=== PATIENT | female | born 1970 | race American Indian/Alaskan Native ===

== ENCOUNTER 2018-06-07 14:14 | Inpatient (IN) | payer MEDICARE, OTHER ==
[2018-06-07 18:08] LABS: BASO # 0.1 K/uL (0.0-0.2); BASO % 0.7 % (0.0-2.0); EOS # 0.1 K/uL (0.0-0.7); EOS % 0.9 % (0.0-4.0); LYMPH # 1.4 K/uL (1.0-4.3); LYMPH % 15.7 % (20.0-40.0); MEAN CORPUSCULAR HEMOGLOBIN 34.6 pg (27.0-31.0); MEAN CORPUSCULAR HGB CONC 33.9 g/dL (33.0-37.0); MEAN PLATELET VOLUME 9.9 fL (7.2-11.7); MONO # 1.3 K/uL (0.0-0.8); MONO % 14.1 % (0.0-10.0); NEUT # 6.3 K/uL (1.8-7.0); NEUT % 68.6 % (50.0-75.0); NRBC % 0.1 % (0.0-2.0); RBC 5.15 Mil/uL (3.80-5.20); RED CELL DISTRIBUTION WIDTH 15.3 % (11.5-14.5); WHITE BLOOD COUNT 9.2 K/uL (4.8-10.8)
[2018-06-07 18:09] LABS: HEMOGLOBIN 17.8 g/dL (11.0-16.0); MEAN CELL VOLUME 101.9 fL (81.0-99.0)
[2018-06-07] MEDS ORDERED: Sodium Chloride 0.9% 1,000 ML IV STA (18:11)
[2018-06-07 18:13] LABS: INR 1.1; PROTHROMBIN TIME 12.3 SECONDS (9.7-12.2)
[2018-06-07 18:16] LABS: ALBUMIN 3.7 g/dL (3.5-5.0); ALT/SGPT 37 U/L (9-52); AMYLASE 65 U/L (30-110); AST/SGOT 55 U/L (14-36); BLOOD UREA NITROGEN 13 mg/dL (7-17); CALCIUM 9.9 mg/dl (8.6-10.4); GFR NON-AFRICAN AMERICAN > 60; LIPASE 44 U/L (23-300)
--- NOTE | 2018-06-07 18:19 | RAD ---
Date of service: 06/07/2018 PROCEDURE: CHEST RADIOGRAPH, 1 VIEW HISTORY: weakness COMPARISON: None available. FINDINGS: LUNGS: Clear. PLEURA: No pneumothorax or pleural fluid seen. CARDIOVASCULAR: No aortic atherosclerotic calcification present. Normal. OSSEOUS STRUCTURES: No significant abnormalities. VISUALIZED UPPER ABDOMEN: Normal. OTHER FINDINGS: None. IMPRESSION: No active disease.
[2018-06-07 18:33] LABS: INFLUENZA A B NEGATIVE FOR FLU A/B (NEGATIVE)
[2018-06-07 18:45] LABS: CK-MB < 0.22 ng/mL (0.0-3.38)
--- NOTE | 2018-06-07 18:47 | C.PDOC ---
History Of Present Illness 47 year old female with no medical history was sent to the ED by her PMD for evaluation of worsening bilateral lower + upper extremity tingling, decreased movement to bilateral lower + upper extremities, and abdominal pain over the course of 2 weeks. Initially the tingling started as muscle pain described as a hot sensation on her lower extremities bilaterally radiating up to her chest associated with nausea, vomiting, watery diarrhea, and decrease in PO intake. Patient notes the muscle pain progressed into tingling of the lower extremities + upper extremities 5 days ago associated with continued diarrhea. She reports changes in vision, "seeing double" that began today. She notes increase in PO intake for the past 2 days. Patient states she had full movement of upper + lower extremities 2 weeks ago, now ambulates with assistance. SHx: section, gastric bypass (12 years ago), and hysterectomy. Denies fever, chills, chest pain, palpitations, headache. Previously seen by PMD. [place] [facility] [place] where she was treated for similar symptoms and had multiple tests run including: CXR: normal as per PMD. CAT Scan ABD: questionable cholelithiasis and lesions as per PMD. MRI: normal as per PMD. <Yanni Pascal - Last Filed: 06/07/18 20:56> History Per: Patient History/Exam Limitations: no limitations Onset/Duration Of Symptoms: Days (x2 weeks) Current Symptoms Are (Timing): Still Present <Yanni Pascal - Last Filed: 06/07/18 20:56> <Shon Diego - Last Filed: 06/07/18 21:05> Time Seen by Provider: 06/07/18 16:47 Chief Complaint (Nursing): Weakness/Neurological Deficit Past Medical History Reviewed: Historical Data, Nursing Documentation, Vital Signs Vital Signs: Last Vital Signs Temp 97.7 F 06/07/18 14:24 Pulse 104 H 06/07/18 14:24 Resp 18 06/07/18 14:24 BP 127/95 H 06/07/18 14:24 Pulse Ox 99 06/07/18 14:24 Family History: States: Unknown Family Hx - Social History Hx Alcohol Use: Yes Hx Substance Use: No - Immunization History Hx Tetanus Toxoid Vaccination: No Hx Influenza Vaccination: No Hx Pneumococcal Vaccination: No <Yanni Pascal - Last Filed: 06/07/18 20:56> Vital Signs: Last Vital Signs Temp 97.7 F 06/07/18 14:24 Pulse 104 H 06/07/18 14:24 Resp 18 06/07/18 14:24 BP 127/95 H 06/07/18 14:24 Pulse Ox 99 06/07/18 20:58 <SulaimanmandieShon - Last Filed: 06/07/18 21:05> Review Of Systems Constitutional: Negative for: Fever, Chills Eyes: Positive for: Vision Change (seeing double. ) Cardiovascular: Negative for: Chest Pain, Palpitations Gastrointestinal: Positive for: Nausea, Vomiting, Abdominal Pain, Diarrhea Neurological: Positive for: Other (bilateral tingling of the lower + upper extremities. ). Negative for: Headache <Yanni Pascal - Last Filed: 06/07/18 20:56> Physical Exam - Physical Exam Appears: No Acute Distress, Chronically Ill Skin: Normal Color, No Rash Head: Atraumatic, Normacephalic Eye(s): bilateral: Normal Inspection, PERRL, EOMI Neck: Normal ROM, Supple Chest: Symmetrical, No Deformity, No Tenderness Cardiovascular: Rhythm Regular, No Edema Respiratory: Normal Breath Sounds, No Accessory Muscle Use, No Rales, No Wheezing Gastrointestinal/Abdominal: Soft, Tenderness (diffuse), No Guarding, No Rebound Rectal: Rectal Tone (decreased) Back: Normal Inspection, No Vertebral Tenderness, No Paraspinal Tenderness Extremity: Tenderness (diffuse b/l), No Deformity, No Swelling Neurological/Psych: Oriented x3, No Normal Speech (slightly slurred), Normal Cognition, Normal Cranial Nerves, No Normal Motor ( in LE), No Normal Sensation (decreased b/l LE and mildly decreased b/l UE), No Normal Reflexes (decreased b/l LE) <Yanni Pascal - Last Filed: 06/07/18 20:56> ED Course And Treatment - Laboratory Results Result Diagrams: 06/07/18 17:57 06/07/18 17:57 O2 Sat by Pulse Oximetry: 99 (RA) Pulse Ox Interpretation: Normal - Other Rad CXR X-Ray: Viewed By Me, Read By Radiologist Interpretation: FINDINGS: LUNGS: Clear. PLEURA: No pneumothorax or pleural fluid seen. CARDIOVASCULAR: No aortic atherosclerotic calcification present. Normal. OSSEOUS STRUCTURES: No significant abnormalities. VISUALIZED UPPER ABDOMEN: Normal. OTHER FINDINGS: None. IMPRESSION: No active disease. - CT Scan/US CT Head Other Rad Studies (CT/US): Read By Radiologist CT/US Interpretation: FINDINGS: BRAIN. No acute intraparenchymal hemorrhage. No mass lesion. No CT evidence for acute territorial infarct. No midline shift or extra-axial collections. VENTRICLES: No hydrocephalus. ORBITS: The orbits are unremarkable. SINUSES AND MASTOIDS: The paranasal sinuses and mastoid air cells are clear. BONES: No fracture. SOFT TISSUES: Unremarkable. IMPRESSION: No acute intracranial abnormality. Progress Note: Plan: CT Head w/o contrast. EKG. Bloos sent. Influenza. Rapid strep. Urinalysis. At 7 pm case was signed out to <Yanni Pascal - Last Filed: 06/07/18 20:56> - Laboratory Results Result Diagrams: 06/07/18 17:57 06/07/18 17:57 <Shon Diego - Last Filed: 06/07/18 21:05> Medical Decision Making Medical Decision Makin:54pm : Spoke with Dr. Flowers regarding patient's case, advised patient be admitted. 8:56pm : Spoke with Dr. Singh regarding patient's case. <Yanni Pascal - Last Filed: 06/07/18 20:56> Medical Decision Making: recieved case as signout pending dispo. ?gbs vs ms vs b12 vs tabes dorsales vs other neurologic disease. csae discusswed with dr flowers. recommends mri/lp. lp attempted. unable to obtains csf. case discussed with icu. will admit case to icu. ir guided lp in am. 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 - Scribe Statement The provider has reviewed the documentation as recorded by the Scribe (Odalis Banks) All medical record entries made by the Scribe were at my direction and personally dictated by me. I have reviewed the chart and agree that the record accurately reflects my personal performance of the history, physical exam, medical decision making, and the department course for this patient. I have also personally directed, reviewed, and agree with the discharge instructions and disposition. <Yanni Pascal - Last Filed: 06/07/18 20:56> Physician Patient Turnover Patient Signed Over To: Shon Diego Handoff Comments: pending labs/CT and dispo <Yanni Pascal - Last Filed: 06/07/18 20:56>
--- NOTE | 2018-06-07 19:04 | CT ---
Date of service: 06/07/2018 PROCEDURE: CT HEAD WITHOUT CONTRAST. HISTORY: LE weakness, paresthesia COMPARISON: None available. TECHNIQUE: Axial computed tomography images were obtained through the head/brain without intravenous contrast. Radiation dose: Total exam DLP = 1065.2 mGy-cm. This CT exam was performed using one or more of the following dose reduction techniques: Automated exposure control, adjustment of the mA and/or kV according to patient size, and/or use of iterative reconstruction technique. FINDINGS: HEMORRHAGE: No intracranial hemorrhage. BRAIN: No mass effect or edema. Volume loss is noted. VENTRICLES: Unremarkable. No hydrocephalus. CALVARIUM: Unremarkable. PARANASAL SINUSES: Unremarkable as visualized. No significant inflammatory changes. MASTOID AIR CELLS: Unremarkable as visualized. No inflammatory changes. OTHER FINDINGS: None. IMPRESSION: Evidence of acute intracranial hemorrhage or territorial infarction.
[2018-06-07 19:21] LABS: FOLATE > 20.0 ng/mL
[2018-06-07 19:24] LABS: URINE BILIRUBIN NEGATIVE (NEGATIVE); URINE BLOOD NEGATIVE (NEGATIVE); URINE CLARITY Clear (Clear); URINE COLOR Yellow (YELLOW); URINE GLUCOSE (UA) NORMAL (Normal); URINE LEUKOCYTE ESTERASE NEG Leu/uL (Negative); URINE PROTEIN NEGATIVE (NEGATIVE); URINE UROBILINOGEN NORMAL mg/dL (0.2-1.0)
[2018-06-07 19:37] LABS: BARBITURATES, UR NEGATIVE (NEGATIVE); BENZODIAZEPINES, UR NEGATIVE (NEGATIVE); OPIATES, UR NEGATIVE (NEGATIVE); PHENCYCLIDINE, UR NEGATIVE (NEGATIVE)
--- NOTE | 2018-06-07 20:45 | CP.PCM.CON ---
History of Present Illness - History of Present Illness History of Present Illness: 47 year old female with no medical history was sent to the ED by her PMD for evaluation of worsening bilateral lower and upper extremity tingling, decreased movement , and abdominal pain over the course of 3-4 weeks. Initially the patient had hot sensation in lower extremities(legs) which started 3-4 wks ago followed by feeling sore,pin prick sensation,Heavy and "freezing like a stone", unsteady gait.She was unable to walk today.symptoms are in the legs and does not involve thighs.Also complains of numbness, stiffness of hands x 1 wk. . 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 She also had abdominal pain,nausea,vomiting with poor appetite and burning ur ination.The appetite has improved the past few days. No incontenance of bladder or bowel had [place] [facility] [place] where she was treated for similar symptoms .She was told she had a UTI given antibiotic which she stopped due to nausea. Didnot fill the prescription for the 2nd antibiotic. She was also given Vit B12 supplement .She had a CT scan done at [facility] which was abnormal and had a follow up MRI, results of which are not available at present time H/o Caesarian section 23 yrs ago,hysterectomy 4-5 yrs ago,gastric bypass 12 yrs ago patient has been non compliant with supplements x 1 year Review of Systems - Constitutional Constitutional: Anorexia, Fatigue, Weakness. absent: Fever - EENT Eyes: Blurred Vision, Diplopia Ears: absent: Decreased Hearing, Dizziness Nose/Mouth/Throat: absent: Nasal Congestion, Hoarsness, Sore Throat - Cardiovascular Cardiovascular: absent: Chest Pain, Leg Edema, Rapid Heart Rate - Respiratory Respiratory: absent: Cough, Dyspnea - Gastrointestinal Gastrointestinal: Abdominal Pain, Nausea, Vomiting - Musculoskeletal Musculoskeletal: Muscle Weakness, Numbness. absent: Back Pain - Integumentary Integumentary: absent: Pruritus, Rash - Neurological Neurological: Numbness, Focal Weakness. absent: Abnormal Speech Additional comments: weakness of lower extremities(lower legs) and hands - Psychiatric Psychiatric: absent: Confusion - Endocrine Endocrine: Fatigue. 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 Alcohol: Social Drugs: Denies - PSYCHIATRIC Hx Substance Use: No - SURGICAL HISTORY Hx Section: Yes Hx Gastric Bypass Surgery: Yes Hx Hysterectomy: Yes - ANESTHESIA Hx Anesthesia: Yes Hx Anesthesia Reactions: No Hx Malignant Hyperthermia: No Meds Allergies/Adverse Reactions: Allergies Allergy/AdvReac Type Severity Reaction Status Date / Time No Known Allergies Allergy Verified 06/07/18 14:29 Physical Exam - Constitutional Appears: No Acute Distress, Chronically Ill - Head Exam Head Exam: ATRAUMATIC, NORMAL INSPECTION, NORMOCEPHALIC - Eye Exam Eye Exam: EOMI, Normal appearance, PERRL - ENT Exam ENT Exam: Mucous Membranes Dry Additional comments: glossy tongue - Neck Exam Neck exam: Positive for: Full Rom, Normal Inspection - Respiratory Exam Respiratory Exam: Clear to Auscultation Bilateral, NORMAL BREATHING PATTERN - Cardiovascular Exam Cardiovascular Exam: REGULAR RHYTHM. absent: JVD - GI/Abdominal Exam GI & Abdominal Exam: Normal Bowel Sounds, Soft Additional comments: diffuse lower abdominal tenderness - Extremities Exam Extremities exam: Positive for: normal inspection. Negative for: calf tenderness, pedal edema - Back Exam Back exam: NORMAL INSPECTION - Neurological Exam Neurological exam: Alert, CN II-XII Intact, Oriented x3 Additional comments: decreased sensation lower legs - Skin Skin Exam: Normal Color, Warm Results - Vital Signs Recent Vital Signs: Last Vital Signs Temp 97.7 F 06/07/18 14:24 Pulse 104 H 06/07/18 14:24 Resp 18 06/07/18 14:24 BP 127/95 H 06/07/18 14:24 Pulse Ox 99 06/07/18 20:00 - Labs Result Diagrams: 06/07/18 17:57 06/07/18 17:57 Labs: Laboratory Results - last 24 hr 06/07/18 06/07/18 06/07/18 17:57 17:57 17:57 WBC 9.2 RBC 5.15 Hgb 17.8 H D Hct 52.5 H MCV 101.9 H D MCH 34.6 H MCHC 33.9 RDW 15.3 H Plt Count 375 MPV 9.9 Neut % (Auto) 68.6 Lymph % (Auto) 15.7 L [place] % (Auto) 14.1 H Eos % (Auto) 0.9 Baso % (Auto) 0.7 Neut # (Auto) 6.3 Lymph # (Auto) 1.4 [place] # (Auto) 1.3 H Eos # (Auto) 0.1 Baso # (Auto) 0.1 PT 12.3 H INR 1.1 APTT 35 H Sodium 138 Potassium 4.0 Chloride 96 L Carbon Dioxide 30 Anion Gap 16 BUN 13 Creatinine 0.6 L Est GFR ( Amer) > 60 Est GFR (Non-Af Amer) > 60 Random Glucose 103 Lactic Acid Calcium 9.9 Magnesium 1.6 Total Bilirubin 1.0 AST 55 H ALT 37 Alkaline Phosphatase 75 Total Creatine Kinase 54 CK-MB (Mass) < 0.22 Troponin I < 0.0120 Total Protein 7.7 Albumin 3.7 Globulin 3.9 Albumin/Globulin Ratio 1.0 Amylase 65 Lipase 44 Vitamin B12 > 1000 H Folate > 20.0 Urine Color Urine Clarity Urine pH Ur Specific [place] Urine Protein Urine Glucose (UA) Urine Ketones Urine Blood Urine Nitrate Urine Bilirubin Urine Urobilinogen Ur Leukocyte Esterase Urine WBC (Auto) Urine RBC (Auto) Urine Opiates Screen Urine Methadone Screen Ur Barbiturates Screen Ur Phencyclidine Scrn Ur Amphetamines Screen U Benzodiazepines Scrn U Oth Cocaine Metabols U Cannabinoids Screen HIV 1&2 Antibody Screen Influenza Typ A,B (EIA) 06/07/18 06/07/18 06/07/18 17:57 18:18 18:36 WBC RBC Hgb Hct MCV MCH MCHC RDW Plt Count MPV Neut % (Auto) Lymph % (Auto) [place] % (Auto) Eos % (Auto) Baso % (Auto) Neut # (Auto) Lymph # (Auto) [place] # (Auto) Eos # (Auto) Baso # (Auto) PT INR APTT Sodium Potassium Chloride Carbon Dioxide Anion Gap BUN Creatinine Est GFR ( Amer) Est GFR (Non-Af Amer) Random Glucose Lactic Acid 1.8 Calcium Magnesium Total Bilirubin AST ALT Alkaline Phosphatase Total Creatine Kinase CK-MB (Mass) Troponin I Total Protein Albumin Globulin Albumin/Globulin Ratio Amylase Lipase Vitamin B12 Folate Urine Color Urine Clarity Urine pH Ur Specific [place] Urine Protein Urine Glucose (UA) Urine Ketones Urine Blood Urine Nitrate Urine Bilirubin Urine Urobilinogen Ur Leukocyte Esterase Urine WBC (Auto) Urine RBC (Auto) Urine Opiates Screen Urine Methadone Screen Ur Barbiturates Screen Ur Phencyclidine Scrn Ur Amphetamines Screen U Benzodiazepines Scrn U Oth Cocaine Metabols U Cannabinoids Screen HIV 1&2 Antibody Screen Negative Influenza Typ A,B (EIA) Negative for flu a/b 06/07/18 06/07/18 19:08 19:08 WBC RBC Hgb Hct MCV MCH MCHC RDW Plt Count MPV Neut % (Auto) Lymph % (Auto) [place] % (Auto) Eos % (Auto) Baso % (Auto) Neut # (Auto) Lymph # (Auto) [place] # (Auto) Eos # (Auto) Baso # (Auto) PT INR APTT Sodium Potassium Chloride Carbon Dioxide Anion Gap BUN Creatinine Est GFR ( Amer) Est GFR (Non-Af Amer) Random Glucose Lactic Acid Calcium Magnesium Total Bilirubin AST ALT Alkaline Phosphatase Total Creatine Kinase CK-MB (Mass) Troponin I Total Protein Albumin Globulin Albumin/Globulin Ratio Amylase Lipase Vitamin B12 Folate Urine Color Yellow Urine Clarity Clear Urine pH 7.0 Ur Specific [place] 1.008 Urine Protein Negative Urine Glucose (UA) Normal Urine Ketones Negative Urine Blood Negative Urine Nitrate Negative Urine Bilirubin Negative Urine Urobilinogen Normal Ur Leukocyte Esterase Neg Urine WBC (Auto) < 1 Urine RBC (Auto) < 1 Urine Opiates Screen Negative Urine Methadone Screen Negative Ur Barbiturates Screen Negative Ur Phencyclidine Scrn Negative Ur Amphetamines Screen Negative U Benzodiazepines Scrn Negative U Oth Cocaine Metabols Negative U Cannabinoids Screen Negative HIV 1&2 Antibody Screen Influenza Typ A,B (EIA) - Imaging and Cardiology CT scan - head Status: Image reviewed by me, Report reviewed by me Chest x-ray Status: Image reviewed by me, Report reviewed by me Assessment & Plan - Assessment and Plan (Free Text) Assessment: 1.Peripheral Neuropathy h/o Gastric bypass R/o Vitamin deficiency vs demyelinating disease.B12 level normal,no anemia ER physician discussed with Neurologist and attempted Spinal tap to R/o MS/Rg [place].For IR guided spinal tap in am MRI brain and Lumbar spine as recommended by Neurology 2.UTI-f/u with urine culture 3.Abdominal pain- will try to obtain recent MRI results
[2018-06-07] MEDS ORDERED: Dextrose 5%/0.9% NS 1,000 ML IV ONE (21:03)
[2018-06-07 21:22] LABS: RAPID PLASMA REAGIN NONREACTIVE (NONREACTIVE)
[2018-06-08 01:12] LABS: FLUID TYPE SPINAL FLUID
[2018-06-08 02:12] LABS: CSF APPEARANCE CLEAR/COLORLESS (CLEAR); CSF VOLUME 2 mL (0-1)
--- NOTE | 2018-06-08 02:37 | CP.PCM.HP ---
<Anuja Blanco Y - Last Filed: 06/08/18 02:28> History of Present Illness - History of Present Illness History of Present Illness: cc: "my hands and feet are dumb" Ms. Pinzon is a 47 year old female with unknown PMH complains of 2 weeks of numbness and tingling in her hands and feet. Initially, the muscle pain was just in her fingertips and bottoms of her feet. It has traveled more proximal over the last two weeks. She has been seen twice at [facility] for this issue, where they have done CT and MRI of her abdominal area. She is no longer able to ambulate, even with assistance. She has noticed a 10lb weight loss from decreased appetite and early satiety. Denies fever, chills, chest pain, headache. Admits to extreme fatigue and weakness. PMD: [place] PMH: unknown Med: Vit B12 1000mcg po daily All: NKDA PSxHx: gastric bypass (12 years ago), , hysterectomy FamHx: unknown SocHx: 1-2 drinks/week socially, denies tobacco. Lives by herself with dog. 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 Present on Admission - Present on Admission Any Indicators Present on Admission: No Review of Systems - Constitutional Constitutional: Weight Loss. absent: Increased Appetite - Gastrointestinal Gastrointestinal: Vomiting. absent: Diarrhea Past Patient History - Past Medical History & Family History Past Medical History?: Yes - Past Social History Smoking Status: Never Smoked Alcohol: Social - MUSCULOSKELETAL/RHEUMATOLOGICAL Hx Falls: No - PSYCHIATRIC Hx Substance Use: No - SURGICAL HISTORY Hx Section: Yes Hx Gastric Bypass Surgery: Yes Hx Hysterectomy: Yes - ANESTHESIA Hx Anesthesia: Yes Hx Anesthesia Reactions: No Hx Malignant Hyperthermia: No Has any member of the family had a problem w/ anesthesia?: No Meds Allergies/Adverse Reactions: Allergies Allergy/AdvReac Type Severity Reaction Status Date / Time No Known Allergies Allergy Verified 06/07/18 14:29 Physical Exam - Constitutional Appears: Non-toxic, No Acute Distress - Head Exam Head Exam: ATRAUMATIC, NORMOCEPHALIC - Eye Exam Eye Exam: EOMI, PERRL Pupil Exam: NORMAL ACCOMODATION - ENT Exam ENT Exam: Mucous Membranes Dry - Respiratory Exam Respiratory Exam: Clear to Auscultation Bilateral, NORMAL BREATHING PATTERN. absent: Rales, Rhonchi, Wheezes - Cardiovascular Exam Cardiovascular Exam: REGULAR RHYTHM, +S1, +S2 - GI/Abdominal Exam GI & Abdominal Exam: Normal Bowel Sounds, Soft. absent: Tenderness - Extremities Exam Extremities exam: Positive for: calf tenderness, normal capillary refill, tenderness, pedal pulses present. Negative for: pedal edema - Back Exam Additional comments: bandaid over LP attempt - Neurological Exam Neurological exam: Alert, Oriented x3 - Expanded Neurological Exam Expanded Patient oriented to: person, place, time Speech: Fluid Speech Cranial nerves: EOM's Intact: Normal, Facial Palsey w/Forehead Movement: Normal, Facial Palsey w/o Forehead Movement: Normal, Facial Sensation: Normal, Tongue Deviation: Normal Cerebellar Function: Heel to Santos: Abnormal Left, Abnormal Right (unable to lift leg to knee) Upper motor neuron: Pronator Drift: Normal Sensory exam: Lower Extremity Light Touch: Abnormal Left, Abnormal Right (loss of sensation, loss of propioception), Upper Extremity Light Touch: Abnormal Left, Abnormal Right (decreased sensation, loss of proprioception) Neuro motor strength exam: Left Upper Extremity: 3 (unable to control fine hand movements), Right Upper Extremity: 3 (unable to control fine hand movements), Left Lower Extremity: 2/1 (couldn't hold above bed for more than 3 sec), Right Lower Extremity: 2/1 (couldn't hold above bed for more than 3 sec) DTR: Brachioradialis Left: 2+, Brachioradialis Right: 2+, Patellar Left: 1+, Patellar Right: 1+, Tricep Left: 2+, Tricep Right: 2+ Coma Scale Eye Opening: SPONTANEOUS Coma Scale Motor Response: OBEYS COMMANDS Coma Scale Verbal: Oriented Coma Scale Total: 15 - Psychiatric Exam Psychiatric exam: Agitated, Anxious - Skin Skin Exam: Normal Color, Warm Additional comments: many tattoos Results - Vital Signs Recent Vital Signs: Last Vital Signs Temp 97.7 F 06/07/18 14:24 Pulse 92 H 06/08/18 01:00 Resp 20 06/08/18 01:00 BP 138/89 06/08/18 00:43 Pulse Ox 98 06/08/18 01:00 - Labs Result Diagrams: 06/07/18 17:57 06/07/18 17:57 Labs: Laboratory Results - last 24 hr 06/07/18 06/07/18 06/07/18 17:57 17:57 17:57 WBC 9.2 RBC 5.15 Hgb 17.8 H D Hct 52.5 H MCV 101.9 H D MCH 34.6 H MCHC 33.9 RDW 15.3 H Plt Count 375 MPV 9.9 Neut % (Auto) 68.6 Lymph % (Auto) 15.7 L Hudson % (Auto) 14.1 H Eos % (Auto) 0.9 Baso % (Auto) 0.7 Neut # (Auto) 6.3 Lymph # (Auto) 1.4 Hudson # (Auto) 1.3 H Eos # (Auto) 0.1 Baso # (Auto) 0.1 PT 12.3 H INR 1.1 APTT 35 H Sodium 138 Potassium 4.0 Chloride 96 L Carbon Dioxide 30 Anion Gap 16 BUN 13 Creatinine 0.6 L Est GFR ( Amer) > 60 Est GFR (Non-Af Amer) > 60 Random Glucose 103 Lactic Acid Calcium 9.9 Magnesium 1.6 Total Bilirubin 1.0 AST 55 H ALT 37 Alkaline Phosphatase 75 Total Creatine Kinase 54 CK-MB (Mass) < 0.22 Troponin I < 0.0120 Total Protein 7.7 Albumin 3.7 Globulin 3.9 Albumin/Globulin Ratio 1.0 Amylase 65 Lipase 44 Vitamin B12 > 1000 H Folate > 20.0 Homocysteine Urine Color Urine Clarity Urine pH Ur Specific [place] Urine Protein Urine Glucose (UA) Urine Ketones Urine Blood Urine Nitrate Urine Bilirubin Urine Urobilinogen Ur Leukocyte Esterase Urine WBC (Auto) Urine RBC (Auto) Fluid Type CSF Volume CSF Appearance CSF WBC CSF RBC CSF Total Cell Counted CSF Monos/Macrophages CSF Comment CSF Glucose CSF Total Protein Urine Opiates Screen Urine Methadone Screen Ur Barbiturates Screen Ur Phencyclidine Scrn Ur Amphetamines Screen U Benzodiazepines Scrn U Oth Cocaine Metabols U Cannabinoids Screen RPR HIV 1&2 Antibody Screen Influenza Typ A,B (EIA) 06/07/18 06/07/18 06/07/18 17:57 18:18 18:36 WBC RBC Hgb Hct MCV MCH MCHC RDW Plt Count MPV Neut % (Auto) Lymph % (Auto) Hudson % (Auto) Eos % (Auto) Baso % (Auto) Neut # (Auto) Lymph # (Auto) Hudson # (Auto) Eos # (Auto) Baso # (Auto) PT INR APTT Sodium Potassium Chloride Carbon Dioxide Anion Gap BUN Creatinine Est GFR ( Amer) Est GFR (Non-Af Amer) Random Glucose Lactic Acid 1.8 Calcium Magnesium Total Bilirubin AST ALT Alkaline Phosphatase Total Creatine Kinase CK-MB (Mass) Troponin I Total Protein Albumin Globulin Albumin/Globulin Ratio Amylase Lipase Vitamin B12 Folate Homocysteine Urine Color Urine Clarity Urine pH Ur Specific [place] Urine Protein Urine Glucose (UA) Urine Ketones Urine Blood Urine Nitrate Urine Bilirubin Urine Urobilinogen Ur Leukocyte Esterase Urine WBC (Auto) Urine RBC (Auto) Fluid Type CSF Volume CSF Appearance CSF WBC CSF RBC CSF Total Cell Counted CSF Monos/Macrophages CSF Comment CSF Glucose CSF Total Protein Urine Opiates Screen Urine Methadone Screen Ur Barbiturates Screen Ur Phencyclidine Scrn Ur Amphetamines Screen U Benzodiazepines Scrn U Oth Cocaine Metabols U Cannabinoids Screen RPR Nonreactive HIV 1&2 Antibody Screen Negative Influenza Typ A,B (EIA) Negative for flu a/b 06/07/18 06/07/18 06/07/18 19:08 19:08 22:13 WBC RBC Hgb Hct MCV MCH MCHC RDW Plt Count MPV Neut % (Auto) Lymph % (Auto) Hudson % (Auto) Eos % (Auto) Baso % (Auto) Neut # (Auto) Lymph # (Auto) Hudson # (Auto) Eos # (Auto) Baso # (Auto) PT INR APTT Sodium Potassium Chloride Carbon Dioxide Anion Gap BUN Creatinine Est GFR ( Amer) Est GFR (Non-Af Amer) Random Glucose Lactic Acid Calcium Magnesium Total Bilirubin AST ALT Alkaline Phosphatase Total Creatine Kinase CK-MB (Mass) Troponin I Total Protein Albumin Globulin Albumin/Globulin Ratio Amylase Lipase Vitamin B12 Folate Homocysteine 18.4 H Urine Color Yellow Urine Clarity Clear Urine pH 7.0 Ur Specific [place] 1.008 Urine Protein Negative Urine Glucose (UA) Normal Urine Ketones Negative Urine Blood Negative Urine Nitrate Negative Urine Bilirubin Negative Urine Urobilinogen Normal Ur Leukocyte Esterase Neg Urine WBC (Auto) < 1 Urine RBC (Auto) < 1 Fluid Type CSF Volume CSF Appearance CSF WBC CSF RBC CSF Total Cell Counted CSF Monos/Macrophages CSF Comment CSF Glucose CSF Total Protein Urine Opiates Screen Negative Urine Methadone Screen Negative Ur Barbiturates Screen Negative Ur Phencyclidine Scrn Negative Ur Amphetamines Screen Negative U Benzodiazepines Scrn Negative U Oth Cocaine Metabols Negative U Cannabinoids Screen Negative RPR HIV 1&2 Antibody Screen Influenza Typ A,B (EIA) 06/08/18 06/08/18 01:11 01:11 WBC RBC Hgb Hct MCV MCH MCHC RDW Plt Count MPV Neut % (Auto) Lymph % (Auto) Hudson % (Auto) Eos % (Auto) Baso % (Auto) Neut # (Auto) Lymph # (Auto) Hudson # (Auto) Eos # (Auto) Baso # (Auto) PT INR APTT Sodium Potassium Chloride Carbon Dioxide Anion Gap BUN Creatinine Est GFR ( Amer) Est GFR (Non-Af Amer) Random Glucose Lactic Acid Calcium Magnesium Total Bilirubin AST ALT Alkaline Phosphatase Total Creatine Kinase CK-MB (Mass) Troponin I Total Protein Albumin Globulin Albumin/Globulin Ratio Amylase Lipase Vitamin B12 Folate Homocysteine Urine Color Urine Clarity Urine pH Ur Specific [place] Urine Protein Urine Glucose (UA) Urine Ketones Urine Blood Urine Nitrate Urine Bilirubin Urine Urobilinogen Ur Leukocyte Esterase Urine WBC (Auto) Urine RBC (Auto) Fluid Type Spinal fluid CSF Volume 2 H CSF Appearance Clear/colorless CSF WBC 1.0 CSF RBC 317.0 H CSF Total Cell Counted TEST NOT PERFORMED CSF Monos/Macrophages TEST NOT PERFORMED CSF Comment TEST NOT PERFORMED CSF Glucose 61 CSF Total Protein 47.0 Urine Opiates Screen Urine Methadone Screen Ur Barbiturates Screen Ur Phencyclidine Scrn Ur Amphetamines Screen U Benzodiazepines Scrn U Oth Cocaine Metabols U Cannabinoids Screen RPR HIV 1&2 Antibody Screen Influenza Typ A,B (EIA) Assessment & Plan - Assessment and Plan (Free Text) Assessment: 47yo F with unknown PMH admitted for peripheral neuropathy. Patient has been evaluated by PMD and [facility] twice for this issue since 05/26; awaiting records including CT and MRI. Plan: Peripheral Neuropathy - EKG (06/07): NSR - CXR (06/07): no active disease - CT Head (06/07): no acute intracranial hemorrhage or territorial infarction - UDS neg - RPR neg, HIV 1&@ neg, Influenza neg, Trop neg - Amylase 65, Lipase 44 - VitB12 >1000, Folate >20.0, homocysteine 18.4 - f/u FTA-ABS, Lyme, Thiamine - f/u reticulocyte count - f/u MMA, Oligoclonal bands - f/u LP results Hx UTI - UA neg - f/u urine Cx PPx - DVT: - GI: Protonix 20mg po daily - Diet: - PT/OT - Dispo: CM/SW referral placed for discharge planning d/w Dr. Jae Blanco PGY-1 - Date & Time Date: 06/07/18 Time: 21:10 <Landon Rowe - Last Filed: 06/08/18 09:02> Results - Vital Signs Recent Vital Signs: Last Vital Signs Temp 98.2 F 06/08/18 04:00 Pulse 92 H 06/08/18 01:00 Resp 20 06/08/18 01:00 BP 138/89 06/08/18 00:43 Pulse Ox 98 06/08/18 01:00 - Labs Result Diagrams: 06/08/18 06:17 06/08/18 06:17 Labs: Laboratory Results - last 24 hr 06/07/18 06/07/18 06/07/18 17:57 17:57 17:57 WBC 9.2 RBC 5.15 Hgb 17.8 H D Hct 52.5 H MCV 101.9 H D MCH 34.6 H MCHC 33.9 RDW 15.3 H Plt Count 375 MPV 9.9 Neut % (Auto) 68.6 Lymph % (Auto) 15.7 L Hudson % (Auto) 14.1 H Eos % (Auto) 0.9 Baso % (Auto) 0.7 Neut # (Auto) 6.3 Lymph # (Auto) 1.4 Hudson # (Auto) 1.3 H Eos # (Auto) 0.1 Baso # (Auto) 0.1 Retic Count PT 12.3 H INR 1.1 APTT 35 H Sodium 138 Potassium 4.0 Chloride 96 L Carbon Dioxide 30 Anion Gap 16 BUN 13 Creatinine 0.6 L Est GFR ( Amer) > 60 Est GFR (Non-Af Amer) > 60 Random Glucose 103 Lactic Acid Calcium 9.9 Phosphorus Magnesium 1.6 Total Bilirubin 1.0 AST 55 H ALT 37 Alkaline Phosphatase 75 Total Creatine Kinase 54 CK-MB (Mass) < 0.22 Troponin I < 0.0120 Total Protein 7.7 Albumin 3.7 Globulin 3.9 Albumin/Globulin Ratio 1.0 Amylase 65 Lipase 44 Vitamin B12 > 1000 H Folate > 20.0 Homocysteine TSH 3rd Generation Urine Color Urine Clarity Urine pH Ur Specific [place] Urine Protein Urine Glucose (UA) Urine Ketones Urine Blood Urine Nitrate Urine Bilirubin Urine Urobilinogen Ur Leukocyte Esterase Urine WBC (Auto) Urine RBC (Auto) Fluid Type CSF Volume CSF Appearance CSF WBC CSF RBC CSF Total Cell Counted CSF Monos/Macrophages CSF Comment CSF Glucose CSF Total Protein Urine Opiates Screen Urine Methadone Screen Ur Barbiturates Screen Ur Phencyclidine Scrn Ur Amphetamines Screen U Benzodiazepines Scrn U Oth Cocaine Metabols U Cannabinoids Screen RPR HIV 1&2 Antibody Screen Influenza Typ A,B (EIA) 06/07/18 06/07/18 06/07/18 17:57 18:18 18:36 WBC RBC Hgb Hct MCV MCH MCHC RDW Plt Count MPV Neut % (Auto) Lymph % (Auto) Hudson % (Auto) Eos % (Auto) Baso % (Auto) Neut # (Auto) Lymph # (Auto) Hudson # (Auto) Eos # (Auto) Baso # (Auto) Retic Count PT INR APTT Sodium Potassium Chloride Carbon Dioxide Anion Gap BUN Creatinine Est GFR ( Amer) Est GFR (Non-Af Amer) Random Glucose Lactic Acid 1.8 Calcium Phosphorus Magnesium Total Bilirubin AST ALT Alkaline Phosphatase Total Creatine Kinase CK-MB (Mass) Troponin I Total Protein Albumin Globulin Albumin/Globulin Ratio Amylase Lipase Vitamin B12 Folate Homocysteine TSH 3rd Generation Urine Color Urine Clarity Urine pH Ur Specific [place] Urine Protein Urine Glucose (UA) Urine Ketones Urine Blood Urine Nitrate Urine Bilirubin Urine Urobilinogen Ur Leukocyte Esterase Urine WBC (Auto) Urine RBC (Auto) Fluid Type CSF Volume CSF Appearance CSF WBC CSF RBC CSF Total Cell Counted CSF Monos/Macrophages CSF Comment CSF Glucose CSF Total Protein Urine Opiates Screen Urine Methadone Screen Ur Barbiturates Screen Ur Phencyclidine Scrn Ur Amphetamines Screen U Benzodiazepines Scrn U Oth Cocaine Metabols U Cannabinoids Screen RPR Nonreactive HIV 1&2 Antibody Screen Negative Influenza Typ A,B (EIA) Negative for flu a/b 06/07/18 06/07/18 06/07/18 19:08 19:08 22:13 WBC RBC Hgb Hct MCV MCH MCHC RDW Plt Count MPV Neut % (Auto) Lymph % (Auto) Hudson % (Auto) Eos % (Auto) Baso % (Auto) Neut # (Auto) Lymph # (Auto) Hudson # (Auto) Eos # (Auto) Baso # (Auto) Retic Count PT INR APTT Sodium Potassium Chloride Carbon Dioxide Anion Gap BUN Creatinine Est GFR ( Amer) Est GFR (Non-Af Amer) Random Glucose Lactic Acid Calcium Phosphorus Magnesium Total Bilirubin AST ALT Alkaline Phosphatase Total Creatine Kinase CK-MB (Mass) Troponin I Total Protein Albumin Globulin Albumin/Globulin Ratio Amylase Lipase Vitamin B12 Folate Homocysteine 18.4 H TSH 3rd Generation Urine Color Yellow Urine Clarity Clear Urine pH 7.0 Ur Specific [place] 1.008 Urine Protein Negative Urine Glucose (UA) Normal Urine Ketones Negative Urine Blood Negative Urine Nitrate Negative Urine Bilirubin Negative Urine Urobilinogen Normal Ur Leukocyte Esterase Neg Urine WBC (Auto) < 1 Urine RBC (Auto) < 1 Fluid Type CSF Volume CSF Appearance CSF WBC CSF RBC CSF Total Cell Counted CSF Monos/Macrophages CSF Comment CSF Glucose CSF Total Protein Urine Opiates Screen Negative Urine Methadone Screen Negative Ur Barbiturates Screen Negative Ur Phencyclidine Scrn Negative Ur Amphetamines Screen Negative U Benzodiazepines Scrn Negative U Oth Cocaine Metabols Negative U Cannabinoids Screen Negative RPR HIV 1&2 Antibody Screen Influenza Typ A,B (EIA) 06/08/18 06/08/18 06/08/18 01:11 01:11 03:30 WBC RBC Hgb Hct MCV MCH MCHC RDW Plt Count MPV Neut % (Auto) Lymph % (Auto) Hudson % (Auto) Eos % (Auto) Baso % (Auto) Neut # (Auto) Lymph # (Auto) Hudson # (Auto) Eos # (Auto) Baso # (Auto) Retic Count 0.5 PT INR APTT Sodium Potassium Chloride Carbon Dioxide Anion Gap BUN Creatinine Est GFR ( Amer) Est GFR (Non-Af Amer) Random Glucose Lactic Acid Calcium Phosphorus Magnesium Total Bilirubin AST ALT Alkaline Phosphatase Total Creatine Kinase CK-MB (Mass) Troponin I Total Protein Albumin Globulin Albumin/Globulin Ratio Amylase Lipase Vitamin B12 Folate Homocysteine TSH 3rd Generation Urine Color Urine Clarity Urine pH Ur Specific [place] Urine Protein Urine Glucose (UA) Urine Ketones Urine Blood Urine Nitrate Urine Bilirubin Urine Urobilinogen Ur Leukocyte Esterase Urine WBC (Auto) Urine RBC (Auto) Fluid Type Spinal fluid CSF Volume 2 H CSF Appearance Clear/colorless CSF WBC 1.0 CSF RBC 317.0 H CSF Total Cell Counted TEST NOT PERFORMED CSF Monos/Macrophages TEST NOT PERFORMED CSF Comment TEST NOT PERFORMED CSF Glucose 61 CSF Total Protein 47.0 Urine Opiates Screen Urine Methadone Screen Ur Barbiturates Screen Ur Phencyclidine Scrn Ur Amphetamines Screen U Benzodiazepines Scrn U Oth Cocaine Metabols U Cannabinoids Screen RPR HIV 1&2 Antibody Screen Influenza Typ A,B (EIA) 06/08/18 06/08/18 06:17 06:17 WBC 7.8 RBC 4.64 Hgb 16.3 H Hct 47.9 H MCV 103.3 H MCH 35.1 H MCHC 34.0 RDW 15.2 H Plt Count 317 MPV 9.1 Neut % (Auto) 57.2 Lymph % (Auto) 25.9 Hudson % (Auto) 14.3 H Eos % (Auto) 1.9 Baso % (Auto) 0.7 Neut # (Auto) 4.5 Lymph # (Auto) 2.0 Hudson # (Auto) 1.1 H Eos # (Auto) 0.1 Baso # (Auto) 0.1 Retic Count PT INR APTT Sodium 140 Potassium 3.6 Chloride 103 Carbon Dioxide 28 Anion Gap 12 BUN 12 Creatinine 0.4 L Est GFR ( Amer) > 60 Est GFR (Non-Af Amer) > 60 Random Glucose 111 H Lactic Acid Calcium 9.3 Phosphorus 5.0 H Magnesium 1.5 L Total Bilirubin 0.8 AST 49 H ALT 45 Alkaline Phosphatase 91 Total Creatine Kinase CK-MB (Mass) Troponin I Total Protein 7.1 Albumin 3.6 Globulin 3.5 Albumin/Globulin Ratio 1.0 Amylase Lipase Vitamin B12 Folate Homocysteine TSH 3rd Generation 2.56 Urine Color Urine Clarity Urine pH Ur Specific [place] Urine Protein Urine Glucose (UA) Urine Ketones Urine Blood Urine Nitrate Urine Bilirubin Urine Urobilinogen Ur Leukocyte Esterase Urine WBC (Auto) Urine RBC (Auto) Fluid Type CSF Volume CSF Appearance CSF WBC CSF RBC CSF Total Cell Counted CSF Monos/Macrophages CSF Comment CSF Glucose CSF Total Protein Urine Opiates Screen Urine Methadone Screen Ur Barbiturates Screen Ur Phencyclidine Scrn Ur Amphetamines Screen U Benzodiazepines Scrn U Oth Cocaine Metabols U Cannabinoids Screen RPR HIV 1&2 Antibody Screen Influenza Typ A,B (EIA) Attending/Attestation - Attestation I have personally seen and examined this patient.: Yes I have fully participated in the care of the patient.: Yes I have reviewed all pertinent clinical information: Yes Notes (Text): 06/08/18 08:51 Peripheral neuropathy mainly sensory more in feet then hands in last 2 wks, Weakness less likely neurological then generalised, Patient clinically malnourished, dehydrated, loss of temporal fat pads,. No lower ext reflexes, upper ext only left bicep/brachiallis reflex Lab abnormalities of macrocytosis, elevated b12, polycythemia? etiology, Abnormal CT abd with ring enhanncing lesion s/p MRI in [facility] will need to be fo llowed up. Plan LP done f/u oligoclonnal bands MRI head/spine F/u MRI of liver form [facility] W/u for polycythemia, will order iron, tibc, hematolgtology eval IV vitamins, ivf Neurology consulted Gi/DVT prophylaxis see orders for detail, patient being admitted to ICU till progress assessed.
[2018-06-08 06:20] LABS: BASO # 0.1 K/uL (0.0-0.2); BASO % 0.7 % (0.0-2.0); EOS # 0.1 K/uL (0.0-0.7); EOS % 1.9 % (0.0-4.0); HEMOGLOBIN 16.3 g/dL (11.0-16.0); LYMPH % 25.9 % (20.0-40.0); MEAN CELL VOLUME 103.3 fL (81.0-99.0); MEAN CORPUSCULAR HEMOGLOBIN 35.1 pg (27.0-31.0); MEAN PLATELET VOLUME 9.1 fL (7.2-11.7); MONO # 1.1 K/uL (0.0-0.8); MONO % 14.3 % (0.0-10.0); NEUT # 4.5 K/uL (1.8-7.0); NEUT % 57.2 % (50.0-75.0); NRBC % 0.1 % (0.0-2.0); RBC 4.64 Mil/uL (3.80-5.20); RED CELL DISTRIBUTION WIDTH 15.2 % (11.5-14.5); WHITE BLOOD COUNT 7.8 K/uL (4.8-10.8)
[2018-06-08 07:11] LABS: ALBUMIN 3.6 g/dL (3.5-5.0); ALT/SGPT 45 U/L (9-52); AST/SGOT 49 U/L (14-36); BLOOD UREA NITROGEN 12 mg/dL (7-17); CALCIUM 9.3 mg/dl (8.6-10.4); GFR NON-AFRICAN AMERICAN > 60
--- NOTE | 2018-06-08 08:11 | CP.CCUPN ---
<Jean-Claude Lamb - Last Filed: 06/08/18 15:16> CCU Subjective - Physician Review Subjective (Free Text): 06/08/18 08:11 PGY-1 Critical Care Progress Note for Dr. Luis Patient seen and examined at bedside this AM, s/p lumbar tap. No acute events reported overnight. Continues to have symmetric LE weakness/numbness. 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 Patient alert and oriented but very fatigued. Presented to [facility] for similar symptoms recently but never had MRI of head done. Awaiting further imaging and neuro recs. No fevers/chills, headaches, dizziness, chest pain, palpitations, sob, cough, abdominal pain, n/v/d/c, dysuria. Critical Care Time Spent (in minutes): 35 CCU Objective - Vital Signs / Intake & Output Intake and Output (Last 8hrs): Intake & Output 06/07/18 06/08/18 06/08/18 22:59 06:59 14:59 Intake Total 375 Balance 375 Weight 123 lb Intake: Intake, IV Amount 375 Right Hand 375 Oral 0 Other: Voiding Method Bedpan # Voids Urine, Voided 0 - Physical Exam Head: Positive for: Atraumatic, Normocephalic Pupils: Positive for: PERRL Extroacular Muscles: Positive for: EOMI Conjunctiva: Positive for: Normal Mouth: Positive for: Moist Mucous Membranes Neck: Positive for: Normal Range of Motion Respiratory/Chest: Positive for: Clear to Auscultation, Good Air Exchange. Negative for: Respiratory Distress, Accessory Muscle Use, Wheezes, Rales, Retracting, Rhonchi Cardiovascular: Positive for: Normal S1, S2, Tachycardic Abdomen: Positive for: Normal Bowel Sounds. 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 Negative for: Cyanosis, Edema, Tenderness, Swelling Lower Extremity: Positive for: Normal Inspection, NORMAL PULSES, Capillary Refill < 2 s (Decreased sensation b/l LE, motor strength 1/5 b/l LE). Negative for: Edema, CALF TENDERNESS, Cyanosis, Swelling Neurological: Positive for: Speech Normal Skin: Positive for: Warm, Dry, Normal Color. Negative for: Rashes Psychiatric: Positive for: Alert, Oriented x 3 - Medications Active Medications: Active Medications Generic Name Dose Route Start Last Admin Trade Name Rahulq PRN Reason Stop Dose Admin Multivitamins/Vitamin C 10 ml/ 1,010 mls @ 75 mls/hr 06/08/18 10:27 Dextrose/Sodium Chloride IV 06/08/18 23:54 .[id number] ONE Pantoprazole Sodium 20 mg 06/08/18 10:00 Protonix Ec Tab PO DAILY SUNITA - Patient Studies Lab Studies: Lab Studies 06/08/18 06/08/18 06/08/18 Range/Units 06:17 06:17 03:30 WBC 7.8 (4.8-10.8) K/uL RBC 4.64 (3.80-5.20) Mil/uL Hgb 16.3 H (11.0-16.0) g/dL Hct 47.9 H (34.0-47.0) % MCV 103.3 H (81.0-99.0) fL MCH 35.1 H (27.0-31.0) pg MCHC 34.0 (33.0-37.0) g/dL RDW 15.2 H (11.5-14.5) % Plt Count 317 (130-400) K/uL MPV 9.1 (7.2-11.7) fL Neut % (Auto) 57.2 (50.0-75.0) % Lymph % (Auto) 25.9 (20.0-40.0) % Bond % (Auto) 14.3 H (0.0-10.0) % Eos % (Auto) 1.9 (0.0-4.0) % Baso % (Auto) 0.7 (0.0-2.0) % Neut # (Auto) 4.5 (1.8-7.0) K/uL Lymph # (Auto) 2.0 (1.0-4.3) K/uL Bond # (Auto) 1.1 H (0.0-0.8) K/uL Eos # (Auto) 0.1 (0.0-0.7) K/uL Baso # (Auto) 0.1 (0.0-0.2) K/uL Retic Count 0.5 (0.5-1.5) % PT (9.7-12.2) SECONDS INR APTT (21-34) SECONDS Sodium 140 (132-148) mmol/L Potassium 3.6 (3.6-5.2) mmol/L Chloride 103 (98-107) mmol/L Carbon Dioxide 28 (22-30) mmol/L Anion Gap 12 (10-20) BUN 12 (7-17) mg/dL Creatinine 0.4 L (0.7-1.2) mg/dL Est GFR ( Amer) > 60 Est GFR (Non-Af Amer) > 60 Random Glucose 111 H (65-105) mg/dL Lactic Acid (0.7-2.1) mmol/L Calcium 9.3 (8.6-10.4) mg/dl Phosphorus 5.0 H (2.5-4.5) mg/dL Magnesium 1.5 L (1.6-2.3) mg/dL Total Bilirubin 0.8 (0.2-1.3) mg/dL AST 49 H (14-36) U/L ALT 45 (9-52) U/L Alkaline Phosphatase 91 (38-126) U/L Total Creatine Kinase (30-135) U/L CK-MB (Mass) (0.0-3.38) ng/mL Troponin I (0.00-0.120) ng/mL Total Protein 7.1 (6.3-8.3) g/dL Albumin 3.6 (3.5-5.0) g/dL Globulin 3.5 (2.2-3.9) gm/dL Albumin/Globulin Ratio 1.0 (1.0-2.1) Amylase (30-110) U/L Lipase (23-300) U/L Vitamin B12 (239-931) pg/mL Folate ng/mL Homocysteine (4.7-12.6) umol/L TSH 3rd Generation 2.56 (0.46-4.68) mIU/L Urine Color (YELLOW) Urine Clarity (Clear) Urine pH (5.0-8.0) Ur Specific Geraldine (1.003-1.030) Urine Protein (NEGATIVE) mg/dL Urine Glucose (UA) (Normal) mg/dL Urine Ketones (NEGATIVE) mg/dL Urine Blood (NEGATIVE) Urine Nitrate (NEGATIVE) Urine Bilirubin (NEGATIVE) Urine Urobilinogen (0.2-1.0) mg/dL Ur Leukocyte Esterase (Negative) Tmoas/uL Urine WBC (Auto) (0-5) /hpf Urine RBC (Auto) (0-3) /hpf Fluid Type CSF Volume (0-1) mL CSF Appearance (CLEAR) CSF WBC (0.0-5.0) /mm3 CSF RBC (0.0-0.0) /mm3 CSF Total Cell Counted CSF Monos/Macrophages CSF Comment CSF Glucose (40-70) mg/dL CSF Total Protein (12-60) mg/dL Urine Opiates Screen (NEGATIVE) Urine Methadone Screen (NEGATIVE) Ur Barbiturates Screen (NEGATIVE) Ur Phencyclidine Scrn (NEGATIVE) Ur Amphetamines Screen (NEGATIVE) U Benzodiazepines Scrn (NEGATIVE) U Oth Cocaine Metabols (NEGATIVE) U Cannabinoids Screen (NEGATIVE) RPR (NONREACTIVE) HIV 1&2 Antibody Screen (NEGATIVE) Influenza Typ A,B (EIA) (NEGATIVE) 06/08/18 06/08/18 06/07/18 Range/Units 01:11 01:11 22:13 WBC (4.8-10.8) K/uL RBC (3.80-5.20) Mil/uL Hgb (11.0-16.0) g/dL Hct (34.0-47.0) % MCV (81.0-99.0) fL MCH (27.0-31.0) pg MCHC (33.0-37.0) g/dL RDW (11.5-14.5) % Plt Count (130-400) K/uL MPV (7.2-11.7) fL Neut % (Auto) (50.0-75.0) % Lymph % (Auto) (20.0-40.0) % Bond % (Auto) (0.0-10.0) % Eos % (Auto) (0.0-4.0) % Baso % (Auto) (0.0-2.0) % Neut # (Auto) (1.8-7.0) K/uL Lymph # (Auto) (1.0-4.3) K/uL Bond # (Auto) (0.0-0.8) K/uL Eos # (Auto) (0.0-0.7) K/uL Baso # (Auto) (0.0-0.2) K/uL Retic Count (0.5-1.5) % PT (9.7-12.2) SECONDS INR APTT (21-34) SECONDS Sodium (132-148) mmol/L Potassium (3.6-5.2) mmol/L Chloride (98-107) mmol/L Carbon Dioxide (22-30) mmol/L Anion Gap (10-20) BUN (7-17) mg/dL Creatinine (0.7-1.2) mg/dL Est GFR ( Amer) Est GFR (Non-Af Amer) Random Glucose (65-105) mg/dL Lactic Acid (0.7-2.1) mmol/L Calcium (8.6-10.4) mg/dl Phosphorus (2.5-4.5) mg/dL Magnesium (1.6-2.3) mg/dL Total Bilirubin (0.2-1.3) mg/dL AST (14-36) U/L ALT (9-52) U/L Alkaline Phosphatase (38-126) U/L Total Creatine Kinase (30-135) U/L CK-MB (Mass) (0.0-3.38) ng/mL Troponin I (0.00-0.120) ng/mL Total Protein (6.3-8.3) g/dL Albumin (3.5-5.0) g/dL Globulin (2.2-3.9) gm/dL Albumin/Globulin Ratio (1.0-2.1) Amylase (30-110) U/L Lipase (23-300) U/L Vitamin B12 (239-931) pg/mL Folate ng/mL Homocysteine 18.4 H (4.7-12.6) umol/L TSH 3rd Generation (0.46-4.68) mIU/L Urine Color (YELLOW) Urine Clarity (Clear) Urine pH (5.0-8.0) Ur Specific Geraldine (1.003-1.030) Urine Protein (NEGATIVE) mg/dL Urine Glucose (UA) (Normal) mg/dL Urine Ketones (NEGATIVE) mg/dL Urine Blood (NEGATIVE) Urine Nitrate (NEGATIVE) Urine Bilirubin (NEGATIVE) Urine Urobilinogen (0.2-1.0) mg/dL Ur Leukocyte Esterase (Negative) Tomas/uL Urine WBC (Auto) (0-5) /hpf Urine RBC (Auto) (0-3) /hpf Fluid Type Spinal fluid CSF Volume 2 H (0-1) mL CSF Appearance Clear/colorless (CLEAR) CSF WBC 1.0 (0.0-5.0) /mm3 CSF RBC 317.0 H (0.0-0.0) /mm3 CSF Total Cell Counted TEST NOT PERFORMED CSF Monos/Macrophages TEST NOT PERFORMED CSF Comment TEST NOT PERFORMED CSF Glucose 61 (40-70) mg/dL CSF Total Protein 47.0 (12-60) mg/dL Urine Opiates Screen (NEGATIVE) Urine Methadone Screen (NEGATIVE) Ur Barbiturates Screen (NEGATIVE) Ur Phencyclidine Scrn (NEGATIVE) Ur Amphetamines Screen (NEGATIVE) U Benzodiazepines Scrn (NEGATIVE) U Oth Cocaine Metabols (NEGATIVE) U Cannabinoids Screen (NEGATIVE) RPR (NONREACTIVE) HIV 1&2 Antibody Screen (NEGATIVE) Influenza Typ A,B (EIA) (NEGATIVE) 06/07/18 06/07/18 06/07/18 Range/Units 19:08 19:08 18:36 WBC (4.8-10.8) K/uL RBC (3.80-5.20) Mil/uL Hgb (11.0-16.0) g/dL Hct (34.0-47.0) % MCV (81.0-99.0) fL MCH (27.0-31.0) pg MCHC (33.0-37.0) g/dL RDW (11.5-14.5) % Plt Count (130-400) K/uL MPV (7.2-11.7) fL Neut % (Auto) (50.0-75.0) % Lymph % (Auto) (20.0-40.0) % Bond % (Auto) (0.0-10.0) % Eos % (Auto) (0.0-4.0) % Baso % (Auto) (0.0-2.0) % Neut # (Auto) (1.8-7.0) K/uL Lymph # (Auto) (1.0-4.3) K/uL Bond # (Auto) (0.0-0.8) K/uL Eos # (Auto) (0.0-0.7) K/uL Baso # (Auto) (0.0-0.2) K/uL Retic Count (0.5-1.5) % PT (9.7-12.2) SECONDS INR APTT (21-34) SECONDS Sodium (132-148) mmol/L Potassium (3.6-5.2) mmol/L Chloride (98-107) mmol/L Carbon Dioxide (22-30) mmol/L Anion Gap (10-20) BUN (7-17) mg/dL Creatinine (0.7-1.2) mg/dL Est GFR ( Amer) Est GFR (Non-Af Amer) Random Glucose (65-105) mg/dL Lactic Acid (0.7-2.1) mmol/L Calcium (8.6-10.4) mg/dl Phosphorus (2.5-4.5) mg/dL Magnesium (1.6-2.3) mg/dL Total Bilirubin (0.2-1.3) mg/dL AST (14-36) U/L ALT (9-52) U/L Alkaline Phosphatase (38-126) U/L Total Creatine Kinase (30-135) U/L CK-MB (Mass) (0.0-3.38) ng/mL Troponin I (0.00-0.120) ng/mL Total Protein (6.3-8.3) g/dL Albumin (3.5-5.0) g/dL Globulin (2.2-3.9) gm/dL Albumin/Globulin Ratio (1.0-2.1) Amylase (30-110) U/L Lipase (23-300) U/L Vitamin B12 (239-931) pg/mL Folate ng/mL Homocysteine (4.7-12.6) umol/L TSH 3rd Generation (0.46-4.68) mIU/L Urine Color Yellow (YELLOW) Urine Clarity Clear (Clear) Urine pH 7.0 (5.0-8.0) Ur Specific Geraldine 1.008 (1.003-1.030) Urine Protein Negative (NEGATIVE) mg/dL Urine Glucose (UA) Normal (Normal) mg/dL Urine Ketones Negative (NEGATIVE) mg/dL Urine Blood Negative (NEGATIVE) Urine Nitrate Negative (NEGATIVE) Urine Bilirubin Negative (NEGATIVE) Urine Urobilinogen Normal (0.2-1.0) mg/dL Ur Leukocyte Esterase Neg (Negative) Tomas/uL Urine WBC (Auto) < 1 (0-5) /hpf Urine RBC (Auto) < 1 (0-3) /hpf Fluid Type CSF Volume (0-1) mL CSF Appearance (CLEAR) CSF WBC (0.0-5.0) /mm3 CSF RBC (0.0-0.0) /mm3 CSF Total Cell Counted CSF Monos/Macrophages CSF Comment CSF Glucose (40-70) mg/dL CSF Total Protein (12-60) mg/dL Urine Opiates Screen Negative (NEGATIVE) Urine Methadone Screen Negative (NEGATIVE) Ur Barbiturates Screen Negative (NEGATIVE) Ur Phencyclidine Scrn Negative (NEGATIVE) Ur Amphetamines Screen Negative (NEGATIVE) U Benzodiazepines Scrn Negative (NEGATIVE) U Oth Cocaine Metabols Negative (NEGATIVE) U Cannabinoids Screen Negative (NEGATIVE) RPR (NONREACTIVE) HIV 1&2 Antibody Screen Negative (NEGATIVE) Influenza Typ A,B (EIA) (NEGATIVE) 06/07/18 06/07/18 06/07/18 Range/Units 18:18 17:57 17:57 WBC (4.8-10.8) K/uL RBC (3.80-5.20) Mil/uL Hgb (11.0-16.0) g/dL Hct (34.0-47.0) % MCV (81.0-99.0) fL MCH (27.0-31.0) pg MCHC (33.0-37.0) g/dL RDW (11.5-14.5) % Plt Count (130-400) K/uL MPV (7.2-11.7) fL Neut % (Auto) (50.0-75.0) % Lymph % (Auto) (20.0-40.0) % Bond % (Auto) (0.0-10.0) % Eos % (Auto) (0.0-4.0) % Baso % (Auto) (0.0-2.0) % Neut # (Auto) (1.8-7.0) K/uL Lymph # (Auto) (1.0-4.3) K/uL Bond # (Auto) (0.0-0.8) K/uL Eos # (Auto) (0.0-0.7) K/uL Baso # (Auto) (0.0-0.2) K/uL Retic Count (0.5-1.5) % PT (9.7-12.2) SECONDS INR APTT (21-34) SECONDS Sodium 138 (132-148) mmol/L Potassium 4.0 (3.6-5.2) mmol/L Chloride 96 L (98-107) mmol/L Carbon Dioxide 30 (22-30) mmol/L Anion Gap 16 (10-20) BUN 13 (7-17) mg/dL Creatinine 0.6 L (0.7-1.2) mg/dL Est GFR ( Amer) > 60 Est GFR (Non-Af Amer) > 60 Random Glucose 103 (65-105) mg/dL Lactic Acid 1.8 (0.7-2.1) mmol/L Calcium 9.9 (8.6-10.4) mg/dl Phosphorus (2.5-4.5) mg/dL Magnesium 1.6 (1.6-2.3) mg/dL Total Bilirubin 1.0 (0.2-1.3) mg/dL AST 55 H (14-36) U/L ALT 37 (9-52) U/L Alkaline Phosphatase 75 (38-126) U/L Total Creatine Kinase 54 (30-135) U/L CK-MB (Mass) < 0.22 (0.0-3.38) ng/mL Troponin I < 0.0120 (0.00-0.120) ng/mL Total Protein 7.7 (6.3-8.3) g/dL Albumin 3.7 (3.5-5.0) g/dL Globulin 3.9 (2.2-3.9) gm/dL Albumin/Globulin Ratio 1.0 (1.0-2.1) Amylase 65 (30-110) U/L Lipase 44 (23-300) U/L Vitamin B12 > 1000 H (239-931) pg/mL Folate > 20.0 ng/mL Homocysteine (4.7-12.6) umol/L TSH 3rd Generation (0.46-4.68) mIU/L Urine Color (YELLOW) Urine Clarity (Clear) Urine pH (5.0-8.0) Ur Specific Geraldine (1.003-1.030) Urine Protein (NEGATIVE) mg/dL Urine Glucose (UA) (Normal) mg/dL Urine Ketones (NEGATIVE) mg/dL Urine Blood (NEGATIVE) Urine Nitrate (NEGATIVE) Urine Bilirubin (NEGATIVE) Urine Urobilinogen (0.2-1.0) mg/dL Ur Leukocyte Esterase (Negative) Tomas/uL Urine WBC (Auto) (0-5) /hpf Urine RBC (Auto) (0-3) /hpf Fluid Type CSF Volume (0-1) mL CSF Appearance (CLEAR) CSF WBC (0.0-5.0) /mm3 CSF RBC (0.0-0.0) /mm3 CSF Total Cell Counted CSF Monos/Macrophages CSF Comment CSF Glucose (40-70) mg/dL CSF Total Protein (12-60) mg/dL Urine Opiates Screen (NEGATIVE) Urine Methadone Screen (NEGATIVE) Ur Barbiturates Screen (NEGATIVE) Ur Phencyclidine Scrn (NEGATIVE) Ur Amphetamines Screen (NEGATIVE) U Benzodiazepines Scrn (NEGATIVE) U Oth Cocaine Metabols (NEGATIVE) U Cannabinoids Screen (NEGATIVE) RPR Nonreactive (NONREACTIVE) HIV 1&2 Antibody Screen (NEGATIVE) Influenza Typ A,B (EIA) Negative for flu a/b (NEGATIVE) 06/07/18 06/07/18 Range/Units 17:57 17:57 WBC 9.2 (4.8-10.8) K/uL RBC 5.15 (3.80-5.20) Mil/uL Hgb 17.8 H D (11.0-16.0) g/dL Hct 52.5 H (34.0-47.0) % MCV 101.9 H D (81.0-99.0) fL MCH 34.6 H (27.0-31.0) pg MCHC 33.9 (33.0-37.0) g/dL RDW 15.3 H (11.5-14.5) % Plt Count 375 (130-400) K/uL MPV 9.9 (7.2-11.7) fL Neut % (Auto) 68.6 (50.0-75.0) % Lymph % (Auto) 15.7 L (20.0-40.0) % Bond % (Auto) 14.1 H (0.0-10.0) % Eos % (Auto) 0.9 (0.0-4.0) % Baso % (Auto) 0.7 (0.0-2.0) % Neut # (Auto) 6.3 (1.8-7.0) K/uL Lymph # (Auto) 1.4 (1.0-4.3) K/uL Bond # (Auto) 1.3 H (0.0-0.8) K/uL Eos # (Auto) 0.1 (0.0-0.7) K/uL Baso # (Auto) 0.1 (0.0-0.2) K/uL Retic Count (0.5-1.5) % PT 12.3 H (9.7-12.2) SECONDS INR 1.1 APTT 35 H (21-34) SECONDS Sodium (132-148) mmol/L Potassium (3.6-5.2) mmol/L Chloride (98-107) mmol/L Carbon Dioxide (22-30) mmol/L Anion Gap (10-20) BUN (7-17) mg/dL Creatinine (0.7-1.2) mg/dL Est GFR ( Amer) Est GFR (Non-Af Amer) Random Glucose (65-105) mg/dL Lactic Acid (0.7-2.1) mmol/L Calcium (8.6-10.4) mg/dl Phosphorus (2.5-4.5) mg/dL Magnesium (1.6-2.3) mg/dL Total Bilirubin (0.2-1.3) mg/dL AST (14-36) U/L ALT (9-52) U/L Alkaline Phosphatase (38-126) U/L Total Creatine Kinase (30-135) U/L CK-MB (Mass) (0.0-3.38) ng/mL Troponin I (0.00-0.120) ng/mL Total Protein (6.3-8.3) g/dL Albumin (3.5-5.0) g/dL Globulin (2.2-3.9) gm/dL Albumin/Globulin Ratio (1.0-2.1) Amylase (30-110) U/L Lipase (23-300) U/L Vitamin B12 (239-931) pg/mL Folate ng/mL Homocysteine (4.7-12.6) umol/L TSH 3rd Generation (0.46-4.68) mIU/L Urine Color (YELLOW) Urine Clarity (Clear) Urine pH (5.0-8.0) Ur Specific Geraldine (1.003-1.030) Urine Protein (NEGATIVE) mg/dL Urine Glucose (UA) (Normal) mg/dL Urine Ketones (NEGATIVE) mg/dL Urine Blood (NEGATIVE) Urine Nitrate (NEGATIVE) Urine Bilirubin (NEGATIVE) Urine Urobilinogen (0.2-1.0) mg/dL Ur Leukocyte Esterase (Negative) Tomas/uL Urine WBC (Auto) (0-5) /hpf Urine RBC (Auto) (0-3) /hpf Fluid Type CSF Volume (0-1) mL CSF Appearance (CLEAR) CSF WBC (0.0-5.0) /mm3 CSF RBC (0.0-0.0) /mm3 CSF Total Cell Counted CSF Monos/Macrophages CSF Comment CSF Glucose (40-70) mg/dL CSF Total Protein (12-60) mg/dL Urine Opiates Screen (NEGATIVE) Urine Methadone Screen (NEGATIVE) Ur Barbiturates Screen (NEGATIVE) Ur Phencyclidine Scrn (NEGATIVE) Ur Amphetamines Screen (NEGATIVE) U Benzodiazepines Scrn (NEGATIVE) U Oth Cocaine Metabols (NEGATIVE) U Cannabinoids Screen (NEGATIVE) RPR (NONREACTIVE) HIV 1&2 Antibody Screen (NEGATIVE) Influenza Typ A,B (EIA) (NEGATIVE) Laboratory Results - last 24 hr 06/07/18 06/07/18 06/07/18 17:57 17:57 17:57 WBC 9.2 RBC 5.15 Hgb 17.8 H D Hct 52.5 H MCV 101.9 H D MCH 34.6 H MCHC 33.9 RDW 15.3 H Plt Count 375 MPV 9.9 Neut % (Auto) 68.6 Lymph % (Auto) 15.7 L Bond % (Auto) 14.1 H Eos % (Auto) 0.9 Baso % (Auto) 0.7 Neut # (Auto) 6.3 Lymph # (Auto) 1.4 Bond # (Auto) 1.3 H Eos # (Auto) 0.1 Baso # (Auto) 0.1 Retic Count PT 12.3 H INR 1.1 APTT 35 H Sodium 138 Potassium 4.0 Chloride 96 L Carbon Dioxide 30 Anion Gap 16 BUN 13 Creatinine 0.6 L Est GFR ( Amer) > 60 Est GFR (Non-Af Amer) > 60 Random Glucose 103 Lactic Acid Calcium 9.9 Phosphorus Magnesium 1.6 Total Bilirubin 1.0 AST 55 H ALT 37 Alkaline Phosphatase 75 Total Creatine Kinase 54 CK-MB (Mass) < 0.22 Troponin I < 0.0120 Total Protein 7.7 Albumin 3.7 Globulin 3.9 Albumin/Globulin Ratio 1.0 Amylase 65 Lipase 44 Vitamin B12 > 1000 H Folate > 20.0 Homocysteine TSH 3rd Generation Urine Color Urine Clarity Urine pH Ur Specific Geraldine Urine Protein Urine Glucose (UA) Urine Ketones Urine Blood Urine Nitrate Urine Bilirubin Urine Urobilinogen Ur Leukocyte Esterase Urine WBC (Auto) Urine RBC (Auto) Fluid Type CSF Volume CSF Appearance CSF WBC CSF RBC CSF Total Cell Counted CSF Monos/Macrophages CSF Comment CSF Glucose CSF Total Protein Urine Opiates Screen Urine Methadone Screen Ur Barbiturates Screen Ur Phencyclidine Scrn Ur Amphetamines Screen U Benzodiazepines Scrn U Oth Cocaine Metabols U Cannabinoids Screen RPR HIV 1&2 Antibody Screen Influenza Typ A,B (EIA) 06/07/18 06/07/18 06/07/18 17:57 18:18 18:36 WBC RBC Hgb Hct MCV MCH MCHC RDW Plt Count MPV Neut % (Auto) Lymph % (Auto) Bond % (Auto) Eos % (Auto) Baso % (Auto) Neut # (Auto) Lymph # (Auto) Bond # (Auto) Eos # (Auto) Baso # (Auto) Retic Count PT INR APTT Sodium Potassium Chloride Carbon Dioxide Anion Gap BUN Creatinine Est GFR ( Amer) Est GFR (Non-Af Amer) Random Glucose Lactic Acid 1.8 Calcium Phosphorus Magnesium Total Bilirubin AST ALT Alkaline Phosphatase Total Creatine Kinase CK-MB (Mass) Troponin I Total Protein Albumin Globulin Albumin/Globulin Ratio Amylase Lipase Vitamin B12 Folate Homocysteine TSH 3rd Generation Urine Color Urine Clarity Urine pH Ur Specific Geraldine Urine Protein Urine Glucose (UA) Urine Ketones Urine Blood Urine Nitrate Urine Bilirubin Urine Urobilinogen Ur Leukocyte Esterase Urine WBC (Auto) Urine RBC (Auto) Fluid Type CSF Volume CSF Appearance CSF WBC CSF RBC CSF Total Cell Counted CSF Monos/Macrophages CSF Comment CSF Glucose CSF Total Protein Urine Opiates Screen Urine Methadone Screen Ur Barbiturates Screen Ur Phencyclidine Scrn Ur Amphetamines Screen U Benzodiazepines Scrn U Oth Cocaine Metabols U Cannabinoids Screen RPR Nonreactive HIV 1&2 Antibody Screen Negative Influenza Typ A,B (EIA) Negative for flu a/b 06/07/18 06/07/18 06/07/18 19:08 19:08 22:13 WBC RBC Hgb Hct MCV MCH MCHC RDW Plt Count MPV Neut % (Auto) Lymph % (Auto) Bond % (Auto) Eos % (Auto) Baso % (Auto) Neut # (Auto) Lymph # (Auto) Bond # (Auto) Eos # (Auto) Baso # (Auto) Retic Count PT INR APTT Sodium Potassium Chloride Carbon Dioxide Anion Gap BUN Creatinine Est GFR ( Amer) Est GFR (Non-Af Amer) Random Glucose Lactic Acid Calcium Phosphorus Magnesium Total Bilirubin AST ALT Alkaline Phosphatase Total Creatine Kinase CK-MB (Mass) Troponin I Total Protein Albumin Globulin Albumin/Globulin Ratio Amylase Lipase Vitamin B12 Folate Homocysteine 18.4 H TSH 3rd Generation Urine Color Yellow Urine Clarity Clear Urine pH 7.0 Ur Specific Geraldine 1.008 Urine Protein Negative Urine Glucose (UA) Normal Urine Ketones Negative Urine Blood Negative Urine Nitrate Negative Urine Bilirubin Negative Urine Urobilinogen Normal Ur Leukocyte Esterase Neg Urine WBC (Auto) < 1 Urine RBC (Auto) < 1 Fluid Type CSF Volume CSF Appearance CSF WBC CSF RBC CSF Total Cell Counted CSF Monos/Macrophages CSF Comment CSF Glucose CSF Total Protein Urine Opiates Screen Negative Urine Methadone Screen Negative Ur Barbiturates Screen Negative Ur Phencyclidine Scrn Negative Ur Amphetamines Screen Negative U Benzodiazepines Scrn Negative U Oth Cocaine Metabols Negative U Cannabinoids Screen Negative RPR HIV 1&2 Antibody Screen Influenza Typ A,B (EIA) 06/08/18 06/08/18 06/08/18 01:11 01:11 03:30 WBC RBC Hgb Hct MCV MCH MCHC RDW Plt Count MPV Neut % (Auto) Lymph % (Auto) Bond % (Auto) Eos % (Auto) Baso % (Auto) Neut # (Auto) Lymph # (Auto) Bond # (Auto) Eos # (Auto) Baso # (Auto) Retic Count 0.5 PT INR APTT Sodium Potassium Chloride Carbon Dioxide Anion Gap BUN Creatinine Est GFR ( Amer) Est GFR (Non-Af Amer) Random Glucose Lactic Acid Calcium Phosphorus Magnesium Total Bilirubin AST ALT Alkaline Phosphatase Total Creatine Kinase CK-MB (Mass) Troponin I Total Protein Albumin Globulin Albumin/Globulin Ratio Amylase Lipase Vitamin B12 Folate Homocysteine TSH 3rd Generation Urine Color Urine Clarity Urine pH Ur Specific Geraldine Urine Protein Urine Glucose (UA) Urine Ketones Urine Blood Urine Nitrate Urine Bilirubin Urine Urobilinogen Ur Leukocyte Esterase Urine WBC (Auto) Urine RBC (Auto) Fluid Type Spinal fluid CSF Volume 2 H CSF Appearance Clear/colorless CSF WBC 1.0 CSF RBC 317.0 H CSF Total Cell Counted TEST NOT PERFORMED CSF Monos/Macrophages TEST NOT PERFORMED CSF Comment TEST NOT PERFORMED CSF Glucose 61 CSF Total Protein 47.0 Urine Opiates Screen Urine Methadone Screen Ur Barbiturates Screen Ur Phencyclidine Scrn Ur Amphetamines Screen U Benzodiazepines Scrn U Oth Cocaine Metabols U Cannabinoids Screen RPR HIV 1&2 Antibody Screen Influenza Typ A,B (EIA) 06/08/18 06/08/18 06:17 06:17 WBC 7.8 RBC 4.64 Hgb 16.3 H Hct 47.9 H MCV 103.3 H MCH 35.1 H MCHC 34.0 RDW 15.2 H Plt Count 317 MPV 9.1 Neut % (Auto) 57.2 Lymph % (Auto) 25.9 Bond % (Auto) 14.3 H Eos % (Auto) 1.9 Baso % (Auto) 0.7 Neut # (Auto) 4.5 Lymph # (Auto) 2.0 Bond # (Auto) 1.1 H Eos # (Auto) 0.1 Baso # (Auto) 0.1 Retic Count PT INR APTT Sodium 140 Potassium 3.6 Chloride 103 Carbon Dioxide 28 Anion Gap 12 BUN 12 Creatinine 0.4 L Est GFR ( Amer) > 60 Est GFR (Non-Af Amer) > 60 Random Glucose 111 H Lactic Acid Calcium 9.3 Phosphorus 5.0 H Magnesium 1.5 L Total Bilirubin 0.8 AST 49 H ALT 45 Alkaline Phosphatase 91 Total Creatine Kinase CK-MB (Mass) Troponin I Total Protein 7.1 Albumin 3.6 Globulin 3.5 Albumin/Globulin Ratio 1.0 Amylase Lipase Vitamin B12 Folate Homocysteine TSH 3rd Generation 2.56 Urine Color Urine Clarity Urine pH Ur Specific Geraldine Urine Protein Urine Glucose (UA) Urine Ketones Urine Blood Urine Nitrate Urine Bilirubin Urine Urobilinogen Ur Leukocyte Esterase Urine WBC (Auto) Urine RBC (Auto) Fluid Type CSF Volume CSF Appearance CSF WBC CSF RBC CSF Total Cell Counted CSF Monos/Macrophages CSF Comment CSF Glucose CSF Total Protein Urine Opiates Screen Urine Methadone Screen Ur Barbiturates Screen Ur Phencyclidine Scrn Ur Amphetamines Screen U Benzodiazepines Scrn U Oth Cocaine Metabols U Cannabinoids Screen RPR HIV 1&2 Antibody Screen Influenza Typ A,B (EIA) EKG/Cardiology Studies: Cardiology / EKG Studies 06/07/18 17:41 ELECTROCARDIOGRAM Stat Comment: Mode Of Transportation: BED Reason For Exam: Pain Review of Systems - Review of Systems All systems: reviewed and no additional remarkable complaints except Review of Systems: as per HPI Assessment/Plan - Assessment and Plan (Free Text) Assessment: 47 yo F with pmhx of gastric bypass (12 years ago), hyserectomy presenting with worsening b/l LE numbness/weakness, ataxia, b/l UE numbness. Pt s/p lumbar tap, r/o Guillain-K[place]marn[place]. Awaiting further imaging, Neuro recs. Plan: Neuro: Peripheral Neuropathy Rule out Guillain-[place] vs. MS vs demyelinating disorder 2/2 vitamin deficiency -worsening b/l LE numbness/weakness, ataxia -patient has hx gastric bypass 12 years ago, on multivitamins at home but has been noncompliant -RPR, HIV negative -s/p lumbar tap: CSF total protein wnl -vitamin B12 > 1000 -Folate wnl -Homocysteine 18.4 -f/u Neurology (Dr. Villalba) recs -CT head: no acute findings -f/u MRI -multivitamins CV: -hemodynamically stable, continue to monitor Pulm: -stable, continue to monitor Heme: -no anemia -MCV slightly elevated -continue to monitor GI: Unspecified abdominal pain -protonix 20 daily Ppx, Diet, Disposition: -dvt ppx: heparin -gi ppx: protonix -diet: Case discussed with Dr. Toby Lamb DO, PGY-1 <Farooq Luis S - Last Filed: 06/09/18 16:41> CCU Subjective - Physician Review Critical Care Time Spent (in minutes): 50 CCU Objective - Vital Signs / Intake & Output Vital Signs (Last 4 hours): Vital Signs Pulse Resp BP Pulse Ox 06/09/18 15:00 69 22 96 06/09/18 14:43 80 17 142/88 93 L 06/09/18 14:00 80 18 96 06/09/18 13:44 76 19 116/72 95 06/09/18 13:00 94 H 21 98 06/09/18 12:43 78 18 145/93 H 98 Intake and Output (Last 8hrs): Intake & Output 06/09/18 06/09/18 06/09/18 06:59 14:59 22:59 Intake Total 625 1015 75 Output Total 700 Balance -75 1015 75 Weight 123 lb Intake: Intake, IV Amount 525 725 75 Right Hand 525 150 Right PICC 575 75 Oral 100 290 Output: Urine 700 Urine, Voided 700 - Medications Active Medications: Active Medications Generic Name Dose Route Start Last Admin Trade Name Freq PRN Reason Stop Dose Admin Heparin Sodium (Porcine) 5,000 units 06/08/18 14:00 06/09/18 14:40 Heparin SC 5,000 units Q8 SUNITA Administration Albumin Human 500 mls @ 250 mls/hr 06/09/18 14:00 Albutein 5% 500 Ml IVPB 06/09/18 19:59 Q2H SUNITA Albumin Human 250 mls @ 250 mls/hr 06/09/18 20:00 Albumin Human 5% (12.5 Gm/250 Ml) IV 06/09/18 20:59 ONCE ONE Albumin Human 500 mls @ 250 mls/hr 06/11/18 14:00 Albutein 5% 500 Ml IVPB 06/11/18 19:59 Q2H SUNITA Albumin Human 250 mls @ 250 mls/hr 06/11/18 20:00 Albumin Human 5% (12.5 Gm/250 Ml) IV 06/11/18 20:59 ONCE ONE Albumin Human 500 mls @ 250 mls/hr 06/13/18 14:00 Albutein 5% 500 Ml IVPB 06/13/18 19:59 Q2H SUNITA Albumin Human 250 mls @ 250 mls/hr 06/13/18 20:00 Albumin Human 5% (12.5 Gm/250 Ml) IV 06/13/18 20:59 ONCE ONE Ondansetron HCl 4 mg 06/08/18 17:30 06/08/18 18:10 Zofran Inj IVP 4 mg DAILY@ONCE PRN Administration Nausea/Vomiting Pantoprazole Sodium 20 mg 11/27/18 10:00 06/09/18 12:10 Protonix Ec Tab PO 20 mg DAILY SUNITA Administration Pyridostigmine Elsie 180 mg 06/09/18 18:00 Mestinon Timespan Tab PO Q6H SUNITA - Patient Studies Lab Studies: Microbiology Studies 06/08/18 01:13 Gram Stain - Final Cerebral Spinal Fluid CSF Culture - Preliminary NO GROWTH AFTER 24 HOURS Lab Studies 06/09/18 06/09/18 06/09/18 Range/Units 15:44 05:46 05:46 WBC 7.7 (4.8-10.8) K/uL RBC 4.60 (3.80-5.20) Mil/uL Hgb 16.0 (11.0-16.0) g/dL Hct 47.5 H (34.0-47.0) % MCV 103.3 H (81.0-99.0) fL MCH 34.8 H (27.0-31.0) pg MCHC 33.7 (33.0-37.0) g/dL RDW 15.1 H (11.5-14.5) % Plt Count 297 (130-400) K/uL MPV 9.9 (7.2-11.7) fL Neut % (Auto) 60.2 (50.0-75.0) % Lymph % (Auto) 25.3 (20.0-40.0) % Bond % (Auto) 12.1 H (0.0-10.0) % Eos % (Auto) 1.8 (0.0-4.0) % Baso % (Auto) 0.6 (0.0-2.0) % Neut # (Auto) 4.6 (1.8-7.0) K/uL Lymph # (Auto) 1.9 (1.0-4.3) K/uL Bond # (Auto) 0.9 H (0.0-0.8) K/uL Eos # (Auto) 0.1 (0.0-0.7) K/uL Baso # (Auto) 0.0 (0.0-0.2) K/uL ESR (0-20) mm/hr Fibrinogen 412 H (200-400) mg/dL Sodium 138 (132-148) mmol/L Potassium 4.4 (3.6-5.2) mmol/L Chloride 104 (98-107) mmol/L Carbon Dioxide 25 (22-30) mmol/L Anion Gap 13 (10-20) BUN 4 L (7-17) mg/dL Creatinine 0.4 L (0.7-1.2) mg/dL Est GFR ( Amer) > 60 Est GFR (Non-Af Amer) > 60 Random Glucose 151 H (65-105) mg/dL Calcium 8.8 (8.6-10.4) mg/dl Phosphorus 3.3 (2.5-4.5) mg/dL Magnesium 1.5 L (1.6-2.3) mg/dL Total Bilirubin 1.0 (0.2-1.3) mg/dL AST 53 H (14-36) U/L ALT 40 (9-52) U/L Alkaline Phosphatase 84 (38-126) U/L Total Protein 6.7 (6.3-8.3) g/dL Albumin 3.3 L (3.5-5.0) g/dL Globulin 3.4 (2.2-3.9) gm/dL Albumin/Globulin Ratio 1.0 (1.0-2.1) OCHOA 6 Profile (NEGATIVE) T.pallidum Ab (FTA-ABS) (Nonreactive) 06/08/18 06/08/18 06/07/18 Range/Units 15:27 15:27 18:18 WBC (4.8-10.8) K/uL RBC (3.80-5.20) Mil/uL Hgb (11.0-16.0) g/dL Hct (34.0-47.0) % MCV (81.0-99.0) fL MCH (27.0-31.0) pg MCHC (33.0-37.0) g/dL RDW (11.5-14.5) % Plt Count (130-400) K/uL MPV (7.2-11.7) fL Neut % (Auto) (50.0-75.0) % Lymph % (Auto) (20.0-40.0) % Bond % (Auto) (0.0-10.0) % Eos % (Auto) (0.0-4.0) % Baso % (Auto) (0.0-2.0) % Neut # (Auto) (1.8-7.0) K/uL Lymph # (Auto) (1.0-4.3) K/uL Bond # (Auto) (0.0-0.8) K/uL Eos # (Auto) (0.0-0.7) K/uL Baso # (Auto) (0.0-0.2) K/uL ESR 15 (0-20) mm/hr Fibrinogen (200-400) mg/dL Sodium (132-148) mmol/L Potassium (3.6-5.2) mmol/L Chloride (98-107) mmol/L Carbon Dioxide (22-30) mmol/L Anion Gap (10-20) BUN (7-17) mg/dL Creatinine (0.7-1.2) mg/dL Est GFR ( Amer) Est GFR (Non-Af Amer) Random Glucose (65-105) mg/dL Calcium (8.6-10.4) mg/dl Phosphorus (2.5-4.5) mg/dL Magnesium (1.6-2.3) mg/dL Total Bilirubin (0.2-1.3) mg/dL AST (14-36) U/L ALT (9-52) U/L Alkaline Phosphatase (38-126) U/L Total Protein (6.3-8.3) g/dL Albumin (3.5-5.0) g/dL Globulin (2.2-3.9) gm/dL Albumin/Globulin Ratio (1.0-2.1) OCHOA 6 Profile Negative (NEGATIVE) T.pallidum Ab (FTA-ABS) Nonreactive (Nonreactive) Laboratory Results - last 24 hr 06/07/18 06/08/18 06/08/18 18:18 15:27 15:27 WBC RBC Hgb Hct MCV MCH MCHC RDW Plt Count MPV Neut % (Auto) Lymph % (Auto) Bond % (Auto) Eos % (Auto) Baso % (Auto) Neut # (Auto) Lymph # (Auto) Bond # (Auto) Eos # (Auto) Baso # (Auto) ESR 15 Fibrinogen Sodium Potassium Chloride Carbon Dioxide Anion Gap BUN Creatinine Est GFR ( Amer) Est GFR (Non-Af Amer) Random Glucose Calcium Phosphorus Magnesium Total Bilirubin AST ALT Alkaline Phosphatase Total Protein Albumin Globulin Albumin/Globulin Ratio OCHOA 6 Profile Negative T.pallidum Ab (FTA-ABS) Nonreactive 06/09/18 06/09/18 06/09/18 05:46 05:46 15:44 WBC 7.7 RBC 4.60 Hgb 16.0 Hct 47.5 H MCV 103.3 H MCH 34.8 H MCHC 33.7 RDW 15.1 H Plt Count 297 MPV 9.9 Neut % (Auto) 60.2 Lymph % (Auto) 25.3 Bond % (Auto) 12.1 H Eos % (Auto) 1.8 Baso % (Auto) 0.6 Neut # (Auto) 4.6 Lymph # (Auto) 1.9 Bond # (Auto) 0.9 H Eos # (Auto) 0.1 Baso # (Auto) 0.0 ESR Fibrinogen 412 H Sodium 138 Potassium 4.4 Chloride 104 Carbon Dioxide 25 Anion Gap 13 BUN 4 L Creatinine 0.4 L Est GFR ( Amer) > 60 Est GFR (Non-Af Amer) > 60 Random Glucose 151 H Calcium 8.8 Phosphorus 3.3 Magnesium 1.5 L Total Bilirubin 1.0 AST 53 H ALT 40 Alkaline Phosphatase 84 Total Protein 6.7 Albumin 3.3 L Globulin 3.4 Albumin/Globulin Ratio 1.0 OCHOA 6 Profile T.pallidum Ab (FTA-ABS) Critical Care Progress Note - Nutrition Nutrition: Nutrition Category Date Time Status Soft [Dysphagia/Modified Consistency Diet] [DIET] Diets 06/08/18 Dinner Active Attending/Attestation - Attestation I have personally seen and examined this patient.: Yes I have fully participated in the care of the patient.: Yes I have reviewed all pertinent clinical information: Yes Notes (Text): PATIENT SEEN AND EXAMINED IN THE INTENSIVE CARE UNIT. Chart reviewed and previous events noted Status post lumbar puncture to rule out Guillain-Flores syndro Neurology evaluation noted Trial of Mestinon MRI of brain and spine Continue to monitor in ICU vital capacity qshift
--- NOTE | 2018-06-08 09:50 | CP.PCM.CON ---
<David Gray - Last Filed: 06/08/18 15:51> History of Present Illness - History of Present Illness History of Present Illness: PGY2 Neuro Consult for Dr. Villalba Patient is a 47 year old female with past medical history of Vit B12 deficiency and gastric bypass surgery presents with bilateral numbness and weakness in her upper and lower extremities. Patient's symptoms began approximately three weeks ago with the onset of numbness in her hands and feet that began to spread proximally as time went on. She is no longer able to walk,even with assistance, when 3 weeks prior she walked without assistance. Patient has been feeling fatigued these last three weeks. She has been experiencing diarrhea, loss of appetite and unintentional weight loss of approximately 10lbs during this time. Patient went to [facility] twice and was admitted for suspected GI problems. We are currently awaiting for her records to be sent to [facility]. Patient denies fevers, chills, headache, dysphagia, dysphonia, chest pain, palpitations, shortness of breath, nausea, vomiting, and recent travel. Patient attests to having dizziness, diplopia, loss of appetite, diarrhea, bilateral upper and lower extremity weakness, bilateral upper and lower extremity loss of sensation. 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 Allergies: NKDA Medications: Vitamin B12 1000mcg PO Daily Review of Systems - Review of Systems All systems: reviewed and no additional remarkable complaints except - Constitutional Constitutional: As Per HPI - EENT Eyes: As Per HPI Ears: As Per HPI Nose/Mouth/Throat: As Per HPI - Cardiovascular Cardiovascular: As Per HPI - Respiratory Respiratory: As Per HPI - Gastrointestinal Gastrointestinal: As Per HPI - Genitourinary Genitourinary: As Per HPI - Musculoskeletal Musculoskeletal: As Per HPI - Integumentary Integumentary: As Per HPI - Neurological Neurological: As Per HPI - Psychiatric Psychiatric: As Per HPI - Endocrine Endocrine: As Per HPI - Hematologic/Lymphatic Hematologic: As Per HPI Past Patient History - Past Medical History & Family History Past Medical History?: Yes - Past Social History Smoking Status: Never Smoked Alcohol: Social - MUSCULOSKELETAL/RHEUMATOLOGICAL Hx Falls: No - PSYCHIATRIC Hx Substance Use: No - SURGICAL HISTORY Hx Section: Yes Hx Gastric Bypass Surgery: Yes Hx Hysterectomy: Yes - ANESTHESIA Hx Anesthesia: Yes Hx Anesthesia Reactions: No Hx Malignant Hyperthermia: No Has any member of the family had a problem w/ anesthesia?: No Meds Allergies/Adverse Reactions: Allergies Allergy/AdvReac Type Severity Reaction Status Date / Time No Known Allergies Allergy Verified 06/07/18 14:29 - Medications Medications: Current Medications Heparin Sodium (Porcine) (Heparin) 5,000 units SC Q8 [facility] Multivitamins/Vitamin C 10 ml/ (Dextrose/Sodium Chloride) 1,010 mls @ 75 mls/hr IV .[id number] ONE Stop: 06/08/18 23:54 Magnesium Sulfate/Dextrose (Magnesium Sulfate 1 Gm/100 Ml D5w) 1 gm in 100 mls @ 300 mls/hr IVPB Q30M [place]ITA Stop: 06/08/18 10:19 Pantoprazole Sodium (Protonix Ec Tab) 20 mg PO DAILY [facility] Physical Exam - Constitutional Appears: Cachectic - Head Exam Additional comments: Temporal wasting - Eye Exam Eye Exam: PERRL. absent: EOMI (weakness with upward gaze), Normal appearance (ptosis), Scleral icterus - ENT Exam ENT Exam: Mucous Membranes Moist - Neck Exam Neck exam: Positive for: Normal Inspection. Negative for: Lymphadenopathy, Meningismus - Respiratory Exam Respiratory Exam: NORMAL BREATHING PATTERN. absent: Accessory Muscle Use, Prolonged Expiratory Phase, Respiratory Distress - Extremities Exam Extremities exam: Positive for: normal capillary refill, pedal pulses present. Negative for: pedal edema, tenderness - Back Exam Back exam: absent: paraspinal tenderness, vertebral tenderness Additional comments: s/p LP, dressing in place - Neurological Exam Additional comments: aaox3. PERRL. weakness of eom. specifically, her upward gaze is weak, but present. +diplopia. Lid lag test was performed and positive after 3-5 seconds. baseline ptosis. Cn 2-12 normal. Orbicularis oculi: 1, tongue muscles: 1, nflexors: 2, neck extensors: 1 SCM: 3, deltoid: 4 bl, triceps: 3 right, 4 left biceps: 2 right, 3 left clinical project manager: 4 bl finger flexors, extensors: 1 interosei: 4 lowerlimb: hamstrings 3, quads: 2 tib anterior: 3+ dorsiflexion: 3 plantar extension: 3 no fasciculations, no tremors sensory: V1- V3 normal. Decreased ft at approximately t4 decreased ft ul, ll bl, non dermatomal dist position sense: lost in upper and lower limb vibration sense: decreased severely hand, no position sense foot, or ankle. Present at knee. 50% loss of vibration at knee compared to hand . dtr: +3 ul, achilles +1 no clonus. temperature: diminished perception to cold upper and lower limbs bl. Pain: decreased in all regions. Gait: not tested Cerebellar: no dysmetria - Skin Skin Exam: Dry, Warm Results - Vital Signs Recent Vital Signs: Last Vital Signs Temp 98.3 F 06/08/18 08:00 Pulse 89 06/08/18 08:00 Resp 19 06/08/18 08:00 BP 131/87 06/08/18 08:00 Pulse Ox 97 06/08/18 08:00 - Labs Result Diagrams: 06/08/18 06:17 06/08/18 06:17 Labs: Laboratory Results - last 24 hr 06/07/18 06/07/18 06/07/18 17:57 17:57 17:57 WBC 9.2 RBC 5.15 Hgb 17.8 H D Hct 52.5 H MCV 101.9 H D MCH 34.6 H MCHC 33.9 RDW 15.3 H Plt Count 375 MPV 9.9 Neut % (Auto) 68.6 Lymph % (Auto) 15.7 L [place] % (Auto) 14.1 H Eos % (Auto) 0.9 Baso % (Auto) 0.7 Neut # (Auto) 6.3 Lymph # (Auto) 1.4 [place] # (Auto) 1.3 H Eos # (Auto) 0.1 Baso # (Auto) 0.1 Retic Count PT 12.3 H INR 1.1 APTT 35 H Sodium 138 Potassium 4.0 Chloride 96 L Carbon Dioxide 30 Anion Gap 16 BUN 13 Creatinine 0.6 L Est GFR ( Amer) > 60 Est GFR (Non-Af Amer) > 60 Random Glucose 103 Lactic Acid Calcium 9.9 Phosphorus Magnesium 1.6 Total Bilirubin 1.0 AST 55 H ALT 37 Alkaline Phosphatase 75 Total Creatine Kinase 54 CK-MB (Mass) < 0.22 Troponin I < 0.0120 Total Protein 7.7 Albumin 3.7 Globulin 3.9 Albumin/Globulin Ratio 1.0 Amylase 65 Lipase 44 Vitamin B12 > 1000 H Folate > 20.0 Homocysteine TSH 3rd Generation Urine Color Urine Clarity Urine pH Ur Specific [place] Urine Protein Urine Glucose (UA) Urine Ketones Urine Blood Urine Nitrate Urine Bilirubin Urine Urobilinogen Ur Leukocyte Esterase Urine WBC (Auto) Urine RBC (Auto) Fluid Type CSF Volume CSF Appearance CSF WBC CSF RBC CSF Total Cell Counted CSF Monos/Macrophages CSF Comment CSF Glucose CSF Total Protein Urine Opiates Screen Urine Methadone Screen Ur Barbiturates Screen Ur Phencyclidine Scrn Ur Amphetamines Screen U Benzodiazepines Scrn U Oth Cocaine Metabols U Cannabinoids Screen RPR HIV 1&2 Antibody Screen Influenza Typ A,B (EIA) 06/07/18 06/07/18 06/07/18 17:57 18:18 18:36 WBC RBC Hgb Hct MCV MCH MCHC RDW Plt Count MPV Neut % (Auto) Lymph % (Auto) [place] % (Auto) Eos % (Auto) Baso % (Auto) Neut # (Auto) Lymph # (Auto) [place] # (Auto) Eos # (Auto) Baso # (Auto) Retic Count PT INR APTT Sodium Potassium Chloride Carbon Dioxide Anion Gap BUN Creatinine Est GFR ( Amer) Est GFR (Non-Af Amer) Random Glucose Lactic Acid 1.8 Calcium Phosphorus Magnesium Total Bilirubin AST ALT Alkaline Phosphatase Total Creatine Kinase CK-MB (Mass) Troponin I Total Protein Albumin Globulin Albumin/Globulin Ratio Amylase Lipase Vitamin B12 Folate Homocysteine TSH 3rd Generation Urine Color Urine Clarity Urine pH Ur Specific [place] Urine Protein Urine Glucose (UA) Urine Ketones Urine Blood Urine Nitrate Urine Bilirubin Urine Urobilinogen Ur Leukocyte Esterase Urine WBC (Auto) Urine RBC (Auto) Fluid Type CSF Volume CSF Appearance CSF WBC CSF RBC CSF Total Cell Counted CSF Monos/Macrophages CSF Comment CSF Glucose CSF Total Protein Urine Opiates Screen Urine Methadone Screen Ur Barbiturates Screen Ur Phencyclidine Scrn Ur Amphetamines Screen U Benzodiazepines Scrn U Oth Cocaine Metabols U Cannabinoids Screen RPR Nonreactive HIV 1&2 Antibody Screen Negative Influenza Typ A,B (EIA) Negative for flu a/b 06/07/18 06/07/18 06/07/18 19:08 19:08 22:13 WBC RBC Hgb Hct MCV MCH MCHC RDW Plt Count MPV Neut % (Auto) Lymph % (Auto) [place] % (Auto) Eos % (Auto) Baso % (Auto) Neut # (Auto) Lymph # (Auto) [place] # (Auto) Eos # (Auto) Baso # (Auto) Retic Count PT INR APTT Sodium Potassium Chloride Carbon Dioxide Anion Gap BUN Creatinine Est GFR ( Amer) Est GFR (Non-Af Amer) Random Glucose Lactic Acid Calcium Phosphorus Magnesium Total Bilirubin AST ALT Alkaline Phosphatase Total Creatine Kinase CK-MB (Mass) Troponin I Total Protein Albumin Globulin Albumin/Globulin Ratio Amylase Lipase Vitamin B12 Folate Homocysteine 18.4 H TSH 3rd Generation Urine Color Yellow Urine Clarity Clear Urine pH 7.0 Ur Specific [place] 1.008 Urine Protein Negative Urine Glucose (UA) Normal Urine Ketones Negative Urine Blood Negative Urine Nitrate Negative Urine Bilirubin Negative Urine Urobilinogen Normal Ur Leukocyte Esterase Neg Urine WBC (Auto) < 1 Urine RBC (Auto) < 1 Fluid Type CSF Volume CSF Appearance CSF WBC CSF RBC CSF Total Cell Counted CSF Monos/Macrophages CSF Comment CSF Glucose CSF Total Protein Urine Opiates Screen Negative Urine Methadone Screen Negative Ur Barbiturates Screen Negative Ur Phencyclidine Scrn Negative Ur Amphetamines Screen Negative U Benzodiazepines Scrn Negative U Oth Cocaine Metabols Negative U Cannabinoids Screen Negative RPR HIV 1&2 Antibody Screen Influenza Typ A,B (EIA) 06/08/18 06/08/18 06/08/18 01:11 01:11 03:30 WBC RBC Hgb Hct MCV MCH MCHC RDW Plt Count MPV Neut % (Auto) Lymph % (Auto) [place] % (Auto) Eos % (Auto) Baso % (Auto) Neut # (Auto) Lymph # (Auto) [place] # (Auto) Eos # (Auto) Baso # (Auto) Retic Count 0.5 PT INR APTT Sodium Potassium Chloride Carbon Dioxide Anion Gap BUN Creatinine Est GFR ( Amer) Est GFR (Non-Af Amer) Random Glucose Lactic Acid Calcium Phosphorus Magnesium Total Bilirubin AST ALT Alkaline Phosphatase Total Creatine Kinase CK-MB (Mass) Troponin I Total Protein Albumin Globulin Albumin/Globulin Ratio Amylase Lipase Vitamin B12 Folate Homocysteine TSH 3rd Generation Urine Color Urine Clarity Urine pH Ur Specific [place] Urine Protein Urine Glucose (UA) Urine Ketones Urine Blood Urine Nitrate Urine Bilirubin Urine Urobilinogen Ur Leukocyte Esterase Urine WBC (Auto) Urine RBC (Auto) Fluid Type Spinal fluid CSF Volume 2 H CSF Appearance Clear/colorless CSF WBC 1.0 CSF RBC 317.0 H CSF Total Cell Counted TEST NOT PERFORMED CSF Monos/Macrophages TEST NOT PERFORMED CSF Comment TEST NOT PERFORMED CSF Glucose 61 CSF Total Protein 47.0 Urine Opiates Screen Urine Methadone Screen Ur Barbiturates Screen Ur Phencyclidine Scrn Ur Amphetamines Screen U Benzodiazepines Scrn U Oth Cocaine Metabols U Cannabinoids Screen RPR HIV 1&2 Antibody Screen Influenza Typ A,B (EIA) 06/08/18 06/08/18 06:17 06:17 WBC 7.8 RBC 4.64 Hgb 16.3 H Hct 47.9 H MCV 103.3 H MCH 35.1 H MCHC 34.0 RDW 15.2 H Plt Count 317 MPV 9.1 Neut % (Auto) 57.2 Lymph % (Auto) 25.9 [place] % (Auto) 14.3 H Eos % (Auto) 1.9 Baso % (Auto) 0.7 Neut # (Auto) 4.5 Lymph # (Auto) 2.0 [place] # (Auto) 1.1 H Eos # (Auto) 0.1 Baso # (Auto) 0.1 Retic Count PT INR APTT Sodium 140 Potassium 3.6 Chloride 103 Carbon Dioxide 28 Anion Gap 12 BUN 12 Creatinine 0.4 L Est GFR ( Amer) > 60 Est GFR (Non-Af Amer) > 60 Random Glucose 111 H Lactic Acid Calcium 9.3 Phosphorus 5.0 H Magnesium 1.5 L Total Bilirubin 0.8 AST 49 H ALT 45 Alkaline Phosphatase 91 Total Creatine Kinase CK-MB (Mass) Troponin I Total Protein 7.1 Albumin 3.6 Globulin 3.5 Albumin/Globulin Ratio 1.0 Amylase Lipase Vitamin B12 Folate Homocysteine TSH 3rd Generation 2.56 Urine Color Urine Clarity Urine pH Ur Specific [place] Urine Protein Urine Glucose (UA) Urine Ketones Urine Blood Urine Nitrate Urine Bilirubin Urine Urobilinogen Ur Leukocyte Esterase Urine WBC (Auto) Urine RBC (Auto) Fluid Type CSF Volume CSF Appearance CSF WBC CSF RBC CSF Total Cell Counted CSF Monos/Macrophages CSF Comment CSF Glucose CSF Total Protein Urine Opiates Screen Urine Methadone Screen Ur Barbiturates Screen Ur Phencyclidine Scrn Ur Amphetamines Screen U Benzodiazepines Scrn U Oth Cocaine Metabols U Cannabinoids Screen RPR HIV 1&2 Antibody Screen Influenza Typ A,B (EIA) Assessment & Plan - Assessment and Plan (Free Text) Assessment: Patient is a 47 year old female with progressive weakness for 3 weeks. The cause for the patient's symptoms is unknown at this time and the differential is very broad. Due to neuro exam findings, the top working differentials are Myasthenia Gravis (MG), Guillain Crosby Syndrome (possible subtypes including but not limited to AMSAN and Gloria Iyer) and subacute combined degeneration. 1. ICU 2. MRI's of brain and entire spinal column ordered. 3. Chest CT ordered to r/o Thymoma. 4. MG auto-antibodies ordered. 5. Pyridostigmine challenge, 240mg PO ordered. - Tidal Volume requested prior to start of test. 6. Discussed case with Dr. Maria (hem/onc), depending on result of challenge, may perform plasmaphoresis tomorrow. Thank you for this very interesting consult. Case discussed with Dr. Deejay Gray PGY2 <Faisal Villalba - Last Filed: 06/08/18 18:03> Meds - Medications Medications: Current Medications Heparin Sodium (Porcine) (Heparin) 5,000 units SC Q8 [facility] Last Admin: 06/08/18 14:21 Dose: 5,000 units Multivitamins/Vitamin C 10 ml/ (Dextrose/Sodium Chloride) 1,010 mls @ 75 mls/hr IV .[id number] ONE Stop: 06/08/18 23:54 Last Admin: 06/08/18 13:56 Dose: 75 mls/hr Ondansetron HCl (Zofran Inj) 4 mg IVP DAILY@ONCE PRN PRN Reason: Nausea/Vomiting Pantoprazole Sodium (Protonix Ec Tab) 20 mg PO DAILY [facility] Last Admin: 06/08/18 13:58 Dose: 20 mg Results - Vital Signs Recent Vital Signs: Last Vital Signs Temp 98.3 F 06/08/18 12:00 Pulse 86 06/08/18 15:00 Resp 17 06/08/18 15:00 BP 142/99 H 06/08/18 13:43 Pulse Ox 99 06/08/18 15:00 - Labs Result Diagrams: 06/08/18 06:17 06/08/18 06:17 Labs: Laboratory Results - last 24 hr 06/07/18 06/07/18 06/07/18 17:57 17:57 17:57 WBC 9.2 RBC 5.15 Hgb 17.8 H D Hct 52.5 H MCV 101.9 H D MCH 34.6 H MCHC 33.9 RDW 15.3 H Plt Count 375 MPV 9.9 Neut % (Auto) 68.6 Lymph % (Auto) 15.7 L [place] % (Auto) 14.1 H Eos % (Auto) 0.9 Baso % (Auto) 0.7 Neut # (Auto) 6.3 Lymph # (Auto) 1.4 [place] # (Auto) 1.3 H Eos # (Auto) 0.1 Baso # (Auto) 0.1 ESR Retic Count PT 12.3 H INR 1.1 APTT 35 H Sodium 138 Potassium 4.0 Chloride 96 L Carbon Dioxide 30 Anion Gap 16 BUN 13 Creatinine 0.6 L Est GFR ( Amer) > 60 Est GFR (Non-Af Amer) > 60 Random Glucose 103 Lactic Acid Calcium 9.9 Phosphorus Magnesium 1.6 Iron TIBC % Saturation Total Bilirubin 1.0 AST 55 H ALT 37 Alkaline Phosphatase 75 Total Creatine Kinase 54 CK-MB (Mass) < 0.22 Troponin I < 0.0120 Total Protein 7.7 Albumin 3.7 Globulin 3.9 Albumin/Globulin Ratio 1.0 Amylase 65 Lipase 44 Vitamin B12 > 1000 H Folate > 20.0 Homocysteine TSH 3rd Generation Urine Color Urine Clarity Urine pH Ur Specific [place] Urine Protein Urine Glucose (UA) Urine Ketones Urine Blood Urine Nitrate Urine Bilirubin Urine Urobilinogen Ur Leukocyte Esterase Urine WBC (Auto) Urine RBC (Auto) Fluid Type CSF Volume CSF Appearance CSF WBC CSF RBC CSF Total Cell Counted CSF Monos/Macrophages CSF Comment CSF Glucose CSF Total Protein Urine Opiates Screen Urine Methadone Screen Ur Barbiturates Screen Ur Phencyclidine Scrn Ur Amphetamines Screen U Benzodiazepines Scrn U Oth Cocaine Metabols U Cannabinoids Screen RPR HIV 1&2 Antibody Screen Influenza Typ A,B (EIA) 06/07/18 06/07/18 06/07/18 17:57 18:18 18:36 WBC RBC Hgb Hct MCV MCH MCHC RDW Plt Count MPV Neut % (Auto) Lymph % (Auto) [place] % (Auto) Eos % (Auto) Baso % (Auto) Neut # (Auto) Lymph # (Auto) [place] # (Auto) Eos # (Auto) Baso # (Auto) ESR Retic Count PT INR APTT Sodium Potassium Chloride Carbon Dioxide Anion Gap BUN Creatinine Est GFR ( Amer) Est GFR (Non-Af Amer) Random Glucose Lactic Acid 1.8 Calcium Phosphorus Magnesium Iron TIBC % Saturation Total Bilirubin AST ALT Alkaline Phosphatase Total Creatine Kinase CK-MB (Mass) Troponin I Total Protein Albumin Globulin Albumin/Globulin Ratio Amylase Lipase Vitamin B12 Folate Homocysteine TSH 3rd Generation Urine Color Urine Clarity Urine pH Ur Specific [place] Urine Protein Urine Glucose (UA) Urine Ketones Urine Blood Urine Nitrate Urine Bilirubin Urine Urobilinogen Ur Leukocyte Esterase Urine WBC (Auto) Urine RBC (Auto) Fluid Type CSF Volume CSF Appearance CSF WBC CSF RBC CSF Total Cell Counted CSF Monos/Macrophages CSF Comment CSF Glucose CSF Total Protein Urine Opiates Screen Urine Methadone Screen Ur Barbiturates Screen Ur Phencyclidine Scrn Ur Amphetamines Screen U Benzodiazepines Scrn U Oth Cocaine Metabols U Cannabinoids Screen RPR Nonreactive HIV 1&2 Antibody Screen Negative Influenza Typ A,B (EIA) Negative for flu a/b 06/07/18 06/07/18 06/07/18 19:08 19:08 22:13 WBC RBC Hgb Hct MCV MCH MCHC RDW Plt Count MPV Neut % (Auto) Lymph % (Auto) [place] % (Auto) Eos % (Auto) Baso % (Auto) Neut # (Auto) Lymph # (Auto) [place] # (Auto) Eos # (Auto) Baso # (Auto) ESR Retic Count PT INR APTT Sodium Potassium Chloride Carbon Dioxide Anion Gap BUN Creatinine Est GFR ( Amer) Est GFR (Non-Af Amer) Random Glucose Lactic Acid Calcium Phosphorus Magnesium Iron TIBC % Saturation Total Bilirubin AST ALT Alkaline Phosphatase Total Creatine Kinase CK-MB (Mass) Troponin I Total Protein Albumin Globulin Albumin/Globulin Ratio Amylase Lipase Vitamin B12 Folate Homocysteine 18.4 H TSH 3rd Generation Urine Color Yellow Urine Clarity Clear Urine pH 7.0 Ur Specific [place] 1.008 Urine Protein Negative Urine Glucose (UA) Normal Urine Ketones Negative Urine Blood Negative Urine Nitrate Negative Urine Bilirubin Negative Urine Urobilinogen Normal Ur Leukocyte Esterase Neg Urine WBC (Auto) < 1 Urine RBC (Auto) < 1 Fluid Type CSF Volume CSF Appearance CSF WBC CSF RBC CSF Total Cell Counted CSF Monos/Macrophages CSF Comment CSF Glucose CSF Total Protein Urine Opiates Screen Negative Urine Methadone Screen Negative Ur Barbiturates Screen Negative Ur Phencyclidine Scrn Negative Ur Amphetamines Screen Negative U Benzodiazepines Scrn Negative U Oth Cocaine Metabols Negative U Cannabinoids Screen Negative RPR HIV 1&2 Antibody Screen Influenza Typ A,B (EIA) 06/08/18 06/08/18 06/08/18 01:11 01:11 03:30 WBC RBC Hgb Hct MCV MCH MCHC RDW Plt Count MPV Neut % (Auto) Lymph % (Auto) [place] % (Auto) Eos % (Auto) Baso % (Auto) Neut # (Auto) Lymph # (Auto) [place] # (Auto) Eos # (Auto) Baso # (Auto) ESR Retic Count 0.5 PT INR APTT Sodium Potassium Chloride Carbon Dioxide Anion Gap BUN Creatinine Est GFR ( Amer) Est GFR (Non-Af Amer) Random Glucose Lactic Acid Calcium Phosphorus Magnesium Iron TIBC % Saturation Total Bilirubin AST ALT Alkaline Phosphatase Total Creatine Kinase CK-MB (Mass) Troponin I Total Protein Albumin Globulin Albumin/Globulin Ratio Amylase Lipase Vitamin B12 Folate Homocysteine TSH 3rd Generation Urine Color Urine Clarity Urine pH Ur Specific [place] Urine Protein Urine Glucose (UA) Urine Ketones Urine Blood Urine Nitrate Urine Bilirubin Urine Urobilinogen Ur Leukocyte Esterase Urine WBC (Auto) Urine RBC (Auto) Fluid Type Spinal fluid CSF Volume 2 H CSF Appearance Clear/colorless CSF WBC 1.0 CSF RBC 317.0 H CSF Total Cell Counted TEST NOT PERFORMED CSF Monos/Macrophages TEST NOT PERFORMED CSF Comment TEST NOT PERFORMED CSF Glucose 61 CSF Total Protein 47.0 Urine Opiates Screen Urine Methadone Screen Ur Barbiturates Screen Ur Phencyclidine Scrn Ur Amphetamines Screen U Benzodiazepines Scrn U Oth Cocaine Metabols U Cannabinoids Screen RPR HIV 1&2 Antibody Screen Influenza Typ A,B (EIA) 06/08/18 06/08/18 06/08/18 06:17 06:17 15:27 WBC 7.8 RBC 4.64 Hgb 16.3 H Hct 47.9 H MCV 103.3 H MCH 35.1 H MCHC 34.0 RDW 15.2 H Plt Count 317 MPV 9.1 Neut % (Auto) 57.2 Lymph % (Auto) 25.9 [place] % (Auto) 14.3 H Eos % (Auto) 1.9 Baso % (Auto) 0.7 Neut # (Auto) 4.5 Lymph # (Auto) 2.0 [place] # (Auto) 1.1 H Eos # (Auto) 0.1 Baso # (Auto) 0.1 ESR Retic Count PT INR APTT Sodium 140 Potassium 3.6 Chloride 103 Carbon Dioxide 28 Anion Gap 12 BUN 12 Creatinine 0.4 L Est GFR ( Amer) > 60 Est GFR (Non-Af Amer) > 60 Random Glucose 111 H Lactic Acid Calcium 9.3 Phosphorus 5.0 H Magnesium 1.5 L Iron 50 TIBC 210 L % Saturation 24 Total Bilirubin 0.8 AST 49 H ALT 45 Alkaline Phosphatase 91 Total Creatine Kinase CK-MB (Mass) Troponin I Total Protein 7.1 Albumin 3.6 Globulin 3.5 Albumin/Globulin Ratio 1.0 Amylase Lipase Vitamin B12 Folate Homocysteine TSH 3rd Generation 2.56 Urine Color Urine Clarity Urine pH Ur Specific [place] Urine Protein Urine Glucose (UA) Urine Ketones Urine Blood Urine Nitrate Urine Bilirubin Urine Urobilinogen Ur Leukocyte Esterase Urine WBC (Auto) Urine RBC (Auto) Fluid Type CSF Volume CSF Appearance CSF WBC CSF RBC CSF Total Cell Counted CSF Monos/Macrophages CSF Comment CSF Glucose CSF Total Protein Urine Opiates Screen Urine Methadone Screen Ur Barbiturates Screen Ur Phencyclidine Scrn Ur Amphetamines Screen U Benzodiazepines Scrn U Oth Cocaine Metabols U Cannabinoids Screen RPR HIV 1&2 Antibody Screen Influenza Typ A,B (EIA) 06/08/18 15:27 WBC RBC Hgb Hct MCV MCH MCHC RDW Plt Count MPV Neut % (Auto) Lymph % (Auto) [place] % (Auto) Eos % (Auto) Baso % (Auto) Neut # (Auto) Lymph # (Auto) [place] # (Auto) Eos # (Auto) Baso # (Auto) ESR 15 Retic Count PT INR APTT Sodium Potassium Chloride Carbon Dioxide Anion Gap BUN Creatinine Est GFR ( Amer) Est GFR (Non-Af Amer) Random Glucose Lactic Acid Calcium Phosphorus Magnesium Iron TIBC % Saturation Total Bilirubin AST ALT Alkaline Phosphatase Total Creatine Kinase CK-MB (Mass) Troponin I Total Protein Albumin Globulin Albumin/Globulin Ratio Amylase Lipase Vitamin B12 Folate Homocysteine TSH 3rd Generation Urine Color Urine Clarity Urine pH Ur Specific [place] Urine Protein Urine Glucose (UA) Urine Ketones Urine Blood Urine Nitrate Urine Bilirubin Urine Urobilinogen Ur Leukocyte Esterase Urine WBC (Auto) Urine RBC (Auto) Fluid Type CSF Volume CSF Appearance CSF WBC CSF RBC CSF Total Cell Counted CSF Monos/Macrophages CSF Comment CSF Glucose CSF Total Protein Urine Opiates Screen Urine Methadone Screen Ur Barbiturates Screen Ur Phencyclidine Scrn Ur Amphetamines Screen U Benzodiazepines Scrn U Oth Cocaine Metabols U Cannabinoids Screen RPR HIV 1&2 Antibody Screen Influenza Typ A,B (EIA) Assessment & Plan - Assessment and Plan (Free Text) Assessment: I agree with the residents history assessment and plan and assisted in the formulation along with about 1 hour spent in history and physical. I will add the following. MIss adkins says that her complaints started with a burning sensation in her proximal thighs spreading to her feet, with weakness following in her legs then hands, progressively to her shoulders. SHe then started to have diplopia even when she was wearing prescription glasses, with no dysphagia, aphasia or dysarthria. THere are no prior events, no trauma, but there is a history of a flu shot 2 weeks prior. She also developed diarrhea recently. She further denies prior diagnosis of MS, exposure to ticks or lupus history either in herself or her family. On exam: Neurological exam shows that there is bulbar weakness of facial musculature, as well as a distal weakness, with diffuse sensory loss and posterior column severe deficits. There is also a possible sensory level at about T4. She appears to be weaker in the legs than arms. Her cognition is not affected and she is quite bright. A/p: I am very suspicious of a myasthenic process or an atypical variant of GBS. CT chest is needed to rule out thymoma. We will try mestinon and if she does not improve significantly, we will start IVIG or plasmapheresis to treat GBS. Daily Vital capacity and NIF are needed. I would not advise steroids at this time. LP was done and is also not conclusive for GBS. Virginia Villalba, Neurology.
--- NOTE | 2018-06-08 10:10 | PCM.PROC ---
Procedures Attestation:: I certify that I have explained the specified Operation(s) or Procedure(s), risks, benefits and reasonable alternatives to the Patient and/or other person responsible. The opportunity was given to ask questions and all questions answered - Lumbar Puncture Consent Obtained: Written Consent Time Out Performed: Yes Patient Position: Right Lateral Decubitius Skin Prep: Povidone-Iodine 1%, 0.5% Chlorhexidine/Alcohol Local Anesthetic Used: Lidocaine 1% (2ml) Spinal Needle Gauge: 22G Interspace Used: L3-L4 Opening Pressure (cmH2O): 22 (cc height) Fluid Initially Obtained: Clear (Initial bloody then clear) Complications: None Additional comments: 1mg ativan given prior to the procedure iv. USG used to locate space obtained in single attempt.
[2018-06-08] MEDS: Magnesium Sulfate 1 gm in D5W 1 GM/100 ML BAG IVPB SCH ×2 (10:25→11:31)
[2018-06-08] MEDS ORDERED: DEXTROSE IV ONE (10:27)
[2018-06-08] MEDS ORDERED: NS IV ONE (10:27)
[2018-06-08] MEDS ORDERED: MULTIVITAMIN IV ONE (10:27)
[2018-06-08] MEDS: Pantoprazole 20 mg EC Tab PO SCH (13:58)
[2018-06-08] MEDS ORDERED: PYRIDOSTIGMINE 180 MG PO ONE (14:00)
--- NOTE | 2018-06-08 14:26 | RAD ---
Date of service: 06/08/2018 HISTORY: PICC Insertion COMPARISON: 06/07/2018 FINDINGS: LUNGS: No active pulmonary disease. PLEURA: No significant pleural effusion identified, no pneumothorax apparent. CARDIOVASCULAR: No aortic atherosclerotic calcification present. Normal cardiac size. No pulmonary vascular congestion. Interval right sided PICC line insertion tip estimated superior vena cava-right atrial junction OSSEOUS STRUCTURES: No significant abnormalities. VISUALIZED UPPER ABDOMEN: Multiple surgical clips left epigastric region and left lower abdomen/upper pelvis junction-similar OTHER FINDINGS: None. IMPRESSION: Interval right PICC line insertion tip estimated superior vena cava-right atrial junction. No pneumothorax appreciated. Abdominal postsurgical changes-similar
[2018-06-08 15:43] LABS: IRON 50 ug/dL (37-170)
[2018-06-08 15:53] LABS: % IRON SATURATION 24 (20-55); TOTAL IRON BINDING CAPACITY 210 ug/dL (250-450)
--- NOTE | 2018-06-08 17:42 | MRI ---
Date of service: 06/08/2018 PROCEDURE: MR THORACIC SPINE WITHOUT CONTRAST HISTORY: extremity upper/lower weakness/numbess b/l COMPARISON: None available. TECHNIQUE: Multiecho multiplanar sequences were performed through the thoracic spine without the use of intravenous contrast. FINDINGS: ALIGNMENT: Normal thoracic spinal alignment. Normal thoracic kyphosis. VERTEBRA: Vertebral body height are preserved. MARROW: Marrow signal unremarkable. PARASPINAL SOFT TISSUES: Unremarkable. CORD: Unremarkable thoracic cord. No volume loss, signal abnormality or syrinx. DISCS: No disc herniation, spinal canal stenosis, or neuroforaminal narrowing. OTHER FINDINGS: None. IMPRESSION: No evidence of spinal stenosis or neural foraminal narrowing. No evidence of mass lesion or abnormal signal in the cord.
--- NOTE | 2018-06-08 17:46 | MRI ---
Date of service: 06/08/2018 PROCEDURE: MR LUMBAR SPINE WITHOUT CONTRAST HISTORY: extremity upper/lower weakness/numbess b/l COMPARISON: None available. TECHNIQUE: Multiecho multiplanar sequences were performed through the lumbar spine without the use of intravenous contrast. FINDINGS: Normal lumbar lordosis. Vertebral body heights are preserved. Marrow signal unremarkable. Conus medullaris unremarkable at the level of T12 Paraspinal soft tissues are unremarkable. T12-L1: No disc herniation, spinal canal stenosis or neural foraminal narrowing. L1-2: No disc herniation, spinal canal stenosis or neural foraminal narrowing. L2-3: No disc herniation, spinal canal stenosis or neural foraminal narrowing. L3-4: No disc herniation, spinal canal stenosis or neural foraminal narrowing. L4-5: No disc herniation, spinal canal stenosis or neural foraminal narrowing. L5-S1: There is diffuse hypointense T2 signal in the disc suggestive of degenerative changes. There is small broad-based posterior disc bulge without evidence of significant spinal or neural foraminal narrowing. OTHER FINDINGS: None. IMPRESSION: No evidence of significant spinal or neural foraminal narrowing. The conus medullaris is normal in size and shape. Small posterior disc protrusion at L5-S1 without evidence of significant spinal or neural foraminal narrowing. Mild L5-S1 degenerative disc changes.
--- NOTE | 2018-06-08 17:49 | MRI ---
Date of service: 06/08/2018 PROCEDURE: MR CERVICAL SPINE WITHOUT CONTRAST HISTORY: extremity upper/lower weakness/numbess b/l COMPARISON: None available. TECHNIQUE: Multiecho multiplanar sequences were performed through the cervical spine without the use of intravenous contrast. FINDINGS: Straightening and slight reversal of the normal cervical lordosis noted Craniocervical junction unremarkable. Vertebral body heights preserved. No marrow signal abnormality. Normal cervical cord. No paraspinal abnormality. C2-C3: No disc herniation, spinal canal stenosis or neural foraminal narrowing. C3-C4: No disc herniation, spinal canal stenosis or neural foraminal narrowing. C4-C5: No disc herniation, spinal canal stenosis or neural foraminal narrowing. C5-C6: No disc herniation, spinal canal stenosis or neural foraminal narrowing. C6-C7: No disc herniation, spinal canal stenosis or neural foraminal narrowing. C7-T1: No disc herniation, spinal canal stenosis or neural foraminal narrowing. OTHER FINDINGS: None. IMPRESSION: Straightening of the cervical spine and mild reversal of the normal lordosis which could be due to muscle spasm or patient's position. No evidence of spinal or neural foraminal narrowing.
--- NOTE | 2018-06-08 21:51 | CP.PCM.CON ---
History of Present Illness - History of Present Illness History of Present Illness: 47 year old female with a history of gastric bypass, vitamin b12 deficiency, presenting with extremity weakness and numbness. The patient notes to progression of her symptoms which has led to her not being able to walk. She was seen at [facility] [place] with GI symptoms. She is seen by neurology who may prescribe plasma exchange. I have been asked to facilitate plasma exchange if required. Past medical history: B12 deficiency Past surgical history: Gastric bypass, hysterectomy, Family history: Denies hematologic and oncologic problems Social history: Denies tobacco, 1-2 glasses of wine daily, denies drug use. Allergies: NKA Review of systems: All remaining review of systems including HEENT, cardiovascular, respiratory, gastrointestinal, genitourinary, musculoskeletal, dermatologic, neurologic, and psychiatric are negative unless mentioned in the HPI. Past Patient History - Past Medical History & Family History Past Medical History?: Yes - Past Social History Smoking Status: Never Smoked Alcohol: Social - MUSCULOSKELETAL/RHEUMATOLOGICAL Hx Falls: No - PSYCHIATRIC Hx Substance Use: No - SURGICAL HISTORY Hx Section: Yes Hx Gastric Bypass Surgery: Yes Hx Hysterectomy: Yes - ANESTHESIA Hx Anesthesia: Yes Hx Anesthesia Reactions: No Hx Malignant Hyperthermia: No Has any member of the family had a problem w/ anesthesia?: No Meds Allergies/Adverse Reactions: Allergies Allergy/AdvReac Type Severity Reaction Status Date / Time No Known Allergies Allergy Verified 06/07/18 14:29 - Medications Medications: Current Medications Heparin Sodium (Porcine) (Heparin) 5,000 units SC Q8 [facility] Last Admin: 06/08/18 14:21 Dose: 5,000 units Multivitamins/Vitamin C 10 ml/ (Dextrose/Sodium Chloride) 1,010 mls @ 75 mls/hr IV .[id number] ONE Stop: 06/08/18 23:54 Last Admin: 06/08/18 13:56 Dose: 75 mls/hr Ondansetron HCl (Zofran Inj) 4 mg IVP DAILY@ONCE PRN PRN Reason: Nausea/Vomiting Pantoprazole Sodium (Protonix Ec Tab) 20 mg PO DAILY [facility] Last Admin: 06/08/18 13:58 Dose: 20 mg Physical Exam - Head Exam Head Exam: ATRAUMATIC - Eye Exam Eye Exam: Normal appearance - ENT Exam ENT Exam: Mucous Membranes Dry - Respiratory Exam Respiratory Exam: NORMAL BREATHING PATTERN - Cardiovascular Exam Cardiovascular Exam: +S1, +S2 - GI/Abdominal Exam GI & Abdominal Exam: Normal Bowel Sounds - Extremities Exam Extremities exam: Positive for: normal inspection - Neurological Exam Neurological exam: Oriented x3 - Psychiatric Exam Psychiatric exam: Normal Affect, Normal Mood - Skin Skin Exam: Warm Results - Vital Signs Recent Vital Signs: Last Vital Signs Temp 98.2 F 06/08/18 20:00 Pulse 66 06/08/18 20:00 Resp 19 06/08/18 20:00 BP 146/87 06/08/18 19:43 Pulse Ox 100 06/08/18 20:00 - Labs Result Diagrams: 06/08/18 06:17 06/08/18 06:17 Labs: Laboratory Results - last 24 hr 06/07/18 06/08/18 06/08/18 22:13 01:11 01:11 WBC RBC Hgb Hct MCV MCH MCHC RDW Plt Count MPV Neut % (Auto) Lymph % (Auto) Banks % (Auto) Eos % (Auto) Baso % (Auto) Neut # (Auto) Lymph # (Auto) Banks # (Auto) Eos # (Auto) Baso # (Auto) ESR Retic Count Sodium Potassium Chloride Carbon Dioxide Anion Gap BUN Creatinine Est GFR ( Amer) Est GFR (Non-Af Amer) Random Glucose Calcium Phosphorus Magnesium Iron TIBC % Saturation Total Bilirubin AST ALT Alkaline Phosphatase Total Protein Albumin Globulin Albumin/Globulin Ratio Homocysteine 18.4 H TSH 3rd Generation Fluid Type Spinal fluid CSF Volume 2 H CSF Appearance Clear/colorless CSF WBC 1.0 CSF RBC 317.0 H CSF Total Cell Counted TEST NOT PERFORMED CSF Monos/Macrophages TEST NOT PERFORMED CSF Comment TEST NOT PERFORMED CSF Glucose 61 CSF Total Protein 47.0 06/08/18 06/08/18 06/08/18 03:30 06:17 06:17 WBC 7.8 RBC 4.64 Hgb 16.3 H Hct 47.9 H MCV 103.3 H MCH 35.1 H MCHC 34.0 RDW 15.2 H Plt Count 317 MPV 9.1 Neut % (Auto) 57.2 Lymph % (Auto) 25.9 Banks % (Auto) 14.3 H Eos % (Auto) 1.9 Baso % (Auto) 0.7 Neut # (Auto) 4.5 Lymph # (Auto) 2.0 Banks # (Auto) 1.1 H Eos # (Auto) 0.1 Baso # (Auto) 0.1 ESR Retic Count 0.5 Sodium 140 Potassium 3.6 Chloride 103 Carbon Dioxide 28 Anion Gap 12 BUN 12 Creatinine 0.4 L Est GFR ( Amer) > 60 Est GFR (Non-Af Amer) > 60 Random Glucose 111 H Calcium 9.3 Phosphorus 5.0 H Magnesium 1.5 L Iron TIBC % Saturation Total Bilirubin 0.8 AST 49 H ALT 45 Alkaline Phosphatase 91 Total Protein 7.1 Albumin 3.6 Globulin 3.5 Albumin/Globulin Ratio 1.0 Homocysteine TSH 3rd Generation 2.56 Fluid Type CSF Volume CSF Appearance CSF WBC CSF RBC CSF Total Cell Counted CSF Monos/Macrophages CSF Comment CSF Glucose CSF Total Protein 06/08/18 06/08/18 15:27 15:27 WBC RBC Hgb Hct MCV MCH MCHC RDW Plt Count MPV Neut % (Auto) Lymph % (Auto) Banks % (Auto) Eos % (Auto) Baso % (Auto) Neut # (Auto) Lymph # (Auto) Banks # (Auto) Eos # (Auto) Baso # (Auto) ESR 15 Retic Count Sodium Potassium Chloride Carbon Dioxide Anion Gap BUN Creatinine Est GFR ( Amer) Est GFR (Non-Af Amer) Random Glucose Calcium Phosphorus Magnesium Iron 50 TIBC 210 L % Saturation 24 Total Bilirubin AST ALT Alkaline Phosphatase Total Protein Albumin Globulin Albumin/Globulin Ratio Homocysteine TSH 3rd Generation Fluid Type CSF Volume CSF Appearance CSF WBC CSF RBC CSF Total Cell Counted CSF Monos/Macrophages CSF Comment CSF Glucose CSF Total Protein Assessment & Plan (1) Weakness of limb Assessment and Plan: for possible plasma exchange with albumin if neurologic condition is antibody mediated will discuss with neurology Thank you for this interesting consult. Status: Acute
[2018-06-09 05:55] LABS: BASO % 0.6 % (0.0-2.0); EOS # 0.1 K/uL (0.0-0.7); EOS % 1.8 % (0.0-4.0); LYMPH # 1.9 K/uL (1.0-4.3); LYMPH % 25.3 % (20.0-40.0); MEAN CELL VOLUME 103.3 fL (81.0-99.0); MEAN CORPUSCULAR HEMOGLOBIN 34.8 pg (27.0-31.0); MEAN CORPUSCULAR HGB CONC 33.7 g/dL (33.0-37.0); MEAN PLATELET VOLUME 9.9 fL (7.2-11.7); MONO # 0.9 K/uL (0.0-0.8); MONO % 12.1 % (0.0-10.0); NEUT # 4.6 K/uL (1.8-7.0); NEUT % 60.2 % (50.0-75.0); NRBC % 0.1 % (0.0-2.0); RBC 4.6 Mil/uL (3.80-5.20); RED CELL DISTRIBUTION WIDTH 15.1 % (11.5-14.5); WHITE BLOOD COUNT 7.7 K/uL (4.8-10.8)
[2018-06-09 06:22] LABS: ALBUMIN 3.3 g/dL (3.5-5.0); ALT/SGPT 40 U/L (9-52); AST/SGOT 53 U/L (14-36); BLOOD UREA NITROGEN 4 mg/dL (7-17); CALCIUM 8.8 mg/dl (8.6-10.4); GFR NON-AFRICAN AMERICAN > 60
--- NOTE | 2018-06-09 08:12 | CP.CCUPN ---
<Jean-Claude Lamb - Last Filed: 06/09/18 13:45> CCU Subjective - Physician Review Subjective (Free Text): 06/09/18 08:06 PGY-1 Critical Care Progress Note for Dr. Luis. Patient seen and examined at bedside this AM. No acute overnight events reported. Patient seems to have responded well to pyridostigmine. B/L LE movement more notable, strength mildly improved. 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 Tolerating soft PO diet well. 12 pt ROS reviewed and otherwise remains unchanged. Critical Care Time Spent (in minutes): 35 CCU Objective - Vital Signs / Intake & Output Vital Signs (Last 4 hours): Vital Signs Pulse Resp BP Pulse Ox 06/09/18 06:43 144/87 06/09/18 06:41 74 18 98 06/09/18 06:00 76 17 96 06/09/18 05:43 86 14 147/93 H 100 06/09/18 05:00 74 18 96 06/09/18 04:43 77 18 142/86 96 Intake and Output (Last 8hrs): Intake & Output 06/08/18 06/09/18 06/09/18 22:59 06:59 14:59 Intake Total 810 625 Output Total 700 Balance 810 -75 Weight 123 lb Intake: Intake, IV Amount 450 525 Right Hand 450 525 Oral 360 100 Output: Urine 700 Urine, Voided 700 Other: # Voids Urine, Voided 1 - Physical Exam Head: Positive for: Atraumatic, Normocephalic Pupils: Positive for: PERRL Extroacular Muscles: Positive for: EOMI Conjunctiva: Positive for: Normal Mouth: Positive for: Moist Mucous Membranes Neck: Positive for: Normal Range of Motion Respiratory/Chest: Positive for: Clear to Auscultation, Good Air Exchange. Neg ative for: Respiratory Distress, Accessory Muscle Use, Wheezes, Rales, Retracting, Rhonchi Cardiovascular: Positive for: Normal S1, S2, Tachycardic Abdomen: Positive for: Normal Bowel Sounds. 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 Negative for: Cyanosis, Edema, Tenderness, Swelling Lower Extremity: Positive for: Normal Inspection, NORMAL PULSES, Capillary Refill < 2 s, Other (Decreased sensation b/l LE, motor strength 3/5 b/l LE). Negative for: Edema, CALF TENDERNESS, Cyanosis, Swelling Neurological: Positive for: Speech Normal Skin: Positive for: Warm, Dry, Normal Color. Negative for: Rashes Psychiatric: Positive for: Alert, Oriented x 3 - Medications Active Medications: Active Medications Generic Name Dose Route Start Last Admin Trade Name Freq PRN Reason Stop Dose Admin Heparin Sodium (Porcine) 5,000 units 06/08/18 14:00 06/09/18 06:11 Heparin SC 5,000 units Q8 SUNITA Administration Ondansetron HCl 4 mg 06/08/18 17:30 06/08/18 18:10 Zofran Inj IVP 4 mg DAILY@ONCE PRN Administration Nausea/Vomiting Pantoprazole Sodium 20 mg 06/08/18 10:00 06/08/18 13:58 Protonix Ec Tab PO 20 mg DAILY SUNITA Administration - Patient Studies Lab Studies: Microbiology Studies 06/08/18 01:13 Gram Stain - Final Cerebral Spinal Fluid Lab Studies 06/09/18 06/09/18 06/08/18 Range/Units 05:46 05:46 15:27 WBC 7.7 (4.8-10.8) K/uL RBC 4.60 (3.80-5.20) Mil/uL Hgb 16.0 (11.0-16.0) g/dL Hct 47.5 H (34.0-47.0) % MCV 103.3 H (81.0-99.0) fL MCH 34.8 H (27.0-31.0) pg MCHC 33.7 (33.0-37.0) g/dL RDW 15.1 H (11.5-14.5) % Plt Count 297 (130-400) K/uL MPV 9.9 (7.2-11.7) fL Neut % (Auto) 60.2 (50.0-75.0) % Lymph % (Auto) 25.3 (20.0-40.0) % [place] % (Auto) 12.1 H (0.0-10.0) % Eos % (Auto) 1.8 (0.0-4.0) % Baso % (Auto) 0.6 (0.0-2.0) % Neut # (Auto) 4.6 (1.8-7.0) K/uL Lymph # (Auto) 1.9 (1.0-4.3) K/uL [place] # (Auto) 0.9 H (0.0-0.8) K/uL Eos # (Auto) 0.1 (0.0-0.7) K/uL Baso # (Auto) 0.0 (0.0-0.2) K/uL ESR 15 (0-20) mm/hr Sodium 138 (132-148) mmol/L Potassium 4.4 (3.6-5.2) mmol/L Chloride 104 (98-107) mmol/L Carbon Dioxide 25 (22-30) mmol/L Anion Gap 13 (10-20) BUN 4 L (7-17) mg/dL Creatinine 0.4 L (0.7-1.2) mg/dL Est GFR ( Amer) > 60 Est GFR (Non-Af Amer) > 60 Random Glucose 151 H (65-105) mg/dL Calcium 8.8 (8.6-10.4) mg/dl Phosphorus 3.3 (2.5-4.5) mg/dL Magnesium 1.5 L (1.6-2.3) mg/dL Iron (37-170) ug/dL TIBC (250-450) ug/dL % Saturation (20-55) Total Bilirubin 1.0 (0.2-1.3) mg/dL AST 53 H (14-36) U/L ALT 40 (9-52) U/L Alkaline Phosphatase 84 (38-126) U/L Total Protein 6.7 (6.3-8.3) g/dL Albumin 3.3 L (3.5-5.0) g/dL Globulin 3.4 (2.2-3.9) gm/dL Albumin/Globulin Ratio 1.0 (1.0-2.1) 06/08/18 Range/Units 15:27 WBC (4.8-10.8) K/uL RBC (3.80-5.20) Mil/uL Hgb (11.0-16.0) g/dL Hct (34.0-47.0) % MCV (81.0-99.0) fL MCH (27.0-31.0) pg MCHC (33.0-37.0) g/dL RDW (11.5-14.5) % Plt Count (130-400) K/uL MPV (7.2-11.7) fL Neut % (Auto) (50.0-75.0) % Lymph % (Auto) (20.0-40.0) % [place] % (Auto) (0.0-10.0) % Eos % (Auto) (0.0-4.0) % Baso % (Auto) (0.0-2.0) % Neut # (Auto) (1.8-7.0) K/uL Lymph # (Auto) (1.0-4.3) K/uL [place] # (Auto) (0.0-0.8) K/uL Eos # (Auto) (0.0-0.7) K/uL Baso # (Auto) (0.0-0.2) K/uL ESR (0-20) mm/hr Sodium (132-148) mmol/L Potassium (3.6-5.2) mmol/L Chloride (98-107) mmol/L Carbon Dioxide (22-30) mmol/L Anion Gap (10-20) BUN (7-17) mg/dL Creatinine (0.7-1.2) mg/dL Est GFR ( Amer) Est GFR (Non-Af Amer) Random Glucose (65-105) mg/dL Calcium (8.6-10.4) mg/dl Phosphorus (2.5-4.5) mg/dL Magnesium (1.6-2.3) mg/dL Iron 50 (37-170) ug/dL TIBC 210 L (250-450) ug/dL % Saturation 24 (20-55) Total Bilirubin (0.2-1.3) mg/dL AST (14-36) U/L ALT (9-52) U/L Alkaline Phosphatase (38-126) U/L Total Protein (6.3-8.3) g/dL Albumin (3.5-5.0) g/dL Globulin (2.2-3.9) gm/dL Albumin/Globulin Ratio (1.0-2.1) Laboratory Results - last 24 hr 06/08/18 06/08/18 06/09/18 15:27 15:27 05:46 WBC 7.7 RBC 4.60 Hgb 16.0 Hct 47.5 H MCV 103.3 H MCH 34.8 H MCHC 33.7 RDW 15.1 H Plt Count 297 MPV 9.9 Neut % (Auto) 60.2 Lymph % (Auto) 25.3 [place] % (Auto) 12.1 H Eos % (Auto) 1.8 Baso % (Auto) 0.6 Neut # (Auto) 4.6 Lymph # (Auto) 1.9 [place] # (Auto) 0.9 H Eos # (Auto) 0.1 Baso # (Auto) 0.0 ESR 15 Sodium Potassium Chloride Carbon Dioxide Anion Gap BUN Creatinine Est GFR ( Amer) Est GFR (Non-Af Amer) Random Glucose Calcium Phosphorus Magnesium Iron 50 TIBC 210 L % Saturation 24 Total Bilirubin AST ALT Alkaline Phosphatase Total Protein Albumin Globulin Albumin/Globulin Ratio 06/09/18 05:46 WBC RBC Hgb Hct MCV MCH MCHC RDW Plt Count MPV Neut % (Auto) Lymph % (Auto) [place] % (Auto) Eos % (Auto) Baso % (Auto) Neut # (Auto) Lymph # (Auto) [place] # (Auto) Eos # (Auto) Baso # (Auto) ESR Sodium 138 Potassium 4.4 Chloride 104 Carbon Dioxide 25 Anion Gap 13 BUN 4 L Creatinine 0.4 L Est GFR ( Amer) > 60 Est GFR (Non-Af Amer) > 60 Random Glucose 151 H Calcium 8.8 Phosphorus 3.3 Magnesium 1.5 L Iron TIBC % Saturation Total Bilirubin 1.0 AST 53 H ALT 40 Alkaline Phosphatase 84 Total Protein 6.7 Albumin 3.3 L Globulin 3.4 Albumin/Globulin Ratio 1.0 Review of Systems - Review of Systems All systems: reviewed and no additional remarkable complaints except Review of Systems: as per HPI Critical Care Progress Note - Nutrition Nutrition: Nutrition Category Date Time Status Soft [Dysphagia/Modified Consistency Diet] [DIET] Diets 06/08/18 Dinner Active Assessment/Plan - Assessment and Plan (Free Text) Assessment: 47 yo F with pmhx of gastric bypass (12 years ago), hysterectomy presenting with worsening b/l LE numbness/weakness, ataxia, b/l UE numbness x 3 weeks. Neurology on board, per recs the cause for the patient's symptoms is unknown at this time and the differential is very broad. Due to neuro exam findings, the top working differentials are Myasthenia Gravis (MG), Guillain [place] Syndrome (possible subtypes including but not limited to AMSAN and Gloria Iyer) and subacute combined degeneration. 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 See report for full detail. -CT chest (06/09): 2.7 x 2.5 cm heterogeneous hyperdense mass noted in L hepatic lobe worrisome for malignant neoplasm. Cholelithiasis. High density focus noted on the nondependent portion of the gallbladder; alternatives including polyp or neoplasm can't be excluded. -IR (Dr. Wilson) consulted -Neurology (Dr. Villalba) on case -mestinon tab -multivitamins -possible IVIG or plasma exchange if pt does not significantly improve, per Neurology and Heme CV: -hemodynamically stable, continue to monitor Pulm: -stable, continue to monitor Heme: Polycythemia -Heme/Onc recs (Dr. Maria) recs appreciated: for possible plasma exchange with albumin if neurologic condition is antibody mediated -continue to monitor GI: Unspecified abdominal pain -protonix 20 daily Ppx, Diet, Disposition: -dvt ppx: heparin -gi ppx: protonix -diet: soft, thin liquid Case discussed with Dr. Toby Lamb DO, PGY-1 <Farooq Luis - Last Filed: 06/09/18 16:45> CCU Subjective - Physician Review Critical Care Time Spent (in minutes): 45 CCU Objective - Vital Signs / Intake & Output Vital Signs (Last 4 hours): Vital Signs Pulse Resp BP Pulse Ox 06/09/18 15:00 69 22 96 06/09/18 14:43 80 17 142/88 93 L 06/09/18 14:00 80 18 96 06/09/18 13:44 76 19 116/72 95 06/09/18 13:00 94 H 21 98 Intake and Output (Last 8hrs): Intake & Output 06/09/18 06/09/18 06/09/18 06:59 14:59 22:59 Intake Total 625 1015 75 Output Total 700 Balance -75 1015 75 Weight 123 lb Intake: Intake, IV Amount 525 725 75 Right Hand 525 150 Right PICC 575 75 Oral 100 290 Output: Urine 700 Urine, Voided 700 - Medications Active Medications: Active Medications Generic Name Dose Route Start Last Admin Trade Name Freq PRN Reason Stop Dose Admin Heparin Sodium (Porcine) 5,000 units 06/08/18 14:00 06/09/18 14:40 Heparin SC 5,000 units Q8 SUNITA Administration Albumin Human 500 mls @ 250 mls/hr 06/09/18 14:00 Albutein 5% 500 Ml IVPB 06/09/18 19:59 Q2H SUNITA Albumin Human 250 mls @ 250 mls/hr 06/09/18 20:00 Albumin Human 5% (12.5 Gm/250 Ml) IV 06/09/18 20:59 ONCE ONE Albumin Human 500 mls @ 250 mls/hr 06/11/18 14:00 Albutein 5% 500 Ml IVPB 06/11/18 19:59 Q2H SUNITA Albumin Human 250 mls @ 250 mls/hr 06/11/18 20:00 Albumin Human 5% (12.5 Gm/250 Ml) IV 06/11/18 20:59 ONCE ONE Albumin Human 500 mls @ 250 mls/hr 06/13/18 14:00 Albutein 5% 500 Ml IVPB 06/13/18 19:59 Q2H SUNITA Albumin Human 250 mls @ 250 mls/hr 06/13/18 20:00 Albumin Human 5% (12.5 Gm/250 Ml) IV 06/13/18 20:59 ONCE ONE Ondansetron HCl 4 mg 06/08/18 17:30 06/08/18 18:10 Zofran Inj IVP 4 mg DAILY@ONCE PRN Administration Nausea/Vomiting Pantoprazole Sodium 20 mg 06/08/18 10:00 06/09/18 12:10 Protonix Ec Tab PO 20 mg DAILY SUNITA Administration Pyridostigmine [place] 180 mg 06/09/18 18:00 Mestinon Timespan Tab PO Q6H SUNITA - Patient Studies Lab Studies: Microbiology Studies 06/08/18 01:13 Gram Stain - Final Cerebral Spinal Fluid CSF Culture - Preliminary NO GROWTH AFTER 24 HOURS Lab Studies 06/09/18 06/09/18 06/09/18 Range/Units 15:44 05:46 05:46 WBC 7.7 (4.8-10.8) K/uL RBC 4.60 (3.80-5.20) Mil/uL Hgb 16.0 (11.0-16.0) g/dL Hct 47.5 H (34.0-47.0) % MCV 103.3 H (81.0-99.0) fL MCH 34.8 H (27.0-31.0) pg MCHC 33.7 (33.0-37.0) g/dL RDW 15.1 H (11.5-14.5) % Plt Count 297 (130-400) K/uL MPV 9.9 (7.2-11.7) fL Neut % (Auto) 60.2 (50.0-75.0) % Lymph % (Auto) 25.3 (20.0-40.0) % [place] % (Auto) 12.1 H (0.0-10.0) % Eos % (Auto) 1.8 (0.0-4.0) % Baso % (Auto) 0.6 (0.0-2.0) % Neut # (Auto) 4.6 (1.8-7.0) K/uL Lymph # (Auto) 1.9 (1.0-4.3) K/uL [place] # (Auto) 0.9 H (0.0-0.8) K/uL Eos # (Auto) 0.1 (0.0-0.7) K/uL Baso # (Auto) 0.0 (0.0-0.2) K/uL Fibrinogen 412 H (200-400) mg/dL Sodium 138 (132-148) mmol/L Potassium 4.4 (3.6-5.2) mmol/L Chloride 104 (98-107) mmol/L Carbon Dioxide 25 (22-30) mmol/L Anion Gap 13 (10-20) BUN 4 L (7-17) mg/dL Creatinine 0.4 L (0.7-1.2) mg/dL Est GFR ( Amer) > 60 Est GFR (Non-Af Amer) > 60 Random Glucose 151 H (65-105) mg/dL Calcium 8.8 (8.6-10.4) mg/dl Phosphorus 3.3 (2.5-4.5) mg/dL Magnesium 1.5 L (1.6-2.3) mg/dL Total Bilirubin 1.0 (0.2-1.3) mg/dL AST 53 H (14-36) U/L ALT 40 (9-52) U/L Alkaline Phosphatase 84 (38-126) U/L Total Protein 6.7 (6.3-8.3) g/dL Albumin 3.3 L (3.5-5.0) g/dL Globulin 3.4 (2.2-3.9) gm/dL Albumin/Globulin Ratio 1.0 (1.0-2.1) OCHOA 6 Profile (NEGATIVE) T.pallidum Ab (FTA-ABS) (Nonreactive) 06/08/18 06/07/18 Range/Units 15:27 18:18 WBC (4.8-10.8) K/uL RBC (3.80-5.20) Mil/uL Hgb (11.0-16.0) g/dL Hct (34.0-47.0) % MCV (81.0-99.0) fL MCH (27.0-31.0) pg MCHC (33.0-37.0) g/dL RDW (11.5-14.5) % Plt Count (130-400) K/uL MPV (7.2-11.7) fL Neut % (Auto) (50.0-75.0) % Lymph % (Auto) (20.0-40.0) % [place] % (Auto) (0.0-10.0) % Eos % (Auto) (0.0-4.0) % Baso % (Auto) (0.0-2.0) % Neut # (Auto) (1.8-7.0) K/uL Lymph # (Auto) (1.0-4.3) K/uL [place] # (Auto) (0.0-0.8) K/uL Eos # (Auto) (0.0-0.7) K/uL Baso # (Auto) (0.0-0.2) K/uL Fibrinogen (200-400) mg/dL Sodium (132-148) mmol/L Potassium (3.6-5.2) mmol/L Chloride (98-107) mmol/L Carbon Dioxide (22-30) mmol/L Anion Gap (10-20) BUN (7-17) mg/dL Creatinine (0.7-1.2) mg/dL Est GFR ( Amer) Est GFR (Non-Af Amer) Random Glucose (65-105) mg/dL Calcium (8.6-10.4) mg/dl Phosphorus (2.5-4.5) mg/dL Magnesium (1.6-2.3) mg/dL Total Bilirubin (0.2-1.3) mg/dL AST (14-36) U/L ALT (9-52) U/L Alkaline Phosphatase (38-126) U/L Total Protein (6.3-8.3) g/dL Albumin (3.5-5.0) g/dL Globulin (2.2-3.9) gm/dL Albumin/Globulin Ratio (1.0-2.1) OCHOA 6 Profile Negative (NEGATIVE) T.pallidum Ab (FTA-ABS) Nonreactive (Nonreactive) Laboratory Results - last 24 hr 06/07/18 06/08/18 06/09/18 18:18 15:27 05:46 WBC 7.7 RBC 4.60 Hgb 16.0 Hct 47.5 H MCV 103.3 H MCH 34.8 H MCHC 33.7 RDW 15.1 H Plt Count 297 MPV 9.9 Neut % (Auto) 60.2 Lymph % (Auto) 25.3 [place] % (Auto) 12.1 H Eos % (Auto) 1.8 Baso % (Auto) 0.6 Neut # (Auto) 4.6 Lymph # (Auto) 1.9 [place] # (Auto) 0.9 H Eos # (Auto) 0.1 Baso # (Auto) 0.0 Fibrinogen Sodium Potassium Chloride Carbon Dioxide Anion Gap BUN Creatinine Est GFR ( Amer) Est GFR (Non-Af Amer) Random Glucose Calcium Phosphorus Magnesium Total Bilirubin AST ALT Alkaline Phosphatase Total Protein Albumin Globulin Albumin/Globulin Ratio OCHOA 6 Profile Negative T.pallidum Ab (FTA-ABS) Nonreactive 06/09/18 06/09/18 05:46 15:44 WBC RBC Hgb Hct MCV MCH MCHC RDW Plt Count MPV Neut % (Auto) Lymph % (Auto) [place] % (Auto) Eos % (Auto) Baso % (Auto) Neut # (Auto) Lymph # (Auto) [place] # (Auto) Eos # (Auto) Baso # (Auto) Fibrinogen 412 H Sodium 138 Potassium 4.4 Chloride 104 Carbon Dioxide 25 Anion Gap 13 BUN 4 L Creatinine 0.4 L Est GFR ( Amer) > 60 Est GFR (Non-Af Amer) > 60 Random Glucose 151 H Calcium 8.8 Phosphorus 3.3 Magnesium 1.5 L Total Bilirubin 1.0 AST 53 H ALT 40 Alkaline Phosphatase 84 Total Protein 6.7 Albumin 3.3 L Globulin 3.4 Albumin/Globulin Ratio 1.0 OCHOA 6 Profile T.pallidum Ab (FTA-ABS) Critical Care Progress Note - Nutrition Nutrition: Nutrition Category Date Time Status Soft [Dysphagia/Modified Consistency Diet] [DIET] Diets 06/08/18 Dinner Active Attending/Attestation - Attestation I have personally seen and examined this patient.: Yes I have fully participated in the care of the patient.: Yes I have reviewed all pertinent clinical information: Yes Notes (Text): 06/09/18 16:43 patient seen and examined in the intensive care unit. Case discussed with house staff Dialysis catheter inserted in right femoral vein under aseptic condition for Plasmapheresis as decided by neurology No change in vital capacity Clinically patient feels better MRI of head and spine noted Continue ICU monitoring
[2018-06-09] MEDS: Magnesium Sulfate 1 gm in D5W 1 GM/100 ML BAG IVPB SCH ×4 (09:30→13:30)
[2018-06-09] MEDS ORDERED: PYRIDOSTIGMINE 180 MG PO STA (11:27)
--- NOTE | 2018-06-09 12:01 | MRI ---
Date of service: 06/09/2018 PROCEDURE: MRI BRAIN WITH AND WITHOUT CONTRAST HISTORY: b/l UE and LE numbness/tingling, ataxic COMPARISON: None available. TECHNIQUE: Multiplanar, multisequence MR images of the brain were obtained with and without intravenous contrast enhancement via 11 cc of Omniscan. FINDINGS: HEMORRHAGE: See brain parenchyma section below. DWI: No evidence of an acute or early subacute infarction. BRAIN PARENCHYMA: There is a 4 mm area of abnormal enhancement barely visible as a slightly increased T2 lesion at the right pontomedullary junction not visible on FLAIR or T1 weighted imaging. Borderline diminished signal is seen in the gradient echo axial series here. There is also an area of limited long TR hyperintensity inferior left frontal lobe 5 mm greatest dimension seen only in the FLAIR T2 sequence as well as axial T2 sequence. No enhancement is related. Remaining signal intensity throughout the brain is otherwise normal including post gadolinium enhanced imaging. Etiology physical to narrow given the limited and disparate findings in the corpus callosum appears normal. The pattern may nevertheless reflect white-matter disorder such as demyelination though other etiologies are not completely excluded including even potential metastasis (given trace potential hemosiderin/hemorrhage related). Other infectious or inflammatory causes are not excluded and further clinical correlation is advised. Otherwise, there is no mass effect or suspicious extra-axial collection appreciable. Midline brain anatomy is unremarkable as well as the craniocervical junction. VENTRICLES: Unremarkable. No hydrocephalus. CRANIUM: Unremarkable. ORBITS: Grossly unremarkable. PARANASAL SINUSES/MASTOIDS: Clear VASCULAR SYSTEM: Skull base flow voids intact. OTHER FINDINGS: None . IMPRESSION: Limited but definitive abnormalities identified at the left frontal lobe and right pontomedullary junction comprise of a 4 mm enhancing lesion right pontomedullary junction and nonenhancing inferior left frontal lobe lesion. The lack of chondroid once and sub cm size the findings limits the attempt to narrow the etiology and a broad differential diagnosis exists including potential demyelination or even metastasis. Please see discussion by for further clinical correlation recommended.
[2018-06-09] MEDS: Pantoprazole 20 mg EC Tab PO SCH (12:10)
--- NOTE | 2018-06-09 12:36 | CP.PCM.PN ---
Objective - Vital Signs/Intake and Output Vital Signs (last 24 hours): Temp Pulse Resp BP Pulse Ox 98.4 F 74 18 144/87 98 06/09/18 04:00 06/09/18 06:41 06/09/18 06:41 06/09/18 06:43 06/09/18 06:41 Intake and Output: 06/09/18 06/09/18 06:59 18:59 Intake Total 1165 150 Output Total 700 Balance 465 150 - Medications Medications: Current Medications Heparin Sodium (Porcine) (Heparin) 5,000 units SC Q8 [facility] Last Admin: 06/09/18 06:11 Dose: 5,000 units Magnesium Sulfate/Dextrose (Magnesium Sulfate 1 Gm/100 Ml D5w) 1 gm in 100 mls @ 200 mls/hr IVPB Q30M [facility] Stop: 06/09/18 13:59 Ondansetron HCl (Zofran Inj) 4 mg IVP DAILY@ONCE PRN PRN Reason: Nausea/Vomiting Last Admin: 06/08/18 18:10 Dose: 4 mg Pantoprazole Sodium (Protonix Ec Tab) 20 mg PO DAILY [facility] Last Admin: 06/09/18 12:10 Dose: 20 mg Pyridostigmine [place] (Mestinon Timespan Tab) 180 mg PO Q6H [facility] - Labs Labs: 06/09/18 05:46 06/09/18 05:46 PT 12.3 SECONDS (9.7-12.2) H 06/07/18 17:57 INR 1.1 06/07/18 17:57 APTT 35 SECONDS (21-34) H 06/07/18 17:57 Assessment and Plan (1) Weakness of limb Status: Acute
[2018-06-09] MEDS ORDERED: Albumin Human 5% (12.5 gm/250 ml) IV ONE ×2 (12:37→14:08)
--- NOTE | 2018-06-09 12:48 | CT ---
CT chest without IV contrast Indication: r/o thymoma Technique: Contiguous axial images were obtained through the chest without intravenous contrast enhancement. Sagittal and coronal reconstructions were generated and reviewed. This CT exam was performed using 1 or more of the following dose reduction techniques: Automated exposure control, adjustment of the MAA and/or kV according to patient size, and/or use of iterative reconstruction technique. Radiation dose (DLP): 230.4 MGy-cm. Comparison: Chest x-ray performed 06/08/18 Findings: Right-sided PICC extends to the right atrium. Visualized portions of the inferior thyroid gland appear unremarkable. The mediastinal and hilar vascular structures appear within normal limits. The heart appears within normal limits of size. No focal consolidation. No pleural effusion. No pneumothorax. No suspicious pulmonary nodules measuring greater than 5 mm. Limited visualization of the noncontrast upper abdomen: Cholelithiasis. High-density focus noted on the nondependent portion of the gallbladder; alternatives including polyp or neoplasm can't be excluded. Heterogeneous abnormal appearance of the left hepatic lobe as well as portions of the visualized right hepatic lobe. 2.7 x 2.5 cm heterogeneous hyperdense mass in the left hepatic lobe (series 4, image 63), which appears to create a bulge of the hepatic contour worrisome for malignant neoplasm. Postsurgical gastric changes. Evidence of residual contrast from recent MRI noted in the renal collecting system. No acute osseous abnormality is detected. Impression: Right-sided PICC extends to the right atrium. Markedly heterogeneous abnormal appearance of the liver with a 2.7 x 2.5 cm heterogeneous hyperdense mass noted in the left hepatic lobe worrisome for malignant neoplasm. Cholelithiasis. High-density focus noted on the nondependent portion of the gallbladder; alternatives including polyp or neoplasm can't be excluded. Additional findings as above.
--- NOTE | 2018-06-09 13:50 | CP.PCM.PN ---
Subjective - Date & Time of Evaluation Date of Evaluation: 06/09/18 Time of Evaluation: 10:45 - Subjective Subjective: PGY2 Neuro Note for Dr. Villalba Patient seen and examined this morning at bedside. Patient states she is feeling better today compared to yesterday. She has more energy and is able to move her extremities better today. She is still experiencing numbness/tingling in her hands b/l. Objective - Vital Signs/Intake and Output Vital Signs (last 24 hours): Temp Pulse Resp BP Pulse Ox 98.4 F 74 18 144/87 98 06/09/18 04:00 06/09/18 06:41 06/09/18 06:41 06/09/18 06:43 06/09/18 06:41 Intake and Output: 06/09/18 06/09/18 06:59 18:59 Intake Total 1165 150 Output Total 700 Balance 465 150 - Medications Medications: Current Medications Heparin Sodium (Porcine) (Heparin) 5,000 units SC Q8 SUNITA Last Admin: 06/09/18 06:11 Dose: 5,000 units Magnesium Sulfate/Dextrose (Magnesium Sulfate 1 Gm/100 Ml D5w) 1 gm in 100 mls @ 200 mls/hr IVPB Q30M SUNITA Stop: 06/09/18 13:59 Albumin Human (Albutein 5% 500 Ml) 500 mls @ 250 mls/hr IVPB Q2H SUNITA Stop: 06/09/18 19:59 Albumin Human (Albumin Human 5% (12.5 Gm/250 Ml)) 250 mls @ 250 mls/hr IV ONCE ONE Stop: 06/09/18 20:59 Albumin Human (Albutein 5% 500 Ml) 500 mls @ 250 mls/hr IVPB Q2H SUNITA Stop: 06/11/18 19:59 Albumin Human (Albumin Human 5% (12.5 Gm/250 Ml)) 250 mls @ 250 mls/hr IV ONCE ONE Stop: 06/11/18 20:59 Albumin Human (Albutein 5% 500 Ml) 500 mls @ 250 mls/hr IVPB Q2H SUNITA Stop: 06/13/18 19:59 Albumin Human (Albumin Human 5% (12.5 Gm/250 Ml)) 250 mls @ 250 mls/hr IV ONCE ONE Stop: 06/13/18 20:59 Ondansetron HCl (Zofran Inj) 4 mg IVP DAILY@ONCE PRN PRN Reason: Nausea/Vomiting Last Admin: 06/08/18 18:10 Dose: 4 mg Pantoprazole Sodium (Protonix Ec Tab) 20 mg PO DAILY [facility] Last Admin: 06/09/18 12:10 Dose: 20 mg Pyridostigmine [place] (Mestinon Timespan Tab) 180 mg PO Q6H SUNITA - Labs Labs: 06/09/18 05:46 06/09/18 05:46 PT 12.3 SECONDS (9.7-12.2) H 06/07/18 17:57 INR 1.1 06/07/18 17:57 APTT 35 SECONDS (21-34) H 06/07/18 17:57 - Constitutional Appears: No Acute Distress - Head Exam Additional comments: temporal wasting - Eye Exam Eye Exam: PERRL. absent: EOMI (weakness with upward gaze - improved from yesterday), Normal appearance (ptosis (improved compared to yesterday)) - ENT Exam ENT Exam: Mucous Membranes Moist - Neck Exam Neck Exam: Full ROM, Normal Inspection. absent: Lymphadenopathy - Respiratory Exam Respiratory Exam: NORMAL BREATHING PATTERN. absent: Accessory Muscle Use, Respiratory Distress - Extremities Exam Extremities Exam: absent: Calf Tenderness, Pedal Edema - Neurological Exam Neurological Exam: Alert, Awake Additional comments: aaox3. PERRL. improving weakness of eom. specifically, her upward gaze is weak, but present. Lid lag test was performed and positive after 15 seconds (improved from 3-5 seconds yesterday). baseline ptosis. --> drastically improved with ice test of right eye CN 2-12 normal. Orbicularis oculi: 1 --> 3, tongue muscles: 1 --> 4, neck flexors: 2 --> 4, neck extensors: 1 -->4 SCM: 3 --> 4 deltoid: 4 bl, triceps: 3 right, 4 left --> 4 bl biceps: 2 right, 3 left --> 4 bl sign painter helper: 4 bl --> 3 bl (decreased) finger flexors, extensors: 1 --> 3 bl interosei: 4 bl lowerlimb: hamstrings 3 --> 4, quads: 3 --> 4 bl tib anterior: 3 --> 4 bl dorsiflexion: 3 --> 4 bl plantar extension: 3 --> 4 bl no fasciculations, no tremors sensory: V1- V3 normal. decreased ft ul, ll bl, non dermatomal dist position sense: lost in upper and lower limb vibration sense: decreased severely hand, no position sense foot, or ankle. Present at knee. 50% loss of vibration at knee compared to hand . dtr: +3 ul, achilles +1 no clonus. temperature: diminished perception to cold upper and lower limbs bl. Pain: decreased in all regions. Gait: not tested Cerebellar: no dysmetria - Skin Skin Exam: Dry, Warm Assessment and Plan - Assessment and Plan (Free Text) Plan: Brain MRI 06/09/18: Limited but definitive abnormalities identified at the left frontal lobe and right pontomedullary junction comprise of a 4 mm enhancing lesion right pontomedullary junction and nonenhancing inferior left frontal lobe lesion. The lack of chondroid once and sub cm size the findings limits the attempt to narrow the etiology and a broad differential diagnosis exists including potential demyelination or even metastasis. Please see discussion by for further clinical correlation recommended. Chest CT 06/09/18: Right-sided PICC extends to the right atrium. Markedly heterogeneous abnormal appearance of the liver with a 2.7 x 2.5 cm heterogeneous hyperdense mass noted in the left hepatic lobe worrisome for malignant neoplasm. Cholelithiasis. High-density focus noted on the nondependent portion of the gallbladder; alternatives including polyp or neoplasm can't be excluded. Patient is a 47 year old female with progressive weakness for 3 weeks. The patient was given a Pyridostigmine challenge yesterday, with improvement of symptoms. Patient's strength improved and reports increase in energy today. Patient had a positive Ice Test of her right eye with improvement of ptosis. At this time it is believed that the patient may be suffering from Myasthenia Gravis (MG). Guillain Bethany Syndrome (possible subtypes including but not limited to AMSAN and Gloria Iyer) and subacute combined degeneration have not been ruled out and are pending test results. Work up for liver mass, 4mm lesion of the right pontomedullary junction and nonenhancing lesion in inferior left frontal lobe starting. IR was consulted by primary team for evaluation and possible biopsy of liver mass. 1. ICU 2. Work-up for Liver/Brain mass - [place] [facility] consulted for possible biopsy 3. Auto-antibodies ordered - pending results 4. Pyridostigmine 180mg PO q6h 5. Discussed case with Dr. Maria (hem/onc), may perform plasmaphoresis today or tomorrow. Please do not hesitate to call with any questions. Case discussed with Dr. Deejay Hernandez Isaac PGY2
--- NOTE | 2018-06-09 14:05 | CP.PCM.PN ---
Subjective - Date & Time of Evaluation Date of Evaluation: 06/09/18 Time of Evaluation: 13:30 - Subjective Subjective: Hospitalist Progress Note Patient was seen and examined at 1:30 PM 06/09/18 ICU Bed #6 Patient lethargic but responsive to questioning. States that she feels a little more energy today than when she came in. There is NO loss of sensation or complaints of paresthesias at this time. Some lightheadedness when she was trying to get up to sit at edge of bed earlier during breakfast and lunch. NO difficulty with swallowing NO blurriness of vision but states that she needs reading glasses NO headaches NO chest pain NO palpitations NO SOB NO abdominal pain NO n/v/d/c: last bowel movement was 06/08/18 NO burining/pain with urination NO new changes in hearing General: lethargic but responsive to questioning and follows commands. Noted that eyelids would close if she was not spoken to during the exm HEENT: NCA, EOMI, PERRLA, NO pharyngeal erythema/exudate, NO cervical/supraclavicular/submandibular lymphadenopathy, NO thyromegaly Cardio: NS1 and NS2, NO M/R/G Resp: CTA B/L, NO R/R/W GI: BSx4, soft, NT, ND, NO HSM, NO guarding, NO rebound tenderness Ext: Capillary refill is 2 seconds, NO edema, Pulses are strong and equal, Right PICC Line Neuro: CN II through XII grossly intact, Bilateral UE and LE 4/5 strength with flexion and extension against resistance Assessment: 1). Possible Myasthenia Gravis NO thymoma noted on CT Chest There appears to be some improvement with Pyridostigmine administration: Currently at 180 mg PO Q6H Patient is for Plasmaphoresis today. F/U CSF studies: culture, HSV IgM, Lymb Ab, Lyme DNA, Oligoclonal Bands, West Nile RNA PCR, West Nile Ab F/U Musk Qn Titer Ab Test F/U Methymalonic Acid F/U FTA Abs F/U Acetylcholine Ab F/U Blood Culture F/U Urine Culture RPR is NON-reactive HIV 1 & 2 is negative Influenza is negative MRIs of Cervical, Thoracic, and Lumbar Spine were all unremarkable: please see reports for full details. 2). Left frontal lobe and right pontomedullary junction 4mm enchancing lesion right pontomedullary junction and nonenhancing inferior left frontal lobe lesion As seen by MRI Brain 06/09/18 F/U further recommendations from Neurology Dr. Villalba 3). Hypodense lesion in left lobe liver that was concerning for neoplasm. As seen on CT Chest Spoke with PMD Dr. Fox Sanon via phone: she had worked up patient with MRI at [facility] [place]. She stated that she faxed over the report to our ICU but they could not be found by me. She stated that MRI revealed that the lesion in liver was deemed to be Hemangioma Medicine Team please contact Dr. Fox Sanon's office of the [facility] to obtain workup radiology studies for this issue. Consult IR Dr. Paul Wilson for possible FNA Bx but this should be cancelled if report received from Dr. Braxton's office confirms hemangioma Eulalio Sanon, Kelli.O. [phone] Objective - Vital Signs/Intake and Output Vital Signs (last 24 hours): Temp Pulse Resp BP Pulse Ox 98.4 F 74 18 144/87 98 06/09/18 04:00 06/09/18 06:41 06/09/18 06:41 06/09/18 06:43 06/09/18 06:41 Intake and Output: 06/09/18 06/09/18 06:59 18:59 Intake Total 1165 150 Output Total 700 Balance 465 150 - Medications Medications: Current Medications Heparin Sodium (Porcine) (Heparin) 5,000 units SC Q8 SUNITA Last Admin: 06/09/18 06:11 Dose: 5,000 units Magnesium Sulfate/Dextrose (Magnesium Sulfate 1 Gm/100 Ml D5w) 1 gm in 100 mls @ 200 mls/hr IVPB Q30M SUNITA Stop: 06/09/18 13:59 Albumin Human (Albutein 5% 500 Ml) 500 mls @ 250 mls/hr IVPB Q2H SUNITA Stop: 06/09/18 19:59 Albumin Human (Albumin Human 5% (12.5 Gm/250 Ml)) 250 mls @ 250 mls/hr IV ONCE ONE Stop: 06/09/18 20:59 Albumin Human (Albutein 5% 500 Ml) 500 mls @ 250 mls/hr IVPB Q2H SUNITA Stop: 06/11/18 19:59 Albumin Human (Albumin Human 5% (12.5 Gm/250 Ml)) 250 mls @ 250 mls/hr IV ONCE ONE Stop: 06/11/18 20:59 Albumin Human (Albutein 5% 500 Ml) 500 mls @ 250 mls/hr IVPB Q2H SUNITA Stop: 06/13/18 19:59 Albumin Human (Albumin Human 5% (12.5 Gm/250 Ml)) 250 mls @ 250 mls/hr IV ONCE ONE Stop: 06/13/18 20:59 Ondansetron HCl (Zofran Inj) 4 mg IVP DAILY@ONCE PRN PRN Reason: Nausea/Vomiting Last Admin: 06/08/18 18:10 Dose: 4 mg Pantoprazole Sodium (Protonix Ec Tab) 20 mg PO DAILY [facility] Last Admin: 06/09/18 12:10 Dose: 20 mg Pyridostigmine [place] (Mestinon Timespan Tab) 180 mg PO Q6H SUNITA - Labs Labs: 06/09/18 05:46 06/09/18 05:46 PT 12.3 SECONDS (9.7-12.2) H 06/07/18 17:57 INR 1.1 06/07/18 17:57 APTT 35 SECONDS (21-34) H 06/07/18 17:57
[2018-06-09] MEDS: PYRIDOSTIGMINE 180 MG PO SCH (17:11)
[2018-06-10] MEDS: PYRIDOSTIGMINE 180 MG PO SCH ×5 (00:37→23:15)
--- NOTE | 2018-06-10 01:44 | CP.PCM.PCO ---
Physician Communication Note - Physician Communication Note Physician Communication Note: Please see above
[2018-06-10 05:56] LABS: BASO # 0.1 K/uL (0.0-0.2); BASO % 0.9 % (0.0-2.0); EOS % 0.4 % (0.0-4.0); HEMOGLOBIN 17.2 g/dL (11.0-16.0); LYMPH # 1.9 K/uL (1.0-4.3); LYMPH % 18.7 % (20.0-40.0); MEAN CELL VOLUME 102.2 fL (81.0-99.0); MEAN CORPUSCULAR HEMOGLOBIN 34.7 pg (27.0-31.0); MONO % 10.3 % (0.0-10.0); NEUT # 6.9 K/uL (1.8-7.0); NEUT % 69.7 % (50.0-75.0); RBC 4.94 Mil/uL (3.80-5.20); RED CELL DISTRIBUTION WIDTH 15.1 % (11.5-14.5); WHITE BLOOD COUNT 9.9 K/uL (4.8-10.8)
[2018-06-10 06:16] LABS: ALB/GLOB RATIO 1.7 (1.0-2.1); ALBUMIN 3.6 g/dL (3.5-5.0); ALT/SGPT 32 U/L (9-52); AST/SGOT 31 U/L (14-36); BLOOD UREA NITROGEN 5 mg/dL (7-17); GFR NON-AFRICAN AMERICAN > 60
--- NOTE | 2018-06-10 07:37 | CP.CCUPN ---
<Jean-Claude Lamb - Last Filed: 06/10/18 17:52> CCU Subjective - Physician Review Subjective (Free Text): 06/10/18 07:37 PGY-1 Critical Care Progress Note for Dr. Johnson Patient seen and examined at bedside this am s/p plasma exchange. Ptosis is improved and patient states her lower extremities feel a little stronger. 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 Vital capacity slightly improved. 12 pt ROS reviewed and otherwise remains unchanged. Critical Care Time Spent (in minutes): 35 CCU Objective - Vital Signs / Intake & Output Vital Signs (Last 4 hours): Vital Signs Temp Pulse Resp BP Pulse Ox 06/10/18 06:00 70 13 100 06/10/18 05:43 88 18 139/98 H 100 06/10/18 05:00 77 21 98 06/10/18 04:43 74 19 130/92 H 98 06/10/18 04:00 98.5 F 89 22 97 06/10/18 03:43 78 16 132/89 98 Intake and Output (Last 8hrs): Intake & Output 06/09/18 06/10/18 06/10/18 22:59 06:59 14:59 Intake Total 690 200 Output Total 680 450 Balance 10 -250 Weight 122 lb Intake: Intake, IV Amount 450 0 Right Hand 0 0 Right PICC 450 Oral 240 200 Output: Urine 680 450 Urine, Voided 680 450 - Physical Exam Head: Positive for: Atraumatic, Normocephalic Pupils: Positive for: PERRL Extroacular Muscles: Positive for: EOMI Conjunctiva: Positive for: Normal Mouth: Positive for: Moist Mucous Membranes Neck: Positive for: Normal Range of Motion Respiratory/Chest: Positive for: Clear to Auscultation, Good Air Exchange. Negative for: Respiratory Distress, Accessory Muscle Use, Wheezes, Rales, Retracting, Rhonchi Cardiovascular: Positive for: Normal S1, S2, Tachycardic Abdomen: Positive for: Normal Bowel Sounds. 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 Negative for: Cyanosis, Edema, Tenderness, Swelling Lower Extremity: Positive for: Normal Inspection, NORMAL PULSES, Capillary Refill < 2 s, Other (Decreased sensation b/l LE, motor strength 3/5 b/l LE). Negative for: Edema, CALF TENDERNESS, Cyanosis, Swelling Neurological: Positive for: Speech Normal Skin: Positive for: Warm, Dry, Normal Color. Negative for: Rashes Psychiatric: Positive for: Alert, Oriented x 3 - Medications Active Medications: Active Medications Generic Name Dose Route Start Last Admin Trade Name Freq PRN Reason Stop Dose Admin Heparin Sodium (Porcine) 5,000 units 06/08/18 14:00 06/10/18 05:34 Heparin SC 5,000 units Q8 SUNITA Administration Albumin Human 500 mls @ 250 mls/hr 06/11/18 14:00 Albutein 5% 500 Ml IVPB 06/11/18 19:59 Q2H SUNITA Albumin Human 250 mls @ 250 mls/hr 06/11/18 20:00 Albumin Human 5% (12.5 Gm/250 Ml) IV 06/11/18 20:59 ONCE ONE Albumin Human 500 mls @ 250 mls/hr 06/13/18 14:00 Albutein 5% 500 Ml IVPB 06/13/18 19:59 Q2H SUNITA Albumin Human 250 mls @ 250 mls/hr 06/13/18 20:00 Albumin Human 5% (12.5 Gm/250 Ml) IV 06/13/18 20:59 ONCE ONE Ondansetron HCl 4 mg 06/08/18 17:30 06/09/18 22:19 Zofran Inj IVP 4 mg DAILY@ONCE PRN Administration Nausea/Vomiting Pantoprazole Sodium 20 mg 06/08/18 10:00 06/09/18 12:10 Protonix Ec Tab PO 20 mg DAILY SUNITA Administration Pyridostigmine Coolin 180 mg 06/09/18 18:00 06/10/18 05:33 Mestinon Timespan Tab PO 180 mg Q6H SUNITA Administration - Patient Studies Lab Studies: Microbiology Studies 06/08/18 17:30 Blood Culture - Preliminary Blood NO GROWTH AFTER 24 HOURS 06/08/18 17:00 Blood Culture - Preliminary Blood NO GROWTH AFTER 24 HOURS 06/08/18 01:13 Gram Stain - Final Cerebral Spinal Fluid CSF Culture - Preliminary NO GROWTH AFTER 24 HOURS Lab Studies 06/10/18 06/10/18 06/10/18 Range/Units 05:45 05:45 05:45 WBC 9.9 (4.8-10.8) K/uL RBC 4.94 (3.80-5.20) Mil/uL Hgb 17.2 H (11.0-16.0) g/dL Hct 50.5 H (34.0-47.0) % MCV 102.2 H (81.0-99.0) fL MCH 34.7 H (27.0-31.0) pg MCHC 34.0 (33.0-37.0) g/dL RDW 15.1 H (11.5-14.5) % Plt Count 269 (130-400) K/uL MPV 10.0 (7.2-11.7) fL Neut % (Auto) 69.7 (50.0-75.0) % Lymph % (Auto) 18.7 L (20.0-40.0) % [place] % (Auto) 10.3 H (0.0-10.0) % Eos % (Auto) 0.4 (0.0-4.0) % Baso % (Auto) 0.9 (0.0-2.0) % Neut # (Auto) 6.9 (1.8-7.0) K/uL Lymph # (Auto) 1.9 (1.0-4.3) K/uL [place] # (Auto) 1.0 H (0.0-0.8) K/uL Eos # (Auto) 0.0 (0.0-0.7) K/uL Baso # (Auto) 0.1 (0.0-0.2) K/uL Fibrinogen 198 L D (200-400) mg/dL Sodium 139 (132-148) mmol/L Potassium 4.0 (3.6-5.2) mmol/L Chloride 105 (98-107) mmol/L Carbon Dioxide 25 (22-30) mmol/L Anion Gap 13 (10-20) BUN 5 L (7-17) mg/dL Creatinine 0.4 L (0.7-1.2) mg/dL Est GFR ( Amer) > 60 Est GFR (Non-Af Amer) > 60 Random Glucose 110 H (65-105) mg/dL Calcium 9.0 (8.6-10.4) mg/dl Phosphorus 3.4 (2.5-4.5) mg/dL Magnesium 1.7 (1.6-2.3) mg/dL Total Bilirubin 1.3 (0.2-1.3) mg/dL AST 31 (14-36) U/L ALT 32 (9-52) U/L Alkaline Phosphatase 48 (38-126) U/L Total Protein 5.7 L (6.3-8.3) g/dL Albumin 3.6 (3.5-5.0) g/dL Globulin 2.1 L (2.2-3.9) gm/dL Albumin/Globulin Ratio 1.7 (1.0-2.1) OCHOA 6 Profile (NEGATIVE) T.pallidum Ab (FTA-ABS) (Nonreactive) 06/09/18 06/08/18 06/07/18 Range/Units 15:44 15:27 18:18 WBC (4.8-10.8) K/uL RBC (3.80-5.20) Mil/uL Hgb (11.0-16.0) g/dL Hct (34.0-47.0) % MCV (81.0-99.0) fL MCH (27.0-31.0) pg MCHC (33.0-37.0) g/dL RDW (11.5-14.5) % Plt Count (130-400) K/uL MPV (7.2-11.7) fL Neut % (Auto) (50.0-75.0) % Lymph % (Auto) (20.0-40.0) % [place] % (Auto) (0.0-10.0) % Eos % (Auto) (0.0-4.0) % Baso % (Auto) (0.0-2.0) % Neut # (Auto) (1.8-7.0) K/uL Lymph # (Auto) (1.0-4.3) K/uL [place] # (Auto) (0.0-0.8) K/uL Eos # (Auto) (0.0-0.7) K/uL Baso # (Auto) (0.0-0.2) K/uL Fibrinogen 412 H (200-400) mg/dL Sodium (132-148) mmol/L Potassium (3.6-5.2) mmol/L Chloride (98-107) mmol/L Carbon Dioxide (22-30) mmol/L Anion Gap (10-20) BUN (7-17) mg/dL Creatinine (0.7-1.2) mg/dL Est GFR ( Amer) Est GFR (Non-Af Amer) Random Glucose (65-105) mg/dL Calcium (8.6-10.4) mg/dl Phosphorus (2.5-4.5) mg/dL Magnesium (1.6-2.3) mg/dL Total Bilirubin (0.2-1.3) mg/dL AST (14-36) U/L ALT (9-52) U/L Alkaline Phosphatase (38-126) U/L Total Protein (6.3-8.3) g/dL Albumin (3.5-5.0) g/dL Globulin (2.2-3.9) gm/dL Albumin/Globulin Ratio (1.0-2.1) OCHOA 6 Profile Negative (NEGATIVE) T.pallidum Ab (FTA-ABS) Nonreactive (Nonreactive) Laboratory Results - last 24 hr 06/07/18 06/08/18 06/09/18 18:18 15:27 15:44 WBC RBC Hgb Hct MCV MCH MCHC RDW Plt Count MPV Neut % (Auto) Lymph % (Auto) [place] % (Auto) Eos % (Auto) Baso % (Auto) Neut # (Auto) Lymph # (Auto) [place] # (Auto) Eos # (Auto) Baso # (Auto) Fibrinogen 412 H Sodium Potassium Chloride Carbon Dioxide Anion Gap BUN Creatinine Est GFR ( Amer) Est GFR (Non-Af Amer) Random Glucose Calcium Phosphorus Magnesium Total Bilirubin AST ALT Alkaline Phosphatase Total Protein Albumin Globulin Albumin/Globulin Ratio OCHOA 6 Profile Negative T.pallidum Ab (FTA-ABS) Nonreactive 06/10/18 06/10/18 06/10/18 05:45 05:45 05:45 WBC 9.9 RBC 4.94 Hgb 17.2 H Hct 50.5 H MCV 102.2 H MCH 34.7 H MCHC 34.0 RDW 15.1 H Plt Count 269 MPV 10.0 Neut % (Auto) 69.7 Lymph % (Auto) 18.7 L [place] % (Auto) 10.3 H Eos % (Auto) 0.4 Baso % (Auto) 0.9 Neut # (Auto) 6.9 Lymph # (Auto) 1.9 [place] # (Auto) 1.0 H Eos # (Auto) 0.0 Baso # (Auto) 0.1 Fibrinogen 198 L D Sodium 139 Potassium 4.0 Chloride 105 Carbon Dioxide 25 Anion Gap 13 BUN 5 L Creatinine 0.4 L Est GFR ( Amer) > 60 Est GFR (Non-Af Amer) > 60 Random Glucose 110 H Calcium 9.0 Phosphorus 3.4 Magnesium 1.7 Total Bilirubin 1.3 AST 31 ALT 32 Alkaline Phosphatase 48 Total Protein 5.7 L Albumin 3.6 Globulin 2.1 L Albumin/Globulin Ratio 1.7 OCHOA 6 Profile T.pallidum Ab (FTA-ABS) Review of Systems - Review of Systems All systems: reviewed and no additional remarkable complaints except Review of Systems: as per [facility] Critical Care Progress Note - Nutrition Nutrition: Nutrition Category Date Time Status Soft [Dysphagia/Modified Consistency Diet] [DIET] Diets 06/08/18 Dinner Active Assessment/Plan - Assessment and Plan (Free Text) Assessment: 47 yo F with pmhx of gastric bypass (12 years ago), hysterectomy presenting with worsening b/l LE numbness/weakness, ataxia, b/l UE numbness x 3 weeks. Neurology on board, per recs the cause for the patient's symptoms is unknown at this time and the differential is very broad. Working diagnosis is Myasthenia gravis. Patient is s/p plasmapheresis, tolerating pyridostigmine treatment well. Awaiting anti-Ach receptor Ab. Per Neuro and Heme, will have two more plasmapheresis sessions. Plan: Neuro: Peripheral Neuropathy Findings suggestive of Myasthenia Gravis -worsening b/l LE numbness/weakness, ataxia -patient has hx gastric bypass 12 years ago, on multivitamins at home but has been noncompliant -RPR, HIV negative -s/p lumbar tap: CSF total protein wnl -vitamin B12 > 1000 -Folate wnl -Homocysteine 18.4 -f/u Anti-Ach receptor antibodies -MRI cervical/thoracic/lumbar spine series: no acute findings -MRI brain w/ contrast: Limited but definitive abnormalities identified at the L frontal lobe and R pontomedullary junction comprise of a 4 mm enhancing lesions R pontomedullary junction and nonenhancing inferior L frontal lobe lesion. See report for full detail. -CT chest (06/09): 2.7 x 2.5 cm heterogeneous hyperdense mass noted in L hepatic lobe worrisome for malignant neoplasm. Cholelithiasis. High density focus noted on the nondependent portion of the gallbladder; alternatives including polyp or neoplasm can't be excluded. -MRI/CT abdomen reports from [facility] faxed over and placed in patient chart: liver lesion likely hemangioma -Neurology (Dr. Villalba) on case -patient s/p plasmapheresis (06/09), to undergo 2 more sessions +/- IVIG per Neuro and Heme/Onc -mestinon 180 mg PO q6H -multivitamins CV: -hemodynamically stable, continue to monitor Pulm: -stable, continue to monitor Heme: Polycythemia -Heme/Onc recs (Dr. Maria) recs appreciated -continue to monitor GI: Unspecified abdominal pain -protonix 20 daily Ppx, Diet, Disposition: -dvt ppx: heparin -gi ppx: protonix -diet: finely chopped Case discussed with Dr. Alex Lamb DO, PGY-1 <Anthony Johnson - Last Filed: 06/10/18 18:53> CCU Objective - Vital Signs / Intake & Output Vital Signs (Last 4 hours): Vital Signs Temp Pulse Resp BP Pulse Ox 06/10/18 17:43 83 20 126/98 H 99 06/10/18 16:43 72 16 129/90 95 06/10/18 16:00 98.1 F 98 06/10/18 15:43 71 18 122/87 96 06/10/18 14:43 116/77 06/10/18 14:39 89 85 L Intake and Output (Last 8hrs): Intake & Output 06/10/18 06/10/18 06/10/18 06:59 14:59 22:59 Intake Total 200 343 550 Output Total 450 0 Balance -250 343 550 Weight 122 lb Intake: Intake, IV Amount 0 0 350 Right Hand 0 0 0 Right PICC 350 Oral 200 343 200 Output: Urine 450 0 Urine, Voided 450 0 Other: # Bowel Movements 0 0 - Medications Active Medications: Active Medications Generic Name Dose Route Start Last Admin Trade Name Freq PRN Reason Stop Dose Admin Heparin Sodium (Porcine) 5,000 units 06/08/18 14:00 06/10/18 14:56 Heparin SC 5,000 units Q8 SUNITA Administration Albumin Human 500 mls @ 250 mls/hr 06/11/18 14:00 Albutein 5% 500 Ml IVPB 06/11/18 19:59 Q2H SUNITA Albumin Human 250 mls @ 250 mls/hr 06/11/18 20:00 Albumin Human 5% (12.5 Gm/250 Ml) IV 06/11/18 20:59 ONCE ONE Albumin Human 500 mls @ 250 mls/hr 06/13/18 14:00 Albutein 5% 500 Ml IVPB 06/13/18 19:59 Q2H SUNITA Albumin Human 250 mls @ 250 mls/hr 06/13/18 20:00 Albumin Human 5% (12.5 Gm/250 Ml) IV 06/13/18 20:59 ONCE ONE Ondansetron HCl 4 mg 06/08/18 17:30 06/09/18 22:19 Zofran Inj IVP 4 mg DAILY@ONCE PRN Administration Nausea/Vomiting Pantoprazole Sodium 20 mg 06/08/18 10:00 06/10/18 09:30 Protonix Ec Tab PO 20 mg DAILY SUNITA Administration Pyridostigmine Coolin 180 mg 06/09/18 18:00 06/10/18 17:34 Mestinon Timespan Tab PO 180 mg Q6H SUNITA Administration - Patient Studies Lab Studies: Microbiology Studies 06/08/18 17:30 Blood Culture - Preliminary Blood NO GROWTH AFTER 48 HOURS 06/08/18 17:00 Blood Culture - Preliminary Blood NO GROWTH AFTER 48 HOURS 06/08/18 06:06 MRSA Culture (Admit) - Final Nose MRSA NOT DETECTED 06/08/18 01:13 Gram Stain - Final Cerebral Spinal Fluid CSF Culture - Preliminary NO GROWTH AFTER 2 DAYS Lab Studies 06/10/18 06/10/18 06/10/18 Range/Units 05:45 05:45 05:45 WBC 9.9 (4.8-10.8) K/uL RBC 4.94 (3.80-5.20) Mil/uL Hgb 17.2 H (11.0-16.0) g/dL Hct 50.5 H (34.0-47.0) % MCV 102.2 H (81.0-99.0) fL MCH 34.7 H (27.0-31.0) pg MCHC 34.0 (33.0-37.0) g/dL RDW 15.1 H (11.5-14.5) % Plt Count 269 (130-400) K/uL MPV 10.0 (7.2-11.7) fL Neut % (Auto) 69.7 (50.0-75.0) % Lymph % (Auto) 18.7 L (20.0-40.0) % [place] % (Auto) 10.3 H (0.0-10.0) % Eos % (Auto) 0.4 (0.0-4.0) % Baso % (Auto) 0.9 (0.0-2.0) % Neut # (Auto) 6.9 (1.8-7.0) K/uL Lymph # (Auto) 1.9 (1.0-4.3) K/uL [place] # (Auto) 1.0 H (0.0-0.8) K/uL Eos # (Auto) 0.0 (0.0-0.7) K/uL Baso # (Auto) 0.1 (0.0-0.2) K/uL Fibrinogen 198 L D (200-400) mg/dL Sodium 139 (132-148) mmol/L Potassium 4.0 (3.6-5.2) mmol/L Chloride 105 (98-107) mmol/L Carbon Dioxide 25 (22-30) mmol/L Anion Gap 13 (10-20) BUN 5 L (7-17) mg/dL Creatinine 0.4 L (0.7-1.2) mg/dL Est GFR ( Amer) > 60 Est GFR (Non-Af Amer) > 60 Random Glucose 110 H (65-105) mg/dL Calcium 9.0 (8.6-10.4) mg/dl Phosphorus 3.4 (2.5-4.5) mg/dL Magnesium 1.7 (1.6-2.3) mg/dL Total Bilirubin 1.3 (0.2-1.3) mg/dL AST 31 (14-36) U/L ALT 32 (9-52) U/L Alkaline Phosphatase 48 (38-126) U/L Total Protein 5.7 L (6.3-8.3) g/dL Albumin 3.6 (3.5-5.0) g/dL Globulin 2.1 L (2.2-3.9) gm/dL Albumin/Globulin Ratio 1.7 (1.0-2.1) Methylmalonic Acid (87-318) nmol/L Lyme Disease Screen index 06/07/18 06/07/18 Range/Units 18:18 16:00 WBC (4.8-10.8) K/uL RBC (3.80-5.20) Mil/uL Hgb (11.0-16.0) g/dL Hct (34.0-47.0) % MCV (81.0-99.0) fL MCH (27.0-31.0) pg MCHC (33.0-37.0) g/dL RDW (11.5-14.5) % Plt Count (130-400) K/uL MPV (7.2-11.7) fL Neut % (Auto) (50.0-75.0) % Lymph % (Auto) (20.0-40.0) % [place] % (Auto) (0.0-10.0) % Eos % (Auto) (0.0-4.0) % Baso % (Auto) (0.0-2.0) % Neut # (Auto) (1.8-7.0) K/uL Lymph # (Auto) (1.0-4.3) K/uL [place] # (Auto) (0.0-0.8) K/uL Eos # (Auto) (0.0-0.7) K/uL Baso # (Auto) (0.0-0.2) K/uL Fibrinogen (200-400) mg/dL Sodium (132-148) mmol/L Potassium (3.6-5.2) mmol/L Chloride (98-107) mmol/L Carbon Dioxide (22-30) mmol/L Anion Gap (10-20) BUN (7-17) mg/dL Creatinine (0.7-1.2) mg/dL Est GFR ( Amer) Est GFR (Non-Af Amer) Random Glucose (65-105) mg/dL Calcium (8.6-10.4) mg/dl Phosphorus (2.5-4.5) mg/dL Magnesium (1.6-2.3) mg/dL Total Bilirubin (0.2-1.3) mg/dL AST (14-36) U/L ALT (9-52) U/L Alkaline Phosphatase (38-126) U/L Total Protein (6.3-8.3) g/dL Albumin (3.5-5.0) g/dL Globulin (2.2-3.9) gm/dL Albumin/Globulin Ratio (1.0-2.1) Methylmalonic Acid 132 (87-318) nmol/L Lyme Disease Screen <0.90 index Laboratory Results - last 24 hr 06/07/18 06/07/18 06/10/18 16:00 18:18 05:45 WBC 9.9 RBC 4.94 Hgb 17.2 H Hct 50.5 H MCV 102.2 H MCH 34.7 H MCHC 34.0 RDW 15.1 H Plt Count 269 MPV 10.0 Neut % (Auto) 69.7 Lymph % (Auto) 18.7 L [place] % (Auto) 10.3 H Eos % (Auto) 0.4 Baso % (Auto) 0.9 Neut # (Auto) 6.9 Lymph # (Auto) 1.9 [place] # (Auto) 1.0 H Eos # (Auto) 0.0 Baso # (Auto) 0.1 Fibrinogen Sodium Potassium Chloride Carbon Dioxide Anion Gap BUN Creatinine Est GFR ( Amer) Est GFR (Non-Af Amer) Random Glucose Calcium Phosphorus Magnesium Total Bilirubin AST ALT Alkaline Phosphatase Total Protein Albumin Globulin Albumin/Globulin Ratio Methylmalonic Acid 132 Lyme Disease Screen <0.90 06/10/18 06/10/18 05:45 05:45 WBC RBC Hgb Hct MCV MCH MCHC RDW Plt Count MPV Neut % (Auto) Lymph % (Auto) [place] % (Auto) Eos % (Auto) Baso % (Auto) Neut # (Auto) Lymph # (Auto) [place] # (Auto) Eos # (Auto) Baso # (Auto) Fibrinogen 198 L D Sodium 139 Potassium 4.0 Chloride 105 Carbon Dioxide 25 Anion Gap 13 BUN 5 L Creatinine 0.4 L Est GFR ( Amer) > 60 Est GFR (Non-Af Amer) > 60 Random Glucose 110 H Calcium 9.0 Phosphorus 3.4 Magnesium 1.7 Total Bilirubin 1.3 AST 31 ALT 32 Alkaline Phosphatase 48 Total Protein 5.7 L Albumin 3.6 Globulin 2.1 L Albumin/Globulin Ratio 1.7 Methylmalonic Acid Lyme Disease Screen Critical Care Progress Note - Nutrition Nutrition: Nutrition Category Date Time Status Heart Healthy Diet [DIET] Diets 06/10/18 Lunch Active Attending/Attestation - Attestation I have personally seen and examined this patient.: Yes I have fully participated in the care of the patient.: Yes I have reviewed all pertinent clinical information: Yes Notes (Text): 06/10/18 18:38 I have seen and examined the patient. Medical records, lab studies, and imaging were reviewed by me and a management plan was formulated on multidisciplinary rounds with resident Dr. Lamb. I agree with their documented assessment and plan. Most likely myasthenia gravis, treating with plasmapharesis every other day, total of 3 times. Possible followup with IVIG. Minor improvements with pyridostigmine. Still upper and lower extremity weakness with decreased FVC. Critical Care Time 35 minutes. Multi-disciplinary rounds were performed with house staff, nursing, speech therapy, respiratory therapy, pharmacy and nutrition with integrated input from the primary team/attending and other consulting services. The documented time is cumulative and includes review of patient data/exams/labs/chart review and examination of the patient on rounds and throughout the day; time is exclusive of any procedures or teaching time.
[2018-06-10] MEDS: Pantoprazole 20 mg EC Tab PO SCH (09:30)
--- NOTE | 2018-06-10 10:19 | CP.PCM.PN ---
<Billy Handy - Last Filed: 06/10/18 10:07> Subjective - Date & Time of Evaluation Date of Evaluation: 06/10/18 Time of Evaluation: 10:08 - Subjective Subjective: Neurology Progress Note for Dr. Flowers Patient seen and examined at bedside. No acute overnight events. Patient states that she feels like she has more energy and is moving her extremities better, but still feels numbness in her hands. Patient denies CP, SOB, n/v/d, abdominal pain, fever, chills, CHUN, or dizziness. Objective - Vital Signs/Intake and Output Vital Signs (last 24 hours): Temp Pulse Resp BP Pulse Ox 98.5 F 86 15 136/98 H 99 06/10/18 04:00 06/10/18 08:43 06/10/18 08:43 06/10/18 08:43 06/10/18 07:43 Intake and Output: 06/10/18 06/10/18 06:59 18:59 Intake Total 590 0 Output Total 450 0 Balance 140 0 - Medications Medications: Current Medications Heparin Sodium (Porcine) (Heparin) 5,000 units SC Q8 [facility] Last Admin: 06/10/18 05:34 Dose: 5,000 units Albumin Human (Albutein 5% 500 Ml) 500 mls @ 250 mls/hr IVPB Q2H [facility] Stop: 06/11/18 19:59 Albumin Human (Albumin Human 5% (12.5 Gm/250 Ml)) 250 mls @ 250 mls/hr IV ONCE ONE Stop: 06/11/18 20:59 Albumin Human (Albutein 5% 500 Ml) 500 mls @ 250 mls/hr IVPB Q2H [facility] Stop: 06/13/18 19:59 Albumin Human (Albumin Human 5% (12.5 Gm/250 Ml)) 250 mls @ 250 mls/hr IV ONCE ONE Stop: 06/13/18 20:59 Ondansetron HCl (Zofran Inj) 4 mg IVP DAILY@ONCE PRN PRN Reason: Nausea/Vomiting Last Admin: 06/09/18 22:19 Dose: 4 mg Pantoprazole Sodium (Protonix Ec Tab) 20 mg PO DAILY [facility] Last Admin: 06/10/18 09:30 Dose: 20 mg Pyridostigmine [place] (Mestinon Timespan Tab) 180 mg PO Q6H [facility] Last Admin: 06/10/18 05:33 Dose: 180 mg - Labs Labs: 06/10/18 05:45 06/10/18 05:45 PT 12.3 SECONDS (9.7-12.2) H 06/07/18 17:57 INR 1.1 06/07/18 17:57 APTT 35 SECONDS (21-34) H 06/07/18 17:57 - Constitutional Appears: No Acute Distress - Head Exam Head Exam: NORMAL INSPECTION - Eye Exam Eye Exam: PERRL Additional comments: improved sustained upward gaze for > 20 seconds; no ptosis - ENT Exam ENT Exam: Mucous Membranes Moist, Normal Exam - Neck Exam Neck Exam: Normal Inspection - Respiratory Exam Respiratory Exam: Clear to Ausculation Bilateral. absent: Rales, Rhonchi, Wheezes - Cardiovascular Exam Cardiovascular Exam: RRR, +S1, +S2. absent: Gallop, Rubs - GI/Abdominal Exam GI & Abdominal Exam: Soft. absent: Distended, Guarding, Tenderness, Rebound - Extremities Exam Extremities Exam: Normal Inspection - Back Exam Back Exam: NORMAL INSPECTION - Neurological Exam Neurological Exam: Alert, Awake, Oriented x3 Additional comments: aaox3. PERRL. improving weakness of eom. specifically, her upward gaze is improved, able to hold > 20 sec Lid lag test was performed and positive after 15 seconds (improved from 3-5 seconds yesterday). baseline ptosis. --> drastically improved with ice test of right eye CN 2-12 normal. Orbicularis oculi: 1 --> 3 --> 4, tongue muscles: 1 --> 4, neck flexors: 2 --> 4, neck extensors: 1 -->4 SCM: 3 --> 4 deltoid: 4 bl, triceps: 3 right, 4 left --> 4 bl biceps: 2 right, 3 left --> 4 bl freight broker agent: 4 bl --> 3 bl (decreased) finger flexors, extensors: 1 --> 3 bl interosei: 4 bl lowerlimb: hamstrings 3 --> 4, quads: 3 --> 4 bl tib anterior: 3 --> 4 bl dorsiflexion: 3 --> 4 bl plantar extension: 3 --> 4 bl no fasciculations, no tremors sensory: V1- V3 normal. decreased ft ul, ll bl, non dermatomal dist position sense: lost in upper and lower limb vibration sense: decreased severely hand, no position sense foot, or ankle. Present at knee. 50% loss of vibration at knee compared to hand . dtr: +3 ul, achilles +1 no clonus. temperature: diminished perception to cold upper and lower limbs bl. Pain: decreased in all regions. Gait: not tested Cerebellar: no dysmetria Assessment and Plan - Assessment and Plan (Free Text) Assessment: Brain MRI 06/09/18: Limited but definitive abnormalities identified at the left frontal lobe and right pontomedullary junction comprise of a 4 mm enhancing lesion right pontomedullary junction and nonenhancing inferior left frontal lobe lesion. The lack of chondroid once and sub cm size the findings limits the attempt to narrow the etiology and a broad differential diagnosis exists including potential demyelination or even metastasis. Please see discussion by for further clinical correlation recommended. Chest CT 06/09/18: Right-sided PICC extends to the right atrium. Markedly heterogeneous abnormal appearance of the liver with a 2.7 x 2.5 cm heterogeneous hyperdense mass noted in the left hepatic lobe worrisome for malignant neoplasm. Cholelithiasis. High-density focus noted on the nondependent portion of the gallbladder; alternatives including polyp or neoplasm can't be excluded. Patient is a 47 year old female with progressive weakness for 3 weeks. The patient was given a Pyridostigmine challenge yesterday, with improvement of symptoms. Patient's strength improved and reports increase in energy today. Patient had a positive Ice Test of her right eye with improvement of ptosis. At this time it is believed that the patient may be suffering from Myasthenia Gravis (MG). Guillain [place] Syndrome (possible subtypes including but not limited to AMSAN and Gloria Iyer) and subacute combined degeneration have not been ruled out and are pending test results. Work up for liver mass, 4mm lesion of the right pontomedullary junction and nonenhancing lesion in inferior left frontal lobe starting. IR was consulted by primary team for evaluation and possible biopsy of liver mass. 1. ICU 2. Work-up for Liver/Brain mass - pending for results of [facility] [place] - IR was consulted for possible biopsy 3. Auto-antibodies ordered - pending results 4. Pyridostigmine 180mg PO q6h 5. Dr. Maria (hem/onc) following; plasmapheresis yesterday Case discussed with Dr. Flowers. Brad Handy, PGY2 <Faisal Flowers - Last Filed: 06/10/18 13:31> Objective - Vital Signs/Intake and Output Vital Signs (last 24 hours): Temp Pulse Resp BP Pulse Ox 98.5 F 86 15 136/98 H 99 06/10/18 04:00 06/10/18 08:43 06/10/18 08:43 06/10/18 08:43 06/10/18 07:43 Intake and Output: 06/10/18 06/10/18 06:59 18:59 Intake Total 590 0 Output Total 450 0 Balance 140 0 - Medications Medications: Current Medications Heparin Sodium (Porcine) (Heparin) 5,000 units SC Q8 [facility] Last Admin: 06/10/18 05:34 Dose: 5,000 units Albumin Human (Albutein 5% 500 Ml) 500 mls @ 250 mls/hr IVPB Q2H [facility] Stop: 06/11/18 19:59 Albumin Human (Albumin Human 5% (12.5 Gm/250 Ml)) 250 mls @ 250 mls/hr IV ONCE ONE Stop: 06/11/18 20:59 Albumin Human (Albutein 5% 500 Ml) 500 mls @ 250 mls/hr IVPB Q2H [facility] Stop: 06/13/18 19:59 Albumin Human (Albumin Human 5% (12.5 Gm/250 Ml)) 250 mls @ 250 mls/hr IV ONCE ONE Stop: 06/13/18 20:59 Ondansetron HCl (Zofran Inj) 4 mg IVP DAILY@ONCE PRN PRN Reason: Nausea/Vomiting Last Admin: 06/09/18 22:19 Dose: 4 mg Pantoprazole Sodium (Protonix Ec Tab) 20 mg PO DAILY [facility] Last Admin: 06/10/18 09:30 Dose: 20 mg Pyridostigmine [place] (Mestinon Timespan Tab) 180 mg PO Q6H [facility] Last Admin: 06/10/18 05:33 Dose: 180 mg - Labs Labs: 06/10/18 05:45 06/10/18 05:45 PT 12.3 SECONDS (9.7-12.2) H 06/07/18 17:57 INR 1.1 06/07/18 17:57 APTT 35 SECONDS (21-34) H 06/07/18 17:57 Assessment and Plan - Assessment and Plan (Free Text) Assessment: I have examined the patietn with the resident him to formulate the assessment and plan. S/p one day of plasmapheresis with improvement of proximal and bulbar muscle weakness. Tolerating 180 mg x4 of mestinon daily. VC: greater than 1 L. 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 Signs of intracranial demyelination does not fit her clinical picture, and MRI of Cervical thoracic and lumbar spine do not show demyelination. Plan; 1. Continue for total of 3 days of plasmapheresis: next day tomorrow. 2. Continue mestinon 3. Continue vital capacity. 4. No physical therapy for now. 5. Daily NIF. thank you Dr. flowers Neurology
[2018-06-10 10:27] LABS: METHYLMALONIC ACID,SERUM 132 nmol/L (87-318)
--- NOTE | 2018-06-10 19:47 | CP.PCM.CON ---
History of Present Illness - History of Present Illness History of Present Illness: seen on rounds in ICU 47 year old female was sent to the ED by her PMD for evaluation of worsening bilateral lower + upper extremity tingling and muscle weakness Initially the tingling started on her lower extremities bilaterally and was associated with nausea, vomiting, watery diarrhea, and decrease in PO intake. Went to [facility] [place] was discharged after ER eval Patient states she had full movement of upper + lower extremities 2 weeks ago, now ambulates only with assistance. Currently in ICU- bedridden Surgical Hx section, gastric bypass (12 years ago), and hysterectomy. SH non drinker works at [employer] in [facility] no foreign travel no ill contacts Review of Systems - Review of Systems All systems: reviewed and no additional remarkable complaints except - Constitutional Constitutional: As Per HPI - EENT Eyes: absent: As Per HPI, Blind Spots, Blurred Vision, Change in Vision, Decreased Night Vision, Diplopia, Discharge, Dry Eye, Exophthalmos, Floaters, Irritation, Itchy Eyes, Loss of Peripheral Vision, Pain, Photophobia, Requires Corrective Lenses, Sees Flashes, Spots in Vision, Tunnel Vision, Other Visual Disturbances, Loss of Vision, Other Ears: absent: As Per HPI, Decreased Hearing, Ear Discharge, Ear Pain, Tinnitus, Abnormal Hearing, Disequilibrium, Dizziness, Other Nose/Mouth/Throat: absent: As Per HPI, Epistaxis, Nasal Congestion, Nasal Discharge, Nasal Obstruction, Nasal Trauma, Nose Pain, Post Nasal Drip, Sinus Pain, Sinus Pressure, Bleeding Gums, Change in Voice, Dental Pain, Dry Mouth, Dysphagia, Halitosis, Hoarsness, Lip Swelling, Mouth Lesions, Mouth Pain, Odynophagia, Sore Throat, Throat Swelling, Tongue Swelling, Facial Pain, Neck Pain, Neck Mass, Other - Cardiovascular Cardiovascular: absent: As Per HPI, Acrocyanosis, Chest Pain, Chest Pain at Rest, Chest Pain with Activity, Claudication, Diaphoresis, Dyspnea, Dyspnea on Exertion, Edema, Irregular Heart Rhythm, Pain Radiating to Arm/Neck/Jaw, Leg Edema, Leg Ulcers, Lightheadedness, Orthopnea, Palpitations, Paroxysmal Nocturnal Dyspnea, Pedal Edema, Radiating Pain, Rapid Heart Rate, Slow Heart Rate, Syncope, Other - Respiratory Respiratory: absent: As Per HPI, Cough, Dyspnea, Hemoptysis, Dyspnea on Exer tion, Wheezing, Snoring, Stridor, Pain on Inspiration, Chest Congestion, Excessive Mucous Production, Change in Mucous Color, Pain with Coughing, Other - Gastrointestinal Gastrointestinal: absent: As Per HPI, Abdominal Pain, Belching, Bloating, Change in Bowel Habits, Change in Stool Character, Coffee Ground Emesis, Constipation, Cramping, Diarrhea, Dyspepsia, Dysphagia, Early Satiety, Excessive Flatus, Fecal Incontinence, Heartburn, Hematemesis, Hematochezia, Loose Stools, Melena, Nausea, Odynophagia, Temesmus, Vomiting, Other - Genitourinary Genitourinary: absent: As Per HPI, Change in Urinary Stream, Difficulty Urinating, Dysuria, Flank Pain, Hematuria, Pyuria, Nocturia, Urinary Incontinence, Urinary Frequency, Urinary Hesitance, Urinary Urgency, Voiding Freq/Small Amts, Freq UTI, Hx Renal/Bladder Calculi, Hx /Renal Surgery, Bladder Distension, Other - Reproductive: Female Reproductive:Female: absent: As Per HPI, Amenorrhea, Amenorrhea/ Control, Currently Menstual, Cycle <21 Days, Cycle >35 Days, Cycle Variable, Menses 1-7 Days, Menses >/= 8 Days, Menses Variable, Cycle > 4 Weeks Between, No Menses for 6 Months, Heavy Menses, Light Menses, Normal Menses, Spotting Between Cycles, S/P Hysterectomy, Menopausal, Post Menopausal, Premenarche, Abnormal Vaginal Bleeding, Dysmenorrhea, Dyspareunia, Genital Lesions, Genital Pruritis, Pelvic Pain, Prolapse Symptoms, Sexual Dysfunction, Vaginal Discharge, Vaginal Dryness, Vaginal Odor, Vaginal Pruritis, Other - Menstruation Menstruation: absent: As Per HPI, Amenorrhea, Amenorrhea/ Control, Currently Menstual, Cycle <21 Days, Cycle >35 Days, Cycle Variable, Menses 1-7 Days, Menses >/= 8 Days, Menses Variable, Cycle > 4 Weeks Between, No Menses for 6 Months, Heavy Menses, Light Menses, Normal Menses, Spotting Between Cycles, S/P Hysterectomy, Menopausal, Post Menopausal, Premenarche, Abnormal Vaginal Bleeding, Dysmenorrhea, Other - Musculoskeletal Musculoskeletal: As Per HPI - Integumentary Integumentary: As Per HPI. absent: Acne, Alopecia, Bleeding Lesions, Change in Hair, Change in Nails, Change in Pigmentation, Changing Lesions, Dry Skin, Erythema, Furuncle, Hirsutism, Lesions, New Lesions, Non-Healing Lesions, Photosensitivity, Pruritus, Rash, Skin Pain, Skin Ulcer, Sores, Striae, Swelling, Unusual Bruising, Wounds, Jaundice, Other - Neurological Neurological: As Per HPI - Psychiatric Psychiatric: absent: As Per HPI, Abnormal Sleep Pattern, Anhedonia, Anxiety, Auditory Hallucinations, Behavioral Changes, Change in Appetite, Change in Libido, Confusion, Depression, Difficulty Concentrating, Hallucinations, Homicidal Ideation, Hopelessness, Irritability, Memory Loss, Mood Swings, Panic Attacks, Paranoia, Suicidal Ideation, Visual Hallucinations, Tactile Hallucinations, Other - Endocrine Endocrine: absent: As Per HPI, Change in Body Appearance, Change in Libido, Cold Intolorance, Deepening of Voice, Excessive Sweating, Fatigue, Flushing, Heat Intolorance, Increase in Ring/Shoe/Hat Size, Palpitations, Polydipsia, Polyphagia, Polyuria, Other Past Patient History - Past Medical History & Family History Past Medical History?: Yes - Past Social History Smoking Status: Never Smoked Alcohol: Social - MUSCULOSKELETAL/RHEUMATOLOGICAL Hx Falls: No - PSYCHIATRIC Hx Substance Use: No - SURGICAL HISTORY Hx Section: Yes Hx Gastric Bypass Surgery: Yes Hx Hysterectomy: Yes - ANESTHESIA Hx Anesthesia: Yes Hx Anesthesia Reactions: No Hx Malignant Hyperthermia: No Has any member of the family had a problem w/ anesthesia?: No Meds Allergies/Adverse Reactions: Allergies Allergy/AdvReac Type Severity Reaction Status Date / Time No Known Allergies Allergy Verified 06/07/18 14:29 - Medications Medications: Current Medications Heparin Sodium (Porcine) (Heparin) 5,000 units SC Q8 [facility] Last Admin: 06/10/18 14:56 Dose: 5,000 units Albumin Human (Albutein 5% 500 Ml) 500 mls @ 250 mls/hr IVPB Q2H [facility] Stop: 06/11/18 19:59 Albumin Human (Albumin Human 5% (12.5 Gm/250 Ml)) 250 mls @ 250 mls/hr IV ONCE ONE Stop: 06/11/18 20:59 Albumin Human (Albutein 5% 500 Ml) 500 mls @ 250 mls/hr IVPB Q2H [facility] Stop: 06/13/18 19:59 Albumin Human (Albumin Human 5% (12.5 Gm/250 Ml)) 250 mls @ 250 mls/hr IV ONCE ONE Stop: 06/13/18 20:59 Ondansetron HCl (Zofran Inj) 4 mg IVP DAILY@ONCE PRN PRN Reason: Nausea/Vomiting Last Admin: 06/10/18 19:36 Dose: 4 mg Pantoprazole Sodium (Protonix Ec Tab) 20 mg PO DAILY [facility] Last Admin: 06/10/18 09:30 Dose: 20 mg Pyridostigmine [place] (Mestinon Timespan Tab) 180 mg PO Q6H [facility] Last Admin: 06/10/18 17:34 Dose: 180 mg Physical Exam - Constitutional Appears: Non-toxic, Chronically Ill - Head Exam Head Exam: NORMOCEPHALIC - Eye Exam Eye Exam: absent: Scleral icterus - ENT Exam ENT Exam: Mucous Membranes Dry - Neck Exam Neck exam: Negative for: Lymphadenopathy - Respiratory Exam Respiratory Exam: Decreased Breath Sounds, Clear to Auscultation Bilateral - Cardiovascular Exam Cardiovascular Exam: REGULAR RHYTHM, +S1, +S2 - GI/Abdominal Exam GI & Abdominal Exam: Diminished Bowel Sounds, Soft. absent: Tenderness - Rectal Exam Rectal Exam: Deferred - Exam Exam: NORMAL INSPECTION - Extremities Exam Extremities exam: Positive for: pedal pulses present. Negative for: calf tenderness, pedal edema, tenderness - Back Exam Back exam: absent: CVA tenderness (L), CVA tenderness (R) - Neurological Exam Neurological exam: Alert, CN II-XII Intact, Motor Sensory Deficit, Oriented x3 Additional comments: weakness lower extremities > upper extremities - Psychiatric Exam Psychiatric exam: Normal Mood - Skin Skin Exam: Dry, Intact Results - Vital Signs Recent Vital Signs: Last Vital Signs Temp 98.1 F 06/10/18 16:00 Pulse 76 06/10/18 18:43 Resp 18 06/10/18 18:43 BP 120/81 06/10/18 18:43 Pulse Ox 96 06/10/18 18:43 - Labs Result Diagrams: 06/11/18 05:58 06/11/18 05:58 Labs: Laboratory Results - last 24 hr 06/07/18 06/07/18 06/10/18 16:00 18:18 05:45 WBC 9.9 RBC 4.94 Hgb 17.2 H Hct 50.5 H MCV 102.2 H MCH 34.7 H MCHC 34.0 RDW 15.1 H Plt Count 269 MPV 10.0 Neut % (Auto) 69.7 Lymph % (Auto) 18.7 L Sharp % (Auto) 10.3 H Eos % (Auto) 0.4 Baso % (Auto) 0.9 Neut # (Auto) 6.9 Lymph # (Auto) 1.9 Sharp # (Auto) 1.0 H Eos # (Auto) 0.0 Baso # (Auto) 0.1 Fibrinogen Sodium Potassium Chloride Carbon Dioxide Anion Gap BUN Creatinine Est GFR ( Amer) Est GFR (Non-Af Amer) Random Glucose Calcium Phosphorus Magnesium Total Bilirubin AST ALT Alkaline Phosphatase Total Protein Albumin Globulin Albumin/Globulin Ratio Methylmalonic Acid 132 Lyme Disease Screen <0.90 06/10/18 06/10/18 05:45 05:45 WBC RBC Hgb Hct MCV MCH MCHC RDW Plt Count MPV Neut % (Auto) Lymph % (Auto) Sharp % (Auto) Eos % (Auto) Baso % (Auto) Neut # (Auto) Lymph # (Auto) Sharp # (Auto) Eos # (Auto) Baso # (Auto) Fibrinogen 198 L D Sodium 139 Potassium 4.0 Chloride 105 Carbon Dioxide 25 Anion Gap 13 BUN 5 L Creatinine 0.4 L Est GFR ( Amer) > 60 Est GFR (Non-Af Amer) > 60 Random Glucose 110 H Calcium 9.0 Phosphorus 3.4 Magnesium 1.7 Total Bilirubin 1.3 AST 31 ALT 32 Alkaline Phosphatase 48 Total Protein 5.7 L Albumin 3.6 Globulin 2.1 L Albumin/Globulin Ratio 1.7 Methylmalonic Acid Lyme Disease Screen Assessment & Plan - Assessment and Plan (Free Text) Assessment: 47 yo F with pmhx of gastric bypass (12 years ago), hysterectomy presenting with worsening b/l LE numbness/weakness, ataxia, b/l UE numbness x 3 weeks. Working diagnosis is Myasthenia gravis. Patient is s/p plasmapheresis x2 , tolerating pyridostigmine treatment well. specimens sent for Enterovirus PCR and HTLVI/II other serologies / cultures are negative including Lyme
--- NOTE | 2018-06-10 19:51 | CP.PCM.PN ---
Subjective - Date & Time of Evaluation Date of Evaluation: 06/10/18 Time of Evaluation: 17:00 - Subjective Subjective: Medical attending note: Patient noted for pins and needle sensation both in the feet as well as the hands. Reports feeling weak. Patient denies headache. Denies chest pain denies shortness of breath earlier has had a bowel movement in urine flow per nursing. Discussed with neurology plan is for continue plasmapheresis next session is for tomorrow some mild improvement and follow-up with heme-onc will just need clarification of how many sessions of plasmapheresis. Objective - Vital Signs/Intake and Output Vital Signs (last 24 hours): Temp Pulse Resp BP Pulse Ox 98.1 F 76 18 120/81 96 06/10/18 16:00 06/10/18 18:43 06/10/18 18:43 06/10/18 18:43 06/10/18 18:43 Intake and Output: 06/10/18 06/11/18 18:59 06:59 Intake Total 893 0 Output Total 500 Balance 393 0 - Medications Medications: Current Medications Heparin Sodium (Porcine) (Heparin) 5,000 units SC Q8 [facility] Last Admin: 06/10/18 14:56 Dose: 5,000 units Albumin Human (Albutein 5% 500 Ml) 500 mls @ 250 mls/hr IVPB Q2H [facility] Stop: 06/11/18 19:59 Albumin Human (Albumin Human 5% (12.5 Gm/250 Ml)) 250 mls @ 250 mls/hr IV ONCE ONE Stop: 06/11/18 20:59 Albumin Human (Albutein 5% 500 Ml) 500 mls @ 250 mls/hr IVPB Q2H [facility] Stop: 06/13/18 19:59 Albumin Human (Albumin Human 5% (12.5 Gm/250 Ml)) 250 mls @ 250 mls/hr IV ONCE ONE Stop: 06/13/18 20:59 Ondansetron HCl (Zofran Inj) 4 mg IVP DAILY@ONCE PRN PRN Reason: Nausea/Vomiting Last Admin: 06/10/18 19:36 Dose: 4 mg Pantoprazole Sodium (Protonix Ec Tab) 20 mg PO DAILY [facility] Last Admin: 06/10/18 09:30 Dose: 20 mg Pyridostigmine [place] (Mestinon Timespan Tab) 180 mg PO Q6H [facility] Last Admin: 06/10/18 17:34 Dose: 180 mg - Labs Labs: 06/10/18 05:45 06/10/18 05:45 PT 12.3 SECONDS (9.7-12.2) H 06/07/18 17:57 INR 1.1 06/07/18 17:57 APTT 35 SECONDS (21-34) H 06/07/18 17:57 - Constitutional Appears: Non-toxic, No Acute Distress - Head Exam Head Exam: NORMAL INSPECTION - Eye Exam Eye Exam: EOMI - ENT Exam ENT Exam: Mucous Membranes Moist - Respiratory Exam Respiratory Exam: Clear to Ausculation Bilateral, NORMAL BREATHING PATTERN. absent: Rales, Rhonchi, Wheezes - Cardiovascular Exam Cardiovascular Exam: REGULAR RHYTHM, +S1, +S2 - GI/Abdominal Exam GI & Abdominal Exam: Soft, Normal Bowel Sounds. absent: Distended, Firm, Guarding, Rigid, Tenderness, Rebound - Extremities Exam Extremities Exam: absent: Pedal Edema, Tenderness - Neurological Exam Neurological Exam: Alert, Awake, Oriented x3 Additional comments: Sensation decreased over both palms up to the brachial radialis bilaterally Sensation decrease from the feet up to the knees also decreased bilaterally. No weak and not lift at the knee nor bend at the knee and both legs patient attempts to try to use her hip trying to move the legs but is unable to. 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 Patient discussed with neurology mildly improving with the period of stick the recommended to continue posture pheresis next session tomorrow. Confirmed with heme training consultant also for at least 3 sessions of plasmapheresis do awaiting extensive workup ordered for admission. Patient noted for no IR biopsy was confirm hemangioma from prior imaging completed [facility]. Patient urine culture noted for gram-negative gail we'll start Rocephin 1 g IV daily to cover. Discussed with ID 1). Possible Myasthenia Gravis Upper and lower extremity weakness with decreased FVC Possible Guillain [place] Syndrome (possible subtypes including but not limited to AMSAN and Gloria Iyer) Assessment/Plan * s/p LP 06/08/18 * CT head June 08 no acute hemorrhage mass effect or shift * Cervical MRI from June 08 showing shucking of the cervical spine mild reversal of the normal lordosis which could be due to muscle spasm or patient positioning. No evidence of spinal neural foraminal narrowing. * Lumbar MRI: No evidence of significant spinal or neural foraminal narrowing. Conus medullaris is normal in size and shape. Small posterior disc protrusion L5-S1 without evidence of significant spinal neural foraminal narrowing. Mild L5-S1 degenerative disc changes. * Last MRI also no evidence of spinal stenosis foraminal fat foraminal narrowing no evidence of mass lesion or abnormal signal. * CT chest: Right-sided PICC extends the right atrium. Markedly heterogeneous abnormal appearance of the liver with a 2.7 x 2.5 heterogeneous hyperdense masses in the left hepatic lobe worrisome for malignant neoplasm. Cholelithiasis. High density focus of nondependent portion of the gallbladder alternatives including polyp or neoplasm can't be excluded. * Thymoma not noted on CT chest will order a neck to rule out. * Discussed with ICU ptosis has resolved June 09. * Patient to undergo 3 sessions of plasmapheresis * Patient have second session tomorrow. * Patient started on per dose thickening bromide 180 mg by mouth every 6 started yesterday afternoon at 6 PM. * Noted mild improvement. Continue to follow-up with neurology. * Neural Dr. Villalba on case help appreciated * Hematology Dr. Sandoval on case help appreciated * F/U CSF studies: culture, HSV IgM, Lymb Ab, Lyme DNA, Oligoclonal Bands, West Nile RNA PCR, West Nile Ab * F/U Musk Qn Titer Ab Test * F/U Methymalonic Acid * F/U FTA Abs * F/U Acetylcholine Ab * F/U Blood Culture * F/U Urine Culture * RPR is NON-reactive * HIV 1 & 2 is negative * Influenza is negative 2). Hypodense lesion in left lobe liver that was concerning for neoplasm. * Confirmed with ICU resident Marco Vazquez, they followed up for the imaging noted for hemangioma. Therefore consult IR was canceled. 3). Prior history of gastric bypass surgery * Check vitamin B1, B6, B12, vitamin D * Thyroid within normal * B12 over thousand, was receiving B12 supplementation as outpatient * Folate acid normal 4) prior alcohol use 5) urine positive * Showing gram-negative gail from June 09 * Cultures negative 48 hours 2 * CSF fluid no growth after 2 days * We'll start Rocephin 1 g IV daily to cover for urine culture 6) megaloblastic elevated MCV * Both B12 and folate are normal * Awaiting other B vitamins which may take some time 7) prophylactic measure * Zofran 4 mg IV daily 1 for when necessary * Protonix 20 mg by mouth daily
--- NOTE | 2018-06-10 21:54 | CP.PCM.PN ---
Subjective - Date & Time of Evaluation Date of Evaluation: 06/09/18 Time of Evaluation: 12:00 - Subjective Subjective: Feeling better, less weakness for plasma exchange today Objective - Vital Signs/Intake and Output Vital Signs (last 24 hours): Temp Pulse Resp BP Pulse Ox 98.1 F 86 26 H 147/89 100 06/10/18 16:00 06/10/18 21:00 06/10/18 21:00 06/10/18 20:43 06/10/18 21:00 Intake and Output: 06/10/18 06/11/18 18:59 06:59 Intake Total 893 0 Output Total 500 Balance 393 0 - Medications Medications: Current Medications Heparin Sodium (Porcine) (Heparin) 5,[address] [facility] Last Admin: 06/10/18 14:56 Dose: 5,000 units Albumin Human (Albutein 5% 500 Ml) 500 mls @ 250 mls/hr IVPB Q2H [facility] Stop: 06/11/18 19:59 Albumin Human (Albumin Human 5% (12.5 Gm/250 Ml)) 250 mls @ 250 mls/hr IV ONCE ONE Stop: 06/11/18 20:59 Albumin Human (Albutein 5% 500 Ml) 500 mls @ 250 mls/hr IVPB Q2H [facility] Stop: 06/13/18 19:59 Albumin Human (Albumin Human 5% (12.5 Gm/250 Ml)) 250 mls @ 250 mls/hr IV ONCE ONE Stop: 06/13/18 20:59 Ceftriaxone Sodium 1 gm/ (Sodium Chloride) 100 mls @ 100 mls/hr IVPB DAILY [facility]; Protocol Ondansetron HCl (Zofran Inj) 4 mg IVP DAILY@ONCE PRN PRN Reason: Nausea/Vomiting Last Admin: 06/10/18 19:36 Dose: 4 mg Pantoprazole Sodium (Protonix Ec Tab) 20 mg PO DAILY [facility] Last Admin: 06/10/18 09:30 Dose: 20 mg Pyridostigmine [place] (Mestinon Timespan Tab) 180 mg PO Q6H [facility] Last Admin: 06/10/18 17:34 Dose: 180 mg Saccharomyces Boulardii (Florastor) 250 mg PO BID [facility] - Labs Labs: 06/10/18 05:45 06/10/18 05:45 PT 12.3 SECONDS (9.7-12.2) H 11/26/18 17:57 INR 1.1 06/07/18 17:57 APTT 35 SECONDS (21-34) H 06/07/18 17:57 - Head Exam Head Exam: ATRAUMATIC - Eye Exam Eye Exam: Normal appearance - ENT Exam ENT Exam: Mucous Membranes Dry - Respiratory Exam Respiratory Exam: NORMAL BREATHING PATTERN - Cardiovascular Exam Cardiovascular Exam: +S1, +S2 - GI/Abdominal Exam GI & Abdominal Exam: Normal Bowel Sounds Assessment and Plan (1) Weakness of limb Assessment & Plan: neurology w/u in progress plasma exchange x 3 session every other day with albumin Status: Acute
--- NOTE | 2018-06-10 21:55 | CP.PCM.PN ---
Subjective - Date & Time of Evaluation Date of Evaluation: 06/10/18 Time of Evaluation: 18:00 - Subjective Subjective: Feeling better, less weakness for 2nd session of plasma exchange in AM Objective - Vital Signs/Intake and Output Vital Signs (last 24 hours): Temp Pulse Resp BP Pulse Ox 98.1 F 86 26 H 147/89 100 06/10/18 16:00 06/10/18 21:00 06/10/18 21:00 06/10/18 20:43 06/10/18 21:00 Intake and Output: 06/10/18 06/11/18 18:59 06:59 Intake Total 893 0 Output Total 500 Balance 393 0 - Medications Medications: Current Medications Heparin Sodium (Porcine) (Heparin) 5,000 units SC Q8 [facility] Last Admin: 06/10/18 14:56 Dose: 5,000 units Albumin Human (Albutein 5% 500 Ml) 500 mls @ 250 mls/hr IVPB Q2H [facility] Stop: 06/11/18 19:59 Albumin Human (Albumin Human 5% (12.5 Gm/250 Ml)) 250 mls @ 250 mls/hr IV ONCE ONE Stop: 06/11/18 20:59 Albumin Human (Albutein 5% 500 Ml) 500 mls @ 250 mls/hr IVPB Q2H [facility] Stop: 06/13/18 19:59 Albumin Human (Albumin Human 5% (12.5 Gm/250 Ml)) 250 mls @ 250 mls/hr IV ONCE ONE Stop: 06/13/18 20:59 Ceftriaxone Sodium 1 gm/ (Sodium Chloride) 100 mls @ 100 mls/hr IVPB DAILY [facility]; Protocol Ondansetron HCl (Zofran Inj) 4 mg IVP DAILY@ONCE PRN PRN Reason: Nausea/Vomiting Last Admin: 06/10/18 19:36 Dose: 4 mg Pantoprazole Sodium (Protonix Ec Tab) 20 mg PO DAILY [facility] Last Admin: 06/10/18 09:30 Dose: 20 mg Pyridostigmine [place] (Mestinon Timespan Tab) 180 mg PO Q6H [facility] Last Admin: 06/10/18 17:34 Dose: 180 mg Saccharomyces Boulardii (Florastor) 250 mg PO BID [facility] - Labs Labs: 06/10/18 05:45 06/10/18 05:45 PT 12.3 SECONDS (9.7-12.2) H 06/07/18 17:57 INR 1.1 06/07/18 17:57 APTT 35 SECONDS (21-34) H 06/07/18 17:57 - Head Exam Head Exam: ATRAUMATIC - Eye Exam Eye Exam: Normal appearance - ENT Exam ENT Exam: Mucous Membranes Dry - Respiratory Exam Respiratory Exam: NORMAL BREATHING PATTERN - Cardiovascular Exam Cardiovascular Exam: +S1, +S2 - GI/Abdominal Exam GI & Abdominal Exam: Normal Bowel Sounds Assessment and Plan (1) Weakness of limb Assessment & Plan: neurology w/u in progress plasma exchange tomorrow; #2 Status: Acute
[2018-06-11] MEDS: PYRIDOSTIGMINE 180 MG PO SCH ×4 (05:44→23:36)
[2018-06-11 06:02] LABS: BASO # 0.1 K/uL (0.0-0.2); BASO % 0.8 % (0.0-2.0); EOS # 0.1 K/uL (0.0-0.7); EOS % 0.8 % (0.0-4.0); HEMOGLOBIN 16.5 g/dL (11.0-16.0); LYMPH # 2.2 K/uL (1.0-4.3); LYMPH % 24.3 % (20.0-40.0); MEAN CELL VOLUME 101.5 fL (81.0-99.0); MEAN CORPUSCULAR HEMOGLOBIN 34.7 pg (27.0-31.0); MEAN CORPUSCULAR HGB CONC 34.1 g/dL (33.0-37.0); MEAN PLATELET VOLUME 9.3 fL (7.2-11.7); MONO # 1.1 K/uL (0.0-0.8); MONO % 12.8 % (0.0-10.0); NEUT # 5.5 K/uL (1.8-7.0); NEUT % 61.3 % (50.0-75.0); NRBC % 0.1 % (0.0-2.0); RBC 4.76 Mil/uL (3.80-5.20); RED CELL DISTRIBUTION WIDTH 14.7 % (11.5-14.5); WHITE BLOOD COUNT 8.9 K/uL (4.8-10.8)
[2018-06-11 06:38] LABS: ALB/GLOB RATIO 1.3 (1.0-2.1); ALBUMIN 3.3 g/dL (3.5-5.0); ALT/SGPT 34 U/L (9-52); AST/SGOT 32 U/L (14-36); BLOOD UREA NITROGEN 8 mg/dL (7-17); CALCIUM 8.9 mg/dl (8.6-10.4); GFR NON-AFRICAN AMERICAN > 60
--- NOTE | 2018-06-11 07:55 | CP.CCUPN ---
<Jean-Claude Lamb - Last Filed: 06/11/18 10:07> CCU Subjective - Physician Review Subjective (Free Text): 06/11/18 07:55 PGY-1 Critical Care Progress Note for Dr. Johnson Patient seen and examined at bedside this AM. No acute overnight events reported. Plans for 2nd plasmapheresis this morning. No dysphagia noted, but patient endorses upset stomach/nausea with advanced diet. Bulbar function seemingly improved. LE motor weakness mildly improved, continues to complain of numbness in hands/poor hand forcer maker. 12 pt ROS reviewed and otherwise unchanged. Critical Care Time Spent (in minutes): 35 CCU Objective - Vital Signs / Intake & Output Vital Signs (Last 4 hours): Vital Signs Temp Pulse Resp BP Pulse Ox 06/11/18 06:00 75 14 100 06/11/18 05:43 75 16 145/98 H 98 06/11/18 05:00 70 14 98 06/11/18 04:43 75 19 140/98 H 97 06/11/18 04:00 97.8 F 75 13 89/62 L 97 Intake and Output (Last 8hrs): Intake & Output 06/10/18 06/11/18 06/11/18 22:59 06:59 14:59 Intake Total 700 440 Output Total 500 560 Balance 200 -120 Weight 123 lb Intake: Intake, IV Amount 350 0 Right Hand 0 0 Right PICC 350 Oral 350 440 Output: Urine 500 560 Urine, Voided 500 560 Stool 0 Other: # Bowel Movements 0 - Physical Exam Head: Positive for: Atraumatic, Normocephalic Pupils: Positive for: PERRL Extroacular Muscles: Positive for: EOMI Conjunctiva: Positive for: Normal Mouth: Positive for: Moist Mucous Membranes Neck: Positive for: Normal Range of Motion Respiratory/Chest: Positive for: Clear to Auscultation, Good Air Exchange. Negative for: Respiratory Distress, Accessory Muscle Use, Wheezes, Rales, Retracting, Rhonchi Cardiovascular: Positive for: Normal S1, S2, Tachycardic Abdomen: Positive for: Normal Bowel Sounds. Negative for: Tenderness, Distention, Peritoneal Signs, Rebound, Guarding, Mass/Organomegaly Upper Extremity: Positive for: Normal Inspection, NORMAL PULSES, Capillary Refill < 2s, Other (poor hand forcer maker, poor motor strength b/l UE). Negative for: Cyanosis, Edema, Tenderness, Swelling Lower Extremity: Positive for: Normal Inspection, NORMAL PULSES, Capillary Refill < 2 s, Other (Decreased sensation b/l LE, motor strength 3/5 b/l LE). Ne gative for: Edema, CALF TENDERNESS, Cyanosis, Swelling Neurological: Positive for: Speech Normal Skin: Positive for: Warm, Dry, Normal Color. Negative for: Rashes Psychiatric: Positive for: Alert, Oriented x 3 - Medications Active Medications: Active Medications Generic Name Dose Route Start Last Admin Trade Name Freq PRN Reason Stop Dose Admin Heparin Sodium (Porcine) 5,000 units 06/08/18 14:00 06/11/18 05:44 Heparin SC 5,000 units Q8 SUNITA Administration Albumin Human 500 mls @ 250 mls/hr 06/11/18 14:00 Albutein 5% 500 Ml IVPB 06/11/18 19:59 Q2H SUNITA Albumin Human 250 mls @ 250 mls/hr 06/11/18 20:00 Albumin Human 5% (12.5 Gm/250 Ml) IV 06/11/18 20:59 ONCE ONE Albumin Human 500 mls @ 250 mls/hr 06/13/18 14:00 Albutein 5% 500 Ml IVPB 06/13/18 19:59 Q2H SUNITA Albumin Human 250 mls @ 250 mls/hr 06/13/18 20:00 Albumin Human 5% (12.5 Gm/250 Ml) IV 06/13/18 20:59 ONCE ONE Ceftriaxone Sodium 1 gm/ 100 mls @ 100 mls/hr 06/11/18 10:00 Sodium Chloride IVPB DAILY [facility] Protocol Ondansetron HCl 4 mg 06/08/18 17:30 06/10/18 19:36 Zofran Inj IVP 4 mg DAILY@ONCE PRN Administration Nausea/Vomiting Pantoprazole Sodium 20 mg 06/08/18 10:00 06/10/18 09:30 Protonix Ec Tab PO 20 mg DAILY SUNITA Administration Pyridostigmine Melvin 180 mg 06/09/18 18:00 06/11/18 05:44 Mestinon Timespan Tab PO 180 mg Q6H SUNITA Administration Saccharomyces Boulardii 250 mg 06/11/18 10:00 Florastor PO BID [facility] - Patient Studies Lab Studies: Microbiology Studies 06/09/18 05:48 Urine Culture - Preliminary Urine,Clean Catch Gram Negative Ian 06/08/18 17:30 Blood Culture - Preliminary Blood NO GROWTH AFTER 48 HOURS 06/08/18 17:00 Blood Culture - Preliminary Blood NO GROWTH AFTER 48 HOURS 06/08/18 06:06 MRSA Culture (Admit) - Final Nose MRSA NOT DETECTED 06/08/18 01:13 Gram Stain - Final Cerebral Spinal Fluid CSF Culture - Preliminary NO GROWTH AFTER 2 DAYS Lab Studies 06/11/18 06/11/18 06/11/18 Range/Units 05:58 05:58 05:58 WBC 8.9 (4.8-10.8) K/uL RBC 4.76 (3.80-5.20) Mil/uL Hgb 16.5 H (11.0-16.0) g/dL Hct 48.3 H (34.0-47.0) % MCV 101.5 H (81.0-99.0) fL MCH 34.7 H (27.0-31.0) pg MCHC 34.1 (33.0-37.0) g/dL RDW 14.7 H (11.5-14.5) % Plt Count 260 (130-400) K/uL MPV 9.3 (7.2-11.7) fL Neut % (Auto) 61.3 (50.0-75.0) % Lymph % (Auto) 24.3 (20.0-40.0) % [place] % (Auto) 12.8 H (0.0-10.0) % Eos % (Auto) 0.8 (0.0-4.0) % Baso % (Auto) 0.8 (0.0-2.0) % Neut # (Auto) 5.5 (1.8-7.0) K/uL Lymph # (Auto) 2.2 (1.0-4.3) K/uL [place] # (Auto) 1.1 H (0.0-0.8) K/uL Eos # (Auto) 0.1 (0.0-0.7) K/uL Baso # (Auto) 0.1 (0.0-0.2) K/uL Fibrinogen 223 (200-400) mg/dL Sodium 137 (132-148) mmol/L Potassium 4.0 (3.6-5.2) mmol/L Chloride 104 (98-107) mmol/L Carbon Dioxide 23 (22-30) mmol/L Anion Gap 14 (10-20) BUN 8 (7-17) mg/dL Creatinine 0.4 L (0.7-1.2) mg/dL Est GFR ( Amer) > 60 Est GFR (Non-Af Amer) > 60 Random Glucose 100 (65-105) mg/dL Calcium 8.9 (8.6-10.4) mg/dl Phosphorus 4.0 (2.5-4.5) mg/dL Magnesium 1.5 L (1.6-2.3) mg/dL Total Bilirubin 1.0 (0.2-1.3) mg/dL AST 32 (14-36) U/L ALT 34 (9-52) U/L Alkaline Phosphatase 55 (38-126) U/L Total Protein 5.7 L (6.3-8.3) g/dL Albumin 3.3 L (3.5-5.0) g/dL Globulin 2.4 (2.2-3.9) gm/dL Albumin/Globulin Ratio 1.3 (1.0-2.1) Methylmalonic Acid (87-318) nmol/L 25-OH Vitamin D Total (30.0-100.0) NG/ML Copper (70-175) mcg/dL Lyme Disease Screen index 06/10/18 06/09/18 06/07/18 Range/Units 20:46 07:53 18:18 WBC (4.8-10.8) K/uL RBC (3.80-5.20) Mil/uL Hgb (11.0-16.0) g/dL Hct (34.0-47.0) % MCV (81.0-99.0) fL MCH (27.0-31.0) pg MCHC (33.0-37.0) g/dL RDW (11.5-14.5) % Plt Count (130-400) K/uL MPV (7.2-11.7) fL Neut % (Auto) (50.0-75.0) % Lymph % (Auto) (20.0-40.0) % [place] % (Auto) (0.0-10.0) % Eos % (Auto) (0.0-4.0) % Baso % (Auto) (0.0-2.0) % Neut # (Auto) (1.8-7.0) K/uL Lymph # (Auto) (1.0-4.3) K/uL [place] # (Auto) (0.0-0.8) K/uL Eos # (Auto) (0.0-0.7) K/uL Baso # (Auto) (0.0-0.2) K/uL Fibrinogen (200-400) mg/dL Sodium (132-148) mmol/L Potassium (3.6-5.2) mmol/L Chloride (98-107) mmol/L Carbon Dioxide (22-30) mmol/L Anion Gap (10-20) BUN (7-17) mg/dL Creatinine (0.7-1.2) mg/dL Est GFR ( Amer) Est GFR (Non-Af Amer) Random Glucose (65-105) mg/dL Calcium (8.6-10.4) mg/dl Phosphorus (2.5-4.5) mg/dL Magnesium (1.6-2.3) mg/dL Total Bilirubin (0.2-1.3) mg/dL AST (14-36) U/L ALT (9-52) U/L Alkaline Phosphatase (38-126) U/L Total Protein (6.3-8.3) g/dL Albumin (3.5-5.0) g/dL Globulin (2.2-3.9) gm/dL Albumin/Globulin Ratio (1.0-2.1) Methylmalonic Acid (87-318) nmol/L 25-OH Vitamin D Total < 12.8 L (30.0-100.0) NG/ML Copper 115 (70-175) mcg/dL Lyme Disease Screen <0.90 index 06/07/18 Range/Units 16:00 WBC (4.8-10.8) K/uL RBC (3.80-5.20) Mil/uL Hgb (11.0-16.0) g/dL Hct (34.0-47.0) % MCV (81.0-99.0) fL MCH (27.0-31.0) pg MCHC (33.0-37.0) g/dL RDW (11.5-14.5) % Plt Count (130-400) K/uL MPV (7.2-11.7) fL Neut % (Auto) (50.0-75.0) % Lymph % (Auto) (20.0-40.0) % [place] % (Auto) (0.0-10.0) % Eos % (Auto) (0.0-4.0) % Baso % (Auto) (0.0-2.0) % Neut # (Auto) (1.8-7.0) K/uL Lymph # (Auto) (1.0-4.3) K/uL [place] # (Auto) (0.0-0.8) K/uL Eos # (Auto) (0.0-0.7) K/uL Baso # (Auto) (0.0-0.2) K/uL Fibrinogen (200-400) mg/dL Sodium (132-148) mmol/L Potassium (3.6-5.2) mmol/L Chloride (98-107) mmol/L Carbon Dioxide (22-30) mmol/L Anion Gap (10-20) BUN (7-17) mg/dL Creatinine (0.7-1.2) mg/dL Est GFR ( Amer) Est GFR (Non-Af Amer) Random Glucose (65-105) mg/dL Calcium (8.6-10.4) mg/dl Phosphorus (2.5-4.5) mg/dL Magnesium (1.6-2.3) mg/dL Total Bilirubin (0.2-1.3) mg/dL AST (14-36) U/L ALT (9-52) U/L Alkaline Phosphatase (38-126) U/L Total Protein (6.3-8.3) g/dL Albumin (3.5-5.0) g/dL Globulin (2.2-3.9) gm/dL Albumin/Globulin Ratio (1.0-2.1) Methylmalonic Acid 132 (87-318) nmol/L 25-OH Vitamin D Total (30.0-100.0) NG/ML Copper (70-175) mcg/dL Lyme Disease Screen index Laboratory Results - last 24 hr 06/07/18 06/07/18 06/09/18 16:00 18:18 07:53 WBC RBC Hgb Hct MCV MCH MCHC RDW Plt Count MPV Neut % (Auto) Lymph % (Auto) [place] % (Auto) Eos % (Auto) Baso % (Auto) Neut # (Auto) Lymph # (Auto) [place] # (Auto) Eos # (Auto) Baso # (Auto) Fibrinogen Sodium Potassium Chloride Carbon Dioxide Anion Gap BUN Creatinine Est GFR ( Amer) Est GFR (Non-Af Amer) Random Glucose Calcium Phosphorus Magnesium Total Bilirubin AST ALT Alkaline Phosphatase Total Protein Albumin Globulin Albumin/Globulin Ratio Methylmalonic Acid 132 25-OH Vitamin D Total Copper 115 Lyme Disease Screen <0.90 06/10/18 06/11/18 06/11/18 20:46 05:58 05:58 WBC 8.9 RBC 4.76 Hgb 16.5 H Hct 48.3 H MCV 101.5 H MCH 34.7 H MCHC 34.1 RDW 14.7 H Plt Count 260 MPV 9.3 Neut % (Auto) 61.3 Lymph % (Auto) 24.3 [place] % (Auto) 12.8 H Eos % (Auto) 0.8 Baso % (Auto) 0.8 Neut # (Auto) 5.5 Lymph # (Auto) 2.2 [place] # (Auto) 1.1 H Eos # (Auto) 0.1 Baso # (Auto) 0.1 Fibrinogen Sodium 137 Potassium 4.0 Chloride 104 Carbon Dioxide 23 Anion Gap 14 BUN 8 Creatinine 0.4 L Est GFR ( Amer) > 60 Est GFR (Non-Af Amer) > 60 Random Glucose 100 Calcium 8.9 Phosphorus 4.0 Magnesium 1.5 L Total Bilirubin 1.0 AST 32 ALT 34 Alkaline Phosphatase 55 Total Protein 5.7 L Albumin 3.3 L Globulin 2.4 Albumin/Globulin Ratio 1.3 Methylmalonic Acid 25-OH Vitamin D Total < 12.8 L Copper Lyme Disease Screen 06/11/18 05:58 WBC RBC Hgb Hct MCV MCH MCHC RDW Plt Count MPV Neut % (Auto) Lymph % (Auto) [place] % (Auto) Eos % (Auto) Baso % (Auto) Neut # (Auto) Lymph # (Auto) [place] # (Auto) Eos # (Auto) Baso # (Auto) Fibrinogen 223 Sodium Potassium Chloride Carbon Dioxide Anion Gap BUN Creatinine Est GFR ( Amer) Est GFR (Non-Af Amer) Random Glucose Calcium Phosphorus Magnesium Total Bilirubin AST ALT Alkaline Phosphatase Total Protein Albumin Globulin Albumin/Globulin Ratio Methylmalonic Acid 25-OH Vitamin D Total Copper Lyme Disease Screen Review of Systems - Review of Systems All systems: reviewed and no additional remarkable complaints except Review of Systems: as per HPI Critical Care Progress Note - Nutrition Nutrition: Nutrition Category Date Time Status Heart Healthy Diet [DIET] Diets 06/10/18 Lunch Active Assessment/Plan - Assessment and Plan (Free Text) Assessment: 47 yo F with pmhx of gastric bypass (12 years ago), hysterectomy presenting with worsening b/l LE numbness/weakness, ataxia, b/l UE numbness x 3 weeks. Neurology on board, per recs the cause for the patient's symptoms is unknown at this time and the differential is very broad. Working diagnosis is Myasthenia gravis. Patient is s/p plasmapheresis, tolerating pyridostigmine treatment well. 2nd plasmapharesis session scheduled this AM. Awaiting anti-Ach receptor Ab. Plan: Neuro: Peripheral Neuropathy Findings suggestive of Myasthenia Gravis -LE motor weakness, bulbar function improving -RPR, HIV negative -s/p lumbar tap: CSF total protein wnl -vitamin B12 > 1000 -Folate wnl -Homocysteine 18.4 -f/u Anti-Ach receptor antibodies -MRI cervical/thoracic/lumbar spine series: no acute findings -MRI brain w/ contrast: Limited but definitive abnormalities identified at the L frontal lobe and R pontomedullary junction comprise of a 4 mm enhancing lesions R pontomedullary junction and nonenhancing inferior L frontal lobe lesion. See report for full detail. -CT chest (06/09): 2.7 x 2.5 cm heterogeneous hyperdense mass noted in L hepatic lobe worrisome for malignant neoplasm. Cholelithiasis. High density focus noted on the nondependent portion of the gallbladder; alternatives including polyp or neoplasm can't be excluded. -MRI/CT abdomen reports from [facility] [place] faxed over and placed in patient chart: liver lesion likely hemangioma -Neurology (Dr. Villalba) on case -patient s/p plasmapheresis (06/09), scheduled for 2nd session this AM (06/11) -mestinon 180 mg PO q6H -multivitamins CV: -hemodynamically stable, continue to monitor Pulm: -stable, continue to monitor Heme: Polycythemia -Heme/Onc recs (Dr. Maria) recs appreciated -continue to monitor GI: Unspecified abdominal pain -protonix 20 daily -probiotics Ppx, Diet, Disposition: -dvt ppx: heparin -gi ppx: protonix -diet: finely chopped Case discussed with Dr. Alex Lamb DO, PGY-1 <Anthony Johnson - Last Filed: 06/11/18 17:05> CCU Objective - Vital Signs / Intake & Output Vital Signs (Last 4 hours): Vital Signs Pulse Resp BP Pulse Ox 06/11/18 14:43 72 20 114/76 96 06/11/18 13:44 79 22 111/64 97 06/11/18 12:43 89 22 103/50 L 92 L Intake and Output (Last 8hrs): Intake & Output 06/11/18 06/11/18 06/11/18 06:59 14:59 22:59 Intake Total 440 500 Output Total 560 150 Balance -120 350 Weight 123 lb Intake: Intake, IV Amount 0 300 Right Hand 0 Right PICC 300 Oral 440 200 Output: Urine 560 150 Urine, Voided 560 150 Stool 0 Other: # Voids Urine, Voided 0 0 - Medications Active Medications: Active Medications Generic Name Dose Route Start Last Admin Trade Name Freq PRN Reason Stop Dose Admin Heparin Sodium (Porcine) 5,000 units 06/08/18 14:00 06/11/18 14:36 Heparin SC 5,000 units Q8 SUNITA Administration Albumin Human 500 mls @ 250 mls/hr 06/11/18 14:00 Albutein 5% 500 Ml IVPB 06/11/18 19:59 Q2H SUNITA Albumin Human 250 mls @ 250 mls/hr 06/11/18 20:00 Albumin Human 5% (12.5 Gm/250 Ml) IV 06/11/18 20:59 ONCE ONE Albumin Human 500 mls @ 250 mls/hr 06/13/18 14:00 Albutein 5% 500 Ml IVPB 06/13/18 19:59 Q2H SUNITA Albumin Human 250 mls @ 250 mls/hr 06/13/18 20:00 Albumin Human 5% (12.5 Gm/250 Ml) IV 06/13/18 20:59 ONCE ONE Ceftriaxone Sodium 1 gm/ 100 mls @ 100 mls/hr 06/11/18 10:00 06/11/18 10:15 Sodium Chloride IVPB 06/13/18 11:00 100 mls/hr DAILY SUNITA Administration Protocol Calcium Gluconate 4.65 meq/ 110 mls @ 100 mls/hr 06/11/18 16:25 Sodium Chloride IV 06/11/18 17:30 ONCE ONE Ondansetron HCl 4 mg 06/08/18 17:30 06/11/18 16:37 Zofran Inj IVP 4 mg DAILY@ONCE PRN Administration Nausea/Vomiting Pantoprazole Sodium 20 mg 06/08/18 10:00 06/11/18 09:09 Protonix Ec Tab PO 20 mg DAILY SUNITA Administration Pyridostigmine Melvin 180 mg 06/09/18 18:00 06/11/18 11:22 Mestinon Timespan Tab PO 180 mg Q6H SUNITA Administration Saccharomyces Boulardii 250 mg 06/11/18 10:00 06/11/18 09:09 Florastor PO 250 mg BID SUNITA Administration - Patient Studies Lab Studies: Microbiology Studies 06/08/18 01:13 Gram Stain - Final Cerebral Spinal Fluid CSF Culture - Preliminary NO GROWTH AFTER 3 DAYS 06/09/18 05:48 Urine Culture - Final Urine,Clean Catch Escherichia Coli 06/08/18 17:30 Blood Culture - Preliminary Blood NO GROWTH AFTER 48 HOURS 06/08/18 17:00 Blood Culture - Preliminary Blood NO GROWTH AFTER 48 HOURS 06/08/18 06:06 MRSA Culture (Admit) - Final Nose MRSA NOT DETECTED Lab Studies 06/11/18 06/11/18 06/11/18 Range/Units 05:58 05:58 05:58 WBC 8.9 (4.8-10.8) K/uL RBC 4.76 (3.80-5.20) Mil/uL Hgb 16.5 H (11.0-16.0) g/dL Hct 48.3 H (34.0-47.0) % MCV 101.5 H (81.0-99.0) fL MCH 34.7 H (27.0-31.0) pg MCHC 34.1 (33.0-37.0) g/dL RDW 14.7 H (11.5-14.5) % Plt Count 260 (130-400) K/uL MPV 9.3 (7.2-11.7) fL Neut % (Auto) 61.3 (50.0-75.0) % Lymph % (Auto) 24.3 (20.0-40.0) % [place] % (Auto) 12.8 H (0.0-10.0) % Eos % (Auto) 0.8 (0.0-4.0) % Baso % (Auto) 0.8 (0.0-2.0) % Neut # (Auto) 5.5 (1.8-7.0) K/uL Lymph # (Auto) 2.2 (1.0-4.3) K/uL [place] # (Auto) 1.1 H (0.0-0.8) K/uL Eos # (Auto) 0.1 (0.0-0.7) K/uL Baso # (Auto) 0.1 (0.0-0.2) K/uL Fibrinogen 223 (200-400) mg/dL Sodium 137 (132-148) mmol/L Potassium 4.0 (3.6-5.2) mmol/L Chloride 104 (98-107) mmol/L Carbon Dioxide 23 (22-30) mmol/L Anion Gap 14 (10-20) BUN 8 (7-17) mg/dL Creatinine 0.4 L (0.7-1.2) mg/dL Est GFR ( Amer) > 60 Est GFR (Non-Af Amer) > 60 Random Glucose 100 (65-105) mg/dL Calcium 8.9 (8.6-10.4) mg/dl Phosphorus 4.0 (2.5-4.5) mg/dL Magnesium 1.5 L (1.6-2.3) mg/dL Total Bilirubin 1.0 (0.2-1.3) mg/dL AST 32 (14-36) U/L ALT 34 (9-52) U/L Alkaline Phosphatase 55 (38-126) U/L Total Protein 5.7 L (6.3-8.3) g/dL Albumin 3.3 L (3.5-5.0) g/dL Globulin 2.4 (2.2-3.9) gm/dL Albumin/Globulin Ratio 1.3 (1.0-2.1) 25-OH Vitamin D Total (30.0-100.0) NG/ML Copper (70-175) mcg/dL [place] RNA (RT-PCR) (Not Detected) 06/10/18 06/09/18 06/08/18 Range/Units 20:46 07:53 15:45 WBC (4.8-10.8) K/uL RBC (3.80-5.20) Mil/uL Hgb (11.0-16.0) g/dL Hct (34.0-47.0) % MCV (81.0-99.0) fL MCH (27.0-31.0) pg MCHC (33.0-37.0) g/dL RDW (11.5-14.5) % Plt Count (130-400) K/uL MPV (7.2-11.7) fL Neut % (Auto) (50.0-75.0) % Lymph % (Auto) (20.0-40.0) % [place] % (Auto) (0.0-10.0) % Eos % (Auto) (0.0-4.0) % Baso % (Auto) (0.0-2.0) % Neut # (Auto) (1.8-7.0) K/uL Lymph # (Auto) (1.0-4.3) K/uL [place] # (Auto) (0.0-0.8) K/uL Eos # (Auto) (0.0-0.7) K/uL Baso # (Auto) (0.0-0.2) K/uL Fibrinogen (200-400) mg/dL Sodium (132-148) mmol/L Potassium (3.6-5.2) mmol/L Chloride (98-107) mmol/L Carbon Dioxide (22-30) mmol/L Anion Gap (10-20) BUN (7-17) mg/dL Creatinine (0.7-1.2) mg/dL Est GFR ( Amer) Est GFR (Non-Af Amer) Random Glucose (65-105) mg/dL Calcium (8.6-10.4) mg/dl Phosphorus (2.5-4.5) mg/dL Magnesium (1.6-2.3) mg/dL Total Bilirubin (0.2-1.3) mg/dL AST (14-36) U/L ALT (9-52) U/L Alkaline Phosphatase (38-126) U/L Total Protein (6.3-8.3) g/dL Albumin (3.5-5.0) g/dL Globulin (2.2-3.9) gm/dL Albumin/Globulin Ratio (1.0-2.1) 25-OH Vitamin D Total < 12.8 L (30.0-100.0) NG/ML Copper 115 (70-175) mcg/dL [place] RNA (RT-PCR) Not detected (Not Detected) Laboratory Results - last 24 hr 06/08/18 06/09/18 06/10/18 15:45 07:53 20:46 WBC RBC Hgb Hct MCV MCH MCHC RDW Plt Count MPV Neut % (Auto) Lymph % (Auto) [place] % (Auto) Eos % (Auto) Baso % (Auto) Neut # (Auto) Lymph # (Auto) [place] # (Auto) Eos # (Auto) Baso # (Auto) Fibrinogen Sodium Potassium Chloride Carbon Dioxide Anion Gap BUN Creatinine Est GFR ( Amer) Est GFR (Non-Af Amer) Random Glucose Calcium Phosphorus Magnesium Total Bilirubin AST ALT Alkaline Phosphatase Total Protein Albumin Globulin Albumin/Globulin Ratio 25-OH Vitamin D Total < 12.8 L Copper 115 [place] RNA (RT-PCR) Not detected 06/11/18 06/11/18 06/11/18 05:58 05:58 05:58 WBC 8.9 RBC 4.76 Hgb 16.5 H Hct 48.3 H MCV 101.5 H MCH 34.7 H MCHC 34.1 RDW 14.7 H Plt Count 260 MPV 9.3 Neut % (Auto) 61.3 Lymph % (Auto) 24.3 [place] % (Auto) 12.8 H Eos % (Auto) 0.8 Baso % (Auto) 0.8 Neut # (Auto) 5.5 Lymph # (Auto) 2.2 [place] # (Auto) 1.1 H Eos # (Auto) 0.1 Baso # (Auto) 0.1 Fibrinogen 223 Sodium 137 Potassium 4.0 Chloride 104 Carbon Dioxide 23 Anion Gap 14 BUN 8 Creatinine 0.4 L Est GFR ( Amer) > 60 Est GFR (Non-Af Amer) > 60 Random Glucose 100 Calcium 8.9 Phosphorus 4.0 Magnesium 1.5 L Total Bilirubin 1.0 AST 32 ALT 34 Alkaline Phosphatase 55 Total Protein 5.7 L Albumin 3.3 L Globulin 2.4 Albumin/Globulin Ratio 1.3 25-OH Vitamin D Total Copper West Nile RNA (RT-PCR) Critical Care Progress Note - Nutrition Nutrition: Nutrition Category Date Time Status Heart Healthy Diet [DIET] Diets 06/10/18 Lunch Active Attending/Attestation - Attestation I have personally seen and examined this patient.: Yes I have fully participated in the care of the patient.: Yes I have reviewed all pertinent clinical information: Yes Notes (Text): I have seen and examined the patient. Medical records, lab studies, and imaging were reviewed by me and a management plan was formulated on multidisciplinary rounds with resident Dr. Lamb. I agree with their documented assessment and plan. Patient getting plasmapharesis today. Everyday showing slow improvements. Continue Mestinon. Critical Care Time 35 minutes. Multi-disciplinary rounds were performed with house staff, nursing, speech therapy, respiratory therapy, pharmacy and nutrition with integrated input from the primary team/attending and other consulting services. The documented time is cumulative and includes review of patient data/exams/labs/chart review and examination of the patient on rounds and throughout the day; time is exclusive of any procedures or teaching time.
[2018-06-11] MEDS: Pantoprazole 20 mg EC Tab PO SCH (09:09)
[2018-06-11] MEDS: Saccharomyces Boulardi 250 mg Cap PO SCH ×2 (09:09→17:25)
[2018-06-11] MEDS: Magnesium Sulfate 1 gm in D5W 1 GM/100 ML BAG IVPB SCH ×2 (10:14→10:15)
--- NOTE | 2018-06-11 14:31 | CP.PCM.PN ---
Subjective - Date & Time of Evaluation Date of Evaluation: 06/11/18 Time of Evaluation: 14:31 - Subjective Subjective: Neurology Progress Note for Dr. Villalba Patient seen and examined at bedside. No acute overnight events. Patient states her strength is improved with the Pyridostimine therapy and plasmapheresis, but states numbness still present on tip of her fingers. Patient denies CP, SOB, n/v/d, abdominal pain, fever, and chills. Objective - Vital Signs/Intake and Output Vital Signs (last 24 hours): Temp Pulse Resp BP Pulse Ox 97.8 F 83 17 120/84 96 06/11/18 04:00 06/11/18 10:43 06/11/18 10:43 06/11/18 10:43 06/11/18 10:43 Intake and Output: 06/11/18 06/11/18 06:59 18:59 Intake Total 590 500 Output Total 560 150 Balance 30 350 - Medications Medications: Current Medications Heparin Sodium (Porcine) (Heparin) 5,000 units SC Q8 [facility] Last Admin: 06/11/18 05:44 Dose: 5,000 units Albumin Human (Albutein 5% 500 Ml) 500 mls @ 250 mls/hr IVPB Q2H [facility] Stop: 06/11/18 19:59 Albumin Human (Albumin Human 5% (12.5 Gm/250 Ml)) 250 mls @ 250 mls/hr IV ONCE ONE Stop: 06/11/18 20:59 Albumin Human (Albutein 5% 500 Ml) 500 mls @ 250 mls/hr IVPB Q2H [facility] Stop: 06/13/18 19:59 Albumin Human (Albumin Human 5% (12.5 Gm/250 Ml)) 250 mls @ 250 mls/hr IV ONCE ONE Stop: 06/13/18 20:59 Ceftriaxone Sodium 1 gm/ (Sodium Chloride) 100 mls @ 100 mls/hr IVPB DAILY [facility]; Protocol Stop: 06/13/18 11:00 Last Admin: 06/11/18 10:15 Dose: 100 mls/hr Ondansetron HCl (Zofran Inj) 4 mg IVP DAILY@ONCE PRN PRN Reason: Nausea/Vomiting Last Admin: 06/10/18 19:36 Dose: 4 mg Pantoprazole Sodium (Protonix Ec Tab) 20 mg PO DAILY [facility] Last Admin: 06/11/18 09:09 Dose: 20 mg Pyridostigmine [place] (Mestinon Timespan Tab) 180 mg PO Q6H [facility] Last Admin: 06/11/18 11:22 Dose: 180 mg Saccharomyces Boulardii (Florastor) 250 mg PO BID [facility] Last Admin: 06/11/18 09:09 Dose: 250 mg - Labs Labs: 06/11/18 05:58 06/11/18 05:58 PT 12.3 SECONDS (9.7-12.2) H 06/07/18 17:57 INR 1.1 06/07/18 17:57 APTT 35 SECONDS (21-34) H 06/07/18 17:57 - Constitutional Appears: No Acute Distress - Head Exam Head Exam: NORMAL INSPECTION - Eye Exam Eye Exam: EOMI Pupil Exam: NORMAL ACCOMODATION, PERRL - ENT Exam ENT Exam: Mucous Membranes Moist, Normal Exam - Neck Exam Neck Exam: Normal Inspection - Respiratory Exam Respiratory Exam: Clear to Ausculation Bilateral. absent: Rhonchi, Wheezes - Cardiovascular Exam Cardiovascular Exam: RRR, +S1, +S2. absent: Gallop, Rubs, Murmur - GI/Abdominal Exam GI & Abdominal Exam: Soft. absent: Distended, Guarding, Tenderness, Rebound - Back Exam Back Exam: NORMAL INSPECTION - Neurological Exam Neurological Exam: Alert, Awake, CN II-XII Intact, Oriented x3 Additional comments: aaox3. PERRL.upward gaze able to hold > 20 sec CN 2-12 normal. Orbicularis oculi: 1 --> 3 --> 4, tongue muscles: 1 --> 4, neck flexors: 2 --> 4, neck extensors: 1 -->4 SCM: 3 --> 4 deltoid: 4 bl, triceps: 3 right, 4 left --> 4 bl biceps: 2 right, 3 left --> 4 bl scrap cutter: 4 bl --> 3 bl (decreased) finger flexors, extensors: 1 --> 3 bl interosei: 4 bl lowerlimb: hamstrings 3 --> 4, quads: 3 --> 4 bl tib anterior: 3 --> 4 bl dorsiflexion: 3 --> 4 bl plantar extension: 3 --> 4 bl no fasciculations, no tremors sensory: V1- V3 normal. decreased ft ul, ll bl, non dermatomal dist position sense: lost in upper and lower limb vibration sense: decreased severely hand, no position sense foot, or ankle. Present at knee. 50% loss of vibration at knee compared to hand . dtr: +3 ul, achilles +1 no clonus. temperature: diminished perception to cold upper and lower limbs bl. Pain: decreased in all regions. Gait: not tested Cerebellar: no dysmetria - Psychiatric Exam Psychiatric exam: Normal Affect - Skin Skin Exam: Normal Color Assessment and Plan - Assessment and Plan (Free Text) Assessment: Brain MRI 06/09/18: Limited but definitive abnormalities identified at the left frontal lobe and right pontomedullary junction comprise of a 4 mm enhancing lesion right pontomedullary junction and nonenhancing inferior left frontal lobe lesion. The lack of chondroid once and sub cm size the findings limits the attempt to narrow the etiology and a broad differential diagnosis exists including potential demyelination or even metastasis. Please see discussion by for further clinical correlation recommended. Chest CT 06/09/18: Right-sided PICC extends to the right atrium. Markedly heterogeneous abnormal appearance of the liver with a 2.7 x 2.5 cm heterogeneous hyperdense mass noted in the left hepatic lobe worrisome for malignant neoplasm. Cholelithiasis. High-density focus noted on the nondependent portion of the gallbladder; alternatives including polyp or neoplasm can't be excluded. Patient is a 47 year old female with progressive weakness for 3 weeks. The patient was given a Pyridostigmine challenge yesterday, with improvement of symptoms. Patient's strength improved and reports increase in energy today. Patient had a positive Ice Test of her right eye with improvement of ptosis. At this time it is believed that the patient may be suffering from Myasthenia Gravis (MG). Guillain [place] Syndrome (possible subtypes including but not limited to AMSAN and Gloria Iyer) and subacute combined degeneration have not been ruled out and are pending test results. Plan: - Plasmapheresis today; total of 3 treatments - Pyridostigmine 180mg PO q6h - Auto-antibodies ordered - pending results - Continue vital capacity - Daily NIF - Recommend OOB to chair - NO physical therapy at this time Case discussed with Dr. Villalba. Brad Handy, DO PGY2
--- NOTE | 2018-06-11 17:45 | CP.PCM.PN ---
Subjective - Date & Time of Evaluation Date of Evaluation: 06/11/18 Time of Evaluation: 08:00 - Subjective Subjective: awake alert afebrile c/o numbness of hands and feet leg weakness less but still unable to lift against gravity moving hands / arms / shoulders Objective - Vital Signs/Intake and Output Vital Signs (last 24 hours): Temp Pulse Resp BP Pulse Ox 98.4 F 72 20 114/76 96 06/11/18 12:00 06/11/18 14:43 06/11/18 14:43 06/11/18 14:43 06/11/18 14:43 Intake and Output: 06/11/18 06/11/18 06:59 18:59 Intake Total 590 500 Output Total 560 150 Balance 30 350 - Medications Medications: Current Medications Heparin Sodium (Porcine) (Heparin) 5,000 units SC Q8 [facility] Last Admin: 06/11/18 14:36 Dose: 5,000 units Albumin Human (Albutein 5% 500 Ml) 500 mls @ 250 mls/hr IVPB Q2H [facility] Stop: 06/11/18 19:59 Last Admin: 06/11/18 17:17 Dose: 250 mls/hr Albumin Human (Albumin Human 5% (12.5 Gm/250 Ml)) 250 mls @ 250 mls/hr IV ONCE ONE Stop: 06/11/18 20:59 Last Admin: 06/11/18 15:34 Dose: 250 mls/hr Albumin Human (Albutein 5% 500 Ml) 500 mls @ 250 mls/hr IVPB Q2H [facility] Stop: 06/13/18 19:59 Albumin Human (Albumin Human 5% (12.5 Gm/250 Ml)) 250 mls @ 250 mls/hr IV ONCE ONE Stop: 06/13/18 20:59 Ceftriaxone Sodium 1 gm/ (Sodium Chloride) 100 mls @ 100 mls/hr IVPB DAILY [facility]; Protocol Stop: 06/13/18 11:00 Last Admin: 06/11/18 10:15 Dose: 100 mls/hr Ondansetron HCl (Zofran Inj) 4 mg IVP DAILY@ONCE PRN PRN Reason: Nausea/Vomiting Last Admin: 06/11/18 16:37 Dose: 4 mg Pantoprazole Sodium (Protonix Ec Tab) 20 mg PO DAILY [facility] Last Admin: 06/11/18 09:09 Dose: 20 mg Pyridostigmine [place] (Mestinon Timespan Tab) 180 mg PO Q6H [facility] Last Admin: 06/11/18 17:25 Dose: 180 mg Saccharomyces Boulardii (Florastor) 250 mg PO BID [facility] Last Admin: 06/11/18 17:25 Dose: 250 mg - Labs Labs: 06/11/18 05:58 06/11/18 05:58 PT 12.3 SECONDS (9.7-12.2) H 06/07/18 17:57 INR 1.1 06/07/18 17:57 APTT 35 SECONDS (21-34) H 06/07/18 17:57 - Constitutional Appears: Non-toxic, Chronically Ill - Head Exam Head Exam: NORMOCEPHALIC - Eye Exam Eye Exam: absent: Scleral icterus - ENT Exam ENT Exam: Mucous Membranes Dry - Neck Exam Neck Exam: absent: Lymphadenopathy - Respiratory Exam Respiratory Exam: Decreased Breath Sounds, Clear to Ausculation Bilateral - Cardiovascular Exam Cardiovascular Exam: REGULAR RHYTHM, +S1, +S2 - GI/Abdominal Exam GI & Abdominal Exam: Distended. absent: Soft, Tenderness - Rectal Exam Rectal Exam: Deferred - Exam Exam: NORMAL INSPECTION - Extremities Exam Extremities Exam: absent: Pedal Edema - Back Exam Back Exam: absent: CVA tenderness (L), CVA tenderness (R) - Neurological Exam Neurological Exam: Alert, Awake, Motor Sensory Deficit, Oriented x3. absent: Normal Gait Neuro motor strength exam: Left Upper Extremity: 4, Right Upper Extremity: 4, Left Lower Extremity: 2/1, Right Lower Extremity: 2/1 - Psychiatric Exam Psychiatric exam: Depressed - Skin Skin Exam: Dry Assessment and Plan - Assessment and Plan (Free Text) Assessment: 47 yo F with pmhx of gastric bypass (12 years ago), h ysterectomy presenting with worsening b/l LE numbness/weakness, ataxia, b/l UE numbness x 3 weeks. Awaiting anti-Ach receptor A Cont plasmapheresis
[2018-06-12 00:33] LABS: SOURCE CSF
[2018-06-12 05:54] LABS: BASO # 0.1 K/uL (0.0-0.2); BASO % 0.5 % (0.0-2.0); EOS # 0.1 K/uL (0.0-0.7); EOS % 0.5 % (0.0-4.0); HEMOGLOBIN 15.6 g/dL (11.0-16.0); LYMPH # 1.9 K/uL (1.0-4.3); LYMPH % 16.4 % (20.0-40.0); MEAN CELL VOLUME 102.1 fL (81.0-99.0); MEAN CORPUSCULAR HEMOGLOBIN 34.3 pg (27.0-31.0); MEAN CORPUSCULAR HGB CONC 33.6 g/dL (33.0-37.0); MEAN PLATELET VOLUME 10.4 fL (7.2-11.7); MONO # 1.2 K/uL (0.0-0.8); MONO % 10.5 % (0.0-10.0); NEUT # 8.2 K/uL (1.8-7.0); NEUT % 72.1 % (50.0-75.0); NRBC % 0.1 % (0.0-2.0); RBC 4.55 Mil/uL (3.80-5.20); WHITE BLOOD COUNT 11.4 K/uL (4.8-10.8)
[2018-06-12] MEDS: PYRIDOSTIGMINE 180 MG PO SCH ×4 (05:59→23:56)
[2018-06-12 06:26] LABS: ALB/GLOB RATIO 2.1 (1.0-2.1); ALBUMIN 3.6 g/dL (3.5-5.0); ALT/SGPT 28 U/L (9-52); AST/SGOT 29 U/L (14-36); BLOOD UREA NITROGEN 7 mg/dL (7-17); CALCIUM 8.9 mg/dl (8.6-10.4); GFR NON-AFRICAN AMERICAN > 60
--- NOTE | 2018-06-12 09:09 | CP.PCM.PN ---
Subjective - Date & Time of Evaluation Date of Evaluation: 06/12/18 Time of Evaluation: 09:08 - Subjective Subjective: Patient is having breakfast,State that her weakness is improving slowly and she is feeling little better,c/o nausea and poor appetite. 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 is same.c/o foot numbness remains the same,no dysphagia,no s ob she had second plasma exchange yesterday Objective - Vital Signs/Intake and Output Vital Signs (last 24 hours): Temp Pulse Resp BP Pulse Ox 97.8 F 65 18 141/86 95 06/12/18 04:00 06/12/18 06:43 06/12/18 06:43 06/12/18 06:43 06/12/18 06:43 Intake and Output: 06/12/18 06/12/18 06:59 18:59 Intake Total 320 Balance 320 - Medications Medications: Current Medications Heparin Sodium (Porcine) (Heparin) 5,000 units SC Q8 [facility] Last Admin: 06/12/18 05:59 Dose: 5,000 units Albumin Human (Albutein 5% 500 Ml) 500 mls @ 250 mls/hr IVPB Q2H [facility] Stop: 06/13/18 19:59 Albumin Human (Albumin Human 5% (12.5 Gm/250 Ml)) 250 mls @ 250 mls/hr IV ONCE ONE Stop: 06/13/18 20:59 Ceftriaxone Sodium 1 gm/ (Sodium Chloride) 100 mls @ 100 mls/hr IVPB DAILY [facility]; Protocol Stop: 06/13/18 11:00 Last Admin: 06/11/18 10:15 Dose: 100 mls/hr Ondansetron HCl (Zofran Inj) 4 mg IVP DAILY@ONCE PRN PRN Reason: Nausea/Vomiting Last Admin: 06/11/18 16:37 Dose: 4 mg Pantoprazole Sodium (Protonix Ec Tab) 20 mg PO DAILY [facility] Last Admin: 06/11/18 09:09 Dose: 20 mg Pyridostigmine [place] (Mestinon Timespan Tab) 180 mg PO Q6H [facility] Last Admin: 06/12/18 05:59 Dose: 180 mg Saccharomyces Boulardii (Florastor) 250 mg PO BID [facility] Last Admin: 06/11/18 17:25 Dose: 250 mg - Labs Labs: 06/12/18 05:48 06/12/18 05:41 PT 12.3 SECONDS (9.7-12.2) H 06/07/18 17:57 INR 1.1 06/07/18 17:57 APTT 35 SECONDS (21-34) H 06/07/18 17:57 - Constitutional Appears: Non-toxic, Older Than Stated Age - Head Exam Head Exam: NORMAL INSPECTION - Eye Exam Eye Exam: Normal appearance - ENT Exam ENT Exam: Mucous Membranes Moist - Neck Exam Neck Exam: Full ROM, Normal Inspection - Respiratory Exam Respiratory Exam: Clear to Ausculation Bilateral, NORMAL BREATHING PATTERN - Cardiovascular Exam Cardiovascular Exam: REGULAR RHYTHM - GI/Abdominal Exam GI & Abdominal Exam: Soft, Normal Bowel Sounds - Extremities Exam Extremities Exam: Full ROM - Back Exam Back Exam: NORMAL INSPECTION - Neurological Exam Neuro motor strength exam: Left Upper Extremity: 4 (hand lead python developer), Right Upper Extremity: 5 (little weak), Left Lower Extremity: 5, Right Lower Extremity: 5 Assessment and Plan - Assessment and Plan (Free Text) Plan: 1. Upper and lower extremity weakness with decreased FVC likely due to Myasthenia Gravis Possible Guillain [place] Syndrome (possible subtypes including but not limited to AMSAN and Gloria Iyer) ptosis has resolved S/p Plasmapheresis ,Second one yesterday,planning for total of 3 treatments - Pyridostigmine 180mg PO q6h - Auto-antibodies ordered /Acetylcholine Ab pending results * s/p LP 06/08/18 F/U CSF studies: culture, HSV IgM, Lymb Ab, Lyme DNA, Oligoclonal Bands, West Nile RNA PCR, West Nile Ab * CT head June 08 no acute hemorrhage mass effect or shift * Cervical MRI from June 08 showing shucking of the cervical spine mild reversal of the normal lordosis which could be due to muscle spasm or patient positioning. No evidence of spinal neural foraminal narrowing. * Lumbar MRI: No evidence of significant spinal or neural foraminal narrowing. Conus medullaris is normal in size and shape. Small posterior disc protrusion L5-S1 without evidence of significant spinal neural foraminal narrowing. Mild L5-S1 degenerative disc changes. * Last MRI also no evidence of spinal stenosis foraminal fat foraminal narrowing no evidence of mass lesion or abnormal signal. * CT chest: Right-sided PICC extends the right atrium. Markedly heterogeneous abnormal appearance of the liver with a 2.7 x 2.5 heterogeneous hyperdense masses in the left hepatic lobe worrisome for malignant neoplasm. Cholelithiasis. High density focus of nondependent portion of the gallbladder alternatives including polyp or neoplasm can't be excluded. * Thymoma not noted on CT chest will order a neck to rule out. RPR is NON-reactive HIV 1 & 2 is negative nfluenza is negative 2). Hypodense lesion in left lobe liver that was concerning for neoplasm. Looks like hemangioma. 3). Prior history of gastric bypass surgery * Check vitamin B1, B6, B12, vitamin D * Thyroid within normal * B12 over thousand, was receiving B12 supplementation as outpatient * Folate acid normal 4) prior alcohol use 5) urine positive Showing gram-negative gail from June 09 CSF fluid no growth after 2 days Rocephin 1 g IV daily to cover for urine culture 6) megaloblastic elevated MCV * Both B12 and folate are normal 7) prophylactic measure * DVT is on Lovenox * Protonix 20 mg by mouth daily
[2018-06-12] MEDS: Pantoprazole 20 mg EC Tab PO SCH (10:38)
[2018-06-12] MEDS: Saccharomyces Boulardi 250 mg Cap PO SCH ×2 (10:38→17:57)
--- NOTE | 2018-06-12 15:25 | CP.CCUPN ---
CCU Subjective - Physician Review Events Since Last Encounter (Free Text): 06/12/18 15:23 alert, some improvement in strength. CCU Objective - Vital Signs / Intake & Output Vital Signs (Last 4 hours): Vital Signs Pulse Resp BP Pulse Ox 06/12/18 11:43 70 18 122/87 98 Intake and Output (Last 8hrs): Intake & Output 06/12/18 06/12/18 06/12/18 06:59 14:59 22:59 Intake Total 0 500 Output Total 150 Balance 0 350 Weight 120 lb Intake: Intake, IV Amount 100 Right PICC 100 Oral 0 400 Output: Urine 150 Urine, Voided 150 Other: # Voids Urine, Voided 0 0 # Bowel Movements 0 - Physical Exam Head: Positive for: Atraumatic, Normocephalic Pupils: Positive for: PERRL Extroacular Muscles: Positive for: EOMI Conjunctiva: Positive for: Normal Mouth: Positive for: Moist Mucous Membranes Neck: Positive for: Normal Range of Motion Respiratory/Chest: Positive for: Clear to Auscultation, Good Air Exchange. Negative for: Respiratory Distress, Accessory Muscle Use, Wheezes, Rales, Retracting, Rhonchi Cardiovascular: Positive for: Normal S1, S2, Tachycardic Abdomen: Positive for: Normal Bowel Sounds. 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 Negative for: Cyanosis, Edema, Tenderness, Swelling Lower Extremity: Positive for: Normal Inspection, NORMAL PULSES, Capillary Refill < 2 s, Other (Decreased sensation b/l LE, motor strength 3/5 b/l LE). Negative for: Edema, CALF TENDERNESS, Cyanosis, Swelling Neurological: Positive for: Speech Normal Skin: Positive for: Warm, Dry, Normal Color. Negative for: Rashes Psychiatric: Positive for: Alert, Oriented x 3 - Medications Active Medications: Active Medications Generic Name Dose Route Start Last Admin Trade Name Freq PRN Reason Stop Dose Admin Heparin Sodium (Porcine) 5,000 units 06/08/18 14:00 06/12/18 14:41 Heparin SC 5,000 units Q8 [facility] Administration Albumin Human 500 mls @ 250 mls/hr 06/13/18 14:00 Albutein 5% 500 Ml IVPB 06/13/18 19:59 Q2H [facility] Albumin Human 250 mls @ 250 mls/hr 06/13/18 20:00 Albumin Human 5% (12.5 Gm/250 Ml) IV 06/13/18 20:59 ONCE ONE Ceftriaxone Sodium 1 gm/ 100 mls @ 100 mls/hr 06/11/18 10:00 06/12/18 10:38 Sodium Chloride IVPB 06/13/18 11:00 100 mls/hr DAILY [facility] Administration Protocol Ondansetron HCl 4 mg 06/08/18 17:30 06/12/18 09:08 Zofran Inj IVP 4 mg DAILY@ONCE PRN Administration Nausea/Vomiting Pantoprazole Sodium 20 mg 06/08/18 10:00 06/12/18 10:38 Protonix Ec Tab PO 20 mg DAILY [facility] Administration Pyridostigmine [place] 180 mg 06/09/18 18:00 06/12/18 12:24 Mestinon Timespan Tab PO 180 mg Q6H [facility] Administration Saccharomyces Boulardii 250 mg 06/11/18 10:00 06/12/18 10:38 Florastor PO 250 mg BID [facility] Administration Sennosides 8.6 mg 06/12/18 18:00 Senokot Tab PO BID [facility] - Patient Studies Lab Studies: Microbiology Studies 06/08/18 01:13 Gram Stain - Final Cerebral Spinal Fluid CSF Culture - Preliminary NO GROWTH AFTER 4 DAYS 06/08/18 17:30 Blood Culture - Preliminary Blood NO GROWTH AFTER 3 DAYS 06/08/18 17:00 Blood Culture - Preliminary Blood NO GROWTH AFTER 3 DAYS Lab Studies 06/12/18 06/12/18 06/12/18 Range/Units 05:48 05:48 05:41 WBC 11.4 H (4.8-10.8) K/uL RBC 4.55 (3.80-5.20) Mil/uL Hgb 15.6 (11.0-16.0) g/dL Hct 46.5 (34.0-47.0) % MCV 102.1 H (81.0-99.0) fL MCH 34.3 H (27.0-31.0) pg MCHC 33.6 (33.0-37.0) g/dL RDW 15.0 H (11.5-14.5) % Plt Count 258 (130-400) K/uL MPV 10.4 (7.2-11.7) fL Neut % (Auto) 72.1 (50.0-75.0) % Lymph % (Auto) 16.4 L (20.0-40.0) % Larue % (Auto) 10.5 H (0.0-10.0) % Eos % (Auto) 0.5 (0.0-4.0) % Baso % (Auto) 0.5 (0.0-2.0) % Neut # (Auto) 8.2 H (1.8-7.0) K/uL Lymph # (Auto) 1.9 (1.0-4.3) K/uL Larue # (Auto) 1.2 H (0.0-0.8) K/uL Eos # (Auto) 0.1 (0.0-0.7) K/uL Baso # (Auto) 0.1 (0.0-0.2) K/uL Fibrinogen 125 L (200-400) mg/dL Sodium 137 (132-148) mmol/L Potassium 3.8 (3.6-5.2) mmol/L Chloride 106 (98-107) mmol/L Carbon Dioxide 23 (22-30) mmol/L Anion Gap 13 (10-20) BUN 7 (7-17) mg/dL Creatinine 0.4 L (0.7-1.2) mg/dL Est GFR ( Amer) > 60 Est GFR (Non-Af Amer) > 60 Random Glucose 104 (65-105) mg/dL Calcium 8.9 (8.6-10.4) mg/dl Phosphorus 3.8 (2.5-4.5) mg/dL Magnesium 1.7 (1.6-2.3) mg/dL Total Bilirubin 0.9 (0.2-1.3) mg/dL AST 29 (14-36) U/L ALT 28 (9-52) U/L Alkaline Phosphatase 39 (38-126) U/L Total Protein 5.3 L (6.3-8.3) g/dL Albumin 3.6 (3.5-5.0) g/dL Globulin 1.7 L (2.2-3.9) gm/dL Albumin/Globulin Ratio 2.1 (1.0-2.1) CSF Lyme IgG Antibody CSF Lyme Disease DNA Lyme Specimen Source Lyme Bands Present West Nile RNA (RT-PCR) (Not Detected) 06/08/18 06/08/18 Range/Units 15:45 15:45 WBC (4.8-10.8) K/uL RBC (3.80-5.20) Mil/uL Hgb (11.0-16.0) g/dL Hct (34.0-47.0) % MCV (81.0-99.0) fL MCH (27.0-31.0) pg MCHC (33.0-37.0) g/dL RDW (11.5-14.5) % Plt Count (130-400) K/uL MPV (7.2-11.7) fL Neut % (Auto) (50.0-75.0) % Lymph % (Auto) (20.0-40.0) % Larue % (Auto) (0.0-10.0) % Eos % (Auto) (0.0-4.0) % Baso % (Auto) (0.0-2.0) % Neut # (Auto) (1.8-7.0) K/uL Lymph # (Auto) (1.0-4.3) K/uL Larue # (Auto) (0.0-0.8) K/uL Eos # (Auto) (0.0-0.7) K/uL Baso # (Auto) (0.0-0.2) K/uL Fibrinogen (200-400) mg/dL Sodium (132-148) mmol/L Potassium (3.6-5.2) mmol/L Chloride (98-107) mmol/L Carbon Dioxide (22-30) mmol/L Anion Gap (10-20) BUN (7-17) mg/dL Creatinine (0.7-1.2) mg/dL Est GFR ( Amer) Est GFR (Non-Af Amer) Random Glucose (65-105) mg/dL Calcium (8.6-10.4) mg/dl Phosphorus (2.5-4.5) mg/dL Magnesium (1.6-2.3) mg/dL Total Bilirubin (0.2-1.3) mg/dL AST (14-36) U/L ALT (9-52) U/L Alkaline Phosphatase (38-126) U/L Total Protein (6.3-8.3) g/dL Albumin (3.5-5.0) g/dL Globulin (2.2-3.9) gm/dL Albumin/Globulin Ratio (1.0-2.1) CSF Lyme IgG Antibody No bands detected CSF Lyme Disease DNA Not detected Lyme Specimen Source Csf Lyme Bands Present TEST NOT PERFORMED West Nile RNA (RT-PCR) Not detected (Not Detected) Laboratory Results - last 24 hr 06/08/18 06/08/18 06/12/18 15:45 15:45 05:41 WBC RBC Hgb Hct MCV MCH MCHC RDW Plt Count MPV Neut % (Auto) Lymph % (Auto) Larue % (Auto) Eos % (Auto) Baso % (Auto) Neut # (Auto) Lymph # (Auto) Larue # (Auto) Eos # (Auto) Baso # (Auto) Fibrinogen Sodium 137 Potassium 3.8 Chloride 106 Carbon Dioxide 23 Anion Gap 13 BUN 7 Creatinine 0.4 L Est GFR ( Amer) > 60 Est GFR (Non-Af Amer) > 60 Random Glucose 104 Calcium 8.9 Phosphorus 3.8 Magnesium 1.7 Total Bilirubin 0.9 AST 29 ALT 28 Alkaline Phosphatase 39 Total Protein 5.3 L Albumin 3.6 Globulin 1.7 L Albumin/Globulin Ratio 2.1 CSF Lyme IgG Antibody No bands detected CSF Lyme Disease DNA Not detected Lyme Specimen Source Csf Lyme Bands Present TEST NOT PERFORMED West Nile RNA (RT-PCR) Not detected 06/12/18 06/12/18 05:48 05:48 WBC 11.4 H RBC 4.55 Hgb 15.6 Hct 46.5 MCV 102.1 H MCH 34.3 H MCHC 33.6 RDW 15.0 H Plt Count 258 MPV 10.4 Neut % (Auto) 72.1 Lymph % (Auto) 16.4 L Larue % (Auto) 10.5 H Eos % (Auto) 0.5 Baso % (Auto) 0.5 Neut # (Auto) 8.2 H Lymph # (Auto) 1.9 Larue # (Auto) 1.2 H Eos # (Auto) 0.1 Baso # (Auto) 0.1 Fibrinogen 125 L Sodium Potassium Chloride Carbon Dioxide Anion Gap BUN Creatinine Est GFR ( Amer) Est GFR (Non-Af Amer) Random Glucose Calcium Phosphorus Magnesium Total Bilirubin AST ALT Alkaline Phosphatase Total Protein Albumin Globulin Albumin/Globulin Ratio CSF Lyme IgG Antibody CSF Lyme Disease DNA Lyme Specimen Source Lyme Bands Present West Nile RNA (RT-PCR) Review of Systems - Review of Systems All systems: reviewed and no additional remarkable complaints except - Constitutional Constitutional: Weakness - Gastrointestinal Gastrointestinal: Abdominal Pain Critical Care Progress Note - Nutrition Nutrition: Nutrition Category Date Time Status Heart Healthy Diet [DIET] Diets 06/10/18 Lunch Active Assessment/Plan (1) Myasthenia gravis Assessment and plan: 47 yo F with pmhx of gastric bypass (12 years ago), hysterecto my presenting with worsening b/l LE numbness/weakness, ataxia, b/l UE numbness x 3 weeks. Neurology on board, per recs the cause for the patient's symptoms is unknown at this time and the differential is very broad. Working diagnosis is Myasthenia gravis. Patient is s/p plasmapheresis, tolerating pyridostigmine treatment well. 2nd plasmapharesis session scheduled this AM. Awaiting anti-Ach receptor Ab. Neuro: alert and oriented x 3. still has some weakness in left upper extremity and numbness and tingling. Plasmapharesis, two courses so far, third course tomorrow. Continue mestinon for myasthenia gravis. Pulm: breathing is stable, vital capacity is stable, but barely improved. CV: hemodynamically stable Hem: no acutes issues Renal: urine output wnl Endo: no acute issues GI: regular diet ID: no acute issues DVT proph - lovenox GI proph - not currently indicated Code status - full code Critical Care Time spent 35 minutes Multi-disciplinary rounds were performed with house staff, nursing, speech therapy, respiratory therapy, pharmacy and nutrition with integrated input from the primary team/attending and other consulting services. The documented time is cumulative and includes review of patient data/exams/labs/chart review and examination of the patient on rounds and throughout the day; time is exclusive of any procedures or teaching time. Current Visit: Yes Status: Acute
[2018-06-12 16:27] LABS: ACETYLCHOLINE REC MOD AB 6
--- NOTE | 2018-06-12 21:05 | CP.PCM.PN ---
Subjective - Date & Time of Evaluation Date of Evaluation: 06/11/18 Time of Evaluation: 12:00 - Subjective Subjective: Feeling better for plasma exchange #2 today Objective - Vital Signs/Intake and Output Vital Signs (last 24 hours): Temp Pulse Resp BP Pulse Ox 98.1 F 73 19 141/96 H 96 06/12/18 16:00 06/12/18 19:43 06/12/18 19:43 06/12/18 19:43 06/12/18 19:43 Intake and Output: 06/12/18 06/13/18 18:59 06:59 Intake Total 700 Output Total 500 Balance 200 - Medications Medications: Current Medications Enoxaparin Sodium (Lovenox) 40 mg SC DAILY [facility] Albumin Human (Albutein 5% 500 Ml) 500 mls @ 250 mls/hr IVPB Q2H [facility] Stop: 06/13/18 19:59 Albumin Human (Albumin Human 5% (12.5 Gm/250 Ml)) 250 mls @ 250 mls/hr IV ONCE ONE Stop: 06/13/18 20:59 Ondansetron HCl (Zofran Inj) 4 mg IVP DAILY@ONCE PRN PRN Reason: Nausea/Vomiting Last Admin: 06/12/18 09:08 Dose: 4 mg Pantoprazole Sodium (Protonix Ec Tab) 20 mg PO DAILY [facility] Last Admin: 06/12/18 10:38 Dose: 20 mg Pyridostigmine [place] (Mestinon Timespan Tab) 180 mg PO Q6H [facility] Last Admin: 06/12/18 17:57 Dose: 180 mg Saccharomyces Boulardii (Florastor) 250 mg PO BID [facility] Last Admin: 06/12/18 17:57 Dose: 250 mg Sennosides (Senokot Tab) 8.6 mg PO BID [facility] Last Admin: 06/12/18 17:57 Dose: 8.6 mg - Labs Labs: 06/12/18 05:48 06/12/18 05:41 PT 12.3 SECONDS (9.7-12.2) H 06/07/18 17:57 INR 1.1 06/07/18 17:57 APTT 35 SECONDS (21-34) H 06/07/18 17:57 - Head Exam Head Exam: ATRAUMATIC - Eye Exam Eye Exam: Normal appearance - ENT Exam ENT Exam: Mucous Membranes Dry - Respiratory Exam Respiratory Exam: NORMAL BREATHING PATTERN - Cardiovascular Exam Cardiovascular Exam: +S1, +S2 - GI/Abdominal Exam GI & Abdominal Exam: Normal Bowel Sounds Assessment and Plan (1) Weakness of limb Assessment & Plan: improving for plasma exchange #2 today Status: Acute
--- NOTE | 2018-06-12 21:06 | CP.PCM.PN ---
Subjective - Date & Time of Evaluation Date of Evaluation: 06/12/18 Time of Evaluation: 19:00 - Subjective Subjective: Feeling better, family at bedside. Objective - Vital Signs/Intake and Output Vital Signs (last 24 hours): Temp Pulse Resp BP Pulse Ox 98.1 F 73 19 141/96 H 96 06/12/18 16:00 06/12/18 19:43 06/12/18 19:43 06/12/18 19:43 06/12/18 19:43 Intake and Output: 06/12/18 06/13/18 18:59 06:59 Intake Total 700 Output Total 500 Balance 200 - Medications Medications: Current Medications Enoxaparin Sodium (Lovenox) 40 mg SC DAILY [facility] Albumin Human (Albutein 5% 500 Ml) 500 mls @ 250 mls/hr IVPB Q2H [facility] Stop: 06/13/18 19:59 Albumin Human (Albumin Human 5% (12.5 Gm/250 Ml)) 250 mls @ 250 mls/hr IV ONCE ONE Stop: 06/13/18 20:59 Ondansetron HCl (Zofran Inj) 4 mg IVP DAILY@ONCE PRN PRN Reason: Nausea/Vomiting Last Admin: 06/12/18 09:08 Dose: 4 mg Pantoprazole Sodium (Protonix Ec Tab) 20 mg PO DAILY [facility] Last Admin: 06/12/18 10:38 Dose: 20 mg Pyridostigmine [place] ([place] Timespan Tab) 180 mg PO Q6H [facility] Last Admin: 06/12/18 17:57 Dose: 180 mg Saccharomyces Boulardii (Florastor) 250 mg PO BID [facility] Last Admin: 06/12/18 17:57 Dose: 250 mg Sennosides (Senokot Tab) 8.6 mg PO BID [facility] Last Admin: 06/12/18 17:57 Dose: 8.6 mg - Labs Labs: 06/12/18 05:48 06/12/18 05:41 PT 12.3 SECONDS (9.7-12.2) H 06/07/18 17:57 INR 1.1 06/07/18 17:57 APTT 35 SECONDS (21-34) H 06/07/18 17:57 - Head Exam Head Exam: ATRAUMATIC - Eye Exam Eye Exam: Normal appearance - ENT Exam ENT Exam: Mucous Membranes Dry - Respiratory Exam Respiratory Exam: NORMAL BREATHING PATTERN - Cardiovascular Exam Cardiovascular Exam: +S1, +S2 - GI/Abdominal Exam GI & Abdominal Exam: Normal Bowel Sounds Assessment and Plan (1) Weakness of limb Assessment & Plan: for final plasma exchange tomorrow Status: Acute
[2018-06-13] MEDS: Magnesium Sulfate 1 gm in D5W 1 GM/100 ML BAG IVPB SCH ×2 (02:45→03:15)
[2018-06-13] MEDS: PYRIDOSTIGMINE 180 MG PO SCH ×3 (06:13→17:32)
[2018-06-13 06:15] LABS: BASO # 0.1 K/uL (0.0-0.2); BASO % 0.5 % (0.0-2.0); EOS # 0.1 K/uL (0.0-0.7); EOS % 0.6 % (0.0-4.0); HEMOGLOBIN 15.1 g/dL (11.0-16.0); LYMPH # 2.1 K/uL (1.0-4.3); LYMPH % 17.4 % (20.0-40.0); MEAN CELL VOLUME 101.8 fL (81.0-99.0); MEAN CORPUSCULAR HEMOGLOBIN 34.8 pg (27.0-31.0); MEAN CORPUSCULAR HGB CONC 34.1 g/dL (33.0-37.0); MEAN PLATELET VOLUME 10.2 fL (7.2-11.7); MONO # 1.4 K/uL (0.0-0.8); MONO % 11.4 % (0.0-10.0); NEUT # 8.5 K/uL (1.8-7.0); NEUT % 70.1 % (50.0-75.0); RBC 4.35 Mil/uL (3.80-5.20); RED CELL DISTRIBUTION WIDTH 15.3 % (11.5-14.5); WHITE BLOOD COUNT 12.1 K/uL (4.8-10.8)
[2018-06-13 06:37] LABS: ALB/GLOB RATIO 1.6 (1.0-2.1); ALBUMIN 3.4 g/dL (3.5-5.0); ALT/SGPT 31 U/L (9-52); AST/SGOT 37 U/L (14-36); BLOOD UREA NITROGEN 7 mg/dL (7-17); GFR NON-AFRICAN AMERICAN > 60
--- NOTE | 2018-06-13 08:34 | CP.PCM.PN ---
Subjective - Date & Time of Evaluation Date of Evaluation: 06/13/18 Time of Evaluation: 08:15 - Subjective Subjective: Medical Attending Note: Patient seen and examined at bedside. Patient receiving third plasmapheresis at bedside. 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 Patient reports left hand getting better. Patient denies headache, denies fever, denies chills, denies chest pain, denies abdominal pain, denies constipation, denies stool/urinary incontinence. Patient reports continues to feel tired. Objective - Vital Signs/Intake and Output Vital Signs (last 24 hours): Temp Pulse Resp BP Pulse Ox 97.9 F 89 16 128/85 98 06/13/18 04:00 06/13/18 06:43 06/13/18 06:43 06/13/18 06:43 06/13/18 06:43 Intake and Output: 06/13/18 06/13/18 06:59 18:59 Intake Total 200 Output Total 500 Balance -300 - Medications Medications: Current Medications Enoxaparin Sodium (Lovenox) 40 mg SC DAILY [facility] Albumin Human (Albutein 5% 500 Ml) 500 mls @ 250 mls/hr IVPB Q2H [facility] Stop: 06/13/18 19:59 Albumin Human (Albumin Human 5% (12.5 Gm/250 Ml)) 250 mls @ 250 mls/hr IV ONCE ONE Stop: 06/13/18 20:59 Ondansetron HCl (Zofran Inj) 4 mg IVP DAILY@ONCE PRN PRN Reason: Nausea/Vomiting Last Admin: 06/12/18 09:08 Dose: 4 mg Pantoprazole Sodium (Protonix Ec Tab) 20 mg PO DAILY [facility] Last Admin: 06/12/18 10:38 Dose: 20 mg Pyridostigmine [place] (Mest[place]on Timespan Tab) 180 mg PO Q6H [facility] Last Admin: 06/13/18 06:13 Dose: 180 mg Saccharomyces Boulardii (Florastor) 250 mg PO BID [facility] Last Admin: 06/12/18 17:57 Dose: 250 mg Sennosides (Senokot Tab) 8.6 mg PO BID [facility] Last Admin: 06/12/18 17:57 Dose: 8.6 mg - Labs Labs: 06/13/18 06:03 06/13/18 06:03 PT 12.3 SECONDS (9.7-12.2) H 06/07/18 17:57 INR 1.1 06/07/18 17:57 APTT 35 SECONDS (21-34) H 06/07/18 17:57 - Constitutional Appears: Non-toxic, No Acute Distress - Head Exam Head Exam: NORMAL INSPECTION - Eye Exam Eye Exam: EOMI - ENT Exam ENT Exam: Mucous Membranes Dry - Respiratory Exam Respiratory Exam: Clear to Ausculation Bilateral, NORMAL BREATHING PATTERN. absent: Rales, Rhonchi, Wheezes - Cardiovascular Exam Cardiovascular Exam: REGULAR RHYTHM, +S1, +S2 - GI/Abdominal Exam GI & Abdominal Exam: Soft, Normal Bowel Sounds. absent: Distended, Firm, Guarding, Rigid, Tenderness, Rebound - Extremities Exam Extremities Exam: absent: Pedal Edema, Tenderness - Neurological Exam Neurological Exam: Alert, Awake, Oriented x3 Additional comments: weakness in the lower extremities (left lower extremity improving; starting to flex at the knee as opposed to initiated movement with the hip) and able mild improvement in the right lower extremity Continues to have pin and needles in the hands Attending/Attestation - Attestation I have personally seen and examined this patient.: Yes I have fully participated in the care of the patient.: Yes I have reviewed all pertinent clinical information, including history, physical exam and plan: Yes Notes (Text): 1). Possible Myasthenia Gravis Upper and lower extremity weakness with decreased FVC Possible Guillain [place] Syndrome (possible subtypes including but not limited to AMSAN and Gloria Iyer) Assessment/Plan * s/p LP 06/08/18 * CT head June 08 no acute hemorrhage mass effect or shift * Cervical MRI from June 08 showing shucking of the cervical spine mild reversal of the normal lordosis which could be due to muscle spasm or patient positioning. No evidence of spinal neural foraminal narrowing. * Lumbar MRI: No evidence of significant spinal or neural foraminal narrowing. Conus medullaris is normal in size and shape. Small posterior disc protrusion L5-S1 without evidence of significant spinal neural foraminal narrowing. Mild L5-S1 degenerative disc changes. * Last MRI also no evidence of spinal stenosis foraminal fat foraminal narrowing no evidence of mass lesion or abnormal signal. * CT chest: Right-sided PICC extends the right atrium. Markedly heterogeneous abnormal appearance of the liver with a 2.7 x 2.5 heterogeneous hyperdense masses in the left hepatic lobe worrisome for malignant neoplasm. Cholelithiasis. High density focus of nondependent portion of the gallbladder alternatives including polyp or neoplasm can't be excluded. * Thymoma not noted on CT chest will order a neck to rule out. * Discussed with ICU ptosis has resolved June 09. * Patient to undergo 3 sessions of plasmapheresis * Patient have third session today * Discussed with neuro/heme onc in prior discussions. * * Patient started on per dose thickening bromide 180 mg by mouth every 6 started 06/09at 6 PM. * Noted mild improvement. Continue to follow-up with neurology. * Neural Dr. Villalba on case help appreciated * Hematology Dr. Maria on case help appreciated * Infectious disease Dr Ng on case-->help appreciated * Blood cultures: no growth after 4 days X2 * F/U CSF studies: culture, HSV IgM, Lymb Ab, Lyme DNA, Oligoclonal Bands, West Nile RNA PCR, West Nile Ab * CSF: no growth after 4 days * T pallidum: nonreactive * Lyme bands: negative/ Lyme negative * West Nile: not detected * HSV igM: negative * Acetylcholine Recept: 6 (<32%) * OCHOA: negative * F/U [place] Qn Titer Ab Test * Methymalonic Acid: normal * B12: normal * F/U Acetylcholine Ab * RPR is NON-reactive * HIV 1 & 2 is negative * Influenza is negative 2). Hypodense lesion in left lobe liver that was concerning for neoplasm. * Confirmed with ICU resident Marco Vazquez, they followed up for the imaging noted for hemangioma. Therefore consult IR was canceled. Paperwork is in the chart of copy of imaging in the chart 3). Prior history of gastric bypass surgery * Check vitamin B1, B6, B12, vitamin D * Thyroid within normal * B12 over thousand, was receiving B12 supplementation as outpatient * Folate acid normal * Shlomo: normal 4) prior alcohol use 5) urine positive * We'll start Rocephin 1 g IV daily to cover for urine culture * Restart UA/urine culture 6) vitamin D Deficiency * Vitamin D <12.8 * Vitamin D 50,000 IU /week for 8-12 weeks 7) megaloblastic elevated MCV * Both B12 and folate are normal * Awaiting other B vitamins which may take some time 8) prophylactic measure * Protonix 20 mg by mouth daily * Lovenox 40mg sub daily
[2018-06-13] MEDS: Saccharomyces Boulardi 250 mg Cap PO SCH ×2 (10:34→17:32)
[2018-06-13] MEDS: Enoxaparin 40 mg Syringe SC SCH (10:34)
[2018-06-13] MEDS: Pantoprazole 20 mg EC Tab PO SCH (10:35)
[2018-06-13] MEDS: Ergocalciferol 50,000 Intl Units Cap PO SCH (10:35)
--- NOTE | 2018-06-13 14:19 | CP.CCUPN ---
CCU Subjective - Physician Review Events Since Last Encounter (Free Text): 06/13/18 14:16 no complaints, having bowel movement now, mild nausea, still weakness globally and numbness and tingling in extremities. CCU Objective - Vital Signs / Intake & Output Vital Signs (Last 4 hours): Vital Signs Pulse Resp BP Pulse Ox 06/13/18 11:42 90 15 106/68 95 06/13/18 11:00 75 17 06/13/18 10:46 72 20 106/68 98 06/13/18 10:26 100 H 14 95/48 L 93 L Intake and Output (Last 8hrs): Intake & Output 06/12/18 06/13/18 06/13/18 22:59 06:59 14:59 Intake Total 200 200 100 Output Total 350 500 Balance -150 -300 100 Weight 123 lb 3.814 oz Intake: Intake, IV Amount 0 200 100 Right PICC 0 200 100 Oral 200 Output: Urine 350 500 Urine, Voided 350 500 Other: # Voids Urine, Voided 0 2 # Bowel Movements 1 2 2 - Physical Exam Head: Positive for: Atraumatic, Normocephalic Pupils: Positive for: PERRL Extroacular Muscles: Positive for: EOMI Conjunctiva: Positive for: Normal Mouth: Positive for: Moist Mucous Membranes Neck: Positive for: Normal Range of Motion Respiratory/Chest: Positive for: Clear to Auscultation, Good Air Exchange. Ne gative for: Respiratory Distress, Accessory Muscle Use, Wheezes, Rales, Retracting, Rhonchi Cardiovascular: Positive for: Normal S1, S2, Tachycardic Abdomen: Positive for: Normal Bowel Sounds. 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 Negative for: Cyanosis, Edema, Tenderness, Swelling Lower Extremity: Positive for: Normal Inspection, NORMAL PULSES, Capillary Refill < 2 s, Other (Decreased sensation b/l LE, motor strength 3/5 b/l LE). Negative for: Edema, CALF TENDERNESS, Cyanosis, Swelling Neurological: Positive for: Speech Normal Skin: Positive for: Warm, Dry, Normal Color. Negative for: Rashes Psychiatric: Positive for: Alert, Oriented x 3 - Medications Active Medications: Active Medications Generic Name Dose Route Start Last Admin Trade Name Freq PRN Reason Stop Dose Admin Enoxaparin Sodium 40 mg 06/13/18 10:00 06/13/18 10:34 Lovenox SC 40 mg DAILY [facility] Administration Ergocalciferol 1 cap 06/13/18 10:00 06/13/18 10:35 Drisdol 50,000 Intl Units Cap PO 1 cap Q7D [facility] Administration Albumin Human 500 mls @ 250 mls/hr 06/13/18 14:00 Albutein 5% 500 Ml IVPB 06/13/18 19:59 Q2H [facility] Ceftriaxone Sodium 1 gm/ 100 mls @ 100 mls/hr 06/13/18 10:00 06/13/18 10:35 Sodium Chloride IVPB 100 mls/hr DAILY [facility] Administration Protocol Ondansetron HCl 4 mg 06/08/18 17:30 06/13/18 08:43 Zofran Inj IVP 4 mg DAILY@ONCE PRN Administration Nausea/Vomiting Pantoprazole Sodium 20 mg 06/08/18 10:00 06/13/18 10:35 Protonix Ec Tab PO 20 mg DAILY [facility] Administration Pyridostigmine [place] 180 mg 06/09/18 18:00 06/13/18 12:04 Mestinon Timespan Tab PO 180 mg Q6H [facility] Administration Saccharomyces Boulardii 250 mg 06/11/18 10:00 06/13/18 10:34 Florastor PO 250 mg BID [facility] Administration Sennosides 8.6 mg 06/12/18 18:00 06/13/18 10:00 Senokot Tab PO Not Given BID [facility] - Patient Studies Lab Studies: Microbiology Studies 06/08/18 01:13 Gram Stain - Final Cerebral Spinal Fluid CSF Culture - Final No growth. 06/08/18 17:30 Blood Culture - Preliminary Blood NO GROWTH AFTER 4 DAYS 06/08/18 17:00 Blood Culture - Preliminary Blood NO GROWTH AFTER 4 DAYS Lab Studies 06/13/18 06/13/18 06/13/18 Range/Units 09:51 06:03 06:03 WBC 12.1 H (4.8-10.8) K/uL RBC 4.35 (3.80-5.20) Mil/uL Hgb 15.1 (11.0-16.0) g/dL Hct 44.3 (34.0-47.0) % MCV 101.8 H (81.0-99.0) fL MCH 34.8 H (27.0-31.0) pg MCHC 34.1 (33.0-37.0) g/dL RDW 15.3 H (11.5-14.5) % Plt Count 216 (130-400) K/uL MPV 10.2 (7.2-11.7) fL Neut % (Auto) 70.1 (50.0-75.0) % Lymph % (Auto) 17.4 L (20.0-40.0) % [place] % (Auto) 11.4 H (0.0-10.0) % Eos % (Auto) 0.6 (0.0-4.0) % Baso % (Auto) 0.5 (0.0-2.0) % Neut # (Auto) 8.5 H (1.8-7.0) K/uL Lymph # (Auto) 2.1 (1.0-4.3) K/uL [place] # (Auto) 1.4 H (0.0-0.8) K/uL Eos # (Auto) 0.1 (0.0-0.7) K/uL Baso # (Auto) 0.1 (0.0-0.2) K/uL Fibrinogen (200-400) mg/dL Sodium 135 (132-148) mmol/L Potassium 3.9 (3.6-5.2) mmol/L Chloride 105 (98-107) mmol/L Carbon Dioxide 27 (22-30) mmol/L Anion Gap 8 L (10-20) BUN 7 (7-17) mg/dL Creatinine 0.5 L (0.7-1.2) mg/dL Est GFR ( Amer) > 60 Est GFR (Non-Af Amer) > 60 Random Glucose 105 (65-105) mg/dL Calcium 9.0 (8.6-10.4) mg/dl Phosphorus 4.2 (2.5-4.5) mg/dL Magnesium 2.4 H (1.6-2.3) mg/dL Total Bilirubin 0.8 (0.2-1.3) mg/dL AST 37 H D (14-36) U/L ALT 31 (9-52) U/L Alkaline Phosphatase 44 (38-126) U/L Total Protein 5.5 L (6.3-8.3) g/dL Albumin 3.4 L (3.5-5.0) g/dL Globulin 2.1 L (2.2-3.9) gm/dL Albumin/Globulin Ratio 1.6 (1.0-2.1) Stool Occult Blood Negative Acetylchol Rcpt Modu Ab HSV IgM Ab Screen 06/13/18 06/10/18 06/08/18 Range/Units 04:53 19:48 15:45 WBC (4.8-10.8) K/uL RBC (3.80-5.20) Mil/uL Hgb (11.0-16.0) g/dL Hct (34.0-47.0) % MCV (81.0-99.0) fL MCH (27.0-31.0) pg MCHC (33.0-37.0) g/dL RDW (11.5-14.5) % Plt Count (130-400) K/uL MPV (7.2-11.7) fL Neut % (Auto) (50.0-75.0) % Lymph % (Auto) (20.0-40.0) % [place] % (Auto) (0.0-10.0) % Eos % (Auto) (0.0-4.0) % Baso % (Auto) (0.0-2.0) % Neut # (Auto) (1.8-7.0) K/uL Lymph # (Auto) (1.0-4.3) K/uL [place] # (Auto) (0.0-0.8) K/uL Eos # (Auto) (0.0-0.7) K/uL Baso # (Auto) (0.0-0.2) K/uL Fibrinogen 156 L (200-400) mg/dL Sodium (132-148) mmol/L Potassium (3.6-5.2) mmol/L Chloride (98-107) mmol/L Carbon Dioxide (22-30) mmol/L Anion Gap (10-20) BUN (7-17) mg/dL Creatinine (0.7-1.2) mg/dL Est GFR ( Amer) Est GFR (Non-Af Amer) Random Glucose (65-105) mg/dL Calcium (8.6-10.4) mg/dl Phosphorus (2.5-4.5) mg/dL Magnesium (1.6-2.3) mg/dL Total Bilirubin (0.2-1.3) mg/dL AST (14-36) U/L ALT (9-52) U/L Alkaline Phosphatase (38-126) U/L Total Protein (6.3-8.3) g/dL Albumin (3.5-5.0) g/dL Globulin (2.2-3.9) gm/dL Albumin/Globulin Ratio (1.0-2.1) Stool Occult Blood Cancelled Acetylchol Rcpt Modu Ab HSV IgM Ab Screen Negative 06/08/18 Range/Units 15:27 WBC (4.8-10.8) K/uL RBC (3.80-5.20) Mil/uL Hgb (11.0-16.0) g/dL Hct (34.0-47.0) % MCV (81.0-99.0) fL MCH (27.0-31.0) pg MCHC (33.0-37.0) g/dL RDW (11.5-14.5) % Plt Count (130-400) K/uL MPV (7.2-11.7) fL Neut % (Auto) (50.0-75.0) % Lymph % (Auto) (20.0-40.0) % [place] % (Auto) (0.0-10.0) % Eos % (Auto) (0.0-4.0) % Baso % (Auto) (0.0-2.0) % Neut # (Auto) (1.8-7.0) K/uL Lymph # (Auto) (1.0-4.3) K/uL [place] # (Auto) (0.0-0.8) K/uL Eos # (Auto) (0.0-0.7) K/uL Baso # (Auto) (0.0-0.2) K/uL Fibrinogen (200-400) mg/dL Sodium (132-148) mmol/L Potassium (3.6-5.2) mmol/L Chloride (98-107) mmol/L Carbon Dioxide (22-30) mmol/L Anion Gap (10-20) BUN (7-17) mg/dL Creatinine (0.7-1.2) mg/dL Est GFR ( Amer) Est GFR (Non-Af Amer) Random Glucose (65-105) mg/dL Calcium (8.6-10.4) mg/dl Phosphorus (2.5-4.5) mg/dL Magnesium (1.6-2.3) mg/dL Total Bilirubin (0.2-1.3) mg/dL AST (14-36) U/L ALT (9-52) U/L Alkaline Phosphatase (38-126) U/L Total Protein (6.3-8.3) g/dL Albumin (3.5-5.0) g/dL Globulin (2.2-3.9) gm/dL Albumin/Globulin Ratio (1.0-2.1) Stool Occult Blood Acetylchol Rcpt Modu Ab 6 HSV IgM Ab Screen Laboratory Results - last 24 hr 06/08/18 06/08/18 06/10/18 15:27 15:45 19:48 WBC RBC Hgb Hct MCV MCH MCHC RDW Plt Count MPV Neut % (Auto) Lymph % (Auto) [place] % (Auto) Eos % (Auto) Baso % (Auto) Neut # (Auto) Lymph # (Auto) [place] # (Auto) Eos # (Auto) Baso # (Auto) Fibrinogen Sodium Potassium Chloride Carbon Dioxide Anion Gap BUN Creatinine Est GFR ( Amer) Est GFR (Non-Af Amer) Random Glucose Calcium Phosphorus Magnesium Total Bilirubin AST ALT Alkaline Phosphatase Total Protein Albumin Globulin Albumin/Globulin Ratio Stool Occult Blood Cancelled Acetylchol Rcpt Modu Ab 6 HSV IgM Ab Screen Negative 06/13/18 06/13/18 06/13/18 04:53 06:03 06:03 WBC 12.1 H RBC 4.35 Hgb 15.1 Hct 44.3 MCV 101.8 H MCH 34.8 H MCHC 34.1 RDW 15.3 H Plt Count 216 MPV 10.2 Neut % (Auto) 70.1 Lymph % (Auto) 17.4 L [place] % (Auto) 11.4 H Eos % (Auto) 0.6 Baso % (Auto) 0.5 Neut # (Auto) 8.5 H Lymph # (Auto) 2.1 [place] # (Auto) 1.4 H Eos # (Auto) 0.1 Baso # (Auto) 0.1 Fibrinogen 156 L Sodium 135 Potassium 3.9 Chloride 105 Carbon Dioxide 27 Anion Gap 8 L BUN 7 Creatinine 0.5 L Est GFR ( Amer) > 60 Est GFR (Non-Af Amer) > 60 Random Glucose 105 Calcium 9.0 Phosphorus 4.2 Magnesium 2.4 H Total Bilirubin 0.8 AST 37 H D ALT 31 Alkaline Phosphatase 44 Total Protein 5.5 L Albumin 3.4 L Globulin 2.1 L Albumin/Globulin Ratio 1.6 Stool Occult Blood Acetylchol Rcpt Modu Ab HSV IgM Ab Screen 06/13/18 09:51 WBC RBC Hgb Hct MCV MCH MCHC RDW Plt Count MPV Neut % (Auto) Lymph % (Auto) [place] % (Auto) Eos % (Auto) Baso % (Auto) Neut # (Auto) Lymph # (Auto) [place] # (Auto) Eos # (Auto) Baso # (Auto) Fibrinogen Sodium Potassium Chloride Carbon Dioxide Anion Gap BUN Creatinine Est GFR ( Amer) Est GFR (Non-Af Amer) Random Glucose Calcium Phosphorus Magnesium Total Bilirubin AST ALT Alkaline Phosphatase Total Protein Albumin Globulin Albumin/Globulin Ratio Stool Occult Blood Negative Acetylchol Rcpt Modu Ab HSV IgM Ab Screen Review of Systems - Review of Systems All systems: reviewed and no additional remarkable complaints except - Constitutional Constitutional: Weakness - Gastrointestinal Gastrointestinal: Nausea Critical Care Progress Note - Nutrition Nutrition: Nutrition Category Date Time Status Heart Healthy Diet [DIET] Diets 06/10/18 Lunch Active Assessment/Plan (1) Myasthenia gravis Assessment and plan: 47 yo F with pmhx of gastric bypass (12 years ago), hysterectomy presenting with worsening b/l LE numbness/weakness, ataxia, b/l UE numbness x 3 weeks. Neurology on board, per recs the cause for the patient's symptoms is unknown at this time and the differential is very broad. Working diagnosis is Myasthenia gravis. Patient is s/p plasmapheresis, tolerating pyridostigmine treatment well. 2nd plasmapharesis session scheduled this AM. Awaiting anti-Ach receptor Ab. Neuro: alert and oriented x 3. improved from presentation, but minimal and slow. Plasmapharesis, third course today. Initiate IVIG tomorrow. Continue mestinon for myasthenia gravis. Pulm: breathing is stable, vital capacity minimal improvement today, 1.3 to 1.47L. CV: hemodynamically stable Hem: no acutes issues Renal: urine output wnl Endo: no acute issues GI: regular diet ID: no acute issues DVT proph - lovenox GI proph - not currently indicated Code status - full code OOB to chair daily Critical Care Time spent 35 minutes Multi-disciplinary rounds were performed with house staff, nursing, speech therapy, respiratory therapy, pharmacy and nutrition with integrated input from the primary team/attending and other consulting services. The documented time is cumulative and includes review of patient data/exams/labs/chart review and examination of the patient on rounds and throughout the day; time is exclusive of any procedures or teaching time. Current Visit: Yes Status: Acute
--- NOTE | 2018-06-13 14:52 | CP.PCM.PN ---
Subjective - Date & Time of Evaluation Date of Evaluation: 06/13/18 Time of Evaluation: 14:44 - Subjective Subjective: Patient is slightly weaker today, s/p plasmapheresis day 3. Tolerated it well with no side effects. OOB to chair. On exam: tongue: 5/5, orb oculi: 5/5 SCM: 4+5/5. NF: 5/5 NE: 5/5 Project Consultant: weaker at 4/5 sensory: stocking glove distribution sensory loss ll. Objective - Vital Signs/Intake and Output Vital Signs (last 24 hours): Temp Pulse Resp BP Pulse Ox 97.9 F 73 20 107/83 100 06/13/18 04:00 06/13/18 14:00 06/13/18 13:41 06/13/18 13:41 06/13/18 14:00 Intake and Output: 06/13/18 06/13/18 06:59 18:59 Intake Total 200 100 Output Total 500 Balance -300 100 - Medications Medications: Current Medications Enoxaparin Sodium (Lovenox) 40 mg SC DAILY [facility] Last Admin: 06/13/18 10:34 Dose: 40 mg Ergocalciferol (Drisdol 50,000 Intl Units Cap) 1 cap PO Q7D [facility] Last Admin: 06/13/18 10:35 Dose: 1 cap Albumin Human (Albutein 5% 500 Ml) 500 mls @ 250 mls/hr IVPB Q2H [facility] Stop: 06/13/18 19:59 Ceftriaxone Sodium 1 gm/ (Sodium Chloride) 100 mls @ 100 mls/hr IVPB DAILY [facility]; Protocol Last Admin: 06/13/18 10:35 Dose: 100 mls/hr Ondansetron HCl (Zofran Inj) 4 mg IVP DAILY@ONCE PRN PRN Reason: Nausea/Vomiting Last Admin: 06/13/18 08:43 Dose: 4 mg Pantoprazole Sodium (Protonix Ec Tab) 20 mg PO DAILY [facility] Last Admin: 06/13/18 10:35 Dose: 20 mg Pyridostigmine [place] (Mestinon Timespan Tab) 180 mg PO Q6H [facility] Last Admin: 06/13/18 12:04 Dose: 180 mg Saccharomyces Boulardii (Florastor) 250 mg PO BID [facility] Last Admin: 06/13/18 10:34 Dose: 250 mg Sennosides (Senokot Tab) 8.6 mg PO BID [facility] Last Admin: 06/13/18 10:00 Dose: Not Given - Labs Labs: 06/13/18 06:03 06/13/18 06:03 PT 12.3 SECONDS (9.7-12.2) H 06/07/18 17:57 INR 1.1 06/07/18 17:57 APTT 35 SECONDS (21-34) H 06/07/18 17:57 Assessment and Plan - Assessment and Plan (Free Text) Assessment: 47 yr old woman with presumptive MG, antibodies pending, who has undergone plasmapheresis 3 days. i feel that she has improved significantly and we will consider doing IVIG to complete treatment. She may also be discharged for follow up with neuromuscular specialist with mestinon q [address] flowers
--- NOTE | 2018-06-13 15:07 | CP.PCM.PN ---
Subjective - Date & Time of Evaluation Date of Evaluation: 06/12/18 Time of Evaluation: 14:00 - Subjective Subjective: Patient is quite strong today, VC: >1. 3 L. no headache, Feels constipated. OE: aaox3. PERRL. EOMI. facial muscles are 5/5 lid lag is after 25 seconds Gait not tested. proximal vs. distal muscle weakness. Objective - Vital Signs/Intake and Output Vital Signs (last 24 hours): Temp Pulse Resp BP Pulse Ox 97.9 F 73 20 107/83 100 06/13/18 04:00 06/13/18 14:00 06/13/18 13:41 06/13/18 13:41 06/13/18 14:00 Intake and Output: 06/13/18 06/13/18 06:59 18:59 Intake Total 200 100 Output Total 500 Balance -300 100 - Medications Medications: Current Medications Enoxaparin Sodium (Lovenox) 40 mg SC DAILY [facility] Last Admin: 06/13/18 10:34 Dose: 40 mg Ergocalciferol (Drisdol 50,000 Intl Units Cap) 1 cap PO Q7D [facility] Last Admin: 06/13/18 10:35 Dose: 1 cap Albumin Human (Albutein 5% 500 Ml) 500 mls @ 250 mls/hr IVPB Q2H [facility] Stop: 06/13/18 19:59 Ceftriaxone Sodium 1 gm/ (Sodium Chloride) 100 mls @ 100 mls/hr IVPB DAILY [facility]; Protocol Last Admin: 06/13/18 10:35 Dose: 100 mls/hr Ondansetron HCl (Zofran Inj) 4 mg IVP DAILY@ONCE PRN PRN Reason: Nausea/Vomiting Last Admin: 06/13/18 08:43 Dose: 4 mg Pantoprazole Sodium (Protonix Ec Tab) 20 mg PO DAILY [facility] Last Admin: 06/13/18 10:35 Dose: 20 mg Pyridostigmine [place] (Mestinon Timespan Tab) 180 mg PO Q6H [facility] Last Admin: 06/13/18 12:04 Dose: 180 mg Saccharomyces Boulardii (Florastor) 250 mg PO BID [facility] Last Admin: 06/13/18 10:34 Dose: 250 mg Sennosides (Senokot Tab) 8.6 mg PO BID [facility] Last Admin: 06/13/18 10:00 Dose: Not Given - Labs Labs: 06/13/18 06:03 06/13/18 06:03 PT 12.3 SECONDS (9.7-12.2) H 06/07/18 17:57 INR 1.1 06/07/18 17:57 APTT 35 SECONDS (21-34) H 06/07/18 17:57 Assessment and Plan - Assessment and Plan (Free Text) Assessment: 47 yr old woman with presumptive Myasthenia Gravis who is better, and now complaining of constipation. She will receive plasmapheresis day 3. Plan: 1. OOB to chair 2. Continue mestinon. Dr. flowers
--- NOTE | 2018-06-13 17:52 | CP.PCM.PN ---
Subjective - Date & Time of Evaluation Date of Evaluation: 06/13/18 Time of Evaluation: 08:00 - Subjective Subjective: improving s/p plasmapheresis denies fever chills or cough Objective - Vital Signs/Intake and Output Vital Signs (last 24 hours): Temp Pulse Resp BP Pulse Ox 97.9 F 91 H 14 104/80 98 06/13/18 16:00 06/13/18 17:00 06/13/18 17:00 06/13/18 14:41 06/13/18 16:00 Intake and Output: 06/13/18 06/13/18 06:59 18:59 Intake Total 200 100 Output Total 500 300 Balance -300 -200 - Medications Medications: Current Medications Enoxaparin Sodium (Lovenox) 40 mg SC DAILY [facility] Last Admin: 06/13/18 10:34 Dose: 40 mg Ergocalciferol (Drisdol 50,000 Intl Units Cap) 1 cap PO Q7D [facility] Last Admin: 06/13/18 10:35 Dose: 1 cap Albumin Human (Albutein 5% 500 Ml) 500 mls @ 250 mls/hr IVPB Q2H [facility] Stop: 06/13/18 19:59 Ceftriaxone Sodium 1 gm/ (Sodium Chloride) 100 mls @ 100 mls/hr IVPB DAILY [facility]; Protocol Last Admin: 06/13/18 10:35 Dose: 100 mls/hr Ondansetron HCl (Zofran Inj) 4 mg IVP DAILY@ONCE PRN PRN Reason: Nausea/Vomiting Last Admin: 06/13/18 08:43 Dose: 4 mg Pantoprazole Sodium (Protonix Ec Tab) 20 mg PO DAILY [facility] Last Admin: 06/13/18 10:35 Dose: 20 mg Pyridostigmine [place] (Mestinon Timespan Tab) 180 mg PO Q6H [facility] Last Admin: 06/13/18 17:32 Dose: 180 mg Saccharomyces Boulardii (Florastor) 250 mg PO BID [facility] Last Admin: 06/13/18 17:32 Dose: 250 mg Sennosides (Senokot Tab) 8.6 mg PO BID PRN PRN Reason: Constipation - Labs Labs: 06/13/18 06:03 06/13/18 06:03 PT 12.3 SECONDS (9.7-12.2) H 11/26/18 17:57 INR 1.1 06/07/18 17:57 APTT 35 SECONDS (21-34) H 06/07/18 17:57 - Constitutional Appears: Non-toxic, Chronically Ill - Head Exam Head Exam: NORMOCEPHALIC - Eye Exam Eye Exam: PERRL Pupil Exam: NORMAL ACCOMODATION - ENT Exam ENT Exam: Normal Exam - Respiratory Exam Respiratory Exam: Decreased Breath Sounds, Clear to Ausculation Bilateral - Cardiovascular Exam Cardiovascular Exam: REGULAR RHYTHM, +S1, +S2 - GI/Abdominal Exam GI & Abdominal Exam: Distended, Soft - Rectal Exam Rectal Exam: Deferred - Extremities Exam Extremities Exam: Full ROM - Back Exam Back Exam: absent: paraspinal tenderness - Neurological Exam Neurological Exam: Alert, Awake, CN II-XII Intact, Oriented x3. absent: Altered Neuro motor strength exam: Left Upper Extremity: 4, Right Upper Extremity: 4, Left Lower Extremity: 3, Right Lower Extremity: 3 - Psychiatric Exam Psychiatric exam: Depressed, Flat Affect - Skin Skin Exam: Dry Assessment and Plan (1) Myasthenia gravis Status: Acute - Assessment and Plan (Free Text) Assessment: subacute onset limb weakness / nubness in a 47 yo female with hx of bariatric surgery and B12 deficiency Being treated for GBS with some improvemnent Will need extensive rehab
--- NOTE | 2018-06-13 19:43 | CP.PCM.PN ---
Subjective - Date & Time of Evaluation Date of Evaluation: 06/13/18 Time of Evaluation: 19:00 - Subjective Subjective: No complaints, feeling better Objective - Vital Signs/Intake and Output Vital Signs (last 24 hours): Temp Pulse Resp BP Pulse Ox 97.9 F 105 H 20 104/80 98 06/13/18 16:00 06/13/18 19:00 06/13/18 19:00 06/13/18 14:41 06/13/18 16:00 Intake and Output: 06/13/18 06/14/18 18:59 06:59 Intake Total 100 0 Output Total 800 Balance -700 0 - Medications Medications: Current Medications Enoxaparin Sodium (Lovenox) 40 mg SC DAILY [facility] Last Admin: 06/13/18 10:34 Dose: 40 mg Ergocalciferol (Drisdol 50,000 Intl Units Cap) 1 cap PO Q7D [facility] Last Admin: 06/13/18 10:35 Dose: 1 cap Albumin Human (Albutein 5% 500 Ml) 500 mls @ 250 mls/hr IVPB Q2H [facility] Stop: 06/13/18 19:59 Last Admin: 06/13/18 09:00 Dose: 250 mls/hr Ceftriaxone Sodium 1 gm/ (Sodium Chloride) 100 mls @ 100 mls/hr IVPB DAILY [facility]; Protocol Last Admin: 06/13/18 10:35 Dose: 100 mls/hr Ondansetron HCl (Zofran Inj) 4 mg IVP DAILY@ONCE PRN PRN Reason: Nausea/Vomiting Last Admin: 06/13/18 08:43 Dose: 4 mg Pantoprazole Sodium (Protonix Ec Tab) 20 mg PO DAILY [facility] Last Admin: 06/13/18 10:35 Dose: 20 mg Pyridostigmine [place] (Mestinon Timespan Tab) 180 mg PO Q6H [facility] Last Admin: 06/13/18 17:32 Dose: 180 mg Saccharomyces Boulardii (Florastor) 250 mg PO BID [facility] Last Admin: 06/13/18 17:32 Dose: 250 mg Sennosides (Senokot Tab) 8.6 mg PO BID PRN PRN Reason: Constipation - Labs Labs: 06/13/18 06:03 06/13/18 06:03 PT 12.3 SECONDS (9.7-12.2) H 06/07/18 17:57 INR 1.1 06/07/18 17:57 APTT 35 SECONDS (21-34) H 06/07/18 17:57 - Head Exam Head Exam: ATRAUMATIC - Eye Exam Eye Exam: Normal appearance - ENT Exam ENT Exam: Mucous Membranes Dry - Respiratory Exam Respiratory Exam: NORMAL BREATHING PATTERN - Cardiovascular Exam Cardiovascular Exam: +S1, +S2 - GI/Abdominal Exam GI & Abdominal Exam: Normal Bowel Sounds Assessment and Plan (1) Weakness of limb Assessment & Plan: for final plasma exchange today Status: Acute
[2018-06-14] MEDS: PYRIDOSTIGMINE 180 MG PO SCH ×4 (05:20→17:14)
[2018-06-14 06:29] LABS: BASO # 0.1 K/uL (0.0-0.2); BASO % 0.7 % (0.0-2.0); EOS # 0.2 K/uL (0.0-0.7); EOS % 1.4 % (0.0-4.0); HEMOGLOBIN 14.7 g/dL (11.0-16.0); LYMPH # 2.3 K/uL (1.0-4.3); LYMPH % 20.6 % (20.0-40.0); MEAN CELL VOLUME 103.2 fL (81.0-99.0); MEAN CORPUSCULAR HEMOGLOBIN 34.5 pg (27.0-31.0); MEAN CORPUSCULAR HGB CONC 33.5 g/dL (33.0-37.0); MEAN PLATELET VOLUME 10.2 fL (7.2-11.7); MONO # 1.3 K/uL (0.0-0.8); MONO % 11.7 % (0.0-10.0); NEUT # 7.3 K/uL (1.8-7.0); NEUT % 65.6 % (50.0-75.0); NRBC % 0.1 % (0.0-2.0); RBC 4.25 Mil/uL (3.80-5.20); RED CELL DISTRIBUTION WIDTH 15.1 % (11.5-14.5); WHITE BLOOD COUNT 11.1 K/uL (4.8-10.8)
[2018-06-14 06:43] LABS: ALB/GLOB RATIO 2.1 (1.0-2.1); ALBUMIN 3.6 g/dL (3.5-5.0); ALT/SGPT 27 U/L (9-52); AST/SGOT 45 U/L (14-36); BLOOD UREA NITROGEN 7 mg/dL (7-17); CALCIUM 9.1 mg/dl (8.6-10.4); GFR NON-AFRICAN AMERICAN > 60
[2018-06-14] MEDS: Enoxaparin 40 mg Syringe SC SCH (10:39)
[2018-06-14] MEDS: Saccharomyces Boulardi 250 mg Cap PO SCH ×2 (10:39→17:14)
[2018-06-14] MEDS: Pantoprazole 20 mg EC Tab PO SCH (10:39)
--- NOTE | 2018-06-14 11:15 | CP.PCM.PN ---
Subjective - Date & Time of Evaluation Date of Evaluation: 06/14/18 Time of Evaluation: 07:00 - Subjective Subjective: awake alert nad Objective - Vital Signs/Intake and Output Vital Signs (last 24 hours): Temp Pulse Resp BP Pulse Ox 98.5 F 75 17 146/97 H 95 06/14/18 04:00 06/14/18 06:00 06/14/18 06:00 06/14/18 05:57 06/14/18 06:00 Intake and Output: 06/14/18 06/14/18 06:59 18:59 Intake Total 0 Output Total 600 Balance -600 - Medications Medications: Current Medications Enoxaparin Sodium (Lovenox) 40 mg SC DAILY [facility] Last Admin: 06/14/18 10:39 Dose: 40 mg Ergocalciferol (Drisdol 50,000 Intl Units Cap) 1 cap PO Q7D [facility] Last Admin: 06/13/18 10:35 Dose: 1 cap Ceftriaxone Sodium 1 gm/ (Sodium Chloride) 100 mls @ 100 mls/hr IVPB DAILY [facility]; Protocol Last Admin: 06/14/18 10:39 Dose: 100 mls/hr Ondansetron HCl (Zofran Inj) 4 mg IVP DAILY@ONCE PRN PRN Reason: Nausea/Vomiting Last Admin: 06/13/18 08:43 Dose: 4 mg Pantoprazole Sodium (Protonix Ec Tab) 20 mg PO DAILY [facility] Last Admin: 06/14/18 10:39 Dose: 20 mg Pyridostigmine [place] (Mestinon Timespan Tab) 180 mg PO Q6H [facility] Last Admin: 06/14/18 05:20 Dose: 180 mg Saccharomyces Boulardii (Florastor) 250 mg PO BID [facility] Last Admin: 06/14/18 10:39 Dose: 250 mg Sennosides (Senokot Tab) 8.6 mg PO BID PRN PRN Reason: Constipation - Labs Labs: 06/14/18 06:22 06/14/18 06:16 PT 12.3 SECONDS (9.7-12.2) H 06/07/18 17:57 INR 1.1 06/07/18 17:57 APTT 35 SECONDS (21-34) H 06/07/18 17:57 - Constitutional Appears: Non-toxic, Chronically Ill - Head Exam Head Exam: NORMOCEPHALIC - Eye Exam Eye Exam: absent: Scleral icterus - ENT Exam ENT Exam: Mucous Membranes Dry - Neck Exam Neck Exam: absent: Lymphadenopathy - Respiratory Exam Respiratory Exam: Decreased Breath Sounds - Cardiovascular Exam Cardiovascular Exam: REGULAR RHYTHM - GI/Abdominal Exam GI & Abdominal Exam: Distended, Soft - Rectal Exam Rectal Exam: Deferred - Exam Exam: NORMAL INSPECTION - Extremities Exam Extremities Exam: absent: Pedal Edema - Back Exam Back Exam: absent: CVA tenderness (L), CVA tenderness (R) - Neurological Exam Neurological Exam: Alert, Awake, CN II-XII Intact, Motor Sensory Deficit, Oriented x3 - Psychiatric Exam Psychiatric exam: Depressed - Skin Skin Exam: Dry Assessment and Plan (1) Myasthenia gravis Status: Acute - Assessment and Plan (Free Text) Assessment: cont supportive rx all serologies neg thus far will need extensive rehab
--- NOTE | 2018-06-14 13:34 | CP.PCM.PN ---
Subjective - Date & Time of Evaluation Date of Evaluation: 06/14/18 Time of Evaluation: 13:30 - Subjective Subjective: Medical Attending Note: Patient seen and examined this afternoon. Patient reports she feels tired and feels about the same. Denies headache, denies chest pain, denies abdominal pain, denies constipation, denies urinary complaints. Patient continues numbness and tingling over the hands and the bottoms of the feet. She reports she continues to feel weak. Awaiting neurology input regarding IVIG. Objective - Vital Signs/Intake and Output Vital Signs (last 24 hours): Temp Pulse Resp BP Pulse Ox 98.5 F 89 17 134/92 H 94 L 06/14/18 04:00 06/14/18 12:00 06/14/18 12:00 06/14/18 07:57 06/14/18 12:00 Intake and Output: 06/14/18 06/14/18 06:59 18:59 Intake Total 0 0 Output Total 600 Balance -600 0 - Medications Medications: Current Medications Enoxaparin Sodium (Lovenox) 40 mg SC DAILY [facility] Last Admin: 06/14/18 10:39 Dose: 40 mg Ergocalciferol (Drisdol 50,000 Intl Units Cap) 1 cap PO Q7D [facility] Last Admin: 06/13/18 10:35 Dose: 1 cap Ceftriaxone Sodium 1 gm/ (Sodium Chloride) 100 mls @ 100 mls/hr IVPB DAILY [facility]; Protocol Last Admin: 06/14/18 10:39 Dose: 100 mls/hr Multivitamins/Vitamin C 10 ml/Thiamine HCl 100 mg/ Folic Acid 1 mg/ Sodium Chloride 1,011.2 mls @ 67 mls/hr IV .Q15H6M ONE Stop: 06/15/18 04:30 Ondansetron HCl (Zofran Inj) 4 mg IVP DAILY@ONCE PRN PRN Reason: Nausea/Vomiting Last Admin: 06/13/18 08:43 Dose: 4 mg Pantoprazole Sodium (Protonix Ec Tab) 20 mg PO DAILY [facility] Last Admin: 06/14/18 10:39 Dose: 20 mg Pyridostigmine [place] (Mestinon Timespan Tab) 180 mg PO Q6H [facility] Last Admin: 06/14/18 11:40 Dose: 180 mg Saccharomyces Boulardii (Florastor) 250 mg PO BID [facility] Last Admin: 06/14/18 10:39 Dose: 250 mg Sennosides (Senokot Tab) 8.6 mg PO BID PRN PRN Reason: Constipation - Labs Labs: 06/14/18 06:22 06/14/18 06:16 PT 12.3 SECONDS (9.7-12.2) H 06/07/18 17:57 INR 1.1 06/07/18 17:57 APTT 35 SECONDS (21-34) H 06/07/18 17:57 - Constitutional Appears: Chronically Ill - Head Exam Head Exam: NORMAL INSPECTION Additional comments: lethargic - Eye Exam Eye Exam: EOMI - ENT Exam ENT Exam: Mucous Membranes Moist - Respiratory Exam Respiratory Exam: Clear to Ausculation Bilateral, NORMAL BREATHING PATTERN. absent: Rales, Rhonchi, Wheezes - Cardiovascular Exam Cardiovascular Exam: REGULAR RHYTHM, +S1, +S2 - GI/Abdominal Exam GI & Abdominal Exam: Soft, Normal Bowel Sounds. absent: Distended, Firm, Guarding, Rigid, Tenderness, Rebound - Extremities Exam Extremities Exam: absent: Pedal Edema, Tenderness - Neurological Exam Neurological Exam: Alert, Awake, Motor Sensory Deficit (upper arm and lower arms), Oriented x3 Neuro motor strength exam: Left Upper Extremity: 4, Right Upper Extremity: 4, Left Lower Extremity: 2/1, Right Lower Extremity: 2/1 - Psychiatric Exam Psychiatric exam: Normal Affect, Normal Mood - Skin Skin Exam: Dry, Intact, Normal Color, Warm Assessment and Plan - Assessment and Plan (Free Text) Assessment: 1). Possible Myasthenia Gravis Upper and lower extremity weakness with decreased FVC Possible Guillain [place] Syndrome (possible subtypes including but not limited to AMSAN and Gloria Iyer) Assessment/Plan * s/p LP 06/08/18 * CT head June 08 no acute hemorrhage mass effect or shift * Cervical MRI from June 08 showing shucking of the cervical spine mild reversal of the normal lordosis which could be due to muscle spasm or patient positioning. No evidence of spinal neural foraminal narrowing. * Lumbar MRI: No evidence of significant spinal or neural foraminal narrowing. Conus medullaris is normal in size and shape. Small posterior disc protrusion L5-S1 without evidence of significant spinal neural foraminal narrowing. Mild L5-S1 degenerative disc changes. * Last MRI also no evidence of spinal stenosis foraminal fat foraminal narrowing no evidence of mass lesion or abnormal signal. * CT chest: Right-sided PICC extends the right atrium. Markedly heterogeneous abnormal appearance of the liver with a 2.7 x 2.5 heterogeneous hyperdense masses in the left hepatic lobe worrisome for malignant neoplasm. Cholelithia sis. High density focus of nondependent portion of the gallbladder alternatives including polyp or neoplasm can't be excluded. * Thymoma not noted on CT chest will order a neck to rule out. * Discussed with ICU ptosis has resolved June 09. * Patient to undergo 3 sessions of plasmapheresis * Patient have third session yesterday * Discussed with neuro/heme onc in prior discussions. * f/u neurology to see if warrant IVIG today * Patient started on per dose thickening bromide 180 mg by mouth every 6 started 06/09at 6 PM. * Noted mild improvement. Continue to follow-up with neurology. * Neural Dr. Villalba on case help appreciated * Hematology Dr. Maria on case help appreciated * Infectious disease Dr Ng on case-->help appreciated * Blood cultures: no growth after 5 days X2 * F/U CSF studies: culture, HSV IgM, Lymb Ab, Lyme DNA, Oligoclonal Bands, West Nile RNA PCR, West Nile Ab * CSF: no growth after 4 days * T pallidum: nonreactive * Lyme bands: negative/ Lyme negative * West Nile: not detected * HSV igM: negative * Acetylcholine Recept: 6 (<32%) * OCHOA: negative * F/U Musk Qn Titer Ab Test * Methymalonic Acid: normal * B12: normal * F/U Acetylcholine Ab-->pending * RPR is NON-reactive * HIV 1 & 2 is negative * Influenza is negative 2). Hypodense lesion in left lobe liver that was concerning for neoplasm. * Confirmed with ICU resident Marco Vazquez, they followed up for the imaging noted for hemangioma. Therefore consult IR was canceled. Paperwork is in the chart of copy of imaging in the chart 3). Prior history of gastric bypass surgery * Check vitamin B1, B6, B12, vitamin D * Vitamin D-->started supplementation * Patient started on Banana bag * Thyroid within normal * B12 over thousand, was receiving B12 supplementation as outpatient * Folate acid normal * Shlomo: normal 4) prior alcohol use 5) urine positive * We'll start Rocephin 1 g IV daily to cover for urine culture * Restart UA/urine culture (06/13/18) 6) vitamin D Deficiency * Vitamin D <12.8 * Vitamin D 50,000 IU /week for 8-12 weeks 7) megaloblastic elevated MCV * Both B12 and folate are normal * Awaiting other B vitamins which may take some time 8) prophylactic measure * Protonix 20 mg by mouth daily * Lovenox 40mg sub daily * continue PT/OT
[2018-06-14] MEDS ORDERED: Multivitamin (MVI) 10 ML, Thiamine 100 MG, Folic Acid 1 MG in Sodium Chloride 0.9% 1,00... IV ONE (14:00)
--- NOTE | 2018-06-14 14:04 | CP.CCUPN ---
CCU Subjective - Physician Review Subjective (Free Text): 06/14/18 13:53 Pt was examined at bedside this morning. She reports improvement in the weakness in her legs b/l. She complains of some shortness of breath with PT yesterday. She reports nausea. She denies any headache, shortness of breath, chest pain, vomiting, dysphagia, abdominal pain, diarrhea, dysuria, or incontinence. CCU Objective - Vital Signs / Intake & Output Vital Signs (Last 4 hours): Vital Signs Temp Pulse Resp Pulse Ox 06/14/18 12:00 98.4 F 88 20 98 06/14/18 11:00 70 20 98 06/14/18 10:00 73 16 99 Intake and Output (Last 8hrs): Intake & Output 06/13/18 06/14/18 06/14/18 22:59 06:59 14:59 Intake Total 0 0 0 Output Total 700 400 Balance -700 -400 0 Weight 123 lb 3.814 oz Intake: Intake, IV Amount 0 0 0 Right PICC 0 0 0 Output: Urine 700 400 Urine, Voided 700 400 Other: # Voids Urine, Voided 2 # Bowel Movements 1 - Physical Exam Physical Exam Limitations: Negative for: Altered Mental Status Head: Positive for: Atraumatic, Normocephalic Pupils: Positive for: PERRL Extroacular Muscles: Positive for: EOMI Conjunctiva: Positive for: Normal Mouth: Positive for: Moist Mucous Membranes Neck: Positive for: Normal Range of Motion Respiratory/Chest: Positive for: Clear to Auscultation, Good Air Exchange. Negative for: Respiratory Distress, Accessory Muscle Use, Wheezes, Rales, Retracting, Rhonchi Cardiovascular: Positive for: Normal S1, S2, Tachycardic Abdomen: Positive for: Normal Bowel Sounds. Negative for: Tenderness, Distention, Peritoneal Signs, Rebound, Guarding, Mass/Organomegaly Upper Extremity: Positive for: Normal Inspection, NORMAL PULSES, Capillary Refill < 2s, Other (poor hand lna, poor motor strength 4/5 b/l UE). Negative for: Cyanosis, Edema, Tenderness, Swelling Lower Extremity: Positive for: Normal Inspection, NORMAL PULSES, Capillary Refill < 2 s, Other (Decreased sensation b/l LE, motor strength 3/5 b/l LE). Negative for: Edema, CALF TENDERNESS, Cyanosis, Swelling Neurological: Positive for: Speech Normal Skin: Positive for: Warm, Dry, Normal Color. Negative for: Rashes Psychiatric: Positive for: Alert, Oriented x 3 Other physical findings (Free Text): Neuro: CN II-XII intact RUE: 5/5 strength, sensory deficit to light touch in palm LUE: 4/4 strenth, sensory deficit to light touch in palm RLE: 3/5 strength, sensory deficit to light tough in sole, +1 patellar reflex LLE: 3/5 strength, sensory deficit to light tough in sole, +1 patellar reflex - Medications Active Medications: Active Medications Generic Name Dose Route Start Last Admin Trade Name Freq PRN Reason Stop Dose Admin Enoxaparin Sodium 40 mg 06/13/18 10:00 06/14/18 10:39 Lovenox SC 40 mg DAILY SUNITA Administration Ergocalciferol 1 cap 06/13/18 10:00 06/13/18 10:35 Drisdol 50,000 Intl Units Cap PO 1 cap Q7D SUNITA Administration Ceftriaxone Sodium 1 gm/ 100 mls @ 100 mls/hr 06/13/18 10:00 06/14/18 10:39 Sodium Chloride IVPB 100 mls/hr DAILY SUNITA Administration Protocol Multivitamins/Vitamin C 10 ml/ 1,011.2 mls @ 67 mls/hr 06/14/18 14:00 Thiamine HCl 100 mg/ Folic IV 06/15/18 05:05 Acid 1 mg/ Sodium Chloride .Q15H6M ONE Ondansetron HCl 4 mg 06/08/18 17:30 06/13/18 08:43 Zofran Inj IVP 4 mg DAILY@ONCE PRN Administration Nausea/Vomiting Pantoprazole Sodium 20 mg 06/08/18 10:00 06/14/18 10:39 Protonix Ec Tab PO 20 mg DAILY SUNITA Administration Pyridostigmine [place] 180 mg 06/09/18 18:00 06/14/18 11:40 Mestinon Timespan Tab PO 180 mg Q6H SUNITA Administration Saccharomyces Boulardii 250 mg 06/11/18 10:00 06/14/18 10:39 Florastor PO 250 mg BID SUNITA Administration Sennosides 8.6 mg 06/13/18 17:19 Senokot Tab PO BID PRN Constipation - Patient Studies Lab Studies: Microbiology Studies 12/02/18 Unknown Ova and Parasite Concentrate Exam - Final Stool 06/08/18 17:30 Blood Culture - Final Blood NO GROWTH AFTER 5 DAYS Gram Stain - Final TEST NOT PERFORMED 06/08/18 17:00 Blood Culture - Final Blood NO GROWTH AFTER 5 DAYS Gram Stain - Final TEST NOT PERFORMED 06/08/18 01:13 Gram Stain - Final Cerebral Spinal Fluid CSF Culture - Final No growth. Lab Studies 06/14/18 06/14/18 06/14/18 Range/Units 06:22 06:22 06:16 WBC 11.1 H (4.8-10.8) K/uL RBC 4.25 (3.80-5.20) Mil/uL Hgb 14.7 (11.0-16.0) g/dL Hct 43.9 (34.0-47.0) % MCV 103.2 H (81.0-99.0) fL MCH 34.5 H (27.0-31.0) pg MCHC 33.5 (33.0-37.0) g/dL RDW 15.1 H (11.5-14.5) % Plt Count 222 (130-400) K/uL MPV 10.2 (7.2-11.7) fL Neut % (Auto) 65.6 (50.0-75.0) % Lymph % (Auto) 20.6 (20.0-40.0) % [place] % (Auto) 11.7 H (0.0-10.0) % Eos % (Auto) 1.4 (0.0-4.0) % Baso % (Auto) 0.7 (0.0-2.0) % Neut # (Auto) 7.3 H (1.8-7.0) K/uL Lymph # (Auto) 2.3 (1.0-4.3) K/uL [place] # (Auto) 1.3 H (0.0-0.8) K/uL Eos # (Auto) 0.2 (0.0-0.7) K/uL Baso # (Auto) 0.1 (0.0-0.2) K/uL Fibrinogen 122 L (200-400) mg/dL Sodium 137 (132-148) mmol/L Potassium 3.8 (3.6-5.2) mmol/L Chloride 108 H (98-107) mmol/L Carbon Dioxide 23 (22-30) mmol/L Anion Gap 10 (10-20) BUN 7 (7-17) mg/dL Creatinine 0.4 L (0.7-1.2) mg/dL Est GFR ( Amer) > 60 Est GFR (Non-Af Amer) > 60 Random Glucose 88 (65-105) mg/dL Calcium 9.1 (8.6-10.4) mg/dl Phosphorus 3.8 (2.5-4.5) mg/dL Magnesium 1.7 (1.6-2.3) mg/dL Total Bilirubin 0.8 (0.2-1.3) mg/dL AST 45 H D (14-36) U/L ALT 27 (9-52) U/L Alkaline Phosphatase 27 L D (38-126) U/L Total Protein 5.2 L (6.3-8.3) g/dL Albumin 3.6 (3.5-5.0) g/dL Globulin 1.7 L (2.2-3.9) gm/dL Albumin/Globulin Ratio 2.1 (1.0-2.1) Laboratory Results - last 24 hr 06/14/18 06/14/18 06/14/18 06:16 06:22 06:22 WBC 11.1 H RBC 4.25 Hgb 14.7 Hct 43.9 MCV 103.2 H MCH 34.5 H MCHC 33.5 RDW 15.1 H Plt Count 222 MPV 10.2 Neut % (Auto) 65.6 Lymph % (Auto) 20.6 [place] % (Auto) 11.7 H Eos % (Auto) 1.4 Baso % (Auto) 0.7 Neut # (Auto) 7.3 H Lymph # (Auto) 2.3 [place] # (Auto) 1.3 H Eos # (Auto) 0.2 Baso # (Auto) 0.1 Fibrinogen 122 L Sodium 137 Potassium 3.8 Chloride 108 H Carbon Dioxide 23 Anion Gap 10 BUN 7 Creatinine 0.4 L Est GFR ( Amer) > 60 Est GFR (Non-Af Amer) > 60 Random Glucose 88 Calcium 9.1 Phosphorus 3.8 Magnesium 1.7 Total Bilirubin 0.8 AST 45 H D ALT 27 Alkaline Phosphatase 27 L D Total Protein 5.2 L Albumin 3.6 Globulin 1.7 L Albumin/Globulin Ratio 2.1 Review of Systems - Review of Systems Review of Systems: as per HPI Critical Care Progress Note - Nutrition Nutrition: Nutrition Category Date Time Status Heart Healthy Diet [DIET] Diets 06/10/18 Lunch Active Assessment/Plan - Assessment and Plan (Free Text) Assessment: 47 yo F with pmhx of gastric bypass (12 years ago), hysterectomy presenting with worsening b/l LE numbness/weakness, ataxia, b/l UE numbness x 3 weeks. Neurology on board, per recs the cause for the patient's symptoms is unknown at this time and the differential is very broad. . Patient is s/p plasmapheresis x3, tolerating pyridostigmine treatment well. 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 -CT chest (06/09): 2.7 x 2.5 cm heterogeneous hyperdense mass noted in L hepatic lobe worrisome for malignant neoplasm. Cholelithiasis. High density focus noted on the nondependent portion of the gallbladder; alternatives including polyp or neoplasm can't be excluded. - MRI/CT abdomen reports from [facility] [place] faxed over and placed in patient chart: liver lesion likely hemangioma - Neurology consulted, Dr. Villalba/Latonya - s/p plasmapheresis x3 - mestinon 180 mg PO q6H - multivitamins - banana bag CV: - hemodynamically stable, continue to monitor Pulm: - stable, maintain spO2 >92% Heme: Polycythemia - Heme/Onc consulted, Dr. Maria- recs appreciated - s/p plasmapheresis x3 GI: - protonix 20 daily - probiotics Ppx - DVT: heparin - GI: protonix - Diet: finely chopped Pt seen and case reviewed with Dr. Flor
[2018-06-14 21:24] LABS: ACETYLCHOLINE REC BIND AB <0.30 nmol/L
--- NOTE | 2018-06-14 23:10 | CP.PCM.PN ---
Subjective - Date & Time of Evaluation Date of Evaluation: 06/14/18 Time of Evaluation: 20:00 - Subjective Subjective: Feeling better. Objective - Vital Signs/Intake and Output Vital Signs (last 24 hours): Temp Pulse Resp BP Pulse Ox 98.6 F 99 H 17 134/92 H 100 06/14/18 16:00 06/14/18 19:00 06/14/18 19:00 06/14/18 07:57 06/14/18 19:00 Intake and Output: 06/14/18 06/15/18 18:59 06:59 Intake Total 1400 Output Total 800 Balance 600 - Medications Medications: Current Medications Enoxaparin Sodium (Lovenox) 40 mg SC DAILY [facility] Last Admin: 06/14/18 10:39 Dose: 40 mg Ergocalciferol (Drisdol 50,000 Intl Units Cap) 1 cap PO Q7D [facility] Last Admin: 06/13/18 10:35 Dose: 1 cap Ceftriaxone Sodium 1 gm/ (Sodium Chloride) 100 mls @ 100 mls/hr IVPB DAILY [facility]; Protocol Last Admin: 06/14/18 10:39 Dose: 100 mls/hr Multivitamins/Vitamin C 10 ml/Thiamine HCl 100 mg/ Folic Acid 1 mg/ Sodium Chloride 1,011.2 mls @ 67 mls/hr IV .Q15H6M ONE Stop: 06/15/18 05:05 Last Admin: 06/14/18 14:00 Dose: 67 mls/hr Ondansetron HCl (Zofran Inj) 4 mg IVP DAILY@ONCE PRN PRN Reason: Nausea/Vomiting Last Admin: 06/13/18 08:43 Dose: 4 mg Pantoprazole Sodium (Protonix Ec Tab) 20 mg PO DAILY [facility] Last Admin: 06/14/18 10:39 Dose: 20 mg Pyridostigmine [place] (Mestinon Timespan Tab) 180 mg PO Q6H [facility] Last Admin: 06/14/18 17:14 Dose: 180 mg Saccharomyces Boulardii (Florastor) 250 mg PO BID [facility] Last Admin: 06/14/18 17:14 Dose: 250 mg Sennosides (Senokot Tab) 8.6 mg PO BID PRN PRN Reason: Constipation - Labs Labs: 06/14/18 06:22 06/14/18 06:16 PT 12.3 SECONDS (9.7-12.2) H 06/07/18 17:57 INR 1.1 06/07/18 17:57 APTT 35 SECONDS (21-34) H 06/07/18 17:57 - Head Exam Head Exam: ATRAUMATIC - Eye Exam Eye Exam: Normal appearance - ENT Exam ENT Exam: Mucous Membranes Dry - Respiratory Exam Respiratory Exam: NORMAL BREATHING PATTERN - GI/Abdominal Exam GI & Abdominal Exam: Normal Bowel Sounds Assessment and Plan (1) Weakness of limb Assessment & Plan: s/p plasma exchange x 3 neurology w/u Status: Acute
[2018-06-15 00:18] LABS: AChR BLOCKING ANTIBODIES <15 (<15)
[2018-06-15] MEDS: PYRIDOSTIGMINE 180 MG PO SCH ×3 (00:29→12:12)
[2018-06-15 05:38] LABS: BASO # 0.1 K/uL (0.0-0.2); BASO % 0.7 % (0.0-2.0); EOS # 0.2 K/uL (0.0-0.7); EOS % 2.3 % (0.0-4.0); LYMPH # 2.3 K/uL (1.0-4.3); LYMPH % 22.4 % (20.0-40.0); MEAN CELL VOLUME 102.4 fL (81.0-99.0); MEAN CORPUSCULAR HEMOGLOBIN 34.7 pg (27.0-31.0); MEAN CORPUSCULAR HGB CONC 33.8 g/dL (33.0-37.0); MEAN PLATELET VOLUME 9.9 fL (7.2-11.7); MONO # 1.1 K/uL (0.0-0.8); NEUT # 6.6 K/uL (1.8-7.0); NEUT % 63.6 % (50.0-75.0); NRBC % 0.1 % (0.0-2.0); RBC 4.05 Mil/uL (3.80-5.20); RED CELL DISTRIBUTION WIDTH 14.4 % (11.5-14.5); WHITE BLOOD COUNT 10.4 K/uL (4.8-10.8)
[2018-06-15 06:04] LABS: ALB/GLOB RATIO 1.8 (1.0-2.1); ALBUMIN 3.4 g/dL (3.5-5.0); ALT/SGPT 37 U/L (9-52); AST/SGOT 47 U/L (14-36); BLOOD UREA NITROGEN 7 mg/dL (7-17); CALCIUM 8.9 mg/dl (8.6-10.4); GFR NON-AFRICAN AMERICAN > 60
[2018-06-15] MEDS ORDERED: Magnesium Oxide 400 mg Tab UD PO ONE (08:16)
[2018-06-15] MEDS ORDERED: Potassium Chloride 20 mEq ER Tab PO ONE (08:16)
--- NOTE | 2018-06-15 09:25 | CP.PCM.PN ---
Subjective - Date & Time of Evaluation Date of Evaluation: 06/15/18 Time of Evaluation: 09:20 - Subjective Subjective: Medical Attending Note: Patient seen and examined. Patient is working with physical and occupational therapy at bedside. Patient reports she feels better. Patient reports the cold bothers her hands and feet. Patient reports sensation over over the brachoradalis improved compared to yesterday. Patient reports clumsy over the right hand. 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 Patient reports move over the legs but needs to use hind muscles to initiate movement. Objective - Vital Signs/Intake and Output Vital Signs (last 24 hours): Temp Pulse Resp BP Pulse Ox 98 F 67 17 148/99 H 97 06/15/18 08:00 06/15/18 08:00 06/15/18 08:00 06/15/18 07:57 06/15/18 08:00 Intake and Output: 06/15/18 06/15/18 06:59 18:59 Intake Total 787 0 Output Total 551 0 Balance 236 0 - Medications Medications: Current Medications Enoxaparin Sodium (Lovenox) 40 mg SC DAILY [facility] Last Admin: 06/14/18 10:39 Dose: 40 mg Ergocalciferol (Drisdol 50,000 Intl Units Cap) 1 cap PO Q7D [facility] Last Admin: 06/13/18 10:35 Dose: 1 cap Ceftriaxone Sodium 1 gm/ (Sodium Chloride) 100 mls @ 100 mls/hr IVPB DAILY [facility]; Protocol Last Admin: 06/14/18 10:39 Dose: 100 mls/hr Ondansetron HCl (Zofran Inj) 4 mg IVP DAILY@ONCE PRN PRN Reason: Nausea/Vomiting Last Admin: 06/13/18 08:43 Dose: 4 mg Pantoprazole Sodium (Protonix Ec Tab) 20 mg PO DAILY [facility] Last Admin: 06/14/18 10:39 Dose: 20 mg Pyridostigmine [place] (Mestinon Timespan Tab) 180 mg PO Q6H [facility] Last Admin: 06/15/18 05:28 Dose: 180 mg Saccharomyces Boulardii (Florastor) 250 mg PO BID [facility] Last Admin: 06/14/18 17:14 Dose: 250 mg Sennosides (Senokot Tab) 8.6 mg PO BID PRN PRN Reason: Constipation - Labs Labs: 06/15/18 05:25 06/15/18 05:26 PT 12.3 SECONDS (9.7-12.2) H 06/07/18 17:57 INR 1.1 06/07/18 17:57 APTT 35 SECONDS (21-34) H 06/07/18 17:57 - Constitutional Appears: Chronically Ill - Head Exam Head Exam: NORMAL INSPECTION - Eye Exam Eye Exam: EOMI - ENT Exam ENT Exam: Mucous Membranes Moist - Respiratory Exam Respiratory Exam: Clear to Ausculation Bilateral, NORMAL BREATHING PATTERN. absent: Rales, Rhonchi, Wheezes - Cardiovascular Exam Cardiovascular Exam: REGULAR RHYTHM, +S1, +S2 - GI/Abdominal Exam GI & Abdominal Exam: Soft, Normal Bowel Sounds. absent: Distended, Firm, Guarding, Rigid, Tenderness, Hypoactive Bowel Sounds, Rebound - Extremities Exam Extremities Exam: absent: Pedal Edema, Tenderness - Back Exam Back Exam: absent: CVA tenderness (L), CVA tenderness (R) - Neurological Exam Neurological Exam: Alert, Awake, Oriented x3 Neuro motor strength exam: Left Upper Extremity: 2/1, Right Upper Extremity: 4, Left Lower Extremity: 2/1, Right Lower Extremity: 4 - Psychiatric Exam Psychiatric exam: Normal Affect, Normal Mood - Skin Skin Exam: Dry, Intact, Normal Color, Warm Assessment and Plan (1) Peripheral neuropathy Status: Acute (2) History of gastric bypass Status: Acute (3) Guillain-Sherburn Status: Acute (4) Weakness of limb Status: Acute (5) Prophylactic measure Status: Acute Attending/Attestation - Attestation I have personally seen and examined this patient.: Yes I have fully participated in the care of the patient.: Yes I have reviewed all pertinent clinical information, including history, physical exam and plan: Yes Notes (Text): 1). Possible Myasthenia Gravis Upper and lower extremity weakness with decreased FVC Possible Guillain Sherburn Syndrome (possible subtypes including but not limited to AMSAN and Gloria Iyer) Assessment/Plan * s/p LP 06/08/18 * CT head June 08 no acute hemorrhage mass effect or shift * Cervical MRI from June 08 showing shucking of the cervical spine mild reversal of the normal lordosis which could be due to muscle spasm or patient positioning. No evidence of spinal neural foraminal narrowing. * Lumbar MRI: No evidence of significant spinal or neural foraminal narrowing. Conus medullaris is normal in size and shape. Small posterior disc protrusion L5-S1 without evidence of significant spinal neural foraminal narrowing. Mild L5-S1 degenerative disc changes. * Last MRI also no evidence of spinal stenosis foraminal fat foraminal narrowing no evidence of mass lesion or abnormal signal. * CT chest: Right-sided PICC extends the right atrium. Markedly heterogeneous ab normal appearance of the liver with a 2.7 x 2.5 heterogeneous hyperdense masses in the left hepatic lobe worrisome for malignant neoplasm. Cholelithiasis. High density focus of nondependent portion of the gallbladder alternatives including polyp or neoplasm can't be excluded. * Thymoma not noted on CT chest will order a neck to rule out. * Discussed with ICU ptosis has resolved June 09. * Patient to undergo 3 sessions of plasmapheresis * Patient have third session 06/13/18 * Discussed with neuro/heme onc in prior discussions. * f/u neurology to see if warrant IVIG (Dr. Hanks) * Patient started on per dose thickening bromide 180 mg by mouth every 6 started 06/09at 6 PM. * Noted mild improvement. Continue to follow-up with neurology. * Neural Dr. Villalba on case help appreciated * Hematology Dr. Maria on case help appreciated * Infectious disease Dr Ng on case-->help appreciated * Blood cultures: no growth after 5 days X2 * F/U CSF studies: culture, HSV IgM, Lymb Ab, Lyme DNA, Oligoclonal Bands, West Nile RNA PCR, West Nile Ab * CSF: no growth after 4 days * T pallidum: nonreactive * Lyme bands: negative/ Lyme negative * West Nile: not detected * HSV igM: negative * Acetylcholine Recept: 6 (<32%) * OCHOA: negative * F/U Musk Qn Titer Ab Test * Methymalonic Acid: normal * B12: normal * F/U Acetylcholine Ab-->pending * RPR is NON-reactive * HIV 1 & 2 is negative * Influenza is negative * Monitor FVC * Discussed with RT: 1.57 2). Hypodense lesion in left lobe liver that was concerning for neoplasm. * Confirmed with ICU resident Marco Vazquez, they followed up for the imaging noted for hemangioma. Therefore consult IR was canceled. Paperwork is in the chart of copy of imaging in the chart 3). Prior history of gastric bypass surgery * Check vitamin B1, B6, B12, vitamin D * Vitamin D-->started supplementation * Patient started on Banana bag 06/14/18 * Thyroid within normal * B12 over thousand, was receiving B12 supplementation as outpatient * Folate acid normal * Shlomo: normal 4) prior alcohol use 5) urine positive * We'll start Rocephin 1 g IV daily to cover for urine culture * Restart UA/urine culture (06/15/18) 6) vitamin D Deficiency * Vitamin D <12.8 * Vitamin D 50,000 IU /week for 8-12 weeks 7) megaloblastic elevated MCV * Both B12 and folate are normal * Awaiting other B vitamins which may take some time 8) prophylactic measure * Protonix 20 mg by mouth daily * Lovenox 40mg sub daily * continue PT/OT
[2018-06-15] MEDS ORDERED: Folic Acid 1 MG, Thiamine 100 MG, Multivitamin (MVI) 10 ML in Dextrose 5% In Water 1,00... IV SCH (09:45)
[2018-06-15] MEDS: Saccharomyces Boulardi 250 mg Cap PO SCH ×2 (09:46→18:08)
[2018-06-15] MEDS: Enoxaparin 40 mg Syringe SC SCH (09:46)
[2018-06-15] MEDS: Pantoprazole 20 mg EC Tab PO SCH (09:46)
[2018-06-15] MEDS: Folic Acid 1 MG, Thiamine 100 MG, Multivitamin (MVI) 10 ML in Dextrose 5% In Water 1,00... IV SCH ×2 (10:19→23:14)
--- NOTE | 2018-06-15 13:06 | CP.CCUPN ---
<Kong Avila - Last Filed: 06/15/18 13:18> CCU Subjective - Physician Review Subjective (Free Text): 06/15/18 13:00 Agnieszkaephraimmckinley Alvaradodirk PGY1 Progress Note for Dr. Luis Pt was examined at bedside this morning. She reports improvement in her b/l leg weakness and fatigue. Pt reports persistence in her hypersensitivity to cold and numbness/tingling in the hands and feet. Pt reports improvement in the nausea. She denies chest pain, shortness of breath, abdominal pain, vomiting, diarrhea. CCU Objective - Vital Signs / Intake & Output Intake and Output (Last 8hrs): Intake & Output 06/14/18 06/15/18 06/15/18 22:59 06:59 14:59 Intake Total 1318 469 860 Output Total 650 301 1 Balance 668 168 859 Weight 122 lb 5.705 oz Intake: Intake, IV Amount 268 469 250 Right PICC 268 469 250 Oral 1050 610 Output: Urine 650 300 0 Urine, Voided 650 300 0 Stool 1 Urine/Stool Mix 1 Other: # Voids Urine, Voided 1 # Bowel Movements 1 1 - Physical Exam Head: Positive for: Atraumatic, Normocephalic Pupils: Positive for: PERRL Extroacular Muscles: Positive for: EOMI Conjunctiva: Positive for: Normal Mouth: Positive for: Moist Mucous Membranes Neck: Positive for: Normal Range of Motion Respiratory/Chest: Positive for: Clear to Auscultation, Good Air Exchange. Negative for: Respiratory Distress, Accessory Muscle Use, Wheezes, Rales, Retracting, Rhonchi Cardiovascular: Positive for: Normal S1, S2, Tachycardic Abdomen: Positive for: Normal Bowel Sounds. 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 Negative for: Cyanosis, Edema, Tenderness, Swelling Lower Extremity: Positive for: Normal Inspection, NORMAL PULSES, Capillary Refill < 2 s, Other (Decreased sensation b/l LE, motor strength 3/5 b/l LE). Negative for: Edema, CALF TENDERNESS, Cyanosis, Swelling Neurological: Positive for: CN II-XII Intact, Speech Normal. Negative for: Normal Sensory Function Skin: Positive for: Warm, Dry, Normal Color. Negative for: Rashes Psychiatric: Positive for: Alert, Oriented x 3 Other physical findings (Free Text): Neuro: sensory deficit b/l hands and feet RUE: 5/5 muscle strength LUE: 4/5 muscle strength RLE: 3/5 muscle strength LLE: 3/5 muscle strength - Medications Active Medications: Active Medications Generic Name Dose Route Start Last Admin Trade Name Freq PRN Reason Stop Dose Admin Enoxaparin Sodium 40 mg 06/13/18 10:00 06/15/18 09:46 Lovenox SC 40 mg DAILY SUNITA Administration Ergocalciferol 1 cap 06/13/18 10:00 06/13/18 10:35 Drisdol 50,000 Intl Units Cap PO 1 cap Q7D SUNITA Administration Ceftriaxone Sodium 1 gm/ 100 mls @ 100 mls/hr 06/13/18 10:00 06/15/18 10:18 Sodium Chloride IVPB 100 mls/hr DAILY SUNITA Administration Protocol Folic Acid 1 mg/ Thiamine HCl 1,011.2 mls @ 75 mls/hr 06/15/18 09:45 06/15/18 10:19 100 mg/ Multivitamins/Vitamin IV 75 mls/hr C 10 ml/ Dextrose .[id number] SUNITA Administration Ondansetron HCl 4 mg 06/08/18 17:30 06/13/18 08:43 Zofran Inj IVP 4 mg DAILY@ONCE PRN Administration Nausea/Vomiting Pantoprazole Sodium 20 mg 06/08/18 10:00 06/15/18 09:46 Protonix Ec Tab PO 20 mg DAILY SUNITA Administration Pyridostigmine [place] Pool 180 mg 06/09/18 18:00 06/15/18 12:12 Mestinon Timespan Tab PO 180 mg Q6H SUNITA Administration Saccharomyces Boulardii 250 mg 06/11/18 10:00 06/15/18 09:46 Florastor PO 250 mg BID SUNITA Administration Sennosides 8.6 mg 06/13/18 17:19 Senokot Tab PO BID PRN Constipation - Patient Studies Lab Studies: Microbiology Studies 06/13/18 Unknown Ova and Parasite Concentrate Exam - Final Stool Lab Studies 12/04/18 12/04/18 11/27/18 Range/Units 05:26 05:25 15:27 WBC 10.4 (4.8-10.8) K/uL RBC 4.05 (3.80-5.20) Mil/uL Hgb 14.0 (11.0-16.0) g/dL Hct 41.4 (34.0-47.0) % MCV 102.4 H (81.0-99.0) fL MCH 34.7 H (27.0-31.0) pg MCHC 33.8 (33.0-37.0) g/dL RDW 14.4 (11.5-14.5) % Plt Count 230 (130-400) K/uL MPV 9.9 (7.2-11.7) fL Neut % (Auto) 63.6 (50.0-75.0) % Lymph % (Auto) 22.4 (20.0-40.0) % [place] % (Auto) 11.0 H (0.0-10.0) % Eos % (Auto) 2.3 (0.0-4.0) % Baso % (Auto) 0.7 (0.0-2.0) % Neut # (Auto) 6.6 (1.8-7.0) K/uL Lymph # (Auto) 2.3 (1.0-4.3) K/uL [place] # (Auto) 1.1 H (0.0-0.8) K/uL Eos # (Auto) 0.2 (0.0-0.7) K/uL Baso # (Auto) 0.1 (0.0-0.2) K/uL Sodium 137 (132-148) mmol/L Potassium 3.3 L (3.6-5.2) mmol/L Chloride 108 H (98-107) mmol/L Carbon Dioxide 23 (22-30) mmol/L Anion Gap 9 L (10-20) BUN 7 (7-17) mg/dL Creatinine 0.5 L (0.7-1.2) mg/dL Est GFR ( Amer) > 60 Est GFR (Non-Af Amer) > 60 Random Glucose 92 (65-105) mg/dL Calcium 8.9 (8.6-10.4) mg/dl Phosphorus 3.9 (2.5-4.5) mg/dL Magnesium 1.4 L (1.6-2.3) mg/dL Total Bilirubin 0.7 (0.2-1.3) mg/dL AST 47 H (14-36) U/L ALT 37 (9-52) U/L Alkaline Phosphatase 38 D (38-126) U/L Total Protein 5.3 L (6.3-8.3) g/dL Albumin 3.4 L (3.5-5.0) g/dL Globulin 1.9 L (2.2-3.9) gm/dL Albumin/Globulin Ratio 1.8 (1.0-2.1) Acetylchol Rcpt Block Ab <15 (<15) Acetylchol Rcpt Bind Ab <0.30 nmol/L Laboratory Results - last 24 hr 06/08/18 06/15/18 06/15/18 15:27 05:25 05:26 WBC 10.4 RBC 4.05 Hgb 14.0 Hct 41.4 MCV 102.4 H MCH 34.7 H MCHC 33.8 RDW 14.4 Plt Count 230 MPV 9.9 Neut % (Auto) 63.6 Lymph % (Auto) 22.4 [place] % (Auto) 11.0 H Eos % (Auto) 2.3 Baso % (Auto) 0.7 Neut # (Auto) 6.6 Lymph # (Auto) 2.3 [place] # (Auto) 1.1 H Eos # (Auto) 0.2 Baso # (Auto) 0.1 Sodium 137 Potassium 3.3 L Chloride 108 H Carbon Dioxide 23 Anion Gap 9 L BUN 7 Creatinine 0.5 L Est GFR ( Amer) > 60 Est GFR (Non-Af Amer) > 60 Random Glucose 92 Calcium 8.9 Phosphorus 3.9 Magnesium 1.4 L Total Bilirubin 0.7 AST 47 H ALT 37 Alkaline Phosphatase 38 D Total Protein 5.3 L Albumin 3.4 L Globulin 1.9 L Albumin/Globulin Ratio 1.8 Acetylchol Rcpt Block Ab <15 Acetylchol Rcpt Bind Ab <0.30 Review of Systems - Review of Systems Review of Systems: as per HPI Critical Care Progress Note - Nutrition Nutrition: Nutrition Category Date Time Status Heart Healthy Diet [DIET] Diets 06/15/18 Lunch Active Assessment/Plan - Assessment and Plan (Free Text) Assessment: 47 yo F with pmhx of gastric bypass (12 years ago), hysterectomy presenting with worsening b/l LE numbness/weakness, ataxia, b/l UE numbness x 3 weeks. Neurology on board, cause of pt symptoms not known at this time. Patient is s/p plasmapheresis x3, tolerating pyridostigmine treatment well. 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 -CT chest (06/09): 2.7 x 2.5 cm heterogeneous hyperdense mass noted in L hepatic lobe worrisome for malignant neoplasm. Cholelithiasis. High density focus noted on the nondependent portion of the gallbladder; alternatives including polyp or neoplasm can't be excluded. - [place] [facility] [place] and placed in patient chart: liver lesion likely hemangioma - Neurology consulted, Dr. Villalba/Latonya - s/p plasmapheresis x3 - mestinon 180 mg PO q6H - multivitamins - banana bag CV: - hemodynamically stable, continue to monitor Pulm: - stable, maintain spO2 >92% Heme: - Polycythemia - s/p plasmapheresis x3 - Heme/Onc consulted, Dr. Maria- recs appreciated GI: - protonix 20 daily - probiotics Ppx DVT: heparin GI: protonix Diet: advance bite size Pt seen and case reviewed with Dr. Luis <Farooq Luis - Last Filed: 06/15/18 18:33> CCU Subjective - Physician Review Critical Care Time Spent (in minutes): 35 CCU Objective - Vital Signs / Intake & Output Vital Signs (Last 4 hours): Vital Signs Pulse Resp BP Pulse Ox 06/15/18 18:00 87 19 99 06/15/18 17:57 99 H 21 145/93 H 95 06/15/18 17:11 88 16 142/97 H 12/04/18 17:00 95 H 19 100 06/15/18 16:00 83 18 98 06/15/18 15:00 96 H 17 97 Intake and Output (Last 8hrs): Intake & Output 06/15/18 06/15/18 06/15/18 06:59 14:59 22:59 Intake Total 469 1210 Output Total 301 1 Balance 168 1209 Weight 122 lb 5.705 oz Intake: Intake, IV Amount 469 400 Right PICC 469 400 Oral 810 Output: Urine 300 0 Urine, Voided 300 0 Stool 1 Urine/Stool Mix 1 Other: # Voids Urine, Voided 1 # Bowel Movements 1 - Medications Active Medications: Active Medications Generic Name Dose Route Start Last Admin Trade Name Freq PRN Reason Stop Dose Admin Enoxaparin Sodium 40 mg 06/13/18 10:00 06/15/18 09:46 Lovenox SC 40 mg DAILY SUNITA Administration Ergocalciferol 1 cap 06/13/18 10:00 06/13/18 10:35 Drisdol 50,000 Intl Units Cap PO 1 cap Q7D SUNITA Administration Ceftriaxone Sodium 1 gm/ 100 mls @ 100 mls/hr 06/13/18 10:00 06/15/18 10:18 Sodium Chloride IVPB 100 mls/hr DAILY SUNITA Administration Protocol Folic Acid 1 mg/ Thiamine HCl 1,011.2 mls @ 75 mls/hr 06/15/18 09:45 06/15/18 10:19 100 mg/ Multivitamins/Vitamin IV 75 mls/hr C 10 ml/ Dextrose .[id number] SUNITA Administration Ondansetron HCl 4 mg 06/08/18 17:30 06/13/18 08:43 Zofran Inj IVP 4 mg DAILY@ONCE PRN Administration Nausea/Vomiting Pantoprazole Sodium 20 mg 06/08/18 10:00 06/15/18 09:46 Protonix Ec Tab PO 20 mg DAILY SUNITA Administration Saccharomyces Boulardii 250 mg 06/11/18 10:00 06/15/18 18:08 Florastor PO 250 mg BID SUNITA Administration Sennosides 8.6 mg 06/13/18 17:19 Senokot Tab PO BID PRN Constipation - Patient Studies Lab Studies: Lab Studies 06/15/18 06/15/18 06/08/18 Range/Units 05:26 05:25 15:27 WBC 10.4 (4.8-10.8) K/uL RBC 4.05 (3.80-5.20) Mil/uL Hgb 14.0 (11.0-16.0) g/dL Hct 41.4 (34.0-47.0) % MCV 102.4 H (81.0-99.0) fL MCH 34.7 H (27.0-31.0) pg MCHC 33.8 (33.0-37.0) g/dL RDW 14.4 (11.5-14.5) % Plt Count 230 (130-400) K/uL MPV 9.9 (7.2-11.7) fL Neut % (Auto) 63.6 (50.0-75.0) % Lymph % (Auto) 22.4 (20.0-40.0) % [place] % (Auto) 11.0 H (0.0-10.0) % Eos % (Auto) 2.3 (0.0-4.0) % Baso % (Auto) 0.7 (0.0-2.0) % Neut # (Auto) 6.6 (1.8-7.0) K/uL Lymph # (Auto) 2.3 (1.0-4.3) K/uL [place] # (Auto) 1.1 H (0.0-0.8) K/uL Eos # (Auto) 0.2 (0.0-0.7) K/uL Baso # (Auto) 0.1 (0.0-0.2) K/uL Sodium 137 (132-148) mmol/L Potassium 3.3 L (3.6-5.2) mmol/L Chloride 108 H (98-107) mmol/L Carbon Dioxide 23 (22-30) mmol/L Anion Gap 9 L (10-20) BUN 7 (7-17) mg/dL Creatinine 0.5 L (0.7-1.2) mg/dL Est GFR ( Amer) > 60 Est GFR (Non-Af Amer) > 60 Random Glucose 92 (65-105) mg/dL Calcium 8.9 (8.6-10.4) mg/dl Phosphorus 3.9 (2.5-4.5) mg/dL Magnesium 1.4 L (1.6-2.3) mg/dL Total Bilirubin 0.7 (0.2-1.3) mg/dL AST 47 H (14-36) U/L ALT 37 (9-52) U/L Alkaline Phosphatase 38 D (38-126) U/L Total Protein 5.3 L (6.3-8.3) g/dL Albumin 3.4 L (3.5-5.0) g/dL Globulin 1.9 L (2.2-3.9) gm/dL Albumin/Globulin Ratio 1.8 (1.0-2.1) Acetylchol Rcpt Block Ab <15 (<15) Acetylchol Rcpt Bind Ab <0.30 nmol/L Laboratory Results - last 24 hr 06/08/18 06/15/18 06/15/18 15:27 05:25 05:26 WBC 10.4 RBC 4.05 Hgb 14.0 Hct 41.4 MCV 102.4 H MCH 34.7 H MCHC 33.8 RDW 14.4 Plt Count 230 MPV 9.9 Neut % (Auto) 63.6 Lymph % (Auto) 22.4 [place] % (Auto) 11.0 H Eos % (Auto) 2.3 Baso % (Auto) 0.7 Neut # (Auto) 6.6 Lymph # (Auto) 2.3 [place] # (Auto) 1.1 H Eos # (Auto) 0.2 Baso # (Auto) 0.1 Sodium 137 Potassium 3.3 L Chloride 108 H Carbon Dioxide 23 Anion Gap 9 L BUN 7 Creatinine 0.5 L Est GFR ( Amer) > 60 Est GFR (Non-Af Amer) > 60 Random Glucose 92 Calcium 8.9 Phosphorus 3.9 Magnesium 1.4 L Total Bilirubin 0.7 AST 47 H ALT 37 Alkaline Phosphatase 38 D Total Protein 5.3 L Albumin 3.4 L Globulin 1.9 L Albumin/Globulin Ratio 1.8 Acetylchol Rcpt Block Ab <15 Acetylchol Rcpt Bind Ab <0.30 Critical Care Progress Note - Nutrition Nutrition: Nutrition Category Date Time Status Heart Healthy Diet [DIET] Diets 06/15/18 Lunch Active Attending/Attestation - Attestation I have personally seen and examined this patient.: Yes I have fully participated in the care of the patient.: Yes I have reviewed all pertinent clinical information: Yes Notes (Text): 06/15/18 18:32 patient seen and examined in the intensive care unit. Status post plasmapheresis Case discussed with neurology Continue present treatment Gammaglobulin if no improvement
--- NOTE | 2018-06-15 17:36 | CP.PCM.PN ---
<Louise Rolon - Last Filed: 06/15/18 17:33> Subjective - Date & Time of Evaluation Date of Evaluation: 06/15/18 Time of Evaluation: 16:30 - Subjective Subjective: Neurology Follow-Up Note: Mrs. Pinzon was evaluated today in the ICU with Dr. Hanks. Today she admits to improvement in weakness of her legs and arms. She admits to being able to feed herself meals today. Still complains of tingling/numbness to hands and feet. She denies h/a, dizziness, chest pain, shortness of breath, n/v. Objective - Vital Signs/Intake and Output Vital Signs (last 24 hours): Temp Pulse Resp BP Pulse Ox 97.7 F 87 18 146/93 H 100 06/15/18 12:00 06/15/18 13:00 06/15/18 13:00 06/15/18 11:57 06/15/18 12:00 Intake and Output: 06/15/18 06/15/18 06:59 18:59 Intake Total 787 1210 Output Total 551 1 Balance 236 1209 - Medications Medications: Current Medications Enoxaparin Sodium (Lovenox) 40 mg SC DAILY [facility] Last Admin: 06/15/18 09:46 Dose: 40 mg Ergocalciferol (Drisdol 50,000 Intl Units Cap) 1 cap PO Q7D [facility] Last Admin: 06/13/18 10:35 Dose: 1 cap Ceftriaxone Sodium 1 gm/ (Sodium Chloride) 100 mls @ 100 mls/hr IVPB DAILY [facility]; Protocol Last Admin: 06/15/18 10:18 Dose: 100 mls/hr Folic Acid 1 mg/ Thiamine HCl 100 mg/ Multivitamins/Vitamin C 10 ml/ Dextrose 1,011.2 mls @ 75 mls/hr IV .[id number] [facility] Last Admin: 06/15/18 10:19 Dose: 75 mls/hr Ondansetron HCl (Zofran Inj) 4 mg IVP DAILY@ONCE PRN PRN Reason: Nausea/Vomiting Last Admin: 06/13/18 08:43 Dose: 4 mg Pantoprazole Sodium (Protonix Ec Tab) 20 mg PO DAILY [facility] Last Admin: 06/15/18 09:46 Dose: 20 mg Pyridostigmine [place] (Mestinon Timespan Tab) 180 mg PO Q6H [facility] Last Admin: 06/15/18 12:12 Dose: 180 mg Saccharomyces Boulardii (Florastor) 250 mg PO BID [facility] Last Admin: 06/15/18 09:46 Dose: 250 mg Sennosides (Senokot Tab) 8.6 mg PO BID PRN PRN Reason: Constipation - Labs Labs: 06/15/18 05:25 06/15/18 05:26 PT 12.3 SECONDS (9.7-12.2) H 06/07/18 17:57 INR 1.1 06/07/18 17:57 APTT 35 SECONDS (21-34) H 06/07/18 17:57 - Constitutional Appears: Well, Non-toxic, No Acute Distress - Head Exam Head Exam: ATRAUMATIC, NORMAL INSPECTION, NORMOCEPHALIC - Eye Exam Eye Exam: EOMI, Normal appearance - ENT Exam ENT Exam: Mucous Membranes Moist - Neck Exam Neck Exam: Full ROM - Respiratory Exam Respiratory Exam: NORMAL BREATHING PATTERN - Cardiovascular Exam Cardiovascular Exam: REGULAR RHYTHM (on tele monitor) - Extremities Exam Extremities Exam: Normal Inspection. absent: Calf Tenderness, Pedal Edema - Neurological Exam Neurological Exam: Alert, Awake, Oriented x3 Neuro motor strength exam: Left Lower Extremity: 2/1, Right Lower Extremity: 2/1 Additional comments: Speech clear and fluid. No facial asymmetry Strength to ble 2/5; able to lift BLE off the bed for several seconds - Psychiatric Exam Psychiatric exam: Normal Affect, Normal Mood - Skin Skin Exam: Normal Color Assessment and Plan (1) Weakness of limb Assessment & Plan: Mrs. Pinzon is here for extremity weakness; unlikely due to MG as her antibodies are negative. 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 At this time we are still waiting on all microbiology and patho results, such as [place]. Pt has already completed 3 rounds of plasmpharesis and tolerated well and seems to be improving. At this time, we recommend: -Continuing ICU monitoring; may consider steroids vs IVIG in about a week depending on patient's condition and improvement. -Stop Mestinon as antibodies are not indicative of MG. -Repeat MRI of T-spine and L spine with contrast. -PT/OT -We will continue to follow up with the pt Patient seen and case discussed with Dr. Hanks. Also discussed case with snowboarding instructor, Dr. Luis. Status: Acute <Jarrett Hanks - Last Filed: 06/15/18 18:56> Objective - Vital Signs/Intake and Output Vital Signs (last 24 hours): Temp Pulse Resp BP Pulse Ox 98 F 87 19 145/93 H 99 06/15/18 16:00 06/15/18 18:00 06/15/18 18:00 06/15/18 17:57 06/15/18 18:00 Intake and Output: 06/15/18 06/15/18 06:59 18:59 Intake Total 787 1750 Output Total 551 3 Balance 236 1747 - Medications Medications: Current Medications Enoxaparin Sodium (Lovenox) 40 mg SC DAILY [facility] Last Admin: 06/15/18 09:46 Dose: 40 mg Ergocalciferol (Drisdol 50,000 Intl Units Cap) 1 cap PO Q7D [facility] Last Admin: 06/13/18 10:35 Dose: 1 cap Ceftriaxone Sodium 1 gm/ (Sodium Chloride) 100 mls @ 100 mls/hr IVPB DAILY [facility]; Protocol Last Admin: 06/15/18 10:18 Dose: 100 mls/hr Folic Acid 1 mg/ Thiamine HCl 100 mg/ Multivitamins/Vitamin C 10 ml/ Dextrose 1,011.2 mls @ 75 mls/hr IV .[id number] [facility] Last Admin: 06/15/18 10:19 Dose: 75 mls/hr Ondansetron HCl (Zofran Inj) 4 mg IVP DAILY@ONCE PRN PRN Reason: Nausea/Vomiting Last Admin: 06/13/18 08:43 Dose: 4 mg Pantoprazole Sodium (Protonix Ec Tab) 20 mg PO DAILY [facility] Last Admin: 06/15/18 09:46 Dose: 20 mg Saccharomyces Boulardii (Florastor) 250 mg PO BID [facility] Last Admin: 06/15/18 18:08 Dose: 250 mg Sennosides (Senokot Tab) 8.6 mg PO BID PRN PRN Reason: Constipation - Labs Labs: 06/15/18 05:25 06/15/18 05:26 PT 12.3 SECONDS (9.7-12.2) H 06/07/18 17:57 INR 1.1 06/07/18 17:57 APTT 35 SECONDS (21-34) H 06/07/18 17:57 Attending/Attestation - Attestation I have personally seen and examined this patient.: Yes I have fully participated in the care of the patient.: Yes I have reviewed all pertinent clinical information, including history, physical exam and plan: Yes Notes (Text): 06/15/18 18:55 I agree with the assessment and plan. 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 PLEX was completed. Will follow for result and monitor other CSF findings as they arise.
[2018-06-16] MEDS ORDERED: Folic Acid 1 MG, Thiamine 100 MG, Multivitamin (MVI) 10 ML in Dextrose 5% In Water 1,00... IV SCH ×2 (00:33→10:00)
[2018-06-16 05:48] LABS: BASO # 0.1 K/uL (0.0-0.2); BASO % 1.1 % (0.0-2.0); EOS # 0.3 K/uL (0.0-0.7); EOS % 3.7 % (0.0-4.0); HEMOGLOBIN 13.7 g/dL (11.0-16.0); LYMPH # 2.1 K/uL (1.0-4.3); LYMPH % 25.2 % (20.0-40.0); MEAN CELL VOLUME 102.4 fL (81.0-99.0); MEAN CORPUSCULAR HEMOGLOBIN 34.6 pg (27.0-31.0); MEAN CORPUSCULAR HGB CONC 33.7 g/dL (33.0-37.0); MEAN PLATELET VOLUME 10.3 fL (7.2-11.7); MONO # 0.9 K/uL (0.0-0.8); MONO % 10.4 % (0.0-10.0); NEUT % 59.6 % (50.0-75.0); RBC 3.97 Mil/uL (3.80-5.20); RED CELL DISTRIBUTION WIDTH 14.7 % (11.5-14.5); WHITE BLOOD COUNT 8.3 K/uL (4.8-10.8)
[2018-06-16 06:11] LABS: ALB/GLOB RATIO 1.6 (1.0-2.1); ALBUMIN 3.5 g/dL (3.5-5.0); ALT/SGPT 38 U/L (9-52); AST/SGOT 48 U/L (14-36); BLOOD UREA NITROGEN 3 mg/dL (7-17); CALCIUM 9.3 mg/dl (8.6-10.4); GFR NON-AFRICAN AMERICAN > 60
[2018-06-16] MEDS ORDERED: Magnesium Sulfate 1 gm in D5W 1 GM/100 ML BAG IVPB ONE (09:00)
[2018-06-16] MEDS ORDERED: Potassium Chloride 20 mEq/15 ml LIQ UD PO ONE (09:21)
[2018-06-16] MEDS: Saccharomyces Boulardi 250 mg Cap PO SCH ×2 (09:37→17:43)
[2018-06-16] MEDS: Pantoprazole 20 mg EC Tab PO SCH (09:37)
[2018-06-16] MEDS: Enoxaparin 40 mg Syringe SC SCH (09:38)
--- NOTE | 2018-06-16 10:07 | PCM.FALL ---
Post Fall Progress Note - Post Fall Fall Date: 06/16/18 Fall Time: 07:30 Description of Fall: fall on buttocks from bed to floor - Post Fall Exam Vital Sign: Temp Pulse Resp BP Pulse Ox 98.5 F 109 H 18 126/85 100 06/16/18 04:00 06/16/18 05:00 06/16/18 05:00 06/16/18 05:57 06/16/18 05:00 Skull Exam: Negative for: Scalp wound, Scalp hematoma, Scalp depression, Ridge in skull Eye Exam: Positive for: Pupils equal, Pupils reactive Ear Exam: Negative for: Discharge, Bleeding Nose Exam: Negative for: Discharge, Bleeding Skin Exam: Negative for: Lacerations, Grazes, Bruising Mouth Exam: Negative for: Tongue bitten, Teeth dislodge Neck Exam: Negative for: Tenderness, Tingling, Weakness Spinal Exam: Negative for: Tenderness, Tingling, Weakness Chest Exam: Negative for: Difficulty breathing, Tenderness in collar bones, Tenderness in ribs Abdomen Exam: Negative for: Tenderness Pelvic Exam: Negative for: Tenderness, Hematuria Arm Exam: Negative for: Deformity, Alteration in range of movement Leg Exam: Negative for: Deformity, Alteration in range of movement Impression/Plan: Pt attempted to urinate in bed quick. Pt fell onto floor after trying to position bed quick underneath her while in bed. Pt denies any head trauma. Pt reports no headache, changes in vision, chest pain, shortness of breath. Vitals were stable upon examination. Neuro: AAOx3 CN II-XII intact Head: NCAT, EOMI Heart: +S1 +S2, RRR Lungs: CTA b/l Abd: Soft, NT, ND
--- NOTE | 2018-06-16 10:41 | CP.CCUPN ---
<AustinAgnieszkaephraimmckinley - Last Filed: 06/16/18 10:38> CCU Subjective - Physician Review Subjective (Free Text): 06/16/18 10:38 Kong Avila PGY1 Progress Note for Dr. Luis Pt was examined at bedside this morning. She reports gradual improvement in her weakness and fatigue, but reports persistence of her sensory deficits in the hands and feet b/l. She denies any headache, shortness of breath, chest pain, abdominal pain, diarrhea, dysuria. CCU Objective - Vital Signs / Intake & Output Intake and Output (Last 8hrs): Intake & Output 06/15/18 06/16/18 06/16/18 22:59 06:59 14:59 Intake Total 1300 720 400 Output Total 203 300 Balance 1097 420 400 Weight 115 lb 0.2 oz Intake: Intake, IV Amount 600 600 250 Right PICC 600 600 250 Oral 700 120 150 Output: Urine 200 300 Urine, Voided 200 300 Urine/Stool Mix 3 Other: # Voids Urine, Voided 1 1 # Bowel Movements 0 0 - Physical Exam Head: Positive for: Atraumatic, Normocephalic Pupils: Positive for: PERRL Extroacular Muscles: Positive for: EOMI Conjunctiva: Positive for: Normal Mouth: Positive for: Moist Mucous Membranes Neck: Positive for: Normal Range of Motion Respiratory/Chest: Positive for: Clear to Auscultation, Good Air Exchange. Negative for: Respiratory Distress, Accessory Muscle Use, Wheezes, Rales, Retracting, Rhonchi Cardiovascular: Positive for: Normal S1, S2, Tachycardic Abdomen: Positive for: Normal Bowel Sounds. Negative for: Tenderness, Distention, Peritoneal Signs, Rebound, Guarding, Mass/Organomegaly Upper Extremity: Positive for: Normal Inspection, NORMAL PULSES, Capillary Refill < 2s, Other (poor hand public relations sales marketing, poor motor strength 4/5 b/l UE). Negative for: Cyanosis, Edema, Tenderness, Swelling Lower Extremity: Positive for: Normal Inspection, NORMAL PULSES, Capillary Refill < 2 s, Other (Decreased sensation b/l LE, motor strength 3/5 b/l LE). Negative for: Edema, CALF TENDERNESS, Cyanosis, Swelling Neurological: Positive for: CN II-XII Intact, Speech Normal. Negative for: Normal Sensory Function Skin: Positive for: Warm, Dry, Normal Color. Negative for: Rashes Psychiatric: Positive for: Alert, Oriented x 3 - Medications Active Medications: Active Medications Generic Name Dose Route Start Last Admin Trade Name Freq PRN Reason Stop Dose Admin Enoxaparin Sodium 40 mg 06/13/18 10:00 06/16/18 09:38 Lovenox SC 40 mg DAILY SUNITA Administration Ergocalciferol 1 cap 06/13/18 10:00 06/13/18 10:35 Drisdol 50,000 Intl Units Cap PO 1 cap Q7D SUNITA Administration Folic Acid 1 mg/ Thiamine HCl 1,011.2 mls @ 75 mls/hr 06/16/18 00:33 06/16/18 01:00 100 mg/ Multivitamins/Vitamin IV 75 mls/hr C 10 ml/ Dextrose Q24H SUNITA Administration Potassium Chloride 20 meq in 100 mls @ 50 mls/hr 06/16/18 09:30 06/16/18 09:32 Potassium Chloride 20 Meq/100 Ml IVPB 06/16/18 11:29 50 mls/hr ONCE ONE Administration Potassium Chloride 20 meq in 100 mls @ 50 mls/hr 06/16/18 09:20 Potassium Chloride 20 Meq/100 Ml IVPB 06/16/18 11:19 ONCE ONE Ondansetron HCl 4 mg 06/08/18 17:30 06/13/18 08:43 Zofran Inj IVP 4 mg DAILY@ONCE PRN Administration Nausea/Vomiting Pantoprazole Sodium 20 mg 06/08/18 10:00 06/16/18 09:37 Protonix Ec Tab PO 20 mg DAILY SUNITA Administration Saccharomyces Boulardii 250 mg 06/11/18 10:00 06/16/18 09:37 Florastor PO 250 mg BID SUNITA Administration Sennosides 8.6 mg 06/13/18 17:19 Senokot Tab PO BID PRN Constipation - Patient Studies Lab Studies: Lab Studies 06/16/18 06/16/18 Range/Units 05:45 05:45 WBC 8.3 (4.8-10.8) K/uL RBC 3.97 (3.80-5.20) Mil/uL Hgb 13.7 (11.0-16.0) g/dL Hct 40.7 (34.0-47.0) % MCV 102.4 H (81.0-99.0) fL MCH 34.6 H (27.0-31.0) pg MCHC 33.7 (33.0-37.0) g/dL RDW 14.7 H (11.5-14.5) % Plt Count 185 (130-400) K/uL MPV 10.3 (7.2-11.7) fL Neut % (Auto) 59.6 (50.0-75.0) % Lymph % (Auto) 25.2 (20.0-40.0) % Nye % (Auto) 10.4 H (0.0-10.0) % Eos % (Auto) 3.7 (0.0-4.0) % Baso % (Auto) 1.1 (0.0-2.0) % Neut # (Auto) 5.0 (1.8-7.0) K/uL Lymph # (Auto) 2.1 (1.0-4.3) K/uL Nye # (Auto) 0.9 H (0.0-0.8) K/uL Eos # (Auto) 0.3 (0.0-0.7) K/uL Baso # (Auto) 0.1 (0.0-0.2) K/uL Sodium 136 (132-148) mmol/L Potassium 3.2 L (3.6-5.2) mmol/L Chloride 105 (98-107) mmol/L Carbon Dioxide 24 (22-30) mmol/L Anion Gap 10 (10-20) BUN 3 L (7-17) mg/dL Creatinine 0.5 L (0.7-1.2) mg/dL Est GFR ( Amer) > 60 Est GFR (Non-Af Amer) > 60 Random Glucose 126 H (65-105) mg/dL Calcium 9.3 (8.6-10.4) mg/dl Phosphorus 3.4 (2.5-4.5) mg/dL Magnesium 1.4 L (1.6-2.3) mg/dL Total Bilirubin 0.7 (0.2-1.3) mg/dL AST 48 H (14-36) U/L ALT 38 (9-52) U/L Alkaline Phosphatase 38 (38-126) U/L Total Protein 5.6 L (6.3-8.3) g/dL Albumin 3.5 (3.5-5.0) g/dL Globulin 2.1 L (2.2-3.9) gm/dL Albumin/Globulin Ratio 1.6 (1.0-2.1) Laboratory Results - last 24 hr 06/16/18 06/16/18 05:45 05:45 WBC 8.3 RBC 3.97 Hgb 13.7 Hct 40.7 MCV 102.4 H MCH 34.6 H MCHC 33.7 RDW 14.7 H Plt Count 185 MPV 10.3 Neut % (Auto) 59.6 Lymph % (Auto) 25.2 Nye % (Auto) 10.4 H Eos % (Auto) 3.7 Baso % (Auto) 1.1 Neut # (Auto) 5.0 Lymph # (Auto) 2.1 Nye # (Auto) 0.9 H Eos # (Auto) 0.3 Baso # (Auto) 0.1 Sodium 136 Potassium 3.2 L Chloride 105 Carbon Dioxide 24 Anion Gap 10 BUN 3 L Creatinine 0.5 L Est GFR ( Amer) > 60 Est GFR (Non-Af Amer) > 60 Random Glucose 126 H Calcium 9.3 Phosphorus 3.4 Magnesium 1.4 L Total Bilirubin 0.7 AST 48 H ALT 38 Alkaline Phosphatase 38 Total Protein 5.6 L Albumin 3.5 Globulin 2.1 L Albumin/Globulin Ratio 1.6 Review of Systems - Review of Systems Review of Systems: as per [facility] Critical Care Progress Note - Nutrition Nutrition: Nutrition Category Date Time Status Heart Healthy Diet [DIET] Diets 06/15/18 Lunch Active Assessment/Plan - Assessment and Plan (Free Text) Assessment: 47 yo F with pmhx of gastric bypass (12 years ago), hysterectomy presenting with worsening b/l LE numbness/weakness, ataxia, b/l UE numbness x 3 weeks. Neurology on board, cause of pt symptoms not known at this time. Patient is s/p plasmapheresis x3, tolerating pyridostigmine treatment well. Pt for repeat MRI of spine today. Plan: Neuro: Peripheral Neuropathy, GBS vs. Vit B deficiency - code start today 7:30am, no acute neurological change post/fall - LE motor weakness, +1 reflexes, sensory deficits - s/p lumbar tap: CSF total protein wnl - vitamin B12 > 1000 - Folate wnl - Homocysteine 18.4 - Anti-Ach receptor antibodies negative - RPR, HIV, HSV, [place], lyme negative - MRI C/T/L spine series: no acute findings - MRI brain w/contrast: Limited but definitive abnormalities identified at the L frontal lobe and R pontomedullary junction comprise of a 4 mm enhancing lesions R pontomedullary junction and nonenhancing inferior L frontal lobe lesion. - CT chest (06/09): 2.7 x 2.5 cm heterogeneous hyperdense mass noted in L hepatic lobe worrisome for malignant neoplasm. Cholelithiasis. High density focus noted on the nondependent portion of the gallbladder; alternatives including polyp or neoplasm can't be excluded. - MRI/[place] abdomen [place] [facility] [place] and placed in patient chart: liver lesion likely hemangioma - s/p plasmapheresis x3 - mestinon 180 mg PO q6H - multivitamins - banana bag - Neurology consulted, Dr. Villalba/Latonya - for rpt MRI spine today - ID Consulted, Dr. Hernandez adhikari appreciated CV: - hemodynamically stable, continue to monitor Pulm: - stable, maintain spO2 >92% - FVC 1.5 Heme: - Polycythemia - s/p plasmapheresis x3 - Heme/Onc consulted, Dr. Kristi adhikari appreciated GI: - protonix 20 daily - probiotics ID: - UCx 06/09: + E.coli - BCx negative x5d, final - pt afebrile, hemodynamically stable - Ceftriaxone 1g IV daily (06/13) Ppx DVT: heparin GI: protonix Diet: advance bite size Pt seen and case reviewed with Dr. Luis <Farooq Luis - Last Filed: 06/16/18 17:35> CCU Subjective - Physician Review Critical Care Time Spent (in minutes): 40 CCU Objective - Vital Signs / Intake & Output Vital Signs (Last 4 hours): Vital Signs Pulse Resp BP Pulse Ox 06/16/18 16:27 116 H 17 128/96 H 100 06/16/18 13:44 118 H 15 127/80 Intake and Output (Last 8hrs): Intake & Output 06/16/18 06/16/18 06/16/18 06:59 14:59 22:59 Intake Total 720 975 150 Output Total 300 300 600 Balance 420 675 -450 Weight 115 lb 0.2 oz Intake: Intake, IV Amount 600 625 150 Right Arm PICC 2 100 Right PICC 600 525 150 Oral 120 350 Output: Urine 300 300 600 Urine, Voided 300 300 600 Other: # Voids Urine, Voided 1 1 1 # Bowel Movements 0 1 - Medications Active Medications: Active Medications Generic Name Dose Route Start Last Admin Trade Name Freq PRN Reason Stop Dose Admin Cyanocobalamin 1,000 mcg 06/16/18 17:15 Vitamin B12 1000 Mcg/Ml Inj IM Q7D [facility] Enoxaparin Sodium 40 mg 06/13/18 10:00 06/16/18 09:38 Lovenox SC 40 mg DAILY SUNITA Administration Ergocalciferol 1 cap 06/13/18 10:00 06/13/18 10:35 Drisdol 50,000 Intl Units Cap PO 1 cap Q7D SUNITA Administration Folic Acid 1 mg/ Thiamine HCl 1,011.2 mls @ 75 mls/hr 06/16/18 00:33 06/16/18 01:00 100 mg/ Multivitamins/Vitamin IV 75 mls/hr C 10 ml/ Dextrose Q24H SUNITA Administration Ondansetron HCl 4 mg 06/08/18 17:30 06/13/18 08:43 Zofran Inj IVP 4 mg DAILY@ONCE PRN Administration Nausea/Vomiting Pantoprazole Sodium 20 mg 06/08/18 10:00 06/16/18 09:37 Protonix Ec Tab PO 20 mg DAILY SUNITA Administration Saccharomyces Boulardii 250 mg 06/11/18 10:00 06/16/18 09:37 Florastor PO 250 mg BID SUNITA Administration Sennosides 8.6 mg 06/13/18 17:19 Senokot Tab PO BID PRN Constipation - Patient Studies Lab Studies: Lab Studies 06/16/18 06/16/18 Range/Units 05:45 05:45 WBC 8.3 (4.8-10.8) K/uL RBC 3.97 (3.80-5.20) Mil/uL Hgb 13.7 (11.0-16.0) g/dL Hct 40.7 (34.0-47.0) % MCV 102.4 H (81.0-99.0) fL MCH 34.6 H (27.0-31.0) pg MCHC 33.7 (33.0-37.0) g/dL RDW 14.7 H (11.5-14.5) % Plt Count 185 (130-400) K/uL MPV 10.3 (7.2-11.7) fL Neut % (Auto) 59.6 (50.0-75.0) % Lymph % (Auto) 25.2 (20.0-40.0) % Nye % (Auto) 10.4 H (0.0-10.0) % Eos % (Auto) 3.7 (0.0-4.0) % Baso % (Auto) 1.1 (0.0-2.0) % Neut # (Auto) 5.0 (1.8-7.0) K/uL Lymph # (Auto) 2.1 (1.0-4.3) K/uL Nye # (Auto) 0.9 H (0.0-0.8) K/uL Eos # (Auto) 0.3 (0.0-0.7) K/uL Baso # (Auto) 0.1 (0.0-0.2) K/uL Sodium 136 (132-148) mmol/L Potassium 3.2 L (3.6-5.2) mmol/L Chloride 105 (98-107) mmol/L Carbon Dioxide 24 (22-30) mmol/L Anion Gap 10 (10-20) BUN 3 L (7-17) mg/dL Creatinine 0.5 L (0.7-1.2) mg/dL Est GFR ( Amer) > 60 Est GFR (Non-Af Amer) > 60 Random Glucose 126 H (65-105) mg/dL Calcium 9.3 (8.6-10.4) mg/dl Phosphorus 3.4 (2.5-4.5) mg/dL Magnesium 1.4 L (1.6-2.3) mg/dL Total Bilirubin 0.7 (0.2-1.3) mg/dL AST 48 H (14-36) U/L ALT 38 (9-52) U/L Alkaline Phosphatase 38 (38-126) U/L Total Protein 5.6 L (6.3-8.3) g/dL Albumin 3.5 (3.5-5.0) g/dL Globulin 2.1 L (2.2-3.9) gm/dL Albumin/Globulin Ratio 1.6 (1.0-2.1) Laboratory Results - last 24 hr 06/16/18 06/16/18 05:45 05:45 WBC 8.3 RBC 3.97 Hgb 13.7 Hct 40.7 MCV 102.4 H MCH 34.6 H MCHC 33.7 RDW 14.7 H Plt Count 185 MPV 10.3 Neut % (Auto) 59.6 Lymph % (Auto) 25.2 Nye % (Auto) 10.4 H Eos % (Auto) 3.7 Baso % (Auto) 1.1 Neut # (Auto) 5.0 Lymph # (Auto) 2.1 Nye # (Auto) 0.9 H Eos # (Auto) 0.3 Baso # (Auto) 0.1 Sodium 136 Potassium 3.2 L Chloride 105 Carbon Dioxide 24 Anion Gap 10 BUN 3 L Creatinine 0.5 L Est GFR ( Amer) > 60 Est GFR (Non-Af Amer) > 60 Random Glucose 126 H Calcium 9.3 Phosphorus 3.4 Magnesium 1.4 L Total Bilirubin 0.7 AST 48 H ALT 38 Alkaline Phosphatase 38 Total Protein 5.6 L Albumin 3.5 Globulin 2.1 L Albumin/Globulin Ratio 1.6 Critical Care Progress Note - Nutrition Nutrition: Nutrition Category Date Time Status Heart Healthy Diet [DIET] Diets 06/15/18 Lunch Active Attending/Attestation - Attestation I have personally seen and examined this patient.: Yes I have fully participated in the care of the patient.: Yes I have reviewed all pertinent clinical information: Yes Notes (Text): 06/16/18 17:29 patient seen and examined in the intensive care unit. Status post plasmapheresis 3 Follow-up MRI of spine seen by neurology follow-up vital capacity and NIF
--- NOTE | 2018-06-16 12:07 | PCM.PSYCH ---
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 She presents to the hospital on June 07, 2018 because she can't walk. Today pt was consulted by psychiatry. Patient denies any past psychiatric history of any inpatient psychiatric hospitalizations and denies any history of follow-up with a psychiatrist. The patient states that for 4 weeks she has experienced a pins and needles sensation in her legs. She states that it first started out as a warm/hot feeling on both her legs, then as time passed, it became a more painful pins and needles sensation that not only affected her legs, but her hands as well. She states that in the beginning, she could walk, but then towards the end of the 4 weeks, she couldn't walk. Recently, she says that her hands no longer have the pins and needles sensation. She states that during these 4 weeks she also experienced some blurry vision and shortness of breath. She denies having any recent respir atory or GI infections. She reports irritable mood but he denies any feelings of hopelessness, helplessness or any thoughts of hurting herself or others. She denies any feelings of guilt or difficulty in concentration. She says lately her sleep and energy have been poor. She states that she occasionally gets racing thoughts, but she attributes this to her anxiety of not being able to walk. She denies hearing voices. She states that she has had a hallucination of her being upside down, but she attributes this to the medications she was prescribed at the hospital. She denies tobacco or illicit drug use. She occasionally has a few drinks during social events. Past Psych History: denies Past Family Psych History: denies Past Medical History: denies, charts say Vitamin B12 deficiency Current Medications: Active Medications Generic Name Dose Route Start Last Admin Trade Name Freq PRN Reason Stop Dose Admin Enoxaparin Sodium 40 mg 06/13/18 10:00 06/16/18 09:38 Lovenox SC 40 mg DAILY SUNITA Administration Ergocalciferol 1 cap 06/13/18 10:00 06/13/18 10:35 Drisdol 50,000 Intl Units Cap PO 1 cap Q7D SUNITA Administration Folic Acid 1 mg/ Thiamine HCl 1,011.2 mls @ 75 mls/hr 06/16/18 00:33 06/16/18 01:00 100 mg/ Multivitamins/Vitamin IV 75 mls/hr C 10 ml/ Dextrose Q24H SUNITA Administration Ondansetron HCl 4 mg 06/08/18 17:30 06/13/18 08:43 Zofran Inj IVP 4 mg DAILY@ONCE PRN Administration Nausea/Vomiting Pantoprazole Sodium 20 mg 06/08/18 10:00 06/16/18 09:37 Protonix Ec Tab PO 20 mg DAILY SUNITA Administration Saccharomyces Boulardii 250 mg 06/11/18 10:00 06/16/18 09:37 Florastor PO 250 mg BID SUNITA Administration Sennosides 8.6 mg 06/13/18 17:19 Senokot Tab PO BID PRN Constipation Past Psychiatric History - Past Psychiatric History Previous Treatment History: None Pertinent Medical Hx (Current Medical&Sleep Prob, Allergies): Allergies Allergy/AdvReac Type Severity Reaction Status Date / Time No Known Allergies Allergy Verified 06/07/18 14:29 Cyanocobalamin [Vitamin B12 1000 mcg Tab] 1 tab PO DAILY 06/07/18 Review of Systems - Review of Systems All systems: reviewed and no additional remarkable complaints except - Psychiatric Psychiatric: Anxiety. absent: Auditory Hallucinations, Suicidal Ideation Mental Status Examination - Personal Presentation Personal Presentation: Looks stated age - Affect Affect: Constricted - Motor Activity Motor Activity: Calm - Reliability in Providing Information Reliability in Providing Information: Fair - Speech Speech: Organized - Mood Mood: Anxious - Formal Thought Process Formal Thought Process: No Impairment - Obsessions/Compulsions Obsessions: No Compulsions: No - Cognitive Functions Orientation: Person, Place, Situation, Time Sensorium: Alert Attention/Concentration: Attentive Abstract Thinking: [place] Estimate of Intelligence: Below average Judgement: Imparied, as evidence by: Poor judgement, Intact, as evidence by: Insight regarding need for hospitalization - Risk Risk: Diminished functioning - Limitations Limitations: Living alone DSM 5 DX - DSM 5 DSM 5 Diagnosis: Conversion disorder Rule out vitamin B deficiency - Recommended/Plan of Treatment Treatment Recommendations and Plan of Treatment: Conversion disorder Rule out vitamin B deficiency Supportive therapy and psychoeducation Patient psychiatrically stable and clear for discharge.
[2018-06-16] MEDS ORDERED: Gadodiamide 287 MG/ML VIAL (15ML) IV ONE (15:30)
--- NOTE | 2018-06-16 17:58 | MRI ---
Date of service: 06/16/2018 PROCEDURE: MR THORACIC SPINE WITH CONTRAST HISTORY: Evaluate for contrast enhancing lesion COMPARISON: Correlation made with noncontrast MRI of the thoracic spine dated 06/08/2018. TECHNIQUE: Multiecho multiplanar sequences were performed through the thoracic spine with and without the use of intravenous contrast. FINDINGS: Note that the study is limited by motion artifact. ALIGNMENT: Normal thoracic spinal alignment. Normal thoracic kyphosis. VERTEBRA: Vertebral body height are preserved. MARROW: Marrow signal unremarkable. PARASPINAL SOFT TISSUES: Unremarkable. CORD: Unremarkable thoracic cord. No volume loss, signal abnormality or syrinx. DISCS: No disc herniation, spinal canal stenosis, or neuroforaminal narrowing. ENHANCEMENT: No abnormal enhancement. The OTHER FINDINGS: None. IMPRESSION: Limited motion degraded study. Unremarkable pre and post contrast enhanced MRI of the thoracic spine
--- NOTE | 2018-06-16 18:05 | CP.PCM.PN ---
Subjective - Date & Time of Evaluation Date of Evaluation: 06/16/18 Time of Evaluation: 17:35 - Subjective Subjective: Medical attending note Patient seen, examined. Patient reports she feels less tired. Patient denies headache, denies chest pain, denies palpitations, denies shortness of breath, denies nausea, denies abdominal pain, reports urinating and having appropriate bowel movements. Patient reports weakness is improved over the upper extrem ities. Patient was able to have a better certified art therapist with the right hand. Patient is working with physical therapy. Patient reports that she thinks physical therapy is helping her. Patient is very appreciative of psychiatry visiting her. Objective - Vital Signs/Intake and Output Vital Signs (last 24 hours): Temp Pulse Resp BP Pulse Ox 98.5 F 116 H 17 128/96 H 100 06/16/18 04:00 06/16/18 16:27 06/16/18 16:27 06/16/18 16:27 06/16/18 16:27 Intake and Output: 06/16/18 06/16/18 06:59 18:59 Intake Total 1165 1125 Output Total 501 900 Balance 664 225 - Medications Medications: Current Medications Cyanocobalamin (Vitamin B12 1000 Mcg/Ml Inj) 1,000 mcg IM Q7D [facility] Last Admin: 06/16/18 17:49 Dose: 1,000 mcg Enoxaparin Sodium (Lovenox) 40 mg SC DAILY [facility] Last Admin: 06/16/18 09:38 Dose: 40 mg Ergocalciferol (Drisdol 50,000 Intl Units Cap) 1 cap PO Q7D [facility] Last Admin: 06/13/18 10:35 Dose: 1 cap Folic Acid 1 mg/ Thiamine HCl 100 mg/ Multivitamins/Vitamin C 10 ml/ Dextrose 1,011.2 mls @ 75 mls/hr IV Q24H [facility] Last Admin: 06/16/18 01:00 Dose: 75 mls/hr Ondansetron HCl (Zofran Inj) 4 mg IVP DAILY@ONCE PRN PRN Reason: Nausea/Vomiting Last Admin: 06/13/18 08:43 Dose: 4 mg Pantoprazole Sodium (Protonix Ec Tab) 20 mg PO DAILY [facility] Last Admin: 06/16/18 09:37 Dose: 20 mg Saccharomyces Boulardii (Florastor) 250 mg PO BID [facility] Last Admin: 06/16/18 17:43 Dose: 250 mg Sennosides (Senokot Tab) 8.6 mg PO BID PRN PRN Reason: Constipation - Labs Labs: 06/16/18 05:45 06/16/18 05:45 PT 12.3 SECONDS (9.7-12.2) H 06/07/18 17:57 INR 1.1 06/07/18 17:57 APTT 35 SECONDS (21-34) H 06/07/18 17:57 - Constitutional Appears: Non-toxic, No Acute Distress - Head Exam Head Exam: NORMAL INSPECTION - Eye Exam Eye Exam: EOMI - ENT Exam ENT Exam: Mucous Membranes Moist - Respiratory Exam Respiratory Exam: Clear to Ausculation Bilateral, NORMAL BREATHING PATTERN. absent: Rales, Rhonchi, Wheezes - Cardiovascular Exam Cardiovascular Exam: Tachycardia, +S1, +S2 - GI/Abdominal Exam GI & Abdominal Exam: Soft, Normal Bowel Sounds ( [place]). absent: Distended, Firm, Guarding, Rigid, Tenderness (Ms.), Rebound - Extremities Exam Extremities Exam: absent: Pedal Edema, Tenderness - Neurological Exam Neurological Exam: Alert, Awake, Oriented x3 - Psychiatric Exam Psychiatric exam: Normal Affect, Normal Mood - Skin Skin Exam: Dry, Intact, Normal Color, Warm Attending/Attestation - Attestation I have personally seen and examined this patient.: Yes I have fully participated in the care of the patient.: Yes I have reviewed all pertinent clinical information, including history, physical exam and plan: Yes Notes (Text): 1) Upper and lower extremity weakness with decreased FVC Possible Guillain Gifford Syndrome (possible subtypes including but not limited to AMSAN and Gloria Iyer) Possible Conversion Syndrome Assessment/Plan * Neurology Dr. Villalba on case help appreciated * Hematology Dr. Maria on case help appreciated * Infectious disease Dr Ng on case-->help appreciated * Blood cultures: no growth after 5 days X2 * Psych (Dr. Snyder) on case-->help appreciated * s/p LP 06/08/18 * CT head June 08 no acute hemorrhage mass effect or shift * Cervical MRI from June 08 showing shucking of the cervical spine mild reversal of the normal lordosis which could be due to muscle spasm or patient positioning. No evidence of spinal neural foraminal narrowing. * Lumbar MRI: No evidence of significant spinal or neural foraminal narrowing. Conus medullaris is normal in size and shape. Small posterior disc protrusion L5-S1 without evidence of significant spinal neural foraminal narrowing. Mild L5-S1 degenerative disc changes. * Last MRI also no evidence of spinal stenosis foraminal fat foraminal narrowing no evidence of mass lesion or abnormal signal. * CT chest: Right-sided PICC extends the right atrium. Markedly heterogeneous abnormal appearance of the liver with a 2.7 x 2.5 heterogeneous hyperdense masses in the left hepatic lobe worrisome for malignant neoplasm. Cholelithiasis. High density focus of nondependent portion of the gallbladder alternatives including polyp or neoplasm can't be excluded. * Thymoma not noted on CT chest will order a neck to rule out. * Discussed with ICU ptosis has resolved June 09. * Patient to undergo 3 sessions of plasmapheresis * Patient have third session 06/13/18 * f/u neurology to see if warrant IVIG (Dr. Hanks) in 1 week to assessed * Patient ruled out for myasthenia gravis. Patient underwent thoracic and lum bar MRI with contrast 06/16/18 . Unremarkable pre-and postcontrast enhanced MRI of the thoracic spine. Multilevel degenerative facet arthropathy and degenerative spondylosis L5-S1 level. No evidence. No evidence of abnormal enhancement. * Consideration for conversion disorder. Psychiatry seen 06/16/18. Patient's about 4 months ago. * Patient started on per dose thickening bromide 180 mg by mouth every 6H but d/c 06/16/18 * CSF: no growth after 4 days * T pallidum: nonreactive * Lyme bands: negative/ Lyme negative * West Nile: not detected * HSV igM: negative * Acetylcholine Recept: 6 (<32%) * OCHOA: negative * F/U [place] Qn Titer Ab Test * Methymalonic Acid: normal * B12: normal * F/U Acetylcholine Ab: negative * RPR is NON-reactive * HIV 1 & 2 is negative * Influenza is negative * Monitor FVC * Discussed with RT: 1.57, 1.51 2). Hypodense lesion in left lobe liver that was concerning for neoplasm. * Confirmed with ICU resident Marco Vazquez, they followed up for the imaging noted for hemangioma. Therefore consult IR was canceled. Paperwork is in the chart of copy of imaging in the chart 3). Prior history of gastric bypass surgery * Check vitamin B1, B6, B12, vitamin D * Vitamin D-->started supplementation * Patient started on Banana bag 06/14/18-->switch to PO folic acid 1mg PO daily, MV1 1 tab PO daily, Thiamine 100mg PO daily * Thyroid within normal * B12 over thousand, was receiving B12 supplementation as outpatient * Folate acid normal * Shlomo: normal 4) prior alcohol use 5) urine positive * We'll start Rocephin 1 g IV daily to cover for urine culture * Restart UA/urine culture (06/16/18) 6) vitamin D Deficiency * Vitamin D <12.8 * Vitamin D 50,000 IU /week for 8-12 weeks 7) megaloblastic elevated MCV * Both B12 and folate are normal 8) prophylactic measure * Protonix 20 mg by mouth daily * Lovenox 40mg sub daily * continue PT/OT
--- NOTE | 2018-06-16 18:07 | MRI ---
Date of service: 06/16/2018 PROCEDURE: MR LUMBAR SPINE WITH. HISTORY: Evaluate nerve roots AIDP COMPARISON: None comparison made with prior MRI of the lumbar spine 06/08/2018. TECHNIQUE: Multiecho multiplanar sequences were performed through the lumbar spine with and without the use of intravenous contrast. FINDINGS: Study is limited by motion artifact normal lumbar lordosis. Vertebral body heights are preserved. Re demonstrated are multi level facet arthropathy changes... Also again seen are mild degenerative changes L5-S1 level. Marrow signal unremarkable. Conus medullaris unremarkable at the level of Paraspinal soft tissues are unremarkable. No abnormal enhancement. OTHER FINDINGS: None. IMPRESSION: Limited motion degraded study. Multilevel degenerative facet arthropathy and degenerative spondylosis L5-S1 level.. No evidence. No evidence of abnormal enhancement.
[2018-06-17 06:11] LABS: BASO # 0.1 K/uL (0.0-0.2); BASO % 1.2 % (0.0-2.0); EOS # 0.3 K/uL (0.0-0.7); EOS % 4.5 % (0.0-4.0); HEMOGLOBIN 14.5 g/dL (11.0-16.0); LYMPH # 1.9 K/uL (1.0-4.3); LYMPH % 27.9 % (20.0-40.0); MEAN CELL VOLUME 103.4 fL (81.0-99.0); MEAN CORPUSCULAR HEMOGLOBIN 35.7 pg (27.0-31.0); MEAN CORPUSCULAR HGB CONC 34.5 g/dL (33.0-37.0); MEAN PLATELET VOLUME 9.4 fL (7.2-11.7); MONO # 0.9 K/uL (0.0-0.8); MONO % 12.9 % (0.0-10.0); NEUT # 3.6 K/uL (1.8-7.0); NEUT % 53.5 % (50.0-75.0); NRBC % 0.1 % (0.0-2.0); RBC 4.05 Mil/uL (3.80-5.20); RED CELL DISTRIBUTION WIDTH 14.9 % (11.5-14.5); WHITE BLOOD COUNT 6.6 K/uL (4.8-10.8)
[2018-06-17 06:28] LABS: ALB/GLOB RATIO 1.5 (1.0-2.1); ALBUMIN 3.7 g/dL (3.5-5.0); ALT/SGPT 46 U/L (9-52); AST/SGOT 51 U/L (14-36); BLOOD UREA NITROGEN 4 mg/dL (7-17); CALCIUM 9.8 mg/dl (8.6-10.4); GFR NON-AFRICAN AMERICAN > 60
[2018-06-17 07:03] LABS: HEPATITIS B SURFACE AG Negative (NEGATIVE)
[2018-06-17 07:09] LABS: HEPATITIS A IGM NEGATIVE (NEGATIVE); HEPATITIS B CORE AB NEGATIVE (NEGATIVE)
--- NOTE | 2018-06-17 07:16 | CP.CCUPN ---
<Antelmo Hernandez - Last Filed: 06/17/18 14:09> CCU Subjective - Physician Review Subjective (Free Text): 06/17/18 08:07 Patient was examined at bedside this morning. No acute events overnight. She denies any headache, shortness of breath, chest pain, abdominal pain, diarrhea, dysuria. Critical Care Time Spent (in minutes): 35 CCU Objective - Vital Signs / Intake & Output Vital Signs (Last 4 hours): Vital Signs Temp Pulse Resp BP Pulse Ox 06/17/18 06:00 114 H 19 06/17/18 05:10 116 H 26 H 135/94 H 95 06/17/18 04:10 104 H 16 125/90 97 06/17/18 04:00 98.2 F 18 125/90 99 Intake and Output (Last 8hrs): Intake & Output 06/16/18 06/17/18 06/17/18 22:59 06:59 14:59 Intake Total 840 500 Output Total 400 1200 Balance 440 -700 Weight 51.727 kg Intake: Intake, IV Amount 450 0 Right PICC 450 0 Oral 390 500 Output: Urine 400 1200 Urine, Voided 400 1200 Other: # Voids Urine, Voided 1 # Bowel Movements 0 0 - Physical Exam Head: Positive for: Atraumatic, Normocephalic Pupils: Positive for: PERRL Extroacular Muscles: Positive for: EOMI Conjunctiva: Positive for: Normal Mouth: Positive for: Moist Mucous Membranes Neck: Positive for: Normal Range of Motion Respiratory/Chest: Positive for: Clear to Auscultation, Good Air Exchange. Negative for: Respiratory Distress, Accessory Muscle Use, Wheezes, Rales, Retracting, Rhonchi Cardiovascular: Positive for: Normal S1, S2, Tachycardic Abdomen: Positive for: Normal Bowel Sounds. 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 Negative for: Cyanosis, Edema, Tenderness, Swelling Lower Extremity: Positive for: Normal Inspection, NORMAL PULSES, Capillary Refill < 2 s, Other (Decreased sensation b/l LE, motor strength 3/5 b/l LE). Negative for: Edema, CALF TENDERNESS, Cyanosis, Swelling Neurological: Positive for: CN II-XII Intact, Speech Normal. Negative for: Normal Sensory Function Skin: Positive for: Warm, Dry, Normal Color. Negative for: Rashes Psychiatric: Positive for: Alert, Oriented x 3 - Medications Active Medications: Active Medications Generic Name Dose Route Start Last Admin Trade Name Freq PRN Reason Stop Dose Admin Cyanocobalamin 1,000 mcg 06/16/18 18:00 06/16/18 17:49 Vitamin B12 1000 Mcg/Ml Inj IM 1,000 mcg Q7D [facility] Administration Enoxaparin Sodium 40 mg 06/13/18 10:00 06/16/18 09:38 Lovenox SC 40 mg DAILY [facility] Administration Ergocalciferol 1 cap 06/13/18 10:00 06/13/18 10:35 Drisdol 50,000 Intl Units Cap PO 1 cap Q7D [facility] Administration Folic Acid 1 mg 06/17/18 10:00 Folic Acid PO DAILY [facility] Gabapentin 300 mg 06/16/18 19:00 06/16/18 18:46 Neurontin PO 300 mg BID [facility] Administration Multivitamins 1 tab 06/17/18 10:00 Hexavitamin PO DAILY [facility] Ondansetron HCl 4 mg 06/08/18 17:30 06/13/18 08:43 Zofran Inj IVP 4 mg DAILY@ONCE PRN Administration Nausea/Vomiting Pantoprazole Sodium 20 mg 06/08/18 10:00 06/16/18 09:37 Protonix Ec Tab PO 20 mg DAILY [facility] Administration Saccharomyces Boulardii 250 mg 06/11/18 10:00 06/16/18 17:43 Florastor PO 250 mg BID [facility] Administration Sennosides 8.6 mg 06/13/18 17:19 Senokot Tab PO BID PRN Constipation Thiamine HCl 100 mg 06/17/18 10:00 Vitamin B1 Tab PO DAILY [facility] - Patient Studies Lab Studies: Microbiology Studies 06/15/18 17:02 Urine Culture - Final Urine,Catheterized No Growth (<1,000 CFU/ML) Lab Studies 06/17/18 06/17/18 06/17/18 Range/Units 05:49 05:49 05:49 WBC 6.6 (4.8-10.8) K/uL RBC 4.05 (3.80-5.20) Mil/uL Hgb 14.5 (11.0-16.0) g/dL Hct 41.9 (34.0-47.0) % MCV 103.4 H (81.0-99.0) fL MCH 35.7 H (27.0-31.0) pg MCHC 34.5 (33.0-37.0) g/dL RDW 14.9 H (11.5-14.5) % Plt Count 225 (130-400) K/uL MPV 9.4 (7.2-11.7) fL Neut % (Auto) 53.5 (50.0-75.0) % Lymph % (Auto) 27.9 (20.0-40.0) % [place] % (Auto) 12.9 H (0.0-10.0) % Eos % (Auto) 4.5 H (0.0-4.0) % Baso % (Auto) 1.2 (0.0-2.0) % Neut # (Auto) 3.6 (1.8-7.0) K/uL Lymph # (Auto) 1.9 (1.0-4.3) K/uL [place] # (Auto) 0.9 H (0.0-0.8) K/uL Eos # (Auto) 0.3 (0.0-0.7) K/uL Baso # (Auto) 0.1 (0.0-0.2) K/uL Sodium 137 (132-148) mmol/L Potassium 4.1 (3.6-5.2) mmol/L Chloride 103 (98-107) mmol/L Carbon Dioxide 27 (22-30) mmol/L Anion Gap 11 (10-20) BUN 4 L (7-17) mg/dL Creatinine 0.5 L (0.7-1.2) mg/dL Est GFR ( Amer) > 60 Est GFR (Non-Af Amer) > 60 Random Glucose 100 (65-105) mg/dL Calcium 9.8 (8.6-10.4) mg/dl Phosphorus 4.9 H (2.5-4.5) mg/dL Magnesium 1.7 (1.6-2.3) mg/dL Total Bilirubin 0.7 (0.2-1.3) mg/dL AST 51 H (14-36) U/L ALT 46 (9-52) U/L Alkaline Phosphatase 42 (38-126) U/L Total Protein 6.1 L (6.3-8.3) g/dL Albumin 3.7 (3.5-5.0) g/dL Globulin 2.4 (2.2-3.9) gm/dL Albumin/Globulin Ratio 1.5 (1.0-2.1) Hepatitis A IgM Ab Negative (NEGATIVE) Hep Bs Antigen Negative (NEGATIVE) Hep B Core IgM Ab Negative (NEGATIVE) Laboratory Results - last 24 hr 06/17/18 06/17/18 06/17/18 05:49 05:49 05:49 WBC 6.6 RBC 4.05 Hgb 14.5 Hct 41.9 MCV 103.4 H MCH 35.7 H MCHC 34.5 RDW 14.9 H Plt Count 225 MPV 9.4 Neut % (Auto) 53.5 Lymph % (Auto) 27.9 [place] % (Auto) 12.9 H Eos % (Auto) 4.5 H Baso % (Auto) 1.2 Neut # (Auto) 3.6 Lymph # (Auto) 1.9 [place] # (Auto) 0.9 H Eos # (Auto) 0.3 Baso # (Auto) 0.1 Sodium 137 Potassium 4.1 Chloride 103 Carbon Dioxide 27 Anion Gap 11 BUN 4 L Creatinine 0.5 L Est GFR ( Amer) > 60 Est GFR (Non-Af Amer) > 60 Random Glucose 100 Calcium 9.8 Phosphorus 4.9 H Magnesium 1.7 Total Bilirubin 0.7 AST 51 H ALT 46 Alkaline Phosphatase 42 Total Protein 6.1 L Albumin 3.7 Globulin 2.4 Albumin/Globulin Ratio 1.5 Hepatitis A IgM Ab Negative Hep Bs Antigen Negative Hep B Core IgM Ab Negative Critical Care Progress Note - Nutrition Nutrition: Nutrition Category Date Time Status Heart Healthy Diet [DIET] Diets 06/15/18 Lunch Active Assessment/Plan - Assessment and Plan (Free Text) Assessment: 47 yo F with pmhx of gastric bypass (12 years ago), hysterectomy presenting with worsening b/l LE numbness/weakness, ataxia, b/l UE numbness x 3 weeks. Neurology on board, cause of pt symptoms not known at this time. Patient is s/p plasmapheresis x3. Plan: Neuro: Peripheral Neuropathy, GBS vs. Vit B deficiency - LE motor weakness, +1 reflexes, sensory deficits - s/p lumbar tap: CSF total protein wnl - vitamin B12 > 1000 - Folate wnl - Homocysteine 18.4 - Anti-Ach receptor antibodies negative - RPR, HIV, HSV, west nile, lyme negative - MRI C/T/L spine series: no acute findings - MRI brain w/contrast: Limited but definitive abnormalities identified at the L frontal lobe and R pontomedullary junction comprise of a 4 mm enhancing lesions R pontomedullary junction and nonenhancing inferior L frontal lobe lesion. - CT chest (06/09): 2.7 x 2.5 cm heterogeneous hyperdense mass noted in L hepatic lobe worrisome for malignant neoplasm. Cholelithiasis. High density focus noted on the nondependent portion of the gallbladder; alternatives including polyp or neoplasm can't be excluded. - [place] [facility] [place] placed in patient chart: liver lesion likely hemangioma - s/p plasmapheresis x3 - Multivitamins, Thiamine, Vitamin B12, Vitamin D, Folic acid daily - Gabapentin 100mg HS - Zinc sulfate 220mg PO QD - Neurology consulted, Dr. Villalba/Latonya - Heavy metal levels: f/u CV: Orthostatic hypotension - Midodrine 2.5mg PO TID - Continue to monitor Pulm: - stable, maintain spO2 >92% - FVC 1.5 Heme: Polycythemia - s/p plasmapheresis x3 - Heme/Onc consulted, Dr. Maria- recs appreciated GI: - protonix 20 daily - probiotics ID: UTI - UCx 06/09: + E.coli - BCx negative x5d, final - pt afebrile, hemodynamically stable - Ceftriaxone 1g IV daily (06/13) Ppx DVT: heparin GI: protonix Florastor Diet: advance bite size Pt seen and case reviewed with Dr. John Hernandez, PGY-1 <Elpidio Sanon - Last Filed: 06/18/18 14:11> CCU Objective - Vital Signs / Intake & Output Vital Signs (Last 4 hours): Vital Signs Pulse Resp BP Pulse Ox 06/18/18 13:03 97 H 13 105/76 06/18/18 12:30 111 H 06/18/18 12:00 92 H 15 126/94 H 06/18/18 11:07 109 H 20 123/86 06/18/18 11:00 96 H 13 92 L Intake and Output (Last 8hrs): Intake & Output 06/17/18 06/18/18 06/18/18 22:59 06:59 14:59 Intake Total 395 325 Output Total 200 300 400 Balance 195 -300 -75 Weight 116 lb 9.992 oz Intake: Oral 395 325 Output: Urine 200 300 400 Urine, Voided 200 300 400 Other: # Voids Urine, Voided 1 1 1 # Bowel Movements 0 0 - Medications Active Medications: Active Medications Generic Name Dose Route Start Last Admin Trade Name Freq PRN Reason Stop Dose Admin Cyanocobalamin 1,000 mcg 06/16/18 18:00 06/16/18 17:49 Vitamin B12 1000 Mcg/Ml Inj IM 1,000 mcg Q7D [facility] Administration Enoxaparin Sodium 40 mg 06/13/18 10:00 06/18/18 10:40 Lovenox SC 40 mg DAILY [facility] Administration Ergocalciferol 1 cap 06/13/18 10:00 06/13/18 10:35 Drisdol 50,000 Intl Units Cap PO 1 cap Q7D [facility] Administration Folic Acid 1 mg 06/17/18 10:00 06/18/18 10:39 Folic Acid PO 1 mg DAILY [facility] Administration Gabapentin 100 mg 06/18/18 22:00 Neurontin PO HS [facility] Metoprolol Tartrate 12.5 mg 06/18/18 10:30 06/18/18 10:42 Lopressor PO 12.5 mg Q12 [facility] Administration Midodrine 2.5 mg 06/17/18 14:00 06/18/18 10:39 Proamatine PO 2.5 mg TID [facility] Administration Multivitamins 1 tab 06/17/18 10:00 06/18/18 10:39 Hexavitamin PO 1 tab DAILY [facility] Administration Ondansetron HCl 4 mg 06/08/18 17:30 06/13/18 08:43 Zofran Inj IVP 4 mg DAILY@ONCE PRN Administration Nausea/Vomiting Pantoprazole Sodium 20 mg 06/08/18 10:00 06/18/18 10:40 Protonix Ec Tab PO 20 mg DAILY [facility] Administration Pyridoxine HCl 50 mg 06/18/18 10:00 06/18/18 10:40 Vitamin B6 50 Mg Tab PO 50 mg DAILY [facility] Administration Saccharomyces Boulardii 250 mg 06/11/18 10:00 06/18/18 10:39 Florastor PO 250 mg BID [facility] Administration Sennosides 8.6 mg 06/13/18 17:19 Senokot Tab PO BID PRN Constipation Thiamine HCl 100 mg 06/17/18 10:00 06/18/18 10:40 Vitamin B1 Tab PO 100 mg DAILY [facility] Administration Zinc Sulfate 220 mg 06/17/18 10:00 06/18/18 10:39 Zinc Sulfate 220 Mg Cap PO 220 mg DAILY [facility] Administration - Patient Studies Lab Studies: Lab Studies 06/18/18 06/18/18 06/18/18 Range/Units 06:22 06:22 06:22 WBC 7.2 (4.8-10.8) K/uL RBC 3.98 (3.80-5.20) Mil/uL Hgb 14.0 (11.0-16.0) g/dL Hct 41.2 (34.0-47.0) % MCV 103.5 H (81.0-99.0) fL MCH 35.2 H (27.0-31.0) pg MCHC 34.1 (33.0-37.0) g/dL RDW 14.8 H (11.5-14.5) % Plt Count 217 (130-400) K/uL MPV 10.2 (7.2-11.7) fL Neut % (Auto) 53.6 (50.0-75.0) % Lymph % (Auto) 29.5 (20.0-40.0) % [place] % (Auto) 11.5 H (0.0-10.0) % Eos % (Auto) 4.1 H (0.0-4.0) % Baso % (Auto) 1.3 (0.0-2.0) % Neut # (Auto) 3.9 (1.8-7.0) K/uL Lymph # (Auto) 2.1 (1.0-4.3) K/uL [place] # (Auto) 0.8 (0.0-0.8) K/uL Eos # (Auto) 0.3 (0.0-0.7) K/uL Baso # (Auto) 0.1 (0.0-0.2) K/uL Sodium 136 (132-148) mmol/L Potassium 4.2 (3.6-5.2) mmol/L Chloride 102 (98-107) mmol/L Carbon Dioxide 27 (22-30) mmol/L Anion Gap 11 (10-20) BUN 6 L (7-17) mg/dL Creatinine 0.4 L (0.7-1.2) mg/dL Est GFR ( Amer) > 60 Est GFR (Non-Af Amer) > 60 Random Glucose 90 (65-105) mg/dL Calcium 9.3 (8.6-10.4) mg/dl Phosphorus 3.9 (2.5-4.5) mg/dL Magnesium 1.6 (1.6-2.3) mg/dL Total Bilirubin 0.8 (0.2-1.3) mg/dL AST 50 H (14-36) U/L ALT 47 (9-52) U/L Alkaline Phosphatase 39 (38-126) U/L Total Protein 5.8 L (6.3-8.3) g/dL Albumin 3.4 L (3.5-5.0) g/dL Globulin 2.4 (2.2-3.9) gm/dL Albumin/Globulin Ratio 1.4 (1.0-2.1) Free T4 1.60 (0.78-2.19) ng/dL TSH 3rd Generation 1.77 (0.46-4.68) mIU/L Laboratory Results - last 24 hr 06/18/18 06/18/18 06/18/18 06:22 06:22 06:22 WBC 7.2 RBC 3.98 Hgb 14.0 Hct 41.2 MCV 103.5 H MCH 35.2 H MCHC 34.1 RDW 14.8 H Plt Count 217 MPV 10.2 Neut % (Auto) 53.6 Lymph % (Auto) 29.5 [place] % (Auto) 11.5 H Eos % (Auto) 4.1 H Baso % (Auto) 1.3 Neut # (Auto) 3.9 Lymph # (Auto) 2.1 [place] # (Auto) 0.8 Eos # (Auto) 0.3 Baso # (Auto) 0.1 Sodium 136 Potassium 4.2 Chloride 102 Carbon Dioxide 27 Anion Gap 11 BUN 6 L Creatinine 0.4 L Est GFR ( Amer) > 60 Est GFR (Non-Af Amer) > 60 Random Glucose 90 Calcium 9.3 Phosphorus 3.9 Magnesium 1.6 Total Bilirubin 0.8 AST 50 H ALT 47 Alkaline Phosphatase 39 Total Protein 5.8 L Albumin 3.4 L Globulin 2.4 Albumin/Globulin Ratio 1.4 Free T4 1.60 TSH 3rd Generation 1.77 EKG/Cardiology Studies: Cardiology / EKG Studies 06/18/18 11:41 EKG [ELECTROCARDIOGRAM] Stat Comment: Mode Of Transportation: Reason For Exam: tachycardia Critical Care Progress Note - Nutrition Nutrition: Nutrition Category Date Time Status Heart Healthy Diet [DIET] Diets 06/15/18 Lunch Active Assessment/Plan - Assessment and Plan (Free Text) Plan: Patient seen and examined at bedside. PAtient is being managed by neurology team for neuropathy. seen and examiend at bedside with resident. -Suspect polyneuropthy with autonomic dysfunction -orthostatic, check cortisol -start oral midodrine and lopressor -Patient's mental status improved. -Paresthesis of "sole of feets" only: symptomatic treatment with oral gabapentin -PT/OT -Patient refused to walk 2nd "tingling" at sole of feet. -control symptomatic paresthesia -neurology input appreciated -multiple work up for polyneuropathy pending, including metal screening. - Date & Time Date: 06/17/18 Time: 19:00
[2018-06-17 07:21] LABS: HEPATITIS C ANTIBODY NEGATIVE (NEGATIVE)
[2018-06-17] MEDS: Multiple Vitamins Tab PO SCH (09:39)
[2018-06-17] MEDS: Pantoprazole 20 mg EC Tab PO SCH (09:39)
[2018-06-17] MEDS: Saccharomyces Boulardi 250 mg Cap PO SCH ×2 (09:41→17:53)
[2018-06-17] MEDS: Enoxaparin 40 mg Syringe SC SCH (09:41)
[2018-06-17] MEDS ORDERED: Multiple Vitamins Oral Solution PO SCH (10:00)
[2018-06-17] MEDS ORDERED: Sodium Chloride 0.9% 1,000 ML IV ONE ×2 (10:10→10:45)
--- NOTE | 2018-06-17 12:51 | CP.PCM.PN ---
Subjective - Date & Time of Evaluation Date of Evaluation: 06/17/18 Time of Evaluation: 15:20 - Subjective Subjective: Neurology Follow-Up Note: Mrs. Pinzon evaluated in the ICU with Dr. Villalba. Pt was oob to chair and family at bedside. ROS and exam limited as the pt is very drowsy today and unable to follow commands. Per RN Janet, pt was given gabapentin 300mg po bid as ordered by primary team. Objective - Vital Signs/Intake and Output Vital Signs (last 24 hours): Temp Pulse Resp BP Pulse Ox 98.6 F 124 H 27 H 101/70 99 06/17/18 08:00 06/17/18 10:10 06/17/18 10:10 06/17/18 10:10 06/17/18 09:54 Intake and Output: 06/17/18 06/17/18 06:59 18:59 Intake Total 890 1319 Output Total 1200 300 Balance -310 1019 - Medications Medications: Current Medications Cyanocobalamin (Vitamin B12 1000 Mcg/Ml Inj) 1,000 mcg IM Q7D [facility] Last Admin: 06/16/18 17:49 Dose: 1,000 mcg Enoxaparin Sodium (Lovenox) 40 mg SC DAILY [facility] Last Admin: 06/17/18 09:41 Dose: 40 mg Ergocalciferol (Drisdol 50,000 Intl Units Cap) 1 cap PO Q7D [facility] Last Admin: 06/13/18 10:35 Dose: 1 cap Folic Acid (Folic Acid) 1 mg PO DAILY [facility] Last Admin: 06/17/18 09:39 Dose: 1 mg Gabapentin (Neurontin) 300 mg PO BID [facility] Last Admin: 06/17/18 09:43 Dose: 300 mg Midodrine (Proamatine) 2.5 mg PO TID [facility] Multivitamins (Hexavitamin) 1 tab PO DAILY [facility] Last Admin: 06/17/18 09:39 Dose: 1 tab Ondansetron HCl (Zofran Inj) 4 mg IVP DAILY@ONCE PRN PRN Reason: Nausea/Vomiting Last Admin: 06/13/18 08:43 Dose: 4 mg Pantoprazole Sodium (Protonix Ec Tab) 20 mg PO DAILY [facility] Last Admin: 06/17/18 09:39 Dose: 20 mg Saccharomyces Boulardii (Florastor) 250 mg PO BID [facility] Last Admin: 06/17/18 09:41 Dose: 250 mg Sennosides (Senokot Tab) 8.6 mg PO BID PRN PRN Reason: Constipation Thiamine HCl (Vitamin B1 Tab) 100 mg PO DAILY [facility] Last Admin: 06/17/18 09:39 Dose: 100 mg Zinc Sulfate (Zinc Sulfate 220 Mg Cap) 220 mg PO DAILY [facility] Last Admin: 06/17/18 09:39 Dose: 220 mg - Labs Labs: 06/17/18 05:49 06/17/18 05:49 PT 12.3 SECONDS (9.7-12.2) H 06/07/18 17:57 INR 1.1 06/07/18 17:57 APTT 35 SECONDS (21-34) H 06/07/18 17:57 - Constitutional Appears: No Acute Distress (drowsy) - Head Exam Head Exam: ATRAUMATIC, NORMAL INSPECTION, NORMOCEPHALIC - Eye Exam Additional comments: difficulty assessing EOMI 2/2 pt drowsy and unable to follow commands - ENT Exam ENT Exam: Mucous Membranes Moist - Neck Exam Neck Exam: Normal Inspection - Respiratory Exam Respiratory Exam: NORMAL BREATHING PATTERN - Extremities Exam Additional comments: difficulty assessing rom 2/2 pt drowsy and unable to follow commands - Neurological Exam Additional comments: difficulty assessing neuro 2/2 pt drowsy and unable to follow commands she is arousable to touch and verbal stimuli but cannot follow commands - Psychiatric Exam Additional comments: drowsy - Skin Skin Exam: Normal Color Assessment and Plan (1) Weakness of limb Assessment & Plan: Mrs. Pinzon is here for extremity weakness; unlikely due to MG as her ant ibodies are negative. 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 At this time we are still waiting on all microbiology and patho results, such as [place]ile. Pt has already completed 3 rounds of plasmpharesis and tolerated well and seems to be improving. At this time, we recommend: -Continuing ICU monitoring; may consider steroids vs IVIG in several days depending on patient's condition and improvement. -Continue to hold Mestinon as antibodies are not indicative of MG. -Repeat MRI of T-spine and L spine with contrast reviewed with Dr. Villalba. -PT/OT -We recommend decreasing Gabapentin to 100 mg PO HS as pt is too drowsy during the day with current regimen and she cannot engage in a neuro assessment. -We will continue to follow up with the pt. Patient seen and case discussed with Dr. Villalba Status: Acute
--- NOTE | 2018-06-17 21:52 | CP.PCM.PN ---
Subjective - Date & Time of Evaluation Date of Evaluation: 06/17/18 Time of Evaluation: 19:00 - Subjective Subjective: Medical Attending Note: patient seen and examined at bedside this evening with sister at bedside. patient reports she felt very drowsy with the gabapentin this morning and did not like the feeling. patient reports she is doing better than initially. She feels like she is improving during PT. Objective - Vital Signs/Intake and Output Vital Signs (last 24 hours): Temp Pulse Resp BP Pulse Ox 98.3 F 104 H 18 123/75 99 06/17/18 20:00 06/17/18 20:01 06/17/18 20:01 06/17/18 20:01 06/17/18 20:01 Intake and Output: 06/17/18 06/18/18 18:59 06:59 Intake Total 1762 120 Output Total 950 Balance 812 120 - Medications Medications: Current Medications Cyanocobalamin (Vitamin B12 1000 Mcg/Ml Inj) 1,000 mcg IM Q7D [facility] Last Admin: 06/16/18 17:49 Dose: 1,000 mcg Enoxaparin Sodium (Lovenox) 40 mg SC DAILY [facility] Last Admin: 06/17/18 09:41 Dose: 40 mg Ergocalciferol (Drisdol 50,000 Intl Units Cap) 1 cap PO Q7D [facility] Last Admin: 06/13/18 10:35 Dose: 1 cap Folic Acid (Folic Acid) 1 mg PO DAILY [facility] Last Admin: 06/17/18 09:39 Dose: 1 mg Gabapentin (Neurontin) 100 mg PO HS [facility] Metoprolol Tartrate (Lopressor) 12.5 mg PO Q12 [facility] Midodrine (Proamatine) 2.5 mg PO TID [facility] Last Admin: 06/17/18 17:53 Dose: 2.5 mg Multivitamins (Hexavitamin) 1 tab PO DAILY [facility] Last Admin: 06/17/18 09:39 Dose: 1 tab Ondansetron HCl (Zofran Inj) 4 mg IVP DAILY@ONCE PRN PRN Reason: Nausea/Vomiting Last Admin: 06/13/18 08:43 Dose: 4 mg Pantoprazole Sodium (Protonix Ec Tab) 20 mg PO DAILY [facility] Last Admin: 06/17/18 09:39 Dose: 20 mg Pyridoxine HCl (Vitamin B6 50 Mg Tab) 50 mg PO DAILY [facility] Saccharomyces Boulardii (Florastor) 250 mg PO BID [facility] Last Admin: 06/17/18 17:53 Dose: 250 mg Sennosides (Senokot Tab) 8.6 mg PO BID PRN PRN Reason: Constipation Thiamine HCl (Vitamin B1 Tab) 100 mg PO DAILY [facility] Last Admin: 06/17/18 09:39 Dose: 100 mg Zinc Sulfate (Zinc Sulfate 220 Mg Cap) 220 mg PO DAILY [facility] Last Admin: 06/17/18 09:39 Dose: 220 mg - Labs Labs: 06/17/18 05:49 06/17/18 05:49 PT 12.3 SECONDS (9.7-12.2) H 06/07/18 17:57 INR 1.1 06/07/18 17:57 APTT 35 SECONDS (21-34) H 06/07/18 17:57 - Constitutional Appears: Non-toxic - Head Exam Head Exam: NORMAL INSPECTION - Eye Exam Eye Exam: EOMI - ENT Exam ENT Exam: Mucous Membranes Moist - Respiratory Exam Respiratory Exam: Clear to Ausculation Bilateral, NORMAL BREATHING PATTERN. absent: Rales, Rhonchi, Wheezes - Cardiovascular Exam Cardiovascular Exam: Tachycardia, +S1, +S2 - GI/Abdominal Exam GI & Abdominal Exam: Soft, Normal Bowel Sounds. 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 (3) History of gastric bypass Status: Acute (4) Peripheral neuropathy Status: Acute (5) Weakness of limb Status: Acute (6) Brain lesion Status: Acute (7) Prophylactic measure Status: Acute Attending/Attestation - Attestation I have personally seen and examined this patient.: Yes I have fully participated in the care of the patient.: Yes I have reviewed all pertinent clinical information, including history, physical exam and plan: Yes Notes (Text): 06/17/18 21:44 1) Upper and lower extremity weakness with decreased FVC 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 Villalba on case help appreciated * Hematology Dr. Maria on case help appreciated * Infectious disease Dr Ng on case-->help appreciated * Blood cultures: no growth after 5 days X2 * Psych (Dr. Snyder) on case-->help appreciated * s/p LP 06/08/18 * CT head June 08 no acute hemorrhage mass effect or shift * Cervical MRI from June 08 showing shucking of the cervical spine mild reversal of the normal lordosis which could be due to muscle spasm or patient positioning. No evidence of spinal neural foraminal narrowing. * Lumbar MRI: No evidence of significant spinal or neural foraminal narrowing. Conus medullaris is normal in size and shape. Small posterior disc protrusion L5-S1 without evidence of significant spinal neural foraminal narrowing. Mild L5-S1 degenerative disc changes. * Last MRI also no evidence of spinal stenosis foraminal fat foraminal narrowing no evidence of mass lesion or abnormal signal. * CT chest: Right-sided PICC extends the right atrium. Markedly heterogeneous abnormal appearance of the liver with a 2.7 x 2.5 heterogeneous hyperdense masses in the left hepatic lobe worrisome for malignant neoplasm. Cholelithiasis. High density focus of nondependent portion of the gallbladder alternatives including polyp or neoplasm can't be excluded. * Thymoma not noted on CT chest will order a neck to rule out. * Brain MRI (06/09/18): limited but definitive abnormalitis identified at the left frontal lobe and right pontomedullary junction comprise of a 4mm enhanci ng lesion right pontomedullary junction and nonenhancing inferior left fronal lobe lesions. * Discussed with ICU ptosis has resolved June 09. * Patient to undergo 3 sessions of plasmapheresis * Patient have third session 06/13/18 * f/u neurology to see if warrant IVIG (Dr. Hanks) in 1 week to assessed * Patient ruled out for myasthenia gravis. Patient underwent thoracic and lumbar MRI with contrast 06/16/18 . Unremarkable pre-and postcontrast enhanced MRI of the thoracic spine. Multilevel degenerative facet arthropathy and degenerative spondylosis L5-S1 level. No evidence. No evidence of abnormal enhancement. * Consideration for conversion disorder. Psychiatry seen 06/16/18. Patient's about 4 months ago. * Discussed with psychiatry 06/17/18 appears to be improving from his standpoint * Patient started on per dose thickening bromide 180 mg by mouth every 6H but d/c 06/16/18 * CSF: no growth after 4 days * T pallidum: nonreactive * Lyme bands: negative/ Lyme negative * [place]: not detected * HSV igM: negative * Acetylcholine Recept: 6 (<32%) * OCHOA: negative * F/U Musk Qn Titer Ab Test * Methymalonic Acid: normal * B12: normal * F/U Acetylcholine Ab: negative * RPR is NON-reactive * HIV 1 & 2 is negative * Influenza is negative * Monitor FVC * Discussed with RT: 1.57, 1.51 * heavy metals sent today 2). Hypodense lesion in left lobe liver that was concerning for neoplasm. * Confirmed with ICU resident Marco Vazquez, they followed up for the imaging noted for hemangioma. Therefore consult IR was canceled. Paperwork is in the chart of copy of imaging in the chart 3). Prior history of gastric bypass surgery * Check vitamin B1, B6, B12, vitamin D, A, and E * Thyroid within normal * B12 over thousand, was receiving B12 supplementation as outpatient * Folate acid normal * Shlomo: normal * Zinc Sulfate 220mg PO daily * Thaimine 100mg PO daily * Start Vitamin B 6 daily * MVI 1 tab PO daily * Vitamin B 12 1000mcg IM Q7 day (started 06/16/18) 4) prior alcohol use 5) urine positive * We'll start Rocephin 1 g IV daily to cover for urine culture (06/11-06/16) * Restart UA/urine culture (06/16/18): no growth 6) vitamin D Deficiency * Vitamin D <12.8 * Vitamin D 50,000 IU /week for 8-12 weeks 7) megaloblastic elevated MCV * Both B12 and folate are normal * patient receiving B12 supplementation 8) tachycardia * unclear why? * Check TSH, Free T4 * Check echocardiogram 9. Orthostatic Hypotension * midodrine 2.5mg PO tid 10) prophylactic measure * Protonix 20 mg by mouth daily * Lovenox 40mg sub daily * continue PT/OT * Latest PT: acute rehab *
[2018-06-18 06:33] LABS: BASO # 0.1 K/uL (0.0-0.2); BASO % 1.3 % (0.0-2.0); EOS # 0.3 K/uL (0.0-0.7); EOS % 4.1 % (0.0-4.0); LYMPH # 2.1 K/uL (1.0-4.3); LYMPH % 29.5 % (20.0-40.0); MEAN CELL VOLUME 103.5 fL (81.0-99.0); MEAN CORPUSCULAR HEMOGLOBIN 35.2 pg (27.0-31.0); MEAN CORPUSCULAR HGB CONC 34.1 g/dL (33.0-37.0); MEAN PLATELET VOLUME 10.2 fL (7.2-11.7); MONO # 0.8 K/uL (0.0-0.8); MONO % 11.5 % (0.0-10.0); NEUT # 3.9 K/uL (1.8-7.0); NEUT % 53.6 % (50.0-75.0); NRBC % 0.1 % (0.0-2.0); RBC 3.98 Mil/uL (3.80-5.20); RED CELL DISTRIBUTION WIDTH 14.8 % (11.5-14.5); WHITE BLOOD COUNT 7.2 K/uL (4.8-10.8)
[2018-06-18 07:08] LABS: ALB/GLOB RATIO 1.4 (1.0-2.1); ALBUMIN 3.4 g/dL (3.5-5.0); ALT/SGPT 47 U/L (9-52); AST/SGOT 50 U/L (14-36); BLOOD UREA NITROGEN 6 mg/dL (7-17); CALCIUM 9.3 mg/dl (8.6-10.4); GFR NON-AFRICAN AMERICAN > 60
--- NOTE | 2018-06-18 07:54 | CP.CCUPN ---
<ChristianodirkKong - Last Filed: 06/18/18 10:05> CCU Subjective - Physician Review Subjective (Free Text): 06/18/18 10:06 Kong Avila PGY1 Progress Note for Dr. Roberto Sanon Pt was examined at bedside this morning. She reports gradual improvement in her weakness and fatigue, and was able to stand with PT yesterday but not walk. She reports persistence of her sensory deficits in feet b/l, but improvement in the parasthesias in her hands b/l. She denies any headache, shortness of breath, chest pain, abdominal pain, diarrhea, dysuria. CCU Objective - Vital Signs / Intake & Output Vital Signs (Last 4 hours): Vital Signs Temp Pulse Resp BP Pulse Ox 06/18/18 07:00 106 H 13 138/108 H 99 06/18/18 06:34 107 H 13 125/101 H 98 06/18/18 06:00 128 H 21 149/110 H 99 06/18/18 05:00 107 H 19 145/113 H 06/18/18 04:00 98.2 F 102 H 19 157/103 H Intake and Output (Last 8hrs): Intake & Output 06/17/18 06/18/18 06/18/18 22:59 06:59 14:59 Intake Total 395 Output Total 200 300 0 Balance 195 -300 0 Weight 116 lb 9.992 oz Intake: Oral 395 Output: Urine 200 300 0 Urine, Voided 200 300 0 Other: # Voids Urine, Voided 1 1 # Bowel Movements 0 - Physical Exam Head: Positive for: Atraumatic, Normocephalic Pupils: Positive for: PERRL Extroacular Muscles: Positive for: EOMI Conjunctiva: Positive for: Normal Mouth: Positive for: Moist Mucous Membranes Neck: Positive for: Normal Range of Motion Respiratory/Chest: Positive for: Clear to Auscultation, Good Air Exchange. Negative for: Respiratory Distress, Accessory Muscle Use, Wheezes, Rales, Retracting, Rhonchi Cardiovascular: Positive for: Normal S1, S2, Tachycardic Abdomen: Positive for: Normal Bowel Sounds. Negative for: Tenderness, Distention, Peritoneal Signs, Rebound, Guarding, Mass/Organomegaly Upper Extremity: Positive for: Normal Inspection, NORMAL PULSES, Capillary Refill < 2s, Other (poor hand health promoter, poor motor strength 4/5 b/l UE). Negative for: Cyanosis, Edema, Tenderness, Swelling Lower Extremity: Positive for: Normal Inspection, NORMAL PULSES, Capillary Refill < 2 s, Other (Decreased sensation b/l LE, motor strength 3/5 b/l LE). Negative for: Edema, CALF TENDERNESS, Cyanosis, Swelling Neurological: Positive for: CN II-XII Intact, Speech Normal, Other (RUE: 4/5 strength, LUE: 5/5 strength, no sensory deficits in b/l UE. RLE: 4/5 strength, LLE: 5/5 strength). Negative for: Normal Sensory Function Skin: Positive for: Warm, Dry, Normal Color. Negative for: Rashes Psychiatric: Positive for: Alert, Oriented x 3 - Medications Active Medications: Active Medications Generic Name Dose Route Start Last Admin Trade Name Freq PRN Reason Stop Dose Admin Cyanocobalamin 1,000 mcg 06/16/18 18:00 06/16/18 17:49 Vitamin B12 1000 Mcg/Ml Inj IM 1,000 mcg Q7D [facility] Administration Enoxaparin Sodium 40 mg 06/13/18 10:00 06/17/18 09:41 Lovenox SC 40 mg DAILY [facility] Administration Ergocalciferol 1 cap 06/13/18 10:00 06/13/18 10:35 Drisdol 50,000 Intl Units Cap PO 1 cap Q7D [facility] Administration Folic Acid 1 mg 06/17/18 10:00 06/17/18 09:39 Folic Acid PO 1 mg DAILY [facility] Administration Gabapentin 100 mg 06/18/18 22:00 Neurontin PO HS [facility] Metoprolol Tartrate 12.5 mg 06/18/18 10:00 Lopressor PO Q12 [facility] Midodrine 2.5 mg 06/17/18 14:00 06/17/18 17:53 Proamatine PO 2.5 mg TID [facility] Administration Multivitamins 1 tab 06/17/18 10:00 06/17/18 09:39 Hexavitamin PO 1 tab DAILY [facility] Administration Ondansetron HCl 4 mg 06/08/18 17:30 06/13/18 08:43 Zofran Inj IVP 4 mg DAILY@ONCE PRN Administration Nausea/Vomiting Pantoprazole Sodium 20 mg 06/08/18 10:00 06/17/18 09:39 Protonix Ec Tab PO 20 mg DAILY [facility] Administration Pyridoxine HCl 50 mg 06/18/18 10:00 Vitamin B6 50 Mg Tab PO DAILY [facility] Saccharomyces Boulardii 250 mg 06/11/18 10:00 06/17/18 17:53 Florastor PO 250 mg BID [facility] Administration Sennosides 8.6 mg 06/13/18 17:19 Senokot Tab PO BID PRN Constipation Thiamine HCl 100 mg 06/17/18 10:00 06/17/18 09:39 Vitamin B1 Tab PO 100 mg DAILY [facility] Administration Zinc Sulfate 220 mg 06/17/18 10:00 06/17/18 09:39 Zinc Sulfate 220 Mg Cap PO 220 mg DAILY [facility] Administration - Patient Studies Lab Studies: Lab Studies 06/18/18 06/18/18 06/18/18 Range/Units 06:22 06:22 06:22 WBC 7.2 (4.8-10.8) K/uL RBC 3.98 (3.80-5.20) Mil/uL Hgb 14.0 (11.0-16.0) g/dL Hct 41.2 (34.0-47.0) % MCV 103.5 H (81.0-99.0) fL MCH 35.2 H (27.0-31.0) pg MCHC 34.1 (33.0-37.0) g/dL RDW 14.8 H (11.5-14.5) % Plt Count 217 (130-400) K/uL MPV 10.2 (7.2-11.7) fL Neut % (Auto) 53.6 (50.0-75.0) % Lymph % (Auto) 29.5 (20.0-40.0) % [place] % (Auto) 11.5 H (0.0-10.0) % Eos % (Auto) 4.1 H (0.0-4.0) % Baso % (Auto) 1.3 (0.0-2.0) % Neut # (Auto) 3.9 (1.8-7.0) K/uL Lymph # (Auto) 2.1 (1.0-4.3) K/uL [place] # (Auto) 0.8 (0.0-0.8) K/uL Eos # (Auto) 0.3 (0.0-0.7) K/uL Baso # (Auto) 0.1 (0.0-0.2) K/uL Sodium 136 (132-148) mmol/L Potassium 4.2 (3.6-5.2) mmol/L Chloride 102 (98-107) mmol/L Carbon Dioxide 27 (22-30) mmol/L Anion Gap 11 (10-20) BUN 6 L (7-17) mg/dL Creatinine 0.4 L (0.7-1.2) mg/dL Est GFR ( Amer) > 60 Est GFR (Non-Af Amer) > 60 Random Glucose 90 (65-105) mg/dL Calcium 9.3 (8.6-10.4) mg/dl Phosphorus 3.9 (2.5-4.5) mg/dL Magnesium 1.6 (1.6-2.3) mg/dL Total Bilirubin 0.8 (0.2-1.3) mg/dL AST 50 H (14-36) U/L ALT 47 (9-52) U/L Alkaline Phosphatase 39 (38-126) U/L Total Protein 5.8 L (6.3-8.3) g/dL Albumin 3.4 L (3.5-5.0) g/dL Globulin 2.4 (2.2-3.9) gm/dL Albumin/Globulin Ratio 1.4 (1.0-2.1) Free T4 1.60 (0.78-2.19) ng/dL TSH 3rd Generation 1.77 (0.46-4.68) mIU/L Cortisol AM Sample (4.46-22.7) ug/dL 06/17/18 Range/Units 10:46 WBC (4.8-10.8) K/uL RBC (3.80-5.20) Mil/uL Hgb (11.0-16.0) g/dL Hct (34.0-47.0) % MCV (81.0-99.0) fL MCH (27.0-31.0) pg MCHC (33.0-37.0) g/dL RDW (11.5-14.5) % Plt Count (130-400) K/uL MPV (7.2-11.7) fL Neut % (Auto) (50.0-75.0) % Lymph % (Auto) (20.0-40.0) % [place] % (Auto) (0.0-10.0) % Eos % (Auto) (0.0-4.0) % Baso % (Auto) (0.0-2.0) % Neut # (Auto) (1.8-7.0) K/uL Lymph # (Auto) (1.0-4.3) K/uL [place] # (Auto) (0.0-0.8) K/uL Eos # (Auto) (0.0-0.7) K/uL Baso # (Auto) (0.0-0.2) K/uL Sodium (132-148) mmol/L Potassium (3.6-5.2) mmol/L Chloride (98-107) mmol/L Carbon Dioxide (22-30) mmol/L Anion Gap (10-20) BUN (7-17) mg/dL Creatinine (0.7-1.2) mg/dL Est GFR ( Amer) Est GFR (Non-Af Amer) Random Glucose (65-105) mg/dL Calcium (8.6-10.4) mg/dl Phosphorus (2.5-4.5) mg/dL Magnesium (1.6-2.3) mg/dL Total Bilirubin (0.2-1.3) mg/dL AST (14-36) U/L ALT (9-52) U/L Alkaline Phosphatase (38-126) U/L Total Protein (6.3-8.3) g/dL Albumin (3.5-5.0) g/dL Globulin (2.2-3.9) gm/dL Albumin/Globulin Ratio (1.0-2.1) Free T4 (0.78-2.19) ng/dL TSH 3rd Generation (0.46-4.68) mIU/L Cortisol AM Sample 9.7 (4.46-22.7) ug/dL Laboratory Results - last 24 hr 06/17/18 06/18/18 06/18/18 10:46 06:22 06:22 WBC 7.2 RBC 3.98 Hgb 14.0 Hct 41.2 MCV 103.5 H MCH 35.2 H MCHC 34.1 RDW 14.8 H Plt Count 217 MPV 10.2 Neut % (Auto) 53.6 Lymph % (Auto) 29.5 [place] % (Auto) 11.5 H Eos % (Auto) 4.1 H Baso % (Auto) 1.3 Neut # (Auto) 3.9 Lymph # (Auto) 2.1 [place] # (Auto) 0.8 Eos # (Auto) 0.3 Baso # (Auto) 0.1 Sodium 136 Potassium 4.2 Chloride 102 Carbon Dioxide 27 Anion Gap 11 BUN 6 L Creatinine 0.4 L Est GFR ( Amer) > 60 Est GFR (Non-Af Amer) > 60 Random Glucose 90 Calcium 9.3 Phosphorus 3.9 Magnesium 1.6 Total Bilirubin 0.8 AST 50 H ALT 47 Alkaline Phosphatase 39 Total Protein 5.8 L Albumin 3.4 L Globulin 2.4 Albumin/Globulin Ratio 1.4 Free T4 TSH 3rd Generation 1.77 Cortisol AM Sample 9.7 06/18/18 06:22 WBC RBC Hgb Hct MCV MCH MCHC RDW Plt Count MPV Neut % (Auto) Lymph % (Auto) [place] % (Auto) Eos % (Auto) Baso % (Auto) Neut # (Auto) Lymph # (Auto) [place] # (Auto) Eos # (Auto) Baso # (Auto) Sodium Potassium Chloride Carbon Dioxide Anion Gap BUN Creatinine Est GFR ( Amer) Est GFR (Non-Af Amer) Random Glucose Calcium Phosphorus Magnesium Total Bilirubin AST ALT Alkaline Phosphatase Total Protein Albumin Globulin Albumin/Globulin Ratio Free T4 1.60 TSH 3rd Generation Cortisol AM Sample Review of Systems - Review of Systems Review of Systems: as per [facility] Critical Care Progress Note - Nutrition Nutrition: Nutrition Category Date Time Status Heart Healthy Diet [DIET] Diets 06/15/18 Lunch Active Assessment/Plan - Assessment and Plan (Free Text) Assessment: 47 yo F with pmhx of gastric bypass (12 years ago), hysterectomy presenting with worsening b/l LE numbness/weakness, ataxia, b/l UE numbness x 3 weeks. Neurology on board, cause of pt symptoms not known at this time. Patient is s/p plasmapheresis x3. 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 - CT chest (06/09): 2.7 x 2.5 cm heterogeneous hyperdense mass noted in L hepatic lobe worrisome for malignant neoplasm. Cholelithiasis. High density focus noted on the nondependent portion of the gallbladder; alternatives including polyp or neoplasm can't be excluded. - MRI/CT abdomen reports from [facility] faxed over and placed in patient chart: liver lesion likely hemangioma - s/p plasmapheresis x3 - Multivitamins, Thiamine, Vitamin B12, Vitamin D, Folic acid daily - Gabapentin 100mg HS - Zinc sulfate 220mg PO QD - Neurology consulted, Dr. Villalba/Latonya - Heavy metal levels: f/u CV: Orthostatic hypotension - Midodrine 2.5mg PO TID - lopressor 12.5mg PO BID - improved Pulm: - stable, maintain spO2 >92% - FVC 1.81, improved Heme: Polycythemia - s/p plasmapheresis x3 - Heme/Onc consulted, Dr. Maria- recs appreciated GI: - protonix 20 daily - probiotics ID: UTI - UCx 06/09: + E.coli - BCx negative x5d, final - pt afebrile, hemodynamically stable - completed 3 days ceftriaxone 1g IV Ppx DVT: heparin GI: protonix Florastor Diet: advance bite size Pt seen and case reviewed with Dr. John Sanon <Elpidio Sanon - Last Filed: 06/18/18 14:20> CCU Objective - Vital Signs / Intake & Output Vital Signs (Last 4 hours): Vital Signs Pulse Resp BP Pulse Ox 06/18/18 13:03 97 H 13 105/76 06/18/18 12:30 111 H 06/18/18 12:00 92 H 15 126/94 H 06/18/18 11:07 109 H 20 123/86 06/18/18 11:00 96 H 13 92 L Intake and Output (Last 8hrs): Intake & Output 06/17/18 06/18/18 06/18/18 22:59 06:59 14:59 Intake Total 395 325 Output Total 200 300 400 Balance 195 -300 -75 Weight 116 lb 9.992 oz Intake: Oral 395 325 Output: Urine 200 300 400 Urine, Voided 200 300 400 Other: # Voids Urine, Voided 1 1 1 # Bowel Movements 0 0 - Medications Active Medications: Active Medications Generic Name Dose Route Start Last Admin Trade Name Freq PRN Reason Stop Dose Admin Cyanocobalamin 1,000 mcg 06/16/18 18:00 06/16/18 17:49 Vitamin B12 1000 Mcg/Ml Inj IM 1,000 mcg Q7D [facility] Administration Enoxaparin Sodium 40 mg 06/13/18 10:00 06/18/18 10:40 Lovenox SC 40 mg DAILY [facility] Administration Ergocalciferol 1 cap 06/13/18 10:00 06/13/18 10:35 Drisdol 50,000 Intl Units Cap PO 1 cap Q7D [facility] Administration Folic Acid 1 mg 06/17/18 10:00 06/18/18 10:39 Folic Acid PO 1 mg DAILY [facility] Administration Gabapentin 100 mg 06/18/18 22:00 Neurontin PO HS [facility] Metoprolol Tartrate 12.5 mg 06/18/18 10:30 06/18/18 10:42 Lopressor PO 12.5 mg Q12 [facility] Administration Midodrine 2.5 mg 06/17/18 14:00 06/18/18 10:39 Proamatine PO 2.5 mg TID [facility] Administration Multivitamins 1 tab 06/17/18 10:00 06/18/18 10:39 Hexavitamin PO 1 tab DAILY [facility] Administration Ondansetron HCl 4 mg 06/08/18 17:30 06/13/18 08:43 Zofran Inj IVP 4 mg DAILY@ONCE PRN Administration Nausea/Vomiting Pantoprazole Sodium 20 mg 06/08/18 10:00 06/18/18 10:40 Protonix Ec Tab PO 20 mg DAILY [facility] Administration Pyridoxine HCl 50 mg 06/18/18 10:00 06/18/18 10:40 Vitamin B6 50 Mg Tab PO 50 mg DAILY [facility] Administration Saccharomyces Boulardii 250 mg 06/11/18 10:00 06/18/18 10:39 Florastor PO 250 mg BID [facility] Administration Sennosides 8.6 mg 06/13/18 17:19 Senokot Tab PO BID PRN Constipation Thiamine HCl 100 mg 06/17/18 10:00 06/18/18 10:40 Vitamin B1 Tab PO 100 mg DAILY [facility] Administration Zinc Sulfate 220 mg 06/17/18 10:00 06/18/18 10:39 Zinc Sulfate 220 Mg Cap PO 220 mg DAILY [facility] Administration - Patient Studies Lab Studies: Lab Studies 06/18/18 06/18/18 06/18/18 Range/Units 06:22 06:22 06:22 WBC 7.2 (4.8-10.8) K/uL RBC 3.98 (3.80-5.20) Mil/uL Hgb 14.0 (11.0-16.0) g/dL Hct 41.2 (34.0-47.0) % MCV 103.5 H (81.0-99.0) fL MCH 35.2 H (27.0-31.0) pg MCHC 34.1 (33.0-37.0) g/dL RDW 14.8 H (11.5-14.5) % Plt Count 217 (130-400) K/uL MPV 10.2 (7.2-11.7) fL Neut % (Auto) 53.6 (50.0-75.0) % Lymph % (Auto) 29.5 (20.0-40.0) % [place] % (Auto) 11.5 H (0.0-10.0) % Eos % (Auto) 4.1 H (0.0-4.0) % Baso % (Auto) 1.3 (0.0-2.0) % Neut # (Auto) 3.9 (1.8-7.0) K/uL Lymph # (Auto) 2.1 (1.0-4.3) K/uL [place] # (Auto) 0.8 (0.0-0.8) K/uL Eos # (Auto) 0.3 (0.0-0.7) K/uL Baso # (Auto) 0.1 (0.0-0.2) K/uL Sodium 136 (132-148) mmol/L Potassium 4.2 (3.6-5.2) mmol/L Chloride 102 (98-107) mmol/L Carbon Dioxide 27 (22-30) mmol/L Anion Gap 11 (10-20) BUN 6 L (7-17) mg/dL Creatinine 0.4 L (0.7-1.2) mg/dL Est GFR ( Amer) > 60 Est GFR (Non-Af Amer) > 60 Random Glucose 90 (65-105) mg/dL Calcium 9.3 (8.6-10.4) mg/dl Phosphorus 3.9 (2.5-4.5) mg/dL Magnesium 1.6 (1.6-2.3) mg/dL Total Bilirubin 0.8 (0.2-1.3) mg/dL AST 50 H (14-36) U/L ALT 47 (9-52) U/L Alkaline Phosphatase 39 (38-126) U/L Total Protein 5.8 L (6.3-8.3) g/dL Albumin 3.4 L (3.5-5.0) g/dL Globulin 2.4 (2.2-3.9) gm/dL Albumin/Globulin Ratio 1.4 (1.0-2.1) Free T4 1.60 (0.78-2.19) ng/dL TSH 3rd Generation 1.77 (0.46-4.68) mIU/L Laboratory Results - last 24 hr 06/18/18 06/18/18 06/18/18 06:22 06:22 06:22 WBC 7.2 RBC 3.98 Hgb 14.0 Hct 41.2 MCV 103.5 H MCH 35.2 H MCHC 34.1 RDW 14.8 H Plt Count 217 MPV 10.2 Neut % (Auto) 53.6 Lymph % (Auto) 29.5 [place] % (Auto) 11.5 H Eos % (Auto) 4.1 H Baso % (Auto) 1.3 Neut # (Auto) 3.9 Lymph # (Auto) 2.1 [place] # (Auto) 0.8 Eos # (Auto) 0.3 Baso # (Auto) 0.1 Sodium 136 Potassium 4.2 Chloride 102 Carbon Dioxide 27 Anion Gap 11 BUN 6 L Creatinine 0.4 L Est GFR ( Amer) > 60 Est GFR (Non-Af Amer) > 60 Random Glucose 90 Calcium 9.3 Phosphorus 3.9 Magnesium 1.6 Total Bilirubin 0.8 AST 50 H ALT 47 Alkaline Phosphatase 39 Total Protein 5.8 L Albumin 3.4 L Globulin 2.4 Albumin/Globulin Ratio 1.4 Free T4 1.60 TSH 3rd Generation 1.77 EKG/Cardiology Studies: Cardiology / EKG Studies 06/18/18 11:41 EKG [ELECTROCARDIOGRAM] Stat Comment: Mode Of Transportation: Reason For Exam: tachycardia Critical Care Progress Note - Nutrition Nutrition: Nutrition Category Date Time Status Heart Healthy Diet [DIET] Diets 06/15/18 Lunch Active Assessment/Plan - Assessment and Plan (Free Text) Plan: Patient feeling better. -Patient remains hemodynamically stable. -continue to monitor - Date & Time Date: 06/18/18 Time: 14:20
[2018-06-18] MEDS: Saccharomyces Boulardi 250 mg Cap PO SCH ×2 (10:39→17:59)
[2018-06-18] MEDS: Multiple Vitamins Tab PO SCH (10:39)
[2018-06-18] MEDS: Pantoprazole 20 mg EC Tab PO SCH (10:40)
[2018-06-18] MEDS: Enoxaparin 40 mg Syringe SC SCH (10:40)
--- NOTE | 2018-06-18 15:55 | CP.PCM.PN ---
Subjective - Date & Time of Evaluation Date of Evaluation: 06/18/18 Time of Evaluation: 15:54 - Subjective Subjective: Neurology Follow-Up Note: Mrs. Pinzon evaluated this afternoon in the ICU with Dr. Villalba. Today she is awake and alert compared to yesterday. Admits to improving weakness to extremities. Denies any acute complaints or new symptoms. Objective - Vital Signs/Intake and Output Vital Signs (last 24 hours): Temp Pulse Resp BP Pulse Ox 98.2 F 93 H 17 117/90 99 06/18/18 12:00 06/18/18 14:32 06/18/18 14:32 06/18/18 14:32 06/18/18 12:00 Intake and Output: 06/18/18 06/18/18 06:59 18:59 Intake Total 120 375 Output Total 300 650 Balance -180 -275 - Medications Medications: Current Medications Cyanocobalamin (Vitamin B12 1000 Mcg/Ml Inj) 1,000 mcg IM Q7D [facility] Last Admin: 06/16/18 17:49 Dose: 1,000 mcg Enoxaparin Sodium (Lovenox) 40 mg SC DAILY [facility] Last Admin: 06/18/18 10:40 Dose: 40 mg Ergocalciferol (Drisdol 50,000 Intl Units Cap) 1 cap PO Q7D [facility] Last Admin: 06/13/18 10:35 Dose: 1 cap Folic Acid (Folic Acid) 1 mg PO DAILY [facility] Last Admin: 06/18/18 10:39 Dose: 1 mg Gabapentin (Neurontin) 100 mg PO [facility] Metoprolol Tartrate (Lopressor) 12.5 mg PO Q12 [facility] Last Admin: 06/18/18 10:42 Dose: 12.5 mg Midodrine (Proamatine) 2.5 mg PO TID [facility] Last Admin: 06/18/18 14:28 Dose: 2.5 mg Multivitamins (Hexavitamin) 1 tab PO DAILY [facility] Last Admin: 06/18/18 10:39 Dose: 1 tab Ondansetron HCl (Zofran Inj) 4 mg IVP DAILY@ONCE PRN PRN Reason: Nausea/Vomiting Last Admin: 06/13/18 08:43 Dose: 4 mg Pantoprazole Sodium (Protonix Ec Tab) 20 mg PO DAILY [facility] Last Admin: 06/18/18 10:40 Dose: 20 mg Pyridoxine HCl (Vitamin B6 50 Mg Tab) 50 mg PO DAILY [facility] Last Admin: 06/18/18 10:40 Dose: 50 mg Saccharomyces Boulardii (Florastor) 250 mg PO BID [facility] Last Admin: 06/18/18 10:39 Dose: 250 mg Sennosides (Senokot Tab) 8.6 mg PO BID PRN PRN Reason: Constipation Thiamine HCl (Vitamin B1 Tab) 100 mg PO DAILY [facility] Last Admin: 06/18/18 10:40 Dose: 100 mg Zinc Sulfate (Zinc Sulfate 220 Mg Cap) 220 mg PO DAILY [facility] Last Admin: 06/18/18 10:39 Dose: 220 mg - Labs Labs: 06/18/18 06:22 06/18/18 06:22 PT 12.3 SECONDS (9.7-12.2) H 06/07/18 17:57 INR 1.1 06/07/18 17:57 APTT 35 SECONDS (21-34) H 06/07/18 17:57 - Constitutional Appears: Well, Non-toxic, No Acute Distress - Head Exam Head Exam: ATRAUMATIC, NORMAL INSPECTION, NORMOCEPHALIC - Eye Exam Eye Exam: EOMI, Normal appearance, PERRL Pupil Exam: PERRL - ENT Exam ENT Exam: Mucous Membranes Moist - Neck Exam Neck Exam: Full ROM - Respiratory Exam Respiratory Exam: NORMAL BREATHING PATTERN - Extremities Exam Extremities Exam: absent: Calf Tenderness, Pedal Edema - Neurological Exam Neurological Exam: Alert, Awake, Oriented x3. absent: Normal Gait Additional comments: Speech clear and fluid No facial asymmetry Strength to all extremities 4/5 today Sensory intact; hypersensitive to BLE noted by Dr. Villalba on exam - Psychiatric Exam Psychiatric exam: Normal Affect, Normal Mood - Skin Skin Exam: Normal Color Assessment and Plan (1) Weakness of limb Assessment & Plan: Mrs. Pinzon is here for extremity weakness; unlikely due to MG as her antibodie s are negative. May possibly be a post-infectious disease process or CIDP. At this time we are still waiting for CSF results for herpes and west nile. Pt has already completed 3 rounds of plasmpharesis and tolerated well and seems to be improving. At this time, we recommend: -May be downgraded from ICU -We may consider steroids vs IVIG in several days depending on patient's condition and improvement. -Continue to hold Mestinon as antibodies are not indicative of MG. -Repeat MRI of T-spine and L spine with contrast reviewed with Dr. Villalba. -Continue PT/OT -Continue Gabapentin to 100 mg PO HS. -We will continue to follow up with the pt. Patient seen and case discussed with Dr. Villalba Status: Acute
--- NOTE | 2018-06-18 15:56 | CP.PCM.PN ---
Subjective - Date & Time of Evaluation Date of Evaluation: 06/18/18 Time of Evaluation: 15:49 - Subjective Subjective: HOSPITALIST SERVICE Pt seen and examined at bedside. pt denies CP SOB FC NV. Pt still complains of persistent fatigue and weakness, allodynia. Pt feels that her original symptoms have improved significantly. Seen with Dr Villalba neurologist who recommeded 3 day IVIG course, along with outpatient EMG studies, Pt understands and agrees with plan. Objective - Vital Signs/Intake and Output Vital Signs (last 24 hours): Temp Pulse Resp BP Pulse Ox 98.2 F 93 H 17 117/90 99 06/18/18 12:00 06/18/18 14:32 06/18/18 14:32 06/18/18 14:32 06/18/18 12:00 Intake and Output: 06/18/18 06/18/18 06:59 18:59 Intake Total 120 375 Output Total 300 650 Balance -180 -275 - Medications Medications: Current Medications Cyanocobalamin (Vitamin B12 1000 Mcg/Ml Inj) 1,000 mcg IM Q7D [facility] Last Admin: 06/16/18 17:49 Dose: 1,000 mcg Enoxaparin Sodium (Lovenox) 40 mg SC DAILY [facility] Last Admin: 06/18/18 10:40 Dose: 40 mg Ergocalciferol (Drisdol 50,000 Intl Units Cap) 1 cap PO Q7D [facility] Last Admin: 06/13/18 10:35 Dose: 1 cap Folic Acid (Folic Acid) 1 mg PO DAILY [facility] Last Admin: 06/18/18 10:39 Dose: 1 mg Gabapentin (Neurontin) 100 mg PO HS [facility] Metoprolol Tartrate (Lopressor) 12.5 mg PO Q12 [facility] Last Admin: 06/18/18 10:42 Dose: 12.5 mg Midodrine (Proamatine) 2.5 mg PO TID [facility] Last Admin: 06/18/18 14:28 Dose: 2.5 mg Multivitamins (Hexavitamin) 1 tab PO DAILY [facility] Last Admin: 06/18/18 10:39 Dose: 1 tab Ondansetron HCl (Zofran Inj) 4 mg IVP DAILY@ONCE PRN PRN Reason: Nausea/Vomiting Last Admin: 06/13/18 08:43 Dose: 4 mg Pantoprazole Sodium (Protonix Ec Tab) 20 mg PO DAILY [facility] Last Admin: 06/18/18 10:40 Dose: 20 mg Pyridoxine HCl (Vitamin B6 50 Mg Tab) 50 mg PO DAILY [facility] Last Admin: 06/18/18 10:40 Dose: 50 mg Saccharomyces Boulardii (Florastor) 250 mg PO BID [facility] Last Admin: 06/18/18 10:39 Dose: 250 mg Sennosides (Senokot Tab) 8.6 mg PO BID PRN PRN Reason: Constipation Thiamine HCl (Vitamin B1 Tab) 100 mg PO DAILY [facility] Last Admin: 06/18/18 10:40 Dose: 100 mg Zinc Sulfate (Zinc Sulfate 220 Mg Cap) 220 mg PO DAILY [facility] Last Admin: 06/18/18 10:39 Dose: 220 mg - Labs Labs: 06/18/18 06:22 06/18/18 06:22 PT 12.3 SECONDS (9.7-12.2) H 06/07/18 17:57 INR 1.1 06/07/18 17:57 APTT 35 SECONDS (21-34) H 06/07/18 17:57 - Additional Findings Additional findings: Head: Positive for: Atraumatic, Normocephalic Pupils: Positive for: PERRL Extroacular Muscles: Positive for: EOMI Conjunctiva: Positive for: Normal Mouth: Positive for: Moist Mucous Membranes Neck: Positive for: Normal Range of Motion Respiratory/Chest: Positive for: Clear to Auscultation, Good Air Exchange. Negative for: Respiratory Distress, Accessory Muscle Use, Wheezes, Rales, Retracting, Rhonchi Cardiovascular: Positive for: Normal S1, S2, Tachycardic Abdomen: Positive for: Normal Bowel Sounds. Negative for: Tenderness, Distention, Peritoneal Signs, Rebound, Guarding, Mass/Organomegaly Upper Extremity: Positive for: Normal Inspection, NORMAL PULSES, Capillary Refill < 2s, Other (poor hand director long term care, poor motor strength 4/5 b/l UE). Negative for: Cyanosis, Edema, Tenderness, Swelling Lower Extremity: Positive for: Normal Inspection, NORMAL PULSES, Capillary Refill < 2 s, Other (Decreased sensation b/l LE, motor strength 3/5 b/l LE). Negative for: Edema, CALF TENDERNESS, Cyanosis, Swelling Neurological: Positive for: CN II-XII Intact, Speech Normal, Other (RUE: 4/5 strength, LUE: 5/5 strength, no sensory deficits in b/l UE. RLE: 4/5 strength, LLE: 5/5 strength). Negative for: Normal Sensory Function Pincer grasps intact bilaterally Extensor Hallicus strength intact bilaterally Skin: Positive for: Warm, Dry, Normal Color. 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 Neurology on board, cause of pt symptoms not known at this time. Patient is s/p plasmapheresis x3. To get IVIG 3 day course starting today Plan: Complex Inflammatory Demyelinating Polyneuropathy - LE motor weakness w/ sensory deficits - s/p lumbar tap: CSF total protein wnl - vitamin B12 > 1000 - Folate wnl - Homocysteine 18.4 - Anti-Ach receptor antibodies negative - RPR, HIV, HSV, [place], lyme negative - MRI C/T/L spine series: no acute findings - MRI brain w/contrast: 4 mm enhancing lesion in R pontomedullary junction and nonenhancing inferior L frontal lobe lesion. - CT chest (06/09): 2.7 x 2.5 cm heterogeneous hyperdense mass noted in L hepatic lobe worrisome for malignant neoplasm. Cholelithiasis. High density focus noted on the nondependent portion of the gallbladder; alternatives including polyp or neoplasm can't be excluded. - MRI/CT abdomen reports from [facility] faxed over and placed in patient chart: liver lesion likely hemangioma - s/p plasmapheresis x3 - Multivitamins, Thiamine, Vitamin B12, Vitamin D, Folic acid daily - Gabapentin 100mg HS - Zinc sulfate 220mg PO QD - Neurology consulted, Dr. Villalba/Latonya IVIG @ 23mg/hr- 3 day course Outpt EMG/NCV -Heme/Onc consulted, Dr Maria Pre medicated before IVIG treatment Solumedrol 100mg IVP Benadryl 25mg IVP Pepcid 20mg IVP Tylenol 650mg stat - Heavy metal levels: f/u Orthostatic hypotension - Midodrine 2.5mg PO TID - lopressor 12.5mg PO BID - improved Polycythemia - s/p plasmapheresis x3 - Heme/Onc consulted, Dr. Maria- recs appreciated UTI - UCx 06/09: + E.coli - BCx negative x5d, final - pt afebrile, hemodynamically stable - completed 3 days ceftriaxone 1g IV Ppx DVT: heparin GI: protonix Florastor Diet: advance bite size Pt seen and case reviewed with Dr. Israel
[2018-06-18] MEDS ORDERED: DiphenhydrAMINE 50 mg/ml Inj IVP ONE (16:30)
[2018-06-18] MEDS: DiphenhydrAMINE 50 mg/ml Inj IVP SCH (20:43)
--- NOTE | 2018-06-18 21:15 | CARD ---
APPROVED REPORT Date of service: 06/18/2018 EXAM: Two-dimensional and M-mode echocardiogram with Doppler and color Doppler. Other Information Quality : GoodRhythm : Tachycardia INDICATION Leg Weakness 2D DIMENSIONS IVSd0.8 (0.7-1.1cm)LVDd2.9 (3.9-5.9cm) PWd0.7 (0.7-1.1cm)LA Jhmkye53 (18-58mL) LVDs1.8 (2.5-4.0cm)FS (%) 36.6 % LVEF (%)68.2 (>50%)LVEF (Fitch's)61.93 % M-Mode DIMENSIONS Left Atrium (MM)2.38 (2.5-4.0cm)IVSd0.68 (0.7-1.1cm) Aortic Root2.71 (2.2-3.7cm)LVDd3.72 (4.0-5.6cm) Aortic Cusp Exc.1.83 (1.5-2.0cm)PWd0.63 (0.7-1.1cm) FS (%) 38 %LVDs2.31 (2.0-3.8cm) LVEF (%)69 (>50%) Mitral Valve MV E Fouyvxfo68.8cm/sMV A Pascplwc84.1cm/sE/A ratio0.8 TDI Lateral E' Peak V8.55cm/sMedial E' Peak V7.71cm/sE/Lateral E'5.6 E/Medial E'6.2 Tricuspid Valve TR Peak [id number] Peak [id number] <Conclusion> Left ventricle: thickness: normal; size: normal; overall ejection fraction: 65%: diastolic filling pressures: normal Mitral valve: annulus: normal: leaflets: normal: excursion: normal; no significant trans-mitral gradient: mild incompetence: left atrium: normal Aortic valve: leaflets: calcific thickening: excursion: normal; no significant trans-aortic gradient: No significant incompetence: aortic root: normal Right sided Structures: Pulmonary valve: normal;mild incompetence; Tricuspid valve: normal; mild incompetence: Intra-cardiac hemodynamics: pulmonary systolic pressures: normal; central venous pressures: normal No pericardial effusion
[2018-06-18] MEDS: Immune Globulin 50 MG/ML (OCTAGAM 5%) 10 GM/200 ML IV SCH (21:46)
[2018-06-19 06:26] LABS: BASO % 0.3 % (0.0-2.0); HEMOGLOBIN 14.1 g/dL (11.0-16.0); LYMPH # 0.8 K/uL (1.0-4.3); LYMPH % 11.8 % (20.0-40.0); MEAN CORPUSCULAR HEMOGLOBIN 34.4 pg (27.0-31.0); MEAN CORPUSCULAR HGB CONC 33.9 g/dL (33.0-37.0); MEAN PLATELET VOLUME 9.7 fL (7.2-11.7); MONO # 0.1 K/uL (0.0-0.8); MONO % 1.6 % (0.0-10.0); NEUT # 5.7 K/uL (1.8-7.0); NEUT % 86.3 % (50.0-75.0); NRBC % 0.1 % (0.0-2.0); RBC 4.08 Mil/uL (3.80-5.20); RED CELL DISTRIBUTION WIDTH 14.6 % (11.5-14.5); WHITE BLOOD COUNT 6.6 K/uL (4.8-10.8)
[2018-06-19 06:30] LABS: MEAN CELL VOLUME 101.5 fL (81.0-99.0)
[2018-06-19 06:39] LABS: ALBUMIN 3.8 g/dL (3.5-5.0); ALT/SGPT 47 U/L (9-52); AST/SGOT 42 U/L (14-36); BLOOD UREA NITROGEN 5 mg/dL (7-17); CALCIUM 9.6 mg/dl (8.6-10.4); GFR NON-AFRICAN AMERICAN > 60
[2018-06-19] MEDS: Pantoprazole 20 mg EC Tab PO SCH (10:39)
[2018-06-19] MEDS: Multiple Vitamins Tab PO SCH (10:39)
[2018-06-19] MEDS: Saccharomyces Boulardi 250 mg Cap PO SCH ×2 (10:40→18:12)
[2018-06-19] MEDS: Enoxaparin 40 mg Syringe SC SCH (10:40)
[2018-06-19] MEDS ORDERED: Magnesium Sulfate 1 gm in D5W 1 GM/100 ML BAG IVPB ONE (13:27)
--- NOTE | 2018-06-19 18:39 | CP.PCM.PN ---
Subjective - Date & Time of Evaluation Date of Evaluation: 06/19/18 Time of Evaluation: 09:10 - Subjective Subjective: Medicine progress note Patient seen and examined at bedside. She reports of feeling less fatigue. Patient is aware of her IVIG treatment plan. Patient denies fever, chill, shortness of breath, chest pain, nausea or vomiting. Objective - Vital Signs/Intake and Output Vital Signs (last 24 hours): Temp Pulse Resp BP Pulse Ox 98.0 F 103 H 20 103/71 97 06/19/18 15:52 06/19/18 16:00 06/19/18 15:52 06/19/18 15:52 06/19/18 15:52 Intake and Output: 06/19/18 06/19/18 06:59 18:59 Intake Total 784 Output Total 1000 Balance -216 - Medications Medications: Current Medications Acetaminophen (Tylenol 325mg Tab) 650 mg PO DAILY@2029 [facility] Stop: 06/20/18 20:31 Last Admin: 06/18/18 20:42 Dose: 650 mg Cyanocobalamin (Vitamin B12 1000 Mcg/Ml Inj) 1,000 mcg IM Q7D [facility] Last Admin: 06/16/18 17:49 Dose: 1,000 mcg Diphenhydramine HCl (Benadryl) 25 mg IVP DAILY@2029 [facility] Stop: 06/20/18 20:31 Last Admin: 06/18/18 20:43 Dose: 25 mg Enoxaparin Sodium (Lovenox) 40 mg SC DAILY [facility] Last Admin: 06/19/18 10:40 Dose: 40 mg Ergocalciferol (Drisdol 50,000 Intl Units Cap) 1 cap PO Q7D [facility] Last Admin: 06/13/18 10:35 Dose: 1 cap Famotidine (Pepcid) 20 mg IVP DAILY@2029 [facility] Stop: 06/20/18 20:31 Last Admin: 06/18/18 20:43 Dose: 20 mg Folic Acid (Folic Acid) 1 mg PO DAILY [facility] Last Admin: 06/19/18 10:40 Dose: 1 mg Gabapentin (Neurontin) 100 mg PO HS [facility] Last Admin: 06/18/18 21:46 Dose: 100 mg Immune Globulin (Octagam 5%) 30 gm IV DAILY@2100 [facility] Stop: 06/20/18 21:01 Last Admin: 06/18/18 21:46 Dose: 30 gm Methylprednisolone (Solu-Medrol) 100 mg IVP DAILY@2030 [facility] Stop: 06/20/18 20:31 Last Admin: 06/18/18 20:43 Dose: 100 mg Metoprolol Tartrate (Lopressor) 12.5 mg PO Q12 [facility] Last Admin: 06/19/18 10:39 Dose: 12.5 mg Midodrine (Proamatine) 2.5 mg PO TID [facility] Last Admin: 06/19/18 18:12 Dose: 2.5 mg Multivitamins (Hexavitamin) 1 tab PO DAILY [facility] Last Admin: 06/19/18 10:39 Dose: 1 tab Ondansetron HCl (Zofran Inj) 4 mg IVP DAILY@ONCE PRN PRN Reason: Nausea/Vomiting Last Admin: 06/13/18 08:43 Dose: 4 mg Pantoprazole Sodium (Protonix Ec Tab) 20 mg PO DAILY [facility] Last Admin: 06/19/18 10:39 Dose: 20 mg Pyridoxine HCl (Vitamin B6 50 Mg Tab) 50 mg PO DAILY [facility] Last Admin: 06/19/18 10:39 Dose: 50 mg Saccharomyces Boulardii (Florastor) 250 mg PO BID [facility] Last Admin: 06/19/18 18:12 Dose: 250 mg Sennosides (Senokot Tab) 8.6 mg PO BID PRN PRN Reason: Constipation Thiamine HCl (Vitamin B1 Tab) 100 mg PO DAILY [facility] Last Admin: 06/19/18 10:39 Dose: 100 mg Zinc Sulfate (Zinc Sulfate 220 Mg Cap) 220 mg PO DAILY [facility] Last Admin: 06/19/18 10:39 Dose: 220 mg - Labs Labs: 06/19/18 06:08 06/19/18 06:08 PT 12.3 SECONDS (9.7-12.2) H 06/07/18 17:57 INR 1.1 06/07/18 17:57 APTT 35 SECONDS (21-34) H 06/07/18 17:57 - Constitutional Appears: Well, No Acute Distress - Head Exam Head Exam: ATRAUMATIC, NORMAL INSPECTION, NORMOCEPHALIC - Eye Exam Eye Exam: EOMI, Normal appearance, PERRL - ENT Exam ENT Exam: Mucous Membranes Moist - Neck Exam Neck Exam: Normal Inspection - Respiratory Exam Respiratory Exam: Clear to Ausculation Bilateral, NORMAL BREATHING PATTERN. absent: Wheezes, Respiratory Distress - Cardiovascular Exam Cardiovascular Exam: REGULAR RHYTHM, +S1, +S2. absent: Murmur - GI/Abdominal Exam GI & Abdominal Exam: Soft, Normal Bowel Sounds. absent: Tenderness - Extremities Exam Extremities Exam: Full ROM, Normal Capillary Refill. absent: Joint Swelling Additional comments: bilateral UE strength 4/5, bilateral LE strength 3/5 with decreased sensation - Neurological Exam Neurological Exam: Alert, Awake, Oriented x3 - Psychiatric Exam Psychiatric exam: Normal Affect, Normal Mood - Skin Skin Exam: Dry, Intact, Normal Color, Warm Assessment and Plan - Assessment and Plan (Free Text) Assessment: Complex Inflammatory Demyelinating Polyneuropathy - LE motor weakness w/ sensory deficits - s/p lumbar tap: CSF total protein wnl - vitamin B12 > 1000 - Folate wnl - Homocysteine 18.4 - Anti-Ach receptor antibodies negative - RPR, HIV, HSV, [place], lyme negative - MRI C/T/L spine series: no acute findings - MRI brain w/contrast: 4 mm enhancing lesion in R pontomedullary junction and nonenhancing inferior L frontal lobe lesion. - CT chest (06/09): 2.7 x 2.5 cm heterogeneous hyperdense mass noted in L hepatic lobe worrisome for malignant neoplasm. Cholelithiasis. High density focus noted on the nondependent portion of the gallbladder; alternatives including polyp or neoplasm can't be excluded. - MRI/CT abdomen reports [place] [facility] [place] faxed over and placed in patient chart: liver lesion likely hemangioma - s/p plasmapheresis x3 - Multivitamins, Thiamine, Vitamin B12, Vitamin D, Folic acid daily - Gabapentin 100mg HS - Zinc sulfate 220mg PO QD - Neurology consulted, Dr. Villalba/Latonya IVIG @ 23mg/hr- 3 day course Outpt EMG/NCV -Heme/Onc consulted, Dr Maria Pre medicated before IVIG treatment Solumedrol 100mg IVP Benadryl 25mg IVP Pepcid 20mg IVP Tylenol 650mg stat - Heavy metal levels: copper level normal - PT/OT Orthostatic hypotension - Midodrine 2.5mg PO TID - lopressor 12.5mg PO BID - improved Polycythemia - s/p plasmapheresis x3 - Heme/Onc consulted, Dr. Maria- recs appreciated UTI - UCx 06/09: + E.coli - BCx negative x5d, final - pt afebrile, hemodynamically stable - completed 3 days ceftriaxone 1g IV Ppx DVT: heparin GI: protonix Florastor Diet: advance bite size
[2018-06-19] MEDS: DiphenhydrAMINE 50 mg/ml Inj IVP SCH (20:42)
[2018-06-19] MEDS: Immune Globulin 50 MG/ML (OCTAGAM 5%) 10 GM/200 ML IV SCH (21:52)
--- NOTE | 2018-06-19 23:40 | CP.PCM.PN ---
Subjective - Date & Time of Evaluation Date of Evaluation: 06/19/18 Time of Evaluation: 14:00 - Subjective Subjective: Patient si quite storng today, awaiting first IVIG treatment. Objective - Vital Signs/Intake and Output Vital Signs (last 24 hours): Temp Pulse Resp BP Pulse Ox 98.0 F 103 H 20 103/71 97 06/19/18 15:52 06/19/18 16:00 06/19/18 15:52 06/19/18 15:52 06/19/18 15:52 - Medications Medications: Current Medications Acetaminophen (Tylenol 325mg Tab) 650 mg PO DAILY@2029 [facility] Stop: 06/20/18 20:31 Last Admin: 06/19/18 20:42 Dose: 650 mg Cyanocobalamin (Vitamin B12 1000 Mcg/Ml Inj) 1,000 mcg IM Q7D [facility] Last Admin: 06/16/18 17:49 Dose: 1,000 mcg Diphenhydramine HCl (Benadryl) 25 mg IVP DAILY@2029 [facility] Stop: 06/20/18 20:31 Last Admin: 06/19/18 20:42 Dose: 25 mg Enoxaparin Sodium (Lovenox) 40 mg SC DAILY [facility] Last Admin: 06/19/18 10:40 Dose: 40 mg Ergocalciferol (Drisdol 50,000 Intl Units Cap) 1 cap PO Q7D [facility] Last Admin: 06/13/18 10:35 Dose: 1 cap Famotidine (Pepcid) 20 mg IVP DAILY@2029 [facility] Stop: 06/20/18 20:31 Last Admin: 06/19/18 20:42 Dose: 20 mg Folic Acid (Folic Acid) 1 mg PO DAILY [facility] Last Admin: 06/19/18 10:40 Dose: 1 mg Gabapentin (Neurontin) 100 mg PO HS [facility] Last Admin: 06/19/18 22:04 Dose: 100 mg Immune Globulin (Octagam 5%) 30 gm IV DAILY@2099 [facility] Stop: 06/20/18 21:01 Last Admin: 06/19/18 21:52 Dose: 30 gm Methylprednisolone (Solu-Medrol) 100 mg IVP DAILY@2029 [facility] Stop: 06/20/18 20:31 Last Admin: 06/19/18 20:42 Dose: 100 mg Metoprolol Tartrate (Lopressor) 12.5 mg PO Q12 [facility] Last Admin: 06/19/18 22:04 Dose: 12.5 mg Midodrine (Proamatine) 2.5 mg PO TID [facility] Last Admin: 06/19/18 18:12 Dose: 2.5 mg Multivitamins (Hexavitamin) 1 tab PO DAILY [facility] Last Admin: 06/19/18 10:39 Dose: 1 tab Ondansetron HCl (Zofran Inj) 4 mg IVP DAILY@ONCE PRN PRN Reason: Nausea/Vomiting Last Admin: 06/13/18 08:43 Dose: 4 mg Pantoprazole Sodium (Protonix Ec Tab) 20 mg PO DAILY [facility] Last Admin: 06/19/18 10:39 Dose: 20 mg Pyridoxine HCl (Vitamin B6 50 Mg Tab) 50 mg PO DAILY [facility] Last Admin: 06/19/18 10:39 Dose: 50 mg Saccharomyces Boulardii (Florastor) 250 mg PO BID [facility] Last Admin: 06/19/18 18:12 Dose: 250 mg Sennosides (Senokot Tab) 8.6 mg PO BID PRN PRN Reason: Constipation Thiamine HCl (Vitamin B1 Tab) 100 mg PO DAILY [facility] Last Admin: 06/19/18 10:39 Dose: 100 mg Zinc Sulfate (Zinc Sulfate 220 Mg Cap) 220 mg PO DAILY [facility] Last Admin: 06/19/18 10:39 Dose: 220 mg - Labs Labs: 06/19/18 06:08 06/19/18 06:08 PT 12.3 SECONDS (9.7-12.2) H 06/07/18 17:57 INR 1.1 06/07/18 17:57 APTT 35 SECONDS (21-34) H 06/07/18 17:57
[2018-06-20 08:26] LABS: BASO % 0.6 % (0.0-2.0); HEMOGLOBIN 13.7 g/dL (11.0-16.0); LYMPH % 13.7 % (20.0-40.0); MEAN CELL VOLUME 103.2 fL (81.0-99.0); MEAN CORPUSCULAR HEMOGLOBIN 35.1 pg (27.0-31.0); MEAN PLATELET VOLUME 9.7 fL (7.2-11.7); MONO # 0.2 K/uL (0.0-0.8); MONO % 3.2 % (0.0-10.0); NEUT # 5.8 K/uL (1.8-7.0); NEUT % 82.5 % (50.0-75.0); NRBC % 0.2 % (0.0-2.0); RBC 3.89 Mil/uL (3.80-5.20); RED CELL DISTRIBUTION WIDTH 14.6 % (11.5-14.5)
[2018-06-20 08:34] LABS: ALB/GLOB RATIO 0.9 (1.0-2.1); ALBUMIN 3.9 g/dL (3.5-5.0); ALT/SGPT 57 U/L (9-52); AST/SGOT 50 U/L (14-36); BLOOD UREA NITROGEN 9 mg/dL (7-17); CALCIUM 9.7 mg/dl (8.6-10.4); GFR NON-AFRICAN AMERICAN > 60
[2018-06-20] MEDS: Enoxaparin 40 mg Syringe SC SCH (10:00)
[2018-06-20] MEDS: Ergocalciferol 50,000 Intl Units Cap PO SCH (10:00)
[2018-06-20] MEDS: Saccharomyces Boulardi 250 mg Cap PO SCH ×2 (10:00→17:38)
[2018-06-20] MEDS: Pantoprazole 20 mg EC Tab PO SCH (10:00)
[2018-06-20] MEDS: Multiple Vitamins Tab PO SCH (10:01)
[2018-06-20] MEDS: Magnesium Sulfate 1 gm in D5W 1 GM/100 ML BAG IVPB SCH ×2 (10:01→10:38)
--- NOTE | 2018-06-20 10:04 | CP.PCM.PN ---
Subjective - Date & Time of Evaluation Date of Evaluation: 06/20/18 Time of Evaluation: 09:50 - Subjective Subjective: Medical Attending Note: Patient seen and examined at bedside. Patient underwent her second IVIG last night. Patient denies acute complaints. Patient does not complain of tiredness/fatigue; reports the sensitivities in her palms and feet are less and she is gathering her strength. Patient to have her third/last IVIG treatment tonight. Objective - Vital Signs/Intake and Output Vital Signs (last 24 hours): Temp Pulse Resp BP Pulse Ox 98.0 F 93 H 18 130/90 97 06/20/18 07:00 06/20/18 08:00 06/20/18 07:00 06/20/18 07:00 06/20/18 07:00 Intake and Output: 06/20/18 06/20/18 06:59 18:59 Intake Total 774 Output Total 1150 Balance -376 - Medications Medications: Current Medications Acetaminophen (Tylenol 325mg Tab) 650 mg PO DAILY@2029 [facility] Stop: 06/20/18 20:31 Last Admin: 06/19/18 20:42 Dose: 650 mg Cyanocobalamin (Vitamin B12 1000 Mcg/Ml Inj) 1,[address] [facility] Last Admin: 06/16/18 17:49 Dose: 1,000 mcg Diphenhydramine HCl (Benadryl) 25 mg IVP DAILY@2029 [facility] Stop: 06/20/18 20:31 Last Admin: 06/19/18 20:42 Dose: 25 mg Enoxaparin Sodium (Lovenox) [address] [facility] Last Admin: 06/19/18 10:40 Dose: 40 mg Ergocalciferol (Drisdol 50,000 Intl Units Cap) [address] [facility] Last Admin: 06/13/18 10:35 Dose: 1 cap Famotidine (Pepcid) 20 mg IVP DAILY@2029 [facility] Stop: 06/20/18 20:31 Last Admin: 06/19/18 20:42 Dose: 20 mg Folic Acid (Folic Acid) [address] [facility] Last Admin: 06/19/18 10:40 Dose: 1 mg Gabapentin (Neurontin) [address] [facility] Last Admin: 06/19/18 22:04 Dose: 100 mg Magnesium Sulfate/Dextrose (Magnesium Sulfate 1 Gm/100 Ml D5w) 1 gm in 100 mls @ 200 mls/hr IVPB Q30M [facility] Stop: 06/20/18 10:59 Immune Globulin (Octagam 5%) 30 gm IV DAILY@2100 [facility] Stop: 06/20/18 21:01 Last Admin: 06/19/18 21:52 Dose: 30 gm Methylprednisolone (Solu-Medrol) 100 mg IVP DAILY@2030 [facility] Stop: 06/20/18 20:31 Last Admin: 06/19/18 20:42 Dose: 100 mg Metoprolol Tartrate (Lopressor) 12.[address] [facility] Last Admin: 06/19/18 22:04 Dose: 12.5 mg Midodrine (Proamatine) 2.[address] [facility] Last Admin: 06/19/18 18:12 Dose: 2.5 mg Multivitamins (Hexavitamin) [address] [facility] Last Admin: 06/19/18 10:39 Dose: 1 tab Ondansetron HCl (Zofran Inj) 4 mg IVP DAILY@ONCE PRN PRN Reason: Nausea/Vomiting Last Admin: 06/13/18 08:43 Dose: 4 mg Pantoprazole Sodium (Protonix Ec Tab) [address] [facility] Last Admin: 06/19/18 10:39 Dose: 20 mg Pyridoxine HCl (Vitamin B6 50 Mg Tab) [address] [facility] Last Admin: 06/19/18 10:39 Dose: 50 mg Saccharomyces Boulardii (Florastor) [address] [facility] Last Admin: 06/19/18 18:12 Dose: 250 mg Sennosides (Senokot Tab) 8.6 mg PO BID PRN PRN Reason: Constipation Thiamine HCl (Vitamin B1 Tab) [address] [facility] Last Admin: 06/19/18 10:39 Dose: 100 mg Zinc Sulfate (Zinc Sulfate 220 Mg Cap) [address] [facility] Last Admin: 06/19/18 10:39 Dose: 220 mg - Labs Labs: 06/20/18 08:07 06/20/18 08:07 PT 12.3 SECONDS (9.7-12.2) H 06/07/18 17:57 INR 1.1 06/07/18 17:57 APTT 35 SECONDS (21-34) H 06/07/18 17:57 - Constitutional Appears: Non-toxic, No Acute Distress - Head Exam Head Exam: NORMAL INSPECTION - Eye Exam Eye Exam: EOMI Pupil Exam: PERRL - ENT Exam ENT Exam: Mucous Membranes Moist - Respiratory Exam Respiratory Exam: Clear to Ausculation Bilateral, NORMAL BREATHING PATTERN. absent: Rales, Rhonchi, Wheezes - Cardiovascular Exam Cardiovascular Exam: REGULAR RHYTHM, +S1, +S2 - GI/Abdominal Exam GI & Abdominal Exam: Soft, Normal Bowel Sounds. absent: Distended, Firm, Guarding, Rigid, Tenderness, Rebound - Extremities Exam Extremities Exam: absent: Pedal Edema, Tenderness - Neurological Exam Neurological Exam: Alert, Awake, Oriented x3 Neuro motor strength exam: Left Upper Extremity: 5, Right Upper Extremity: 5, Left Lower Extremity: 3, Right Lower Extremity: 3 - Psychiatric Exam Psychiatric exam: Normal Mood Additional comments: right hand: mild contracture over the last two digits; sensation over brachoradialis improved b/l Patient able to flex at the knees at both lower extremities, patient is not crying while i though her palms and soles - Skin Skin Exam: Dry, Intact, Normal Color, Warm Assessment and Plan (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: Acute (3) Peripheral neuropathy Status: Acute (4) Weakness of limb Status: Acute (5) Prophylactic measure Status: Acute Attending/Attestation - Attestation I have personally seen and examined this patient.: Yes I have fully participated in the care of the patient.: Yes I have reviewed all pertinent clinical information, including history, physical exam and plan: Yes Notes (Text): 1) Upper and lower extremity weakness with decreased FVC 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 Villalba on case help appreciated * Hematology Dr. Maria on case help appreciated * Infectious disease Dr Ng on case-->help appreciated * Blood cultures: no growth after 5 days X2 * Psych (Dr. Snyder) on case-->help appreciated * s/p LP 06/08/18 * CT head June 08 no acute hemorrhage mass effect or shift * Cervical MRI from June 08 showing shucking of the cervical spine mild reversal of the normal lordosis which could be due to muscle spasm or patient positioning. No evidence of spinal neural foraminal narrowing. * Lumbar MRI: No evidence of significant spinal or neural foraminal narrowing. Conus medullaris is normal in size and shape. Small posterior disc protrusion L5-S1 without evidence of significant spinal neural foraminal narrowing. Mild L5-S1 degenerative disc changes. * Last MRI also no evidence of spinal stenosis foraminal fat foraminal narrowing no evidence of mass lesion or abnormal signal. * CT chest: Right-sided PICC extends the right atrium. Markedly heterogeneous abnormal appearance of the liver with a 2.7 x 2.5 heterogeneous hyperdense masses in the left hepatic lobe worrisome for malignant neoplasm. Cholelithiasis. High density focus of nondependent portion of the gallbladder alternatives including polyp or neoplasm can't be excluded. * Thymoma not noted on CT chest will order a neck to rule out. * Brain MRI (06/09/18): limited but definitive abnormalitis identified at the left frontal lobe and right pontomedullary junction comprise of a 4mm enhancing lesion right pontomedullary junction and nonenhancing inferior left fronal lobe lesions. * Discussed with ICU ptosis has resolved June 09. * Patient to undergo 3 sessions of plasmapheresis. Patient finished last session on 06/13/18. Patient premedicated for IVIG, first treatment started 06/18/18 evening. Patient to finish IVIG treatment tonight. Premedication: Benadryl, Solumedrol, Hydrocortisone, and Pepcid. * Patient ruled out for myasthenia gravis. Patient underwent thoracic and lumbar MRI with contrast 06/16/18 . Unremarkable pre-and postcontrast enhanced MRI of the thoracic spine. Multilevel degenerative facet arthropathy and degenerative spondylosis L5-S1 level. No evidence. No evidence of abnormal enhancement. * Consideration for conversion disorder. Psychiatry seen 06/16/18. Patient's about 4 months ago. * Discussed with psychiatry 06/17/18 appears to be improving from his standpoint * Patient started on per dose thickening bromide 180 mg by mouth every 6H but d/c 06/16/18 * CSF: no growth * T pallidum: nonreactive * Lyme bands: negative/ Lyme negative * West Nile: not detected * HSV igM: negative * Acetylcholine Recept: 6 (<32%) * OCHOA: negative * F/U Musk Qn Titer Ab Test-->was cancelled * Methymalonic Acid: normal * B12: normal * F/U Acetylcholine Ab: negative * RPR is NON-reactive * HIV 1 & 2 is negative * Influenza is negative * Pending heavy metal screen 2). Hypodense lesion in left lobe liver that was concerning for neoplasm. * Confirmed with ICU resident Marco Vazquez, they followed up for the imaging noted for hemangioma. Therefore consult IR was canceled. Paperwork is in the chart of copy of imaging in the chart 3). Prior history of gastric bypass surgery * Check vitamin B1, B6, B12, vitamin D, A, and E * Thyroid within normal * B12 over thousand, was receiving B12 supplementation as outpatient * Folate acid normal * Shlomo: normal * Zinc Sulfate 220mg PO daily * Thiamine 100mg PO daily * Start Vitamin B 6 daily * MVI 1 tab PO daily * Vitamin B 12 1000mcg IM Q7 day (started 06/16/18) 4) prior alcohol use 5) Urinary Tract Infection (Resolved) * Completed Rocephin 1 g IV daily to cover for urine culture (06/11-06/16) * Restart UA/urine culture (06/16/18): no growth * Patient is currently on perwick catheter 6) vitamin D Deficiency * Vitamin D <12.8 * Vitamin D 50,000 IU /week for 8-12 weeks (started 06/13/18) 7) megaloblastic elevated MCV * Both B12 and folate are normal * patient receiving B12 supplementation 8) Tachycardia * Related to autonomic? * Echocardiogram (06/18/18): left ventricle: thickness: normal, size: normal, overaal ejection fraction: 65%, diastolic filling pressures normal. further findings per report * Cortisol normal * TSH normal 9. Orthostatic Hypotension * midodrine 2.5mg PO tid 10. Transaminitis * hepatitis panel: negative 11. prophylactic measure * Protonix 20 mg by mouth daily * Lovenox 40mg sub daily * continue PT/OT * Latest PT: acute rehab * Case management: acute rehab re-eval
--- NOTE | 2018-06-20 13:53 | CP.PCM.PN ---
Subjective - Date & Time of Evaluation Date of Evaluation: 06/20/18 Time of Evaluation: 08:00 - Subjective Subjective: improving on IV IG Objective - Vital Signs/Intake and Output Vital Signs (last 24 hours): Temp Pulse Resp BP Pulse Ox 98.0 F 93 H 18 130/90 97 06/20/18 07:00 06/20/18 08:00 06/20/18 07:00 06/20/18 07:00 06/20/18 07:00 Intake and Output: 06/20/18 06/20/18 06:59 18:59 Intake Total 774 Output Total 1150 Balance -376 - Medications Medications: Current Medications Acetaminophen (Tylenol 325mg Tab) 650 mg PO DAILY@2029 [facility] Stop: 06/20/18 20:31 Last Admin: 06/19/18 20:42 Dose: 650 mg Cyanocobalamin (Vitamin B12 1000 Mcg/Ml Inj) 1,000 mcg IM Q7D [facility] Last Admin: 06/16/18 17:49 Dose: 1,000 mcg Diphenhydramine HCl (Benadryl) 25 mg IVP DAILY@2029 [facility] Stop: 06/20/18 20:31 Last Admin: 06/19/18 20:42 Dose: 25 mg Ergocalciferol (Drisdol 50,000 Intl Units Cap) 1 cap PO Q7D [facility] Last Admin: 06/20/18 10:00 Dose: 1 cap Famotidine (Pepcid) 20 mg IVP DAILY@2029 [facility] Stop: 06/20/18 20:31 Last Admin: 06/19/18 20:42 Dose: 20 mg Folic Acid (Folic Acid) 1 mg PO DAILY [facility] Last Admin: 06/20/18 10:00 Dose: 1 mg Gabapentin (Neurontin) 100 mg PO [facility] Last Admin: 06/19/18 22:04 Dose: 100 mg Immune Globulin (Octagam 5%) 30 gm IV DAILY@2099 [facility] Stop: 06/20/18 21:01 Last Admin: 06/19/18 21:52 Dose: 30 gm Methylprednisolone (Solu-Medrol) 100 mg IVP DAILY@2029 [facility] Stop: 06/20/18 20:31 Last Admin: 06/19/18 20:42 Dose: 100 mg Metoprolol Tartrate (Lopressor) 12.5 mg PO Q12 [facility] Last Admin: 06/20/18 10:00 Dose: 12.5 mg Midodrine (Proamatine) 2.5 mg PO TID [facility] Last Admin: 06/20/18 13:36 Dose: 2.5 mg Multivitamins (Hexavitamin) 1 tab PO DAILY [facility] Last Admin: 06/20/18 10:01 Dose: 1 tab Ondansetron HCl (Zofran Inj) 4 mg IVP DAILY@ONCE PRN PRN Reason: Nausea/Vomiting Last Admin: 06/13/18 08:43 Dose: 4 mg Pantoprazole Sodium (Protonix Ec Tab) 20 mg PO DAILY [facility] Last Admin: 06/20/18 10:00 Dose: 20 mg Pyridoxine HCl (Vitamin B6 50 Mg Tab) 50 mg PO DAILY [facility] Last Admin: 06/20/18 10:07 Dose: 50 mg Saccharomyces Boulardii (Florastor) 250 mg PO BID [facility] Last Admin: 06/20/18 10:00 Dose: 250 mg Sennosides (Senokot Tab) 8.6 mg PO BID PRN PRN Reason: Constipation Thiamine HCl (Vitamin B1 Tab) 100 mg PO DAILY [facility] Last Admin: 06/20/18 10:00 Dose: 100 mg Zinc Sulfate (Zinc Sulfate 220 Mg Cap) 220 mg PO DAILY [facility] Last Admin: 06/20/18 10:00 Dose: 220 mg - Labs Labs: 06/20/18 08:07 06/20/18 08:07 PT 12.3 SECONDS (9.7-12.2) H 06/07/18 17:57 INR 1.1 06/07/18 17:57 APTT 35 SECONDS (21-34) H 06/07/18 17:57 - Constitutional Appears: Non-toxic, Chronically Ill - Head Exam Head Exam: NORMOCEPHALIC - Eye Exam Eye Exam: absent: Scleral icterus - ENT Exam ENT Exam: Mucous Membranes Dry - Neck Exam Neck Exam: absent: Lymphadenopathy - Respiratory Exam Respiratory Exam: Decreased Breath Sounds - Cardiovascular Exam Cardiovascular Exam: REGULAR RHYTHM - GI/Abdominal Exam GI & Abdominal Exam: Distended, Soft - Rectal Exam Rectal Exam: Deferred - Extremities Exam Extremities Exam: absent: Pedal Edema - Back Exam Back Exam: absent: CVA tenderness (L), CVA tenderness (R) - Neurological Exam Neurological Exam: Alert, Awake, CN II-XII Intact - Psychiatric Exam Psychiatric exam: Normal Mood - Skin Skin Exam: Dry Assessment and Plan (1) Myasthenia gravis Status: Acute - Assessment and Plan (Free Text) Assessment: improving cont rx
[2018-06-20] MEDS: DiphenhydrAMINE 50 mg/ml Inj IVP SCH (20:43)
[2018-06-20] MEDS: Immune Globulin 50 MG/ML (OCTAGAM 5%) 10 GM/200 ML IV SCH (21:47)
[2018-06-21 07:14] LABS: BASO % 0.7 % (0.0-2.0); HEMOGLOBIN 12.9 g/dL (11.0-16.0); LYMPH # 0.9 K/uL (1.0-4.3); LYMPH % 14.6 % (20.0-40.0); MEAN CELL VOLUME 103.6 fL (81.0-99.0); MEAN CORPUSCULAR HEMOGLOBIN 35.3 pg (27.0-31.0); MEAN CORPUSCULAR HGB CONC 34.1 g/dL (33.0-37.0); MEAN PLATELET VOLUME 9.7 fL (7.2-11.7); MONO # 0.3 K/uL (0.0-0.8); NEUT # 4.8 K/uL (1.8-7.0); NEUT % 79.7 % (50.0-75.0); NRBC % 0.1 % (0.0-2.0); RBC 3.65 Mil/uL (3.80-5.20); RED CELL DISTRIBUTION WIDTH 14.8 % (11.5-14.5); WHITE BLOOD COUNT 6.1 K/uL (4.8-10.8)
[2018-06-21 07:46] LABS: ALB/GLOB RATIO 0.7 (1.0-2.1); ALBUMIN 3.4 g/dL (3.5-5.0); ALT/SGPT 53 U/L (9-52); AST/SGOT 63 U/L (14-36); BLOOD UREA NITROGEN 10 mg/dL (7-17); CALCIUM 9.1 mg/dl (8.6-10.4); GFR NON-AFRICAN AMERICAN > 60
[2018-06-21] MEDS: Pantoprazole 20 mg EC Tab PO SCH (11:13)
[2018-06-21] MEDS: Saccharomyces Boulardi 250 mg Cap PO SCH ×2 (11:14→17:32)
[2018-06-21] MEDS: Multiple Vitamins Tab PO SCH (11:14)
[2018-06-21] MEDS ORDERED: Magnesium Oxide 400 mg Tab UD PO ONE (13:30)
--- NOTE | 2018-06-21 14:38 | CP.PCM.DIS ---
Provider - Provider Date of Admission: 06/07/18 20:56 Attending physician: Eulalio Sanon MD Consults: 06/07/18 23:13 Case Management Referral Routine Comment: Physician Instructions: Reason For Exam: Reason for Referral: Discharge Planning 06/08/18 09:04 Hematology Oncology Consult Routine Comment: Consulting Provider: Salazar Maria Consulting Physician: Salazar Maria Reason for Consult: polycythemia, macocytosis 06/08/18 09:21 Physician Consult Routine Comment: Consulting Provider: Faisal Villalba Consulting Physician: Faisal Villalba Reason for Consult: b/l LE numbness/motor weakness, ataxic, r/o guillan-barre 06/10/18 12:47 Physician Consult Routine Comment: Consulting Provider: Irnieo Ng Consulting Physician: Irineo Ng Reason for Consult: worsening LE numbness/weakness, ddx MG(?) 06/15/18 14:37 Psychiatry Consult Routine Comment: Consulting Provider: Aston Snyder Consulting Physician: Aston Snyder Reason for Consult: pt with peripheral neuropathy x3 weeks with unclear dx 06/20/18 10:02 Case Management Referral Routine Comment: Physician Instructions: Reason For Exam: acute rehab eval Reason for Referral: Discharge Planning Time Spent in preparation of Discharge (in minutes): 45 Diagnosis - Discharge Diagnosis (1) Restless leg syndrome Status: Chronic (2) 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 (3) Multiple sclerosis Status: Chronic Comment: No definitive diagnosis (4) Conversion disorder Status: Acute Comment: 4 mo ago (5) Peripheral neuropathy Status: Chronic (6) Weakness of limb Status: Acute Hospital Course - Lab Results Lab Results: Micro Results 06/18/18 00:37 Naris MRSA Culture - Final MRSA NOT DETECTED 06/15/18 17:02 Urine,Catheterized Urine Culture - Final No Growth (<1,000 CFU/ML) 06/13/18 Unknown Stool Ova and Parasite Concentrate Exam - Final 06/08/18 17:30 Blood Blood Culture - Final NO GROWTH AFTER 5 DAYS 06/08/18 17:30 Blood Gram Stain - Final TEST NOT PERFORMED 06/08/18 17:00 Blood Blood Culture - Final NO GROWTH AFTER 5 DAYS 06/08/18 17:00 Blood Gram Stain - Final TEST NOT PERFORMED 06/08/18 01:13 Cerebral Spinal Fluid Gram Stain - Final 06/08/18 01:13 Cerebral Spinal Fluid CSF Culture - Final No growth. 06/09/18 05:48 Urine,Clean Catch Urine Culture - Final Escherichia Coli 06/08/18 06:06 Nose MRSA Culture (Admit) - Final MRSA NOT DETECTED Most Recent Lab Values WBC 6.1 K/uL (4.8-10.8) 06/21/18 07:05 RBC 3.65 Mil/uL (3.80-5.20) L 06/21/18 07:05 Hgb 12.9 g/dL (11.0-16.0) 06/21/18 07:05 Hct 37.8 % (34.0-47.0) 06/21/18 07:05 MCV 103.6 fL (81.0-99.0) H 06/21/18 07:05 MCH 35.3 pg (27.0-31.0) H 06/21/18 07:05 MCHC 34.1 g/dL (33.0-37.0) 06/21/18 07:05 RDW 14.8 % (11.5-14.5) H 06/21/18 07:05 Plt Count 284 K/uL (130-400) 06/21/18 07:05 MPV 9.7 fL (7.2-11.7) 06/21/18 07:05 Neut % (Auto) 79.7 % (50.0-75.0) H 06/21/18 07:05 Lymph % (Auto) 14.6 % (20.0-40.0) L 06/21/18 07:05 [place] % (Auto) 5.0 % (0.0-10.0) 06/21/18 07:05 Eos % (Auto) 0.0 % (0.0-4.0) 06/21/18 07:05 Baso % (Auto) 0.7 % (0.0-2.0) 06/21/18 07:05 Neut # (Auto) 4.8 K/uL (1.8-7.0) 06/21/18 07:05 Lymph # (Auto) 0.9 K/uL (1.0-4.3) L 06/21/18 07:05 Merrick # (Auto) 0.3 K/uL (0.0-0.8) 06/21/18 07:05 Eos # (Auto) 0.0 K/uL (0.0-0.7) 06/21/18 07:05 Baso # (Auto) 0.0 K/uL (0.0-0.2) 06/21/18 07:05 ESR 15 mm/hr (0-20) 06/08/18 15:27 Retic Count 0.5 % (0.5-1.5) 06/08/18 03:30 PT 12.3 SECONDS (9.7-12.2) H 06/07/18 17:57 INR 1.1 06/07/18 17:57 APTT 35 SECONDS (21-34) H 06/07/18 17:57 Fibrinogen 122 mg/dL (200-400) L 06/14/18 06:22 Sodium 138 mmol/L (132-148) 06/21/18 07:05 Potassium 3.7 mmol/L (3.6-5.2) 06/21/18 07:05 Chloride 106 mmol/L (98-107) 06/21/18 07:05 Carbon Dioxide 28 mmol/L (22-30) 06/21/18 07:05 Anion Gap 8 (10-20) L 06/21/18 07:05 BUN 10 mg/dL (7-17) 06/21/18 07:05 Creatinine 0.4 mg/dL (0.7-1.2) L 06/21/18 07:05 Est GFR ( Amer) > 60 06/21/18 07:05 Est GFR (Non-Af Amer) > 60 06/21/18 07:05 Random Glucose 126 mg/dL (65-105) H 06/21/18 07:05 Lactic Acid 1.8 mmol/L (0.7-2.1) 06/07/18 17:57 Calcium 9.1 mg/dl (8.6-10.4) 06/21/18 07:05 Phosphorus 3.9 mg/dL (2.5-4.5) 06/21/18 07:05 Magnesium 1.5 mg/dL (1.6-2.3) L 06/21/18 07:05 Iron 50 ug/dL (37-170) 06/08/18 15:27 TIBC 210 ug/dL (250-450) L 06/08/18 15:27 % Saturation 24 (20-55) 06/08/18 15:27 Total Bilirubin 0.4 mg/dL (0.2-1.3) 06/21/18 07:05 AST 63 U/L (14-36) H D 06/21/18 07:05 ALT 53 U/L (9-52) H 06/21/18 07:05 Alkaline Phosphatase 60 U/L (38-126) 06/21/18 07:05 Total Creatine Kinase 54 U/L (30-135) 06/07/18 17:57 CK-MB (Mass) < 0.22 ng/mL (0.0-3.38) 06/07/18 17:57 Troponin I < 0.0120 ng/mL (0.00-0.120) 06/07/18 17:57 Total Protein 8.4 g/dL (6.3-8.3) H 06/21/18 07:05 Albumin 3.4 g/dL (3.5-5.0) L 06/21/18 07:05 Globulin 5.0 gm/dL (2.2-3.9) H 06/21/18 07:05 Albumin/Globulin Ratio 0.7 (1.0-2.1) L 06/21/18 07:05 Amylase 65 U/L (30-110) 06/07/18 17:57 Lipase 44 U/L (23-300) 06/07/18 17:57 Vitamin B12 > 1000 pg/mL (239-931) H 06/07/18 17:57 Methylmalonic Acid 132 nmol/L (87-318) 06/07/18 16:00 25-OH Vitamin D Total < 12.8 NG/ML (30.0-100.0) L 06/10/18 20:46 Folate > 20.0 ng/mL 06/07/18 17:57 Homocysteine 18.4 umol/L (4.7-12.6) H 06/07/18 22:13 Free T4 1.60 ng/dL (0.78-2.19) 06/18/18 06:22 TSH 3rd Generation 1.77 mIU/L (0.46-4.68) 06/18/18 06:22 Cortisol AM Sample 9.7 ug/dL (4.46-22.7) 06/17/18 10:46 Urine Color Yellow (YELLOW) 06/07/18 19:08 Urine Clarity Clear (Clear) 06/07/18 19:08 Urine pH 7.0 (5.0-8.0) 06/07/18 19:08 Ur Specific [place] 1.008 (1.003-1.030) 06/07/18 19:08 Urine Protein Negative mg/dL (NEGATIVE) 06/07/18 19:08 Urine Glucose (UA) Normal mg/dL (Normal) 06/07/18 19:08 Urine Ketones Negative mg/dL (NEGATIVE) 06/07/18 19:08 Urine Blood Negative (NEGATIVE) 06/07/18 19:08 Urine Nitrate Negative (NEGATIVE) 06/07/18 19:08 Urine Bilirubin Negative (NEGATIVE) 06/07/18 19:08 Urine Urobilinogen Normal mg/dL (0.2-1.0) 06/07/18 19:08 Ur Leukocyte Esterase Neg Tomas/uL (Negative) 06/07/18 19:08 Urine WBC (Auto) < 1 /hpf (0-5) 06/07/18 19:08 Urine RBC (Auto) < 1 /hpf (0-3) 06/07/18 19:08 Fluid Type Spinal fluid 06/08/18 01:11 CSF Volume 2 mL (0-1) H 06/08/18 01:11 CSF Appearance Clear/colorless (CLEAR) 06/08/18 01:11 CSF WBC 1.0 /mm3 (0.0-5.0) 06/08/18 01:11 CSF RBC 317.0 /mm3 (0.0-0.0) H 06/08/18 01:11 CSF Total Cell Counted TEST NOT PERFORMED 06/08/18 01:11 CSF Monos/Macrophages TEST NOT PERFORMED 06/08/18 01:11 CSF Comment TEST NOT PERFORMED 06/08/18 01:11 CSF Glucose 61 mg/dL (40-70) 06/08/18 01:11 CSF Total Protein 47.0 mg/dL (12-60) 06/08/18 01:11 CSF Lyme IgG Antibody No bands detected 06/08/18 15:45 CSF Lyme Disease DNA Not detected 06/08/18 15:45 Stool Occult Blood Negative (NEGATIVE) 06/13/18 09:51 Urine Opiates Screen Negative (NEGATIVE) 06/07/18 19:08 Urine Methadone Screen Negative (NEGATIVE) 06/07/18 19:08 Ur Barbiturates Screen Negative (NEGATIVE) 06/07/18 19:08 Ur Phencyclidine Scrn Negative (NEGATIVE) 06/07/18 19:08 Ur Amphetamines Screen Negative (NEGATIVE) 06/07/18 19:08 U Benzodiazepines Scrn Negative (NEGATIVE) 06/07/18 19:08 U Oth Cocaine Metabols Negative (NEGATIVE) 06/07/18 19:08 U Cannabinoids Screen Negative (NEGATIVE) 06/07/18 19:08 Copper 115 mcg/dL (70-175) 06/09/18 07:53 OCHOA 6 Profile Negative (NEGATIVE) 06/08/18 15:27 Acetylchol Rcpt Block Ab <15 (<15) 06/08/18 15:27 Acetylchol Rcpt Bind Ab <0.30 nmol/L 06/08/18 15:27 Acetylchol Rcpt Modu Ab 6 06/08/18 15:27 RPR Nonreactive (NONREACTIVE) 06/07/18 18:18 T.pallidum Ab (FTA-ABS) Nonreactive (Nonreactive) 06/07/18 18:18 Lyme Specimen Source Csf 06/08/18 15:45 Lyme Disease Screen <0.90 index 06/07/18 18:18 Lyme Bands Present TEST NOT PERFORMED 06/08/18 15:45 West Nile RNA (RT-PCR) Not detected (Not Detected) 06/08/18 15:45 Hepatitis A IgM Ab Negative (NEGATIVE) 06/17/18 05:49 Hep Bs Antigen Negative (NEGATIVE) 06/17/18 05:49 Hep B Core IgM Ab Negative (NEGATIVE) 06/17/18 05:49 Hepatitis C Antibody Negative (NEGATIVE) 06/17/18 05:49 HSV IgM Ab Screen Negative 06/08/18 15:45 HIV 1&2 Antibody Screen Negative (NEGATIVE) 06/07/18 18:36 Influenza Typ A,B (EIA) Negative for flu a/b (NEGATIVE) 06/07/18 18:18 - Hospital Course Hospital Course: HPI Ms. Pinzon is a 47 year old female with unknown PMH complains of 2 weeks of numbness and tingling in her hands and feet. Initially, the muscle pain was just in her fingertips and bottoms of her feet. It has traveled more proximal over the last two weeks. She [place] [facility] [place], where they have done CT and MRI of her abdominal area. She is no longer able to ambulate, even with assistance. She has noticed a 10lb weight loss from decreased appetite and early satiety. Denies fever, chills, chest pain, headache. Admits to extreme fatigue and weakness. PMD: Dr Cole PMH: unknown Med: Vit B12 1000mcg po daily All: NKDA PSxHx: gastric bypass (12 years ago), , hysterectomy FamHx: unknown SocHx: 1-2 drinks/week socially, denies tobacco. Lives by herself with dog. 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 Hospital Course: Upper and lower extremity weakness with decreased FVC Possible Guillain White Swan Syndrome (possible subtypes including but not limited to AMSAN and Gloria Iyer) Possible Conversion Syndrome Possible CIDP Brain Lesion * Neurology Dr. Villalba on case help appreciated * Hematology Dr. Maria on case help appreciated * Infectious disease Dr Ng on case-->help appreciated * Blood cultures: no growth after 5 days X2 * Psych (Dr. Snyder) on case-->help appreciated * Discussed with ICU ptosis has resolved June 09. * Patient to undergo 3 sessions of plasmapheresis. Patient finished last session on 06/13/18. Patient premedicated for IVIG, first treatment started 06/18/18 evening. Patient to finish IVIG treatment tonight. Premedication: Benadryl, Solumedrol, Hydrocortisone, and Pepcid. * Patient ruled out for myasthenia gravis. Patient underwent thoracic and lumbar MRI with contrast 06/16/18 . Unremarkable pre-and postcontrast enhanced MRI of the thoracic spine. Multilevel degenerative facet arthropathy and degenerative spondylosis L5-S1 level. No evidence. No evidence of abnormal enhancement. * Consideration for conversion disorder. Psychiatry seen 06/16/18. Patient's about 4 months ago. * Discussed with psychiatry 06/17/18 appears to be improving from his standpoint * Patient started on per dose thickening bromide 180 mg by mouth every 6H but d/c 06/16/18 * * F/U Musk Qn Titer Ab Test-->was cancelled * Methymalonic Acid: normal * B12: normal * F/U Acetylcholine Ab: negative * RPR is NON-reactive * HIV 1 & 2 is negative * Influenza is negative * Pending heavy metal screen 2). Hypodense lesion in left lobe liver that was concerning for neoplasm. * Confirmed with ICU resident Mraco Vazquez, they followed up for the imaging noted for hemangioma. Therefore consult IR was canceled. Paperwork is in the chart of copy of imaging in the chart 3). Prior history of gastric bypass surgery * Check vitamin B1, B6, B12, vitamin D, A, and E * Thyroid within normal * B12 over thousand, was receiving B12 supplementation as outpatient * Folate acid normal * Shlomo: normal * Zinc Sulfate 220mg PO daily * Thiamine 100mg PO daily * Start Vitamin B 6 daily * MVI 1 tab PO daily * Vitamin B 12 1000mcg IM Q7 day (started 06/16/18) 4) prior alcohol use 5) Urinary Tract Infection (Resolved) * Completed Rocephin 1 g IV daily to cover for urine culture (06/11-06/16) * Patient is currently on perwick catheter 6) vitamin D Deficiency * Vitamin D <12.8 * Vitamin D 50,000 IU /week for 8-12 weeks (started 06/13/18) 7) megaloblastic elevated MCV * Both B12 and folate are normal * patient receiving B12 supplementation 8) Tachycardia * Related to autonomic? * * Cortisol normal * TSH normal 9. Orthostatic Hypotension * midodrine 2.5mg PO tid 10. Transaminitis * hepatitis panel: negative 11. prophylactic measure * Protonix 20 mg by mouth daily * Lovenox 40mg sub daily * continue PT/OT * Latest PT: acute rehab * Case management: acute rehab re-eval s/p LP 06/08/18 CSF: no growth * T pallidum: nonreactive * Lyme bands: negative/ Lyme negative * West Nile: not detected * HSV igM: negative * Acetylcholine Recept: 6 (<32%) * OCHOA: negative CT head June 08 no acute hemorrhage mass effect or shift Cervical MRI from June 08 showing shucking of the cervical spine mild reve rsal of the normal lordosis which could be due to muscle spasm or patient positioning. No evidence of spinal neural foraminal narrowing. Lumbar MRI: No evidence of significant spinal or neural foraminal narrowing. Conus medullaris is normal in size and shape. Small posterior disc protrusion L5-S1 without evidence of significant spinal neural foraminal narrowing. Mild L5-S1 degenerative disc changes. Last MRI also no evidence of spinal stenosis foraminal fat foraminal narrowing no evidence of mass lesion or abnormal signal. CT chest: Right-sided PICC extends the right atrium. Markedly heterogeneous abnormal appearance of the liver with a 2.7 x 2.5 heterogeneous hyperdense masses in the left hepatic lobe worrisome for malignant neoplasm. Cholelithiasis. High density focus of nondependent portion of the gallbladder alternatives including polyp or neoplasm can't be excluded. Brain MRI (06/09/18): limited but definitive abnormalitis identified at the left frontal lobe and right pontomedullary junction comprise of a 4mm enhancing lesion right pontomedullary junction and nonenhancing inferior left fronal lobe lesions. Echocardiogram (06/18/18): left ventricle: thickness: normal, size: normal, overaal ejection fraction: 65%, diastolic filling pressures normal. further findings per report Discharge Exam - Head Exam Head Exam: NORMOCEPHALIC Discharge Plan - Follow Up Plan Condition: FAIR Disposition: HOME/ ROUTINE
--- NOTE | 2018-06-21 15:23 | CP.PCM.PN ---
Subjective - Date & Time of Evaluation Date of Evaluation: 06/21/18 Time of Evaluation: 15:21 - Subjective Subjective: Neurology Follow-Up Note: Mrs. Pinzon evaluated this afternoon with Dr. Villalba. She is out of ICU and doing generally well. She completed 3 total doses of IVIG; tolerated well. Today she was examined sitting in chair at bedside. She was awake and alert. Admits to improving weakness to extremities. Denies any h/a, dizziness, visual changes, chest pain, sob, n/v/d. Objective - Vital Signs/Intake and Output Vital Signs (last 24 hours): Temp Pulse Resp BP Pulse Ox 99.2 F 78 20 117/73 97 06/21/18 07:00 06/21/18 07:00 06/21/18 07:00 06/21/18 07:00 06/21/18 07:00 Intake and Output: 06/21/18 06/21/18 06:59 18:59 Intake Total 390 Output Total 600 Balance -210 - Medications Medications: Current Medications Cyanocobalamin (Vitamin B12 1000 Mcg/Ml Inj) 1,000 mcg IM Q7D [facility] Last Admin: 06/16/18 17:49 Dose: 1,000 mcg Ergocalciferol (Drisdol 50,000 Intl Units Cap) 1 cap PO Q7D [facility] Last Admin: 06/20/18 10:00 Dose: 1 cap Folic Acid (Folic Acid) 1 mg PO DAILY [facility] Last Admin: 06/21/18 11:14 Dose: 1 mg Gabapentin (Neurontin) 100 mg PO HS [facility] Last Admin: 06/20/18 21:47 Dose: 100 mg Metoprolol Tartrate (Lopressor) 12.5 mg PO Q12 [facility] Last Admin: 06/21/18 11:14 Dose: 12.5 mg Midodrine (Proamatine) 2.5 mg PO TID [facility] Last Admin: 06/21/18 11:18 Dose: 2.5 mg Multivitamins (Hexavitamin) 1 tab PO DAILY [facility] Last Admin: 06/21/18 11:14 Dose: 1 tab Ondansetron HCl (Zofran Inj) 4 mg IVP DAILY@ONCE PRN PRN Reason: Nausea/Vomiting Last Admin: 06/13/18 08:43 Dose: 4 mg Pantoprazole Sodium (Protonix Ec Tab) 20 mg PO DAILY [facility] Last Admin: 06/21/18 11:13 Dose: 20 mg Pyridoxine HCl (Vitamin B6 50 Mg Tab) 50 mg PO DAILY [facility] Last Admin: 06/21/18 11:20 Dose: 50 mg Saccharomyces Boulardii (Florastor) 250 mg PO BID [facility] Last Admin: 06/21/18 11:14 Dose: 250 mg Sennosides (Senokot Tab) 8.6 mg PO BID PRN PRN Reason: Constipation Thiamine HCl (Vitamin B1 Tab) 100 mg PO DAILY [facility] Last Admin: 06/21/18 11:19 Dose: 100 mg Zinc Sulfate (Zinc Sulfate 220 Mg Cap) 220 mg PO DAILY [facility] Last Admin: 06/21/18 11:20 Dose: 220 mg - Labs Labs: 06/21/18 07:05 06/21/18 07:05 PT 12.3 SECONDS (9.7-12.2) H 06/07/18 17:57 INR 1.1 06/07/18 17:57 APTT 35 SECONDS (21-34) H 06/07/18 17:57 - Constitutional Appears: Well, Non-toxic, No Acute Distress - Head Exam Head Exam: ATRAUMATIC, NORMAL INSPECTION, NORMOCEPHALIC - Eye Exam Eye Exam: EOMI, PERRL Pupil Exam: PERRL - ENT Exam ENT Exam: Mucous Membranes Moist - Neck Exam Neck Exam: Full ROM, Normal Inspection - Respiratory Exam Respiratory Exam: NORMAL BREATHING PATTERN - Extremities Exam Extremities Exam: Normal Inspection. absent: Full ROM (improving weakness to BLE) - Neurological Exam Neurological Exam: Abnormal Gait, Alert, Awake, Oriented x3 Neuro motor strength exam: Left Upper Extremity: 5 (paradi operator 5/5), Right Upper Extremity: 5 (paradi operator 5/5), Left Lower Extremity: 4, Right Lower Extremity: 4 Additional comments: Speech clear and fluid No facial asymmetry; still has tongue to cheek weakened; sternocleidomastoid still weak; finger flexion still weak but improving. Sensory intact; hypersensitivity to BLE (plantar aspect of feet) improving. Reflexes brisk - Psychiatric Exam Psychiatric exam: Normal Affect, Normal Mood - Skin Skin Exam: Normal Color Assessment and Plan (1) Weakness of limb Assessment & Plan: Mrs. Pinzon is here for extremity weakness; unlikely due to MG as her antibodies are negative. -Tolerated 3 total doses of IVIG. -Continue to hold Mestinon as antibodies are not indicative of MG. -Repeat MRI of T-spine and L spine with contrast reviewed with Dr. Villalba. -Continue PT/OT -Continue Gabapentin to 100 mg PO HS. -We will continue to follow up with the pt while she is in the hospital. -Discharge plan to acute rehab is being arranged by shannon. Patient seen and case discussed with Dr. Villalba Status: Acute
--- NOTE | 2018-06-21 15:35 | CP.PCM.PN ---
<AustinBlily - Last Filed: 06/21/18 15:39> Subjective - Date & Time of Evaluation Date of Evaluation: 06/21/18 Time of Evaluation: 15:30 - Subjective Subjective: HOSPITALIST SERVICE Pt seen and examined at bedside, Pt denies any acute events overnight, pt reports she is regaining strenght, denies any adverse effects since IV Ig infusion, Pt denies CP SOB Fc NV, pt was able to stand today and maintain posture for extended period however still unable to initiate gait. Objective - Vital Signs/Intake and Output Vital Signs (last 24 hours): Temp Pulse Resp BP Pulse Ox 99.2 F 78 20 117/73 97 06/21/18 07:00 06/21/18 07:00 06/21/18 07:00 06/21/18 07:00 06/21/18 07:00 Intake and Output: 06/21/18 06/21/18 06:59 18:59 Intake Total 390 Output Total 600 Balance -210 - Medications Medications: Current Medications Cyanocobalamin (Vitamin B12 1000 Mcg/Ml Inj) 1,000 mcg IM Q7D [facility] Last Admin: 06/16/18 17:49 Dose: 1,000 mcg Ergocalciferol (Drisdol 50,000 Intl Units Cap) 1 cap PO Q7D [facility] Last Admin: 06/20/18 10:00 Dose: 1 cap Folic Acid (Folic Acid) 1 mg PO DAILY [facility] Last Admin: 06/21/18 11:14 Dose: 1 mg Gabapentin (Neurontin) 100 mg PO HS [facility] Last Admin: 06/20/18 21:47 Dose: 100 mg Metoprolol Tartrate (Lopressor) 12.5 mg PO Q12 [facility] Last Admin: 06/21/18 11:14 Dose: 12.5 mg Midodrine (Proamatine) 2.5 mg PO TID [facility] Last Admin: 06/21/18 11:18 Dose: 2.5 mg Multivitamins (Hexavitamin) 1 tab PO DAILY [facility] Last Admin: 06/21/18 11:14 Dose: 1 tab Ondansetron HCl (Zofran Inj) 4 mg IVP DAILY@ONCE PRN PRN Reason: Nausea/Vomiting Last Admin: 06/13/18 08:43 Dose: 4 mg Pantoprazole Sodium (Protonix Ec Tab) 20 mg PO DAILY [facility] Last Admin: 06/21/18 11:13 Dose: 20 mg Pyridoxine HCl (Vitamin B6 50 Mg Tab) 50 mg PO DAILY [facility] Last Admin: 06/21/18 11:20 Dose: 50 mg Saccharomyces Boulardii (Florastor) 250 mg PO BID [facility] Last Admin: 06/21/18 11:14 Dose: 250 mg Sennosides (Senokot Tab) 8.6 mg PO BID PRN PRN Reason: Constipation Thiamine HCl (Vitamin B1 Tab) 100 mg PO DAILY [facility] Last Admin: 06/21/18 11:19 Dose: 100 mg Zinc Sulfate (Zinc Sulfate 220 Mg Cap) 220 mg PO DAILY [facility] Last Admin: 06/21/18 11:20 Dose: 220 mg - Labs Labs: 06/21/18 07:05 06/21/18 07:05 PT 12.3 SECONDS (9.7-12.2) H 06/07/18 17:57 INR 1.1 06/07/18 17:57 APTT 35 SECONDS (21-34) H 06/07/18 17:57 - Additional Findings Additional findings: Head: Positive for: Atraumatic, Normocephalic Pupils: Positive for: PERRL Extroacular Muscles: Positive for: EOMI Conjunctiva: Positive for: Normal Mouth: Positive for: Moist Mucous Membranes Neck: Positive for: Normal Range of Motion Respiratory/Chest: Positive for: Clear to Auscultation, Good Air Exchange. Negative for: Respiratory Distress, Accessory Muscle Use, Wheezes, Rales, Retracting, Rhonchi Cardiovascular: Positive for: Normal S1, S2, Abdomen: Positive for: Normal Bowel Sounds. 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 Negative for: Cyanosis, Edema, Tenderness, Swelling Lower Extremity: Positive for: Normal Inspection, NORMAL PULSES, Capillary Refill < 2 s, Other (Decreased sensation b/l LE, motor strength 3/5 b/l LE). Negative for: Edema, CALF TENDERNESS, Cyanosis, Swelling Neurological: Positive for: CN II-XII Intact, Speech Normal, Other (RUE: 4/5 strength, LUE: 5/5 strength, no sensory deficits in b/l UE. RLE: 4/5 strength, LLE: 5/5 strength). Negative for: Normal Sensory Function Pincer grasps intact bilaterally Extensor Hallicus strength intact bilaterally No clonus noted Resting lowerextremity acathesia like movements noted, possible restless leg syndrome Skin: Positive for: Warm, Dry, Normal Color. 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 Neurology on board, cause of pt symptoms not known at this time. Patient is s/p plasmapheresis x3. To get IVIG 3 day course starting today Plan: Complex Inflammatory Demyelinating Polyneuropathy - LE motor weakness w/ sensory deficits - s/p lumbar tap: CSF total protein wnl - vitamin B12 > 1000 - Folate wnl - Copper tox neg - Homocysteine 18.4 - Anti-Ach receptor antibodies negative - RPR, HIV, HSV, [place] nile, lyme negative - MRI C/T/L spine series: no acute findings - MRI brain w/contrast: 4 mm enhancing lesion in R pontomedullary junction and nonenhancing inferior L frontal lobe lesion. - CT chest (06/09): 2.7 x 2.5 cm heterogeneous hyperdense mass noted in L hepatic lobe worrisome for malignant neoplasm. Cholelithiasis. High density focus noted on the nondependent portion of the gallbladder; alternatives including polyp or neoplasm can't be excluded. - MRI/CT abdomen reports from [facility] faxed over and placed in patient chart: liver lesion likely hemangioma - s/p plasmapheresis x3 - Multivitamins, Thiamine, Vitamin B12, Vitamin D, Folic acid daily - Gabapentin 100mg HS - Zinc sulfate 220mg PO QD - Neurology consulted, Dr. Villalba/Latonya IVIG @ 23mg/hr- 3 day course done 12/9 EMG/NCV: obtain in Rehab or as Outpt -Heme/Onc consulted, Dr Maria Restless Leg Syndrome - Monitor -f/u outpatient -consider Neupro, Not on formulary at [facility] Orthostatic hypotension - Midodrine 2.5mg PO TID - lopressor 12.5mg PO BID - improved Polycythemia - s/p plasmapheresis x3 - Heme/Onc consulted, Dr. Maria- recs appreciated UTI - UCx 06/09: + E.coli - BCx negative x5d, final - pt afebrile, hemodynamically stable - completed 3 days ceftriaxone 1g IV Ppx DVT: heparin GI: protonix Florastor Diet: advance bite size Pt seen and case reviewed with Dr. Tere Sanon <Eulalio Sanon - Last Filed: 06/27/18 20:37> Objective - Vital Signs/Intake and Output Vital Signs (last 24 hours): Temp Pulse Resp BP Pulse Ox 99.6 F 125 H 18 117/88 97 06/27/18 16:31 06/27/18 16:31 06/27/18 16:31 06/27/18 16:31 06/27/18 16:31 - Medications Medications: Current Medications Cyanocobalamin (Vitamin B12 1000 Mcg/Ml Inj) 1,000 mcg IM Q7D [facility] Last Admin: 06/23/18 18:12 Dose: 1,000 mcg Enoxaparin Sodium (Lovenox) 40 mg SC DAILY [facility] Last Admin: 06/27/18 10:44 Dose: 40 mg Ergocalciferol (Drisdol 50,000 Intl Units Cap) 1 cap PO Q7D [facility] Last Admin: 06/27/18 10:44 Dose: 1 cap Folic Acid (Folic Acid) 1 mg PO DAILY [facility] Last Admin: 06/27/18 10:44 Dose: 1 mg Gabapentin (Neurontin) 100 mg PO HS [facility] Last Admin: 06/26/18 22:02 Dose: 100 mg Metoprolol Tartrate (Lopressor) 12.5 mg PO Q12 [facility] Last Admin: 06/27/18 10:38 Dose: Not Given Midodrine (Proamatine) 2.5 mg PO BID [facility] Last Admin: 06/27/18 18:12 Dose: 2.5 mg Multivitamins (Hexavitamin) 1 tab PO DAILY [facility] Last Admin: 06/27/18 10:44 Dose: 1 tab Pantoprazole Sodium (Protonix Ec Tab) 20 mg PO DAILY [facility] Last Admin: 06/27/18 10:44 Dose: 20 mg Pyridoxine HCl (Vitamin B6 50 Mg Tab) 50 mg PO DAILY [facility] Last Admin: 06/27/18 10:44 Dose: 50 mg Saccharomyces Boulardii (Florastor) 250 mg PO BID [facility] Last Admin: 06/27/18 18:12 Dose: 250 mg Sennosides (Senokot Tab) 8.6 mg PO BID PRN PRN Reason: Constipation Thiamine HCl (Vitamin B1 Tab) 100 mg PO DAILY [facility] Last Admin: 06/27/18 10:44 Dose: 100 mg Vitamin B Complex/Vitamin C (Berocca) 1 tab PO DAILY [facility] Last Admin: 06/27/18 10:44 Dose: 1 tab Vitamin E (Vitamin E 400 Units Cap) 400 intlu PO DAILY [facility] Last Admin: 06/27/18 10:44 Dose: 400 intlu Zinc Sulfate (Zinc Sulfate 220 Mg Cap) 220 mg PO DAILY [facility] Last Admin: 06/27/18 10:44 Dose: 220 mg - Labs Labs: 06/27/18 09:35 06/27/18 09:35 PT 12.3 SECONDS (9.7-12.2) H 06/07/18 17:57 INR 1.1 06/07/18 17:57 APTT 35 SECONDS (21-34) H 06/07/18 17:57 Attending/Attestation - Attestation I have personally seen and examined this patient.: Yes I have fully participated in the care of the patient.: Yes I have reviewed all pertinent clinical information, including history, physical exam and plan: Yes Notes (Text): 06/27/18 20:37 This is a late entry. Care of this patient was gone over with resident Dr. Austin Sanon D.O.
[2018-06-22 06:58] LABS: BASO # 0.1 K/uL (0.0-0.2); BASO % 1.2 % (0.0-2.0); EOS % 0.7 % (0.0-4.0); HEMOGLOBIN 13.5 g/dL (11.0-16.0); LYMPH # 1.9 K/uL (1.0-4.3); LYMPH % 28.2 % (20.0-40.0); MEAN CELL VOLUME 103.4 fL (81.0-99.0); MEAN CORPUSCULAR HEMOGLOBIN 35.1 pg (27.0-31.0); MEAN CORPUSCULAR HGB CONC 33.9 g/dL (33.0-37.0); MEAN PLATELET VOLUME 9.8 fL (7.2-11.7); MONO # 0.8 K/uL (0.0-0.8); MONO % 11.7 % (0.0-10.0); NEUT % 58.2 % (50.0-75.0); RBC 3.84 Mil/uL (3.80-5.20); RED CELL DISTRIBUTION WIDTH 14.6 % (11.5-14.5); WHITE BLOOD COUNT 6.9 K/uL (4.8-10.8)
[2018-06-22 07:34] LABS: ALB/GLOB RATIO 0.7 (1.0-2.1); ALBUMIN 3.3 g/dL (3.5-5.0); ALT/SGPT 64 U/L (9-52); AST/SGOT 75 U/L (14-36); BLOOD UREA NITROGEN 13 mg/dL (7-17); CALCIUM 9.2 mg/dl (8.6-10.4); GFR NON-AFRICAN AMERICAN > 60
[2018-06-22] MEDS: Pantoprazole 20 mg EC Tab PO SCH (09:15)
[2018-06-22] MEDS: Saccharomyces Boulardi 250 mg Cap PO SCH ×2 (09:15→17:25)
[2018-06-22] MEDS ORDERED: Potassium Chloride 20 mEq/15 ml LIQ UD PO STA (10:15)
[2018-06-22] MEDS: Multiple Vitamins Tab PO SCH (10:30)
[2018-06-22] MEDS ORDERED: Potassium Chloride 20 mEq/15 ml LIQ UD PO ONE (11:38)
[2018-06-22] MEDS ORDERED: Bisacodyl 5mg EC Tab PO ONE (11:39)
[2018-06-22] MEDS: Enoxaparin 40 mg Syringe SC SCH (11:48)
--- NOTE | 2018-06-22 13:26 | CP.PCM.PN ---
Subjective - Date & Time of Evaluation Date of Evaluation: 06/22/18 Time of Evaluation: 13:23 - Subjective Subjective: Neurology Follow-Up Note: Mrs. Pinzon evaluated this morning and states that she is doing well today. She completed 3 total doses of IVIG. Admits to improving weakness to extremities, however still notices more weakness in lower extremities compared to upper. She also notices some more generalized weakness today compared to yesterday; she attributes this to not being seen b PT yet today. The sensitivity to the plantar aspect of feet is improving and tolerable per pt. Denies any h/a, dizziness, visual changes, chest pain, sob, n/v/d. Still pending rehab. Objective - Vital Signs/Intake and Output Vital Signs (last 24 hours): Temp Pulse Resp BP Pulse Ox 98.2 F 100 H 20 96/62 L 95 06/22/18 07:00 06/22/18 09:35 06/22/18 07:00 06/22/18 07:00 06/22/18 07:00 Intake and Output: 06/22/18 06/22/18 06:59 18:59 Intake Total 400 Output Total 500 Balance -100 - Medications Medications: Current Medications Cyanocobalamin (Vitamin B12 1000 Mcg/Ml Inj) 1,000 mcg IM Q7D [facility] Last Admin: 06/16/18 17:49 Dose: 1,000 mcg Enoxaparin Sodium (Lovenox) 40 mg SC DAILY [facility] Last Admin: 06/22/18 11:48 Dose: 40 mg Ergocalciferol (Drisdol 50,000 Intl Units Cap) 1 cap PO Q7D [facility] Last Admin: 06/20/18 10:00 Dose: 1 cap Folic Acid (Folic Acid) 1 mg PO DAILY [facility] Last Admin: 06/22/18 09:15 Dose: 1 mg Gabapentin (Neurontin) 100 mg PO HS [facility] Last Admin: 06/21/18 22:27 Dose: 100 mg Metoprolol Tartrate (Lopressor) 12.5 mg PO Q12 [facility] Last Admin: 06/22/18 11:30 Dose: Not Given Midodrine (Proamatine) 2.5 mg PO TID [facility] Last Admin: 06/22/18 09:16 Dose: 2.5 mg Multivitamins (Hexavitamin) 1 tab PO DAILY [facility] Last Admin: 06/21/18 11:14 Dose: 1 tab Ondansetron HCl (Zofran Inj) 4 mg IVP DAILY@ONCE PRN PRN Reason: Nausea/Vomiting Last Admin: 06/13/18 08:43 Dose: 4 mg Pantoprazole Sodium (Protonix Ec Tab) 20 mg PO DAILY [facility] Last Admin: 06/22/18 09:15 Dose: 20 mg Pyridoxine HCl (Vitamin B6 50 Mg Tab) 50 mg PO DAILY [facility] Last Admin: 06/22/18 11:48 Dose: 50 mg Saccharomyces Boulardii (Florastor) 250 mg PO BID [facility] Last Admin: 06/22/18 09:15 Dose: 250 mg Sennosides (Senokot Tab) 8.6 mg PO BID PRN PRN Reason: Constipation Thiamine HCl (Vitamin B1 Tab) 100 mg PO DAILY [facility] Last Admin: 06/22/18 09:15 Dose: 100 mg Zinc Sulfate (Zinc Sulfate 220 Mg Cap) 220 mg PO DAILY [facility] Last Admin: 06/22/18 09:15 Dose: 220 mg - Labs Labs: 06/22/18 06:41 06/22/18 06:43 PT 12.3 SECONDS (9.7-12.2) H 06/07/18 17:57 INR 1.1 06/07/18 17:57 APTT 35 SECONDS (21-34) H 06/07/18 17:57 - Constitutional Appears: Well, Non-toxic, No Acute Distress - Head Exam Head Exam: ATRAUMATIC, NORMAL INSPECTION, NORMOCEPHALIC - Eye Exam Eye Exam: EOMI, PERRL Pupil Exam: PERRL - ENT Exam ENT Exam: Mucous Membranes Moist - Neck Exam Neck Exam: Full ROM, Normal Inspection - Respiratory Exam Respiratory Exam: NORMAL BREATHING PATTERN - Extremities Exam Extremities Exam: absent: Calf Tenderness, Full ROM, Pedal Edema - Neurological Exam Neurological Exam: Alert, Awake, Oriented x3. absent: Normal Gait Neuro motor strength exam: Left Upper Extremity: 4 (hook and eye attacher 3/5), Right Upper Extremity: 4 (hook and eye attacher 4/5), Left Lower Extremity: 4, Right Lower Extremity: 4 Additional comments: Speech clear and fluid No facial asymmetry; still has tongue to cheek weakened; sternocleidomastoid still weak; finger flexion still weak but improving; pincer grasps intact but weakened. Sensory intact; hypersensitivity to BLE (plantar aspect of feet) improving. Reflexes brisk Gait not assessed, PT notes reviewed. - Psychiatric Exam Psychiatric exam: Normal Affect, Normal Mood - Skin Skin Exam: Normal Color Assessment and Plan (1) Weakness of limb Assessment & Plan: Mrs. Pinzon continues to improve. At this time she is pending rehab arrangements for d/c. -Tolerated 3 total doses of IVIG. -Continue to hold Mestinon as antibodies are not indicative of MG. -Continue PT/OT -Continue Gabapentin to 100 mg PO HS. -We will continue to follow up with the pt while she is in the hospital. -Discharge plan to acute rehab is being arranged by shannon. Case discussed with Dr. Villalba Status: Acute
--- NOTE | 2018-06-22 16:55 | CP.PCM.PN ---
<Billy Avila - Last Filed: 06/22/18 16:45> Subjective - Date & Time of Evaluation Date of Evaluation: 06/22/18 Time of Evaluation: 16:45 - Subjective Subjective: HOSPITALIST SERVICE Pt seen and examined at bedside, Pt still complains of weakness, Pt says has improved, restless leg also improved, pt feels stabilioty when standing is improving as well, pt denies CP SOB FC NV, Pt had palpitations in the AM resolved after 1 hr. Pt is still constipated. Objective - Vital Signs/Intake and Output Vital Signs (last 24 hours): Temp Pulse Resp BP Pulse Ox 97.3 F L 110 H 20 113/69 95 06/22/18 15:00 06/22/18 15:00 06/22/18 15:00 06/22/18 15:00 06/22/18 15:00 Intake and Output: 06/22/18 06/22/18 06:59 18:59 Intake Total 400 Output Total 500 Balance -100 - Medications Medications: Current Medications Cyanocobalamin (Vitamin B12 1000 Mcg/Ml Inj) 1,000 mcg IM Q7D [facility] Last Admin: 06/16/18 17:49 Dose: 1,000 mcg Enoxaparin Sodium (Lovenox) 40 mg SC DAILY [facility] Last Admin: 06/22/18 11:48 Dose: 40 mg Ergocalciferol (Drisdol 50,000 Intl Units Cap) 1 cap PO Q7D [facility] Last Admin: 06/20/18 10:00 Dose: 1 cap Folic Acid (Folic Acid) 1 mg PO DAILY [facility] Last Admin: 06/22/18 09:15 Dose: 1 mg Gabapentin (Neurontin) 100 mg PO HS [facility] Last Admin: 06/21/18 22:27 Dose: 100 mg Metoprolol Tartrate (Lopressor) 12.5 mg PO Q12 [facility] Last Admin: 06/22/18 11:30 Dose: Not Given Midodrine (Proamatine) 2.5 mg PO BID [facility] Multivitamins (Hexavitamin) 1 tab PO DAILY [facility] Last Admin: 06/22/18 10:30 Dose: 1 tab Ondansetron HCl (Zofran Inj) 4 mg IVP DAILY@ONCE PRN PRN Reason: Nausea/Vomiting Last Admin: 06/13/18 08:43 Dose: 4 mg Pantoprazole Sodium (Protonix Ec Tab) 20 mg PO DAILY [facility] Last Admin: 06/22/18 09:15 Dose: 20 mg Pyridoxine HCl (Vitamin B6 50 Mg Tab) 50 mg PO DAILY [facility] Last Admin: 06/22/18 11:48 Dose: 50 mg Saccharomyces Boulardii (Florastor) 250 mg PO BID [facility] Last Admin: 06/22/18 09:15 Dose: 250 mg Sennosides (Senokot Tab) 8.6 mg PO BID PRN PRN Reason: Constipation Thiamine HCl (Vitamin B1 Tab) 100 mg PO DAILY [facility] Last Admin: 06/22/18 09:15 Dose: 100 mg Vitamin B Complex/Vitamin C (Berocca) 1 tab PO DAILY [facility] Vitamin E (Vitamin E 400 Units Cap) 400 intlu PO DAILY [facility] Zinc Sulfate (Zinc Sulfate 220 Mg Cap) 220 mg PO DAILY [facility] Last Admin: 06/22/18 09:15 Dose: 220 mg - Labs Labs: 06/22/18 06:41 06/22/18 06:43 PT 12.3 SECONDS (9.7-12.2) H 06/07/18 17:57 INR 1.1 06/07/18 17:57 APTT 35 SECONDS (21-34) H 06/07/18 17:57 - Additional Findings Additional findings: Head: Positive for: Atraumatic, Normocephalic Pupils: Positive for: PERRL Extroacular Muscles: Positive for: EOMI Conjunctiva: Positive for: Normal Mouth: Positive for: Moist Mucous Membranes Neck: Positive for: Normal Range of Motion Respiratory/Chest: Positive for: Clear to Auscultation, Good Air Exchange. Negative for: Respiratory Distress, Accessory Muscle Use, Wheezes, Rales, Retracting, Rhonchi Cardiovascular: Positive for: Normal S1, S2, tachycardic Abdomen: Positive for: Normal Bowel Sounds. 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 Negative for: Cyanosis, Edema, Tenderness, Swelling Lower Extremity: Positive for: Normal Inspection, NORMAL PULSES, Capillary Refill < 2 s, Other (Decreased sensation b/l LE, motor strength 3/5 b/l LE). Negative for: Edema, CALF TENDERNESS, Cyanosis, Swelling Neurological: Positive for: CN II-XII Intact, Speech Normal, Other (RUE: 4/5 strength, LUE: 4/5 strength, no sensory deficits in b/l UE. RLE: 4/5 strength, LLE: 4/5 strength). Negative for: Normal Sensory Function Pincer grasps intact bilaterally Extensor Hallicus strength intact bilaterally No clonus noted Resting lower extremity acathesia like movements improved Skin: Positive for: Warm, Dry, Normal Color. 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 Neurology on board, cause of pt symptoms not known at this time. Patient is s/p plasmapheresis x3. s/p IVIG finished 06/20 Plan: Complex Inflammatory Demyelinating Polyneuropathy - Plan for transfer to acute rehab for EMG/NCV and further assessment - s/p lumbar tap: CSF total protein wnl - vitamin B12 > 1000 - Folate wnl - Copper tox neg - Homocysteine 18.4 - Anti-Ach receptor antibodies negative - RPR, HIV, HSV, [place], lyme negative - MRI C/T/L spine series: no acute findings - MRI brain w/contrast: 4 mm enhancing lesion in R pontomedullary junction and nonenhancing inferior L frontal lobe lesion. - CT chest (06/09): 2.7 x 2.5 cm heterogeneous hyperdense mass noted in L hepatic lobe worrisome for malignant neoplasm. Cholelithiasis. High density focus noted on the nondependent portion of the gallbladder; alternatives including polyp or neoplasm can't be excluded. - MRI/CT abdomen reports from [facility] faxed over and placed in patient chart: liver lesion likely hemangioma - s/p plasmapheresis x3 - Multivitamins, Thiamine, Vitamin B12, Vitamin D, Folic acid daily - Gabapentin 100mg HS - Zinc sulfate 220mg PO QD - Neurology consulted, Dr. Villalba/Latonya IVIG @ 23mg/hr- 3 day course done 06/20 EMG/NCV: obtain in Rehab or as Outpt -Heme/Onc consulted, Dr Maria -Vitamin B and D complex PO QD Restless Leg Syndrome - Monitor, improving today 06/22 -f/u outpatient -consider Neupro, Not on formulary at [facility] Orthostatic hypotension - Midodrine 2.5mg PO BID lowered today - lopressor 12.5mg PO BID - improved Polycythemia - s/p plasmapheresis x3 - Heme/Onc consulted, Dr. Maria- recs appreciated UTI - UCx 06/09: + E.coli - BCx negative x5d, final - pt afebrile, hemodynamically stable - completed 3 days ceftriaxone 1g IV Ppx DVT: heparin GI: protonix Florastor Diet: advance bite size Pt seen and case reviewed with Dr. Tere Sanon <Eulalio Sanon - Last Filed: 06/27/18 20:36> Objective - Vital Signs/Intake and Output Vital Signs (last 24 hours): Temp Pulse Resp BP Pulse Ox 99.6 F 125 H 18 117/88 97 06/27/18 16:31 06/27/18 16:31 06/27/18 16:31 06/27/18 16:31 06/27/18 16:31 - Medications Medications: Current Medications Cyanocobalamin (Vitamin B12 1000 Mcg/Ml Inj) 1,000 mcg IM Q7D [facility] Last Admin: 06/23/18 18:12 Dose: 1,000 mcg Enoxaparin Sodium (Lovenox) 40 mg SC DAILY [facility] Last Admin: 06/27/18 10:44 Dose: 40 mg Ergocalciferol (Drisdol 50,000 Intl Units Cap) 1 cap PO Q7D [facility] Last Admin: 06/27/18 10:44 Dose: 1 cap Folic Acid (Folic Acid) 1 mg PO DAILY [facility] Last Admin: 06/27/18 10:44 Dose: 1 mg Gabapentin (Neurontin) 100 mg PO HS [facility] Last Admin: 06/26/18 22:02 Dose: 100 mg Metoprolol Tartrate (Lopressor) 12.5 mg PO Q12 [facility] Last Admin: 06/27/18 10:38 Dose: Not Given Midodrine (Proamatine) 2.5 mg PO BID [facility] Last Admin: 06/27/18 18:12 Dose: 2.5 mg Multivitamins (Hexavitamin) 1 tab PO DAILY [facility] Last Admin: 06/27/18 10:44 Dose: 1 tab Pantoprazole Sodium (Protonix Ec Tab) 20 mg PO DAILY [facility] Last Admin: 06/27/18 10:44 Dose: 20 mg Pyridoxine HCl (Vitamin B6 50 Mg Tab) 50 mg PO DAILY [facility] Last Admin: 06/27/18 10:44 Dose: 50 mg Saccharomyces Boulardii (Florastor) 250 mg PO BID [facility] Last Admin: 06/27/18 18:12 Dose: 250 mg Sennosides (Senokot Tab) 8.6 mg PO BID PRN PRN Reason: Constipation Thiamine HCl (Vitamin B1 Tab) 100 mg PO DAILY [facility] Last Admin: 06/27/18 10:44 Dose: 100 mg Vitamin B Complex/Vitamin C (Berocca) 1 tab PO DAILY [facility] Last Admin: 06/27/18 10:44 Dose: 1 tab Vitamin E (Vitamin E 400 Units Cap) 400 intlu PO DAILY [facility] Last Admin: 06/27/18 10:44 Dose: 400 intlu Zinc Sulfate (Zinc Sulfate 220 Mg Cap) 220 mg PO DAILY [facility] Last Admin: 06/27/18 10:44 Dose: 220 mg - Labs Labs: 06/27/18 09:35 06/27/18 09:35 PT 12.3 SECONDS (9.7-12.2) H 06/07/18 17:57 INR 1.1 06/07/18 17:57 APTT 35 SECONDS (21-34) H 06/07/18 17:57 Attending/Attestation - Attestation I have personally seen and examined this patient.: Yes I have fully participated in the care of the patient.: Yes I have reviewed all pertinent clinical information, including history, physical exam and plan: Yes Notes (Text): 06/27/18 20:36 This is a late entry. Care of this patient was gone over with resident Dr. Austin Sanon D.O.
[2018-06-22] MEDS: Vitamin B Complex/Vitamin C Tab PO SCH (17:25)
--- NOTE | 2018-06-22 18:56 | CARD ---
APPROVED REPORT Date of service: 06/18/2018 EKG Measurement Heart [id number] <Conclusion> Normal sinus rhythm Low voltage QRS Borderline ECG
[2018-06-23] MEDS ORDERED: Magnesium Oxide 400 mg Tab UD PO STA (07:28)
[2018-06-23 07:35] LABS: BASO # 0.1 K/uL (0.0-0.2); BASO % 1.1 % (0.0-2.0); EOS # 0.1 K/uL (0.0-0.7); EOS % 0.9 % (0.0-4.0); HEMOGLOBIN 13.6 g/dL (11.0-16.0); LYMPH # 1.9 K/uL (1.0-4.3); LYMPH % 26.1 % (20.0-40.0); MEAN CELL VOLUME 103.6 fL (81.0-99.0); MEAN CORPUSCULAR HEMOGLOBIN 35.3 pg (27.0-31.0); MEAN PLATELET VOLUME 9.9 fL (7.2-11.7); MONO # 0.8 K/uL (0.0-0.8); MONO % 10.6 % (0.0-10.0); NEUT # 4.4 K/uL (1.8-7.0); NEUT % 61.3 % (50.0-75.0); RBC 3.86 Mil/uL (3.80-5.20); RED CELL DISTRIBUTION WIDTH 14.2 % (11.5-14.5); WHITE BLOOD COUNT 7.1 K/uL (4.8-10.8)
[2018-06-23 07:53] LABS: ALB/GLOB RATIO 0.8 (1.0-2.1); ALBUMIN 3.6 g/dL (3.5-5.0); ALT/SGPT 69 U/L (9-52); AST/SGOT 64 U/L (14-36); BLOOD UREA NITROGEN 13 mg/dL (7-17); CALCIUM 9.5 mg/dl (8.6-10.4); GFR NON-AFRICAN AMERICAN > 60
[2018-06-23] MEDS: Multiple Vitamins Tab PO SCH (09:28)
[2018-06-23] MEDS: Saccharomyces Boulardi 250 mg Cap PO SCH ×2 (09:28→18:12)
[2018-06-23] MEDS: Enoxaparin 40 mg Syringe SC SCH (09:29)
[2018-06-23] MEDS: Pantoprazole 20 mg EC Tab PO SCH (09:29)
[2018-06-23] MEDS: Vitamin B Complex/Vitamin C Tab PO SCH (09:29)
--- NOTE | 2018-06-23 13:14 | CP.PCM.PN ---
<Billy Avila - Last Filed: 06/23/18 22:39> Subjective - Date & Time of Evaluation Date of Evaluation: 06/23/18 Time of Evaluation: 13:05 - Subjective Subjective: HOSPITALIST SERVICE Pt seen and examined at bedside, Pt denies any acute events overnight, pt feels improvement in stability. Pt understands her current status and agrees with plan for acute rehab. Pt denies CP SOB FC NV, still complains of restless legs and instability however improving. 12 Point ROS reviewed and otherwise unremarkable. Objective - Vital Signs/Intake and Output Vital Signs (last 24 hours): Temp Pulse Resp BP Pulse Ox 97.8 F 117 H 20 107/72 95 06/23/18 07:52 06/23/18 07:52 06/23/18 07:52 06/23/18 07:52 06/23/18 07:52 Intake and Output: 06/23/18 06/23/18 06:59 18:59 Intake Total 100 Balance 100 - Medications Medications: Current Medications Cyanocobalamin (Vitamin B12 1000 Mcg/Ml Inj) 1,000 mcg IM Q7D [facility] Last Admin: 06/16/18 17:49 Dose: 1,000 mcg Enoxaparin Sodium (Lovenox) 40 mg SC DAILY [facility] Last Admin: 06/23/18 09:29 Dose: 40 mg Ergocalciferol (Drisdol 50,000 Intl Units Cap) 1 cap PO Q7D [facility] Last Admin: 06/20/18 10:00 Dose: 1 cap Folic Acid (Folic Acid) 1 mg PO DAILY [facility] Last Admin: 06/23/18 09:29 Dose: 1 mg Gabapentin (Neurontin) 100 mg PO HS [facility] Last Admin: 06/22/18 21:33 Dose: 100 mg Metoprolol Tartrate (Lopressor) 12.5 mg PO Q12 [facility] Last Admin: 06/23/18 09:28 Dose: 12.5 mg Midodrine (Proamatine) 2.5 mg PO BID [facility] Last Admin: 06/23/18 09:29 Dose: 2.5 mg Multivitamins (Hexavitamin) 1 tab PO DAILY [facility] Last Admin: 06/23/18 09:28 Dose: 1 tab Ondansetron HCl (Zofran Inj) 4 mg IVP DAILY@ONCE PRN PRN Reason: Nausea/Vomiting Last Admin: 06/13/18 08:43 Dose: 4 mg Pantoprazole Sodium (Protonix Ec Tab) 20 mg PO DAILY [facility] Pyridoxine HCl (Vitamin B6 50 Mg Tab) 50 mg PO DAILY [facility] Last Admin: 06/23/18 09:36 Dose: 50 mg Saccharomyces Boulardii (Florastor) 250 mg PO BID [facility] Last Admin: 06/23/18 09:28 Dose: 250 mg Sennosides (Senokot Tab) 8.6 mg PO BID PRN PRN Reason: Constipation Thiamine HCl (Vitamin B1 Tab) 100 mg PO DAILY [facility] Last Admin: 06/23/18 09:29 Dose: 100 mg Vitamin B Complex/Vitamin C (Berocca) 1 tab PO DAILY [facility] Last Admin: 06/23/18 09:29 Dose: 1 tab Vitamin E (Vitamin E 400 Units Cap) 400 intlu PO DAILY [facility] Last Admin: 06/23/18 09:30 Dose: 400 intlu Zinc Sulfate (Zinc Sulfate 220 Mg Cap) 220 mg PO DAILY [facility] Last Admin: 06/23/18 09:29 Dose: 220 mg - Labs Labs: 06/23/18 07:26 06/23/18 07:26 PT 12.3 SECONDS (9.7-12.2) H 06/07/18 17:57 INR 1.1 06/07/18 17:57 APTT 35 SECONDS (21-34) H 06/07/18 17:57 - Additional Findings Additional findings: Head: Positive for: Atraumatic, Normocephalic Pupils: Positive for: PERRL Extroacular Muscles: Positive for: EOMI Conjunctiva: Positive for: Normal Mouth: Positive for: Moist Mucous Membranes Neck: Positive for: Normal Range of Motion Respiratory/Chest: Positive for: Clear to Auscultation, Good Air Exchange. Negative for: Respiratory Distress, Accessory Muscle Use, Wheezes, Rales, Retracting, Rhonchi Cardiovascular: Positive for: Normal S1, S2, tachycardic Abdomen: Positive for: Normal Bowel Sounds. 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 Negative for: Cyanosis, Edema, Tenderness, Swelling Lower Extremity: Positive for: Normal Inspection, NORMAL PULSES, Capillary Refill < 2 s, Other (Decreased sensation b/l LE, motor strength 3/5 b/l LE). Negative for: Edema, CALF TENDERNESS, Cyanosis, Swelling Neurological: Positive for: CN II-XII Intact, Speech Normal, Other (RUE: 4/5 strength, LUE: 4/5 strength, no sensory deficits in b/l UE. RLE: 4/5 strength, LLE: 4/5 strength). Negative for: Normal Sensory Function Pincer grasps intact bilaterally Extensor Hallicus strength intact bilaterally No clonus noted Resting lower extremity acathesia like movements improved Facial fasciculation noted Skin: Positive for: Warm, Dry, Normal Color. 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 Neurology on board, cause of pt symptoms not known at this time. Patient is s/p plasmapheresis x3. s/p IVIG finished 06/20 Plan: Complex Inflammatory Demyelinating Polyneuropathy - Plan for transfer to acute rehab for EMG/NCV and further assessment - s/p lumbar tap: CSF total protein wnl - vitamin B12 > 1000 - Folate wnl - Copper tox neg - Homocysteine 18.4 - Anti-Ach receptor antibodies negative - RPR, HIV, HSV, [place], lyme negative - MRI C/T/L spine series: no acute findings - MRI brain w/contrast: 4 mm enhancing lesion in R pontomedullary junction and nonenhancing inferior L frontal lobe lesion. - CT chest (06/09): 2.7 x 2.5 cm heterogeneous hyperdense mass noted in L hepatic lobe worrisome for malignant neoplasm. Cholelithiasis. High density focus noted on the nondependent portion of the gallbladder; alternatives including polyp or neoplasm can't be excluded. - MRI/CT abdomen reports [place] [facility] [place] and placed in patient chart: liver lesion likely hemangioma - s/p plasmapheresis x3 - Multivitamins, Thiamine, Vitamin B12, Vitamin D, Folic acid daily - Gabapentin 100mg HS - Zinc sulfate 220mg PO QD - Neurology consulted, Dr. Villalba/Latonya IVIG @ 23mg/hr- 3 day course done 06/20 EMG/NCV: obtain in Rehab or as Outpt -Heme/Onc consulted, Dr Maria -Vitamin B and D complex PO QD Restless Leg Syndrome - Monitor, improving today 06/23 -f/u outpatient -consider Neupro, Not on formulary at [facility] Orthostatic hypotension - Midodrine 2.5mg PO BID lowered today - lopressor 12.5mg PO BID - improved Polycythemia - s/p plasmapheresis x3 - Heme/Onc consulted, Dr. Maria- recs appreciated UTI - UCx 06/09: + E.coli - BCx negative x5d, final - pt afebrile, hemodynamically stable - completed 3 days ceftriaxone 1g IV Ppx DVT: heparin GI: protonix Florastor Diet: advance bite size DISPO: Pt pending approval at either [facility] or [facility] Pt seen and case reviewed with Dr. Tere Sanon <Eulalio Sanon - Last Filed: 06/27/18 20:36> Objective - Vital Signs/Intake and Output Vital Signs (last 24 hours): Temp Pulse Resp BP Pulse Ox 99.6 F 125 H 18 117/88 97 06/27/18 16:31 06/27/18 16:31 06/27/18 16:31 06/27/18 16:31 06/27/18 16:31 - Medications Medications: Current Medications Cyanocobalamin (Vitamin B12 1000 Mcg/Ml Inj) 1,000 mcg IM Q7D [facility] Last Admin: 06/23/18 18:12 Dose: 1,000 mcg Enoxaparin Sodium (Lovenox) 40 mg SC DAILY [facility] Last Admin: 06/27/18 10:44 Dose: 40 mg Ergocalciferol (Drisdol 50,000 Intl Units Cap) 1 cap PO Q7D [facility] Last Admin: 06/27/18 10:44 Dose: 1 cap Folic Acid (Folic Acid) 1 mg PO DAILY [facility] Last Admin: 06/27/18 10:44 Dose: 1 mg Gabapentin (Neurontin) 100 mg PO HS [facility] Last Admin: 06/26/18 22:02 Dose: 100 mg Metoprolol Tartrate (Lopressor) 12.5 mg PO Q12 [facility] Last Admin: 06/27/18 10:38 Dose: Not Given Midodrine (Proamatine) 2.5 mg PO BID [facility] Last Admin: 06/27/18 18:12 Dose: 2.5 mg Multivitamins (Hexavitamin) 1 tab PO DAILY [facility] Last Admin: 06/27/18 10:44 Dose: 1 tab Pantoprazole Sodium (Protonix Ec Tab) 20 mg PO DAILY [facility] Last Admin: 06/27/18 10:44 Dose: 20 mg Pyridoxine HCl (Vitamin B6 50 Mg Tab) 50 mg PO DAILY [facility] Last Admin: 06/27/18 10:44 Dose: 50 mg Saccharomyces Boulardii (Florastor) 250 mg PO BID [facility] Last Admin: 06/27/18 18:12 Dose: 250 mg Sennosides (Senokot Tab) 8.6 mg PO BID PRN PRN Reason: Constipation Thiamine HCl (Vitamin B1 Tab) 100 mg PO DAILY [facility] Last Admin: 06/27/18 10:44 Dose: 100 mg Vitamin B Complex/Vitamin C (Berocca) 1 tab PO DAILY [facility] Last Admin: 06/27/18 10:44 Dose: 1 tab Vitamin E (Vitamin E 400 Units Cap) 400 intlu PO DAILY [facility] Last Admin: 06/27/18 10:44 Dose: 400 intlu Zinc Sulfate (Zinc Sulfate 220 Mg Cap) 220 mg PO DAILY [facility] Last Admin: 06/27/18 10:44 Dose: 220 mg - Labs Labs: 06/27/18 09:35 06/27/18 09:35 PT 12.3 SECONDS (9.7-12.2) H 06/07/18 17:57 INR 1.1 06/07/18 17:57 APTT 35 SECONDS (21-34) H 06/07/18 17:57 Attending/Attestation - Attestation I have personally seen and examined this patient.: Yes I have fully participated in the care of the patient.: Yes I have reviewed all pertinent clinical information, including history, physical exam and plan: Yes Notes (Text): 06/27/18 20:36 This is a late entry. Care of this patient was gone over with resident Dr. Austin Sanon D.O.
--- NOTE | 2018-06-23 14:21 | CP.PCM.PN ---
Subjective - Date & Time of Evaluation Date of Evaluation: 06/23/18 Time of Evaluation: 14:17 - Subjective Subjective: Progress note for Dr. Villalba Patient was seen and examined at bedside in no acute distress. Patient has no complaints today and states she is feeling better. ROS otherwise negative. Objective - Vital Signs/Intake and Output Vital Signs (last 24 hours): Temp Pulse Resp BP Pulse Ox 97.8 F 117 H 20 107/72 95 06/23/18 07:52 06/23/18 07:52 06/23/18 07:52 06/23/18 07:52 06/23/18 07:52 Intake and Output: 06/23/18 06/23/18 06:59 18:59 Intake Total 100 Balance 100 - Medications Medications: Current Medications Cyanocobalamin (Vitamin B12 1000 Mcg/Ml Inj) 1,000 mcg IM Q7D [facility] Last Admin: 06/16/18 17:49 Dose: 1,000 mcg Enoxaparin Sodium (Lovenox) 40 mg SC DAILY [facility] Last Admin: 06/23/18 09:29 Dose: 40 mg Ergocalciferol (Drisdol 50,000 Intl Units Cap) 1 cap PO Q7D [facility] Last Admin: 06/20/18 10:00 Dose: 1 cap Folic Acid (Folic Acid) 1 mg PO DAILY [facility] Last Admin: 06/23/18 09:29 Dose: 1 mg Gabapentin (Neurontin) 100 mg PO HS [facility] Last Admin: 06/22/18 21:33 Dose: 100 mg Metoprolol Tartrate (Lopressor) 12.5 mg PO Q12 [facility] Last Admin: 06/23/18 09:28 Dose: 12.5 mg Midodrine (Proamatine) 2.5 mg PO BID [facility] Last Admin: 06/23/18 09:29 Dose: 2.5 mg Multivitamins (Hexavitamin) 1 tab PO DAILY [facility] Last Admin: 06/23/18 09:28 Dose: 1 tab Ondansetron HCl (Zofran Inj) 4 mg IVP DAILY@ONCE PRN PRN Reason: Nausea/Vomiting Last Admin: 06/13/18 08:43 Dose: 4 mg Pantoprazole Sodium (Protonix Ec Tab) 20 mg PO DAILY [facility] Pyridoxine HCl (Vitamin B6 50 Mg Tab) 50 mg PO DAILY [facility] Last Admin: 12/12/18 09:36 Dose: 50 mg Saccharomyces Boulardii (Florastor) 250 mg PO BID [facility] Last Admin: 06/23/18 09:28 Dose: 250 mg Sennosides (Senokot Tab) 8.6 mg PO BID PRN PRN Reason: Constipation Thiamine HCl (Vitamin B1 Tab) 100 mg PO DAILY [facility] Last Admin: 06/23/18 09:29 Dose: 100 mg Vitamin B Complex/Vitamin C (Berocca) 1 tab PO DAILY [facility] Last Admin: 06/23/18 09:29 Dose: 1 tab Vitamin E (Vitamin E 400 Units Cap) 400 intlu PO DAILY [facility] Last Admin: 06/23/18 09:30 Dose: 400 intlu Zinc Sulfate (Zinc Sulfate 220 Mg Cap) 220 mg PO DAILY [facility] Last Admin: 06/23/18 09:29 Dose: 220 mg - Labs Labs: 06/23/18 07:26 06/23/18 07:26 PT 12.3 SECONDS (9.7-12.2) H 06/07/18 17:57 INR 1.1 06/07/18 17:57 APTT 35 SECONDS (21-34) H 06/07/18 17:57 - Additional Findings Additional findings: - Constitutional Appears: Well, Non-toxic, No Acute Distress - Head Exam Head Exam: ATRAUMATIC, NORMAL INSPECTION, NORMOCEPHALIC - Eye Exam Eye Exam: EOMI, PERRL - ENT Exam ENT Exam: Mucous Membranes Moist - Neck Exam Neck Exam: Full ROM, Normal Inspection - Respiratory Exam Respiratory Exam: NORMAL BREATHING PATTERN - Extremities Exam Extremities Exam: absent: Calf Tenderness, Full ROM, Pedal Edema - Neurological Exam Neurological Exam: Alert, Awake, Oriented x3. Neuro motor strength exam: Left Upper Extremity: 4 (supervisor coating 4/5), Right Upper Extremity: 4 (supervisor coating 4/5), Left Lower Extremity: 4, Right Lower Extremity: 4 Additional comments: No slurred speech or facial asymmetry; pincer grasps intact; Sensory intact (hypersensitivity to BLE resolved). - Psychiatric Exam Psychiatric exam: Normal Affect, Normal Mood - Skin Skin Exam: Normal Color Assessment and Plan - Assessment and Plan (Free Text) Plan: Weakness of limb Assessment & Plan: The patient continues to improve and is pending placement at a rehab facility. - Completed 3 doses of IVIG. - Continue to hold Mestinon as antibodies are not indicative of MG. - Continue PT/OT - Continue Gabapentin to 100 mg PO HS. - We will continue to follow up with the pt while she is in the hospital. Case discussed with Dr. Deejay Montez, PGY2
--- NOTE | 2018-06-24 09:53 | CP.PCM.PN ---
Subjective - Date & Time of Evaluation Date of Evaluation: 06/24/18 Time of Evaluation: 09:50 - Subjective Subjective: Progress note for Dr. Hanks Patient was seen and examined at bedside in no acute distress. Patient states she feels fatigued today, but overall feels better. She has no complaints today. ROS otherwise negative. Objective - Vital Signs/Intake and Output Vital Signs (last 24 hours): Temp Pulse Resp BP Pulse Ox 98.3 F 125 H 20 126/86 98 06/24/18 07:00 06/24/18 07:00 06/24/18 07:00 06/24/18 07:00 06/24/18 07:00 Intake and Output: 06/24/18 06/24/18 06:59 18:59 Intake Total 240 Output Total 550 Balance -310 - Medications Medications: Current Medications Cyanocobalamin (Vitamin B12 1000 Mcg/Ml Inj) 1,000 mcg IM Q7D [facility] Last Admin: 06/23/18 18:12 Dose: 1,000 mcg Enoxaparin Sodium (Lovenox) 40 mg SC DAILY [facility] Last Admin: 06/23/18 09:29 Dose: 40 mg Ergocalciferol (Drisdol 50,000 Intl Units Cap) 1 cap PO Q7D [facility] Last Admin: 06/20/18 10:00 Dose: 1 cap Folic Acid (Folic Acid) 1 mg PO DAILY [facility] Last Admin: 06/23/18 09:29 Dose: 1 mg Gabapentin (Neurontin) 100 mg PO HS [facility] Last Admin: 06/23/18 21:45 Dose: 100 mg Metoprolol Tartrate (Lopressor) 12.5 mg PO Q12 [facility] Last Admin: 06/23/18 21:45 Dose: 12.5 mg Midodrine (Proamatine) 2.5 mg PO BID [facility] Last Admin: 06/23/18 18:12 Dose: 2.5 mg Multivitamins (Hexavitamin) 1 tab PO DAILY [facility] Last Admin: 06/23/18 09:28 Dose: 1 tab Pantoprazole Sodium (Protonix Ec Tab) 20 mg PO DAILY [facility] Pyridoxine HCl (Vitamin B6 50 Mg Tab) 50 mg PO DAILY [facility] Last Admin: 06/23/18 09:36 Dose: 50 mg Saccharomyces Boulardii (Florastor) 250 mg PO BID [facility] Last Admin: 06/23/18 18:12 Dose: 250 mg Sennosides (Senokot Tab) 8.6 mg PO BID PRN PRN Reason: Constipation Thiamine HCl (Vitamin B1 Tab) 100 mg PO DAILY [facility] Last Admin: 06/23/18 09:29 Dose: 100 mg Vitamin B Complex/Vitamin C (Berocca) 1 tab PO DAILY [facility] Last Admin: 06/23/18 09:29 Dose: 1 tab Vitamin E (Vitamin E 400 Units Cap) 400 intlu PO DAILY [facility] Last Admin: 06/23/18 09:30 Dose: 400 intlu Zinc Sulfate (Zinc Sulfate 220 Mg Cap) 220 mg PO DAILY [facility] Last Admin: 06/23/18 09:29 Dose: 220 mg - Labs Labs: 06/23/18 07:26 06/23/18 07:26 PT 12.3 SECONDS (9.7-12.2) H 06/07/18 17:57 INR 1.1 06/07/18 17:57 APTT 35 SECONDS (21-34) H 06/07/18 17:57 - Additional Findings Additional findings: - Constitutional Appears: Well, Non-toxic, No Acute Distress - Head Exam Head Exam: ATRAUMATIC, NORMAL INSPECTION, NORMOCEPHALIC - Eye Exam Eye Exam: EOMI, PERRL - ENT Exam ENT Exam: Mucous Membranes Moist - Neck Exam Neck Exam: Full ROM, Normal Inspection - Respiratory Exam Respiratory Exam: NORMAL BREATHING PATTERN, no wheezes, rales, or rhonchi - Cardiovascular Exam Cardiovascular Exam: +S1, S1, regular rhythm - Extremities Exam Extremities Exam: absent: Calf Tenderness, Pedal Edema - Neurological Exam Neurological Exam: Alert, Awake, Oriented x3. Neuro motor strength exam: Left Upper Extremity: 4 (crisis worker 4/5), Right Upper Extremity: 4 (crisis worker 4/5), Left Lower Extremity: 4/5, Right Lower Extremity: 4/5 Additional comments: No slurred speech or facial asymmetry; pincer grasps intact; Sensory intact (hypersensitivity to BLE resolved), diminished reflexes b/l - Psychiatric Exam Psychiatric exam: Normal Affect, Normal Mood - Skin Skin Exam: Normal Color Assessment and Plan - Assessment and Plan (Free Text) Plan: Weakness of limb Assessment & Plan: The patient continues to improve and is pending placement at a rehab facility. - Completed 3 doses of IVIG. - Continue to hold Mestinon as antibodies are not indicative of MG. - Continue PT/OT - Continue Gabapentin to 100 mg PO HS. Case discussed with Dr. Latonya Montez, PGY2
--- NOTE | 2018-06-24 10:29 | CP.PCM.PN ---
<Billy Avila - Last Filed: 06/24/18 17:04> Subjective - Date & Time of Evaluation Date of Evaluation: 06/24/18 Time of Evaluation: 10:26 - Subjective Subjective: HOSPITALIST SERVICE Pt seen and examined at bedside. Pt denies CP SOB FC NV, feels incremental improvement in restless legs and feels improvement in hypersensitivity. Pt feels she is still limited in her capacity to maintain stance and to initiate gait. Objective - Vital Signs/Intake and Output Vital Signs (last 24 hours): Temp Pulse Resp BP Pulse Ox 98.3 F 125 H 20 126/86 98 06/24/18 07:00 06/24/18 07:00 06/24/18 07:00 06/24/18 07:00 06/24/18 07:00 Intake and Output: 06/24/18 06/24/18 06:59 18:59 Intake Total 240 Output Total 550 Balance -310 - Medications Medications: Current Medications Cyanocobalamin (Vitamin B12 1000 Mcg/Ml Inj) 1,000 mcg IM Q7D [facility] Last Admin: 06/23/18 18:12 Dose: 1,000 mcg Enoxaparin Sodium (Lovenox) 40 mg SC DAILY [facility] Last Admin: 06/23/18 09:29 Dose: 40 mg Ergocalciferol (Drisdol 50,000 Intl Units Cap) 1 cap PO Q7D [facility] Last Admin: 06/20/18 10:00 Dose: 1 cap Folic Acid (Folic Acid) 1 mg PO DAILY [facility] Last Admin: 06/23/18 09:29 Dose: 1 mg Gabapentin (Neurontin) 100 mg PO HS [facility] Last Admin: 06/23/18 21:45 Dose: 100 mg Metoprolol Tartrate (Lopressor) 12.5 mg PO Q12 [facility] Last Admin: 06/23/18 21:45 Dose: 12.5 mg Midodrine (Proamatine) 2.5 mg PO BID [facility] Last Admin: 06/23/18 18:12 Dose: 2.5 mg Multivitamins (Hexavitamin) 1 tab PO DAILY [facility] Last Admin: 06/23/18 09:28 Dose: 1 tab Pantoprazole Sodium (Protonix Ec Tab) 20 mg PO DAILY [facility] Pyridoxine HCl (Vitamin B6 50 Mg Tab) 50 mg PO DAILY [facility] Last Admin: 06/23/18 09:36 Dose: 50 mg Saccharomyces Boulardii (Florastor) 250 mg PO BID [facility] Last Admin: 06/23/18 18:12 Dose: 250 mg Sennosides (Senokot Tab) 8.6 mg PO BID PRN PRN Reason: Constipation Thiamine HCl (Vitamin B1 Tab) 100 mg PO DAILY [facility] Last Admin: 06/23/18 09:29 Dose: 100 mg Vitamin B Complex/Vitamin C (Berocca) 1 tab PO DAILY [facility] Last Admin: 06/23/18 09:29 Dose: 1 tab Vitamin E (Vitamin E 400 Units Cap) 400 intlu PO DAILY [facility] Last Admin: 06/23/18 09:30 Dose: 400 intlu Zinc Sulfate (Zinc Sulfate 220 Mg Cap) 220 mg PO DAILY [facility] Last Admin: 06/23/18 09:29 Dose: 220 mg - Labs Labs: 06/23/18 07:26 06/23/18 07:26 PT 12.3 SECONDS (9.7-12.2) H 06/07/18 17:57 INR 1.1 06/07/18 17:57 APTT 35 SECONDS (21-34) H 06/07/18 17:57 - Additional Findings Additional findings: Head: Positive for: Atraumatic, Normocephalic Pupils: Positive for: PERRL Extroacular Muscles: Positive for: EOMI Conjunctiva: Positive for: Normal Mouth: Positive for: Moist Mucous Membranes Neck: Positive for: Normal Range of Motion Respiratory/Chest: Positive for: Clear to Auscultation, Good Air Exchange. Negative for: Respiratory Distress, Accessory Muscle Use, Wheezes, Rales, Retracting, Rhonchi Cardiovascular: Positive for: Normal S1, S2, tachycardic Abdomen: Positive for: Normal Bowel Sounds. 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 Negative for: Cyanosis, Edema, Tenderness, Swelling Lower Extremity: Positive for: Normal Inspection, NORMAL PULSES, Capillary Refill < 2 s, Other (Decreased sensation b/l LE, motor strength 3/5 b/l LE). Negative for: Edema, CALF TENDERNESS, Cyanosis, Swelling Neurological: Positive for: CN II-XII Intact, Speech Normal, Other (RUE: 4/5 strength, LUE: 4/5 strength, no sensory deficits in b/l UE. RLE: 4/5 strength, LLE: 4/5 strength). Negative for: Normal Sensory Function Pincer grasps intact bilaterally Extensor Hallicus strength intact bilaterally No clonus noted Resting lower extremity acathesia like movements improved Facial fasciculation noted Skin: Positive for: Warm, Dry, Normal Color. 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 Neurology on board, cause of pt symptoms not known at this time. Patient is s/p plasmapheresis x3. s/p IVIG finished 06/20 Plan: Bilateral Upper and Lower mixed motor/sensory neuropathy. 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 - Plan for transfer to acute rehab for EMG/NCV and further assessment - Initial MS and MG possible dx unlikely due to neg serologies and MRI spine findings. - s/p lumbar tap: CSF total protein wnl - vitamin B12 > 1000 - Folate wnl - Copper tox neg - Homocysteine 18.4 - Anti-Ach receptor antibodies negative - RPR, HIV, HSV, [place] n[place], lyme negative - MRI C/T/L spine series: no acute findings - MRI brain w/contrast: 4 mm enhancing lesion in R pontomedullary junction and nonenhancing inferior L frontal lobe lesion. - CT chest (06/09): 2.7 x 2.5 cm heterogeneous hyperdense mass noted in L hepatic lobe worrisome for malignant neoplasm. Cholelithiasis. High density focu s noted on the nondependent portion of the gallbladder; alternatives including polyp or neoplasm can't be excluded. - MRI/CT abdomen reports from [facility] [place] faxed over and placed in patient chart: liver lesion likely hemangioma - s/p plasmapheresis x3 - Multivitamins, Thiamine, Vitamin B12, Vitamin D, Folic acid daily - Gabapentin 100mg HS - Zinc sulfate 220mg PO QD - Neurology consulted, Dr. Villalba/Latonya IVIG @ 23mg/hr- 3 day course done 06/20 EMG/NCV: obtain in Rehab or as Outpt -Heme/Onc consulted, Dr Maria -Vitamin B and D complex PO QD Restless Leg Syndrome - Monitor, improving today 06/24 -f/u outpatient -consider Neupro, Not on formulary at [facility] Orthostatic hypotension - Midodrine 2.5mg PO BID lowered today - lopressor 12.5mg PO BID - improved Polycythemia - s/p plasmapheresis x3 - Heme/Onc consulted, Dr. Maria- recs appreciated UTI - UCx 06/09: + E.coli - BCx negative x5d, final - pt afebrile, hemodynamically stable - completed 3 days ceftriaxone 1g IV Ppx DVT: heparin GI: protonix Florastor Diet: advance bite size DISPO: Pt pending approval at either [facility] or [facility] Pt seen and case reviewed with Dr. Tere Sanon <Eulalio Sanon - Last Filed: 06/27/18 20:36> Objective - Vital Signs/Intake and Output Vital Signs (last 24 hours): Temp Pulse Resp BP Pulse Ox 99.6 F 125 H 18 117/88 97 06/27/18 16:31 06/27/18 16:31 06/27/18 16:31 06/27/18 16:31 06/27/18 16:31 - Medications Medications: Current Medications Cyanocobalamin (Vitamin B12 1000 Mcg/Ml Inj) 1,000 mcg IM Q7D [facility] Last Admin: 06/23/18 18:12 Dose: 1,000 mcg Enoxaparin Sodium (Lovenox) 40 mg SC DAILY [facility] Last Admin: 06/27/18 10:44 Dose: 40 mg Ergocalciferol (Drisdol 50,000 Intl Units Cap) 1 cap PO Q7D [facility] Last Admin: 06/27/18 10:44 Dose: 1 cap Folic Acid (Folic Acid) 1 mg PO DAILY [facility] Last Admin: 06/27/18 10:44 Dose: 1 mg Gabapentin (Neurontin) 100 mg PO HS [facility] Last Admin: 06/26/18 22:02 Dose: 100 mg Metoprolol Tartrate (Lopressor) 12.5 mg PO Q12 [facility] Last Admin: 06/27/18 10:38 Dose: Not Given Midodrine (Proamatine) 2.5 mg PO BID [facility] Last Admin: 06/27/18 18:12 Dose: 2.5 mg Multivitamins (Hexavitamin) 1 tab PO DAILY [facility] Last Admin: 06/27/18 10:44 Dose: 1 tab Pantoprazole Sodium (Protonix Ec Tab) 20 mg PO DAILY [facility] Last Admin: 06/27/18 10:44 Dose: 20 mg Pyridoxine HCl (Vitamin B6 50 Mg Tab) 50 mg PO DAILY [facility] Last Admin: 06/27/18 10:44 Dose: 50 mg Saccharomyces Boulardii (Florastor) 250 mg PO BID [facility] Last Admin: 06/27/18 18:12 Dose: 250 mg Sennosides (Senokot Tab) 8.6 mg PO BID PRN PRN Reason: Constipation Thiamine HCl (Vitamin B1 Tab) 100 mg PO DAILY [facility] Last Admin: 06/27/18 10:44 Dose: 100 mg Vitamin B Complex/Vitamin C (Berocca) 1 tab PO DAILY [facility] Last Admin: 06/27/18 10:44 Dose: 1 tab Vitamin E (Vitamin E 400 Units Cap) 400 intlu PO DAILY [facility] Last Admin: 06/27/18 10:44 Dose: 400 intlu Zinc Sulfate (Zinc Sulfate 220 Mg Cap) 220 mg PO DAILY [facility] Last Admin: 06/27/18 10:44 Dose: 220 mg - Labs Labs: 06/27/18 09:35 06/27/18 09:35 PT 12.3 SECONDS (9.7-12.2) H 06/07/18 17:57 INR 1.1 06/07/18 17:57 APTT 35 SECONDS (21-34) H 06/07/18 17:57 Attending/Attestation - Attestation I have personally seen and examined this patient.: Yes I have fully participated in the care of the patient.: Yes I have reviewed all pertinent clinical information, including history, physical exam and plan: Yes Notes (Text): 06/27/18 20:36 This is a late entry. Care of this patient was gone over with resident Dr. Austin Sanon D.O.
[2018-06-24] MEDS: Saccharomyces Boulardi 250 mg Cap PO SCH ×2 (10:36→18:08)
[2018-06-24] MEDS: Pantoprazole 20 mg EC Tab PO SCH (10:36)
[2018-06-24] MEDS: Enoxaparin 40 mg Syringe SC SCH (10:36)
[2018-06-24] MEDS: Vitamin B Complex/Vitamin C Tab PO SCH (10:36)
[2018-06-24] MEDS: Multiple Vitamins Tab PO SCH (10:36)
--- NOTE | 2018-06-25 05:22 | CARD ---
APPROVED REPORT Date of service: 06/22/2018 EKG Measurement Heart [id number] <Conclusion> Normal sinus rhythm Normal ECG
--- NOTE | 2018-06-25 07:29 | CP.PCM.PN ---
<Billy Avila - Last Filed: 06/25/18 16:46> Subjective - Date & Time of Evaluation Date of Evaluation: 06/25/18 Time of Evaluation: 07:27 - Subjective Subjective: HOSPITALIST SERVICE Pt seen and examined at bedside, denies any acute events overnight, Still complains of restless leg symptoms and moderate numbness, tingling, mixed hyperaesthesias, weakness especially in the legs. Denies CP sOB FC NV Objective - Vital Signs/Intake and Output Vital Signs (last 24 hours): Temp Pulse Resp BP Pulse Ox 98.0 F 112 H 20 113/72 96 06/25/18 02:25 06/25/18 02:25 06/25/18 02:25 06/25/18 02:25 06/25/18 02:25 Intake and Output: 06/25/18 06/25/18 06:59 18:59 Intake Total 480 Output Total 600 Balance -120 - Medications Medications: Current Medications Cyanocobalamin (Vitamin B12 1000 Mcg/Ml Inj) 1,000 mcg IM Q7D [facility] Last Admin: 06/23/18 18:12 Dose: 1,000 mcg Enoxaparin Sodium (Lovenox) 40 mg SC DAILY [facility] Last Admin: 06/24/18 10:36 Dose: 40 mg Ergocalciferol (Drisdol 50,000 Intl Units Cap) 1 cap PO Q7D [facility] Last Admin: 06/20/18 10:00 Dose: 1 cap Folic Acid (Folic Acid) 1 mg PO DAILY [facility] Last Admin: 06/24/18 10:36 Dose: 1 mg Gabapentin (Neurontin) 100 mg PO HS [facility] Last Admin: 06/24/18 21:58 Dose: 100 mg Metoprolol Tartrate (Lopressor) 12.5 mg PO Q12 [facility] Last Admin: 06/24/18 21:58 Dose: 12.5 mg Midodrine (Proamatine) 2.5 mg PO BID [facility] Last Admin: 06/24/18 18:08 Dose: 2.5 mg Multivitamins (Hexavitamin) 1 tab PO DAILY [facility] Last Admin: 06/24/18 10:36 Dose: 1 tab Pantoprazole Sodium (Protonix Ec Tab) 20 mg PO DAILY [facility] Last Admin: 06/24/18 10:36 Dose: 20 mg Pyridoxine HCl (Vitamin B6 50 Mg Tab) 50 mg PO DAILY [facility] Last Admin: 06/24/18 10:36 Dose: 50 mg Saccharomyces Boulardii (Florastor) 250 mg PO BID [facility] Last Admin: 06/24/18 18:08 Dose: 250 mg Sennosides (Senokot Tab) 8.6 mg PO BID PRN PRN Reason: Constipation Thiamine HCl (Vitamin B1 Tab) 100 mg PO DAILY [facility] Last Admin: 06/24/18 10:36 Dose: 100 mg Vitamin B Complex/Vitamin C (Berocca) 1 tab PO DAILY [facility] Last Admin: 06/24/18 10:36 Dose: 1 tab Vitamin E (Vitamin E 400 Units Cap) 400 intlu PO DAILY [facility] Last Admin: 06/24/18 10:37 Dose: 400 intlu Zinc Sulfate (Zinc Sulfate 220 Mg Cap) 220 mg PO DAILY [facility] Last Admin: 06/24/18 10:42 Dose: 220 mg - Labs Labs: 06/23/18 07:26 06/23/18 07:26 PT 12.3 SECONDS (9.7-12.2) H 06/07/18 17:57 INR 1.1 06/07/18 17:57 APTT 35 SECONDS (21-34) H 06/07/18 17:57 - Additional Findings Additional findings: Head: Positive for: Atraumatic, Normocephalic Pupils: Positive for: PERRL Extroacular Muscles: Positive for: EOMI Conjunctiva: Positive for: Normal Mouth: Positive for: Moist Mucous Membranes Neck: Positive for: Normal Range of Motion Respiratory/Chest: Positive for: Clear to Auscultation, Good Air Exchange. Negative for: Respiratory Distress, Accessory Muscle Use, Wheezes, Rales, Retracting, Rhonchi Cardiovascular: Positive for: Normal S1, S2, tachycardic Abdomen: Positive for: Normal Bowel Sounds. 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 Negative for: Cyanosis, Edema, Tenderness, Swelling Lower Extremity: Positive for: Normal Inspection, NORMAL PULSES, Capillary Refill < 2 s, Other (Decreased sensation b/l LE, motor strength 3/5 b/l LE). Negative for: Edema, CALF TENDERNESS, Cyanosis, Swelling Neurological: Positive for: CN II-XII Intact, Speech Normal, Other (RUE: 4/5 strength, LUE: 4/5 strength, no sensory deficits in b/l UE. RLE: 4/5 strength, LLE: 4/5 strength). Negative for: Normal Sensory Function Pincer grasps intact bilaterally Extensor Hallicus strength intact bilaterally No clonus noted Resting lower extremity acathesia like movements improved Facial fasciculation noted Skin: Positive for: Warm, Dry, Normal Color. 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 Neurology on board, cause of pt symptoms not known at this time. Patient is s/p plasmapheresis x3. s/p IVIG finished 06/20 Plan: Bilateral Upper and Lower mixed motor/sensory neuropathy. 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 - Plan for transfer to acute rehab for EMG/NCV and further assessment - Initial MS and MG possible dx unlikely due to neg serologies and MRI spine findings. - s/p lumbar tap: CSF total protein wnl - vitamin B12 > 1000 - Folate wnl - Copper tox neg - Homocysteine 18.4 - Anti-Ach receptor antibodies negative - RPR, HIV, HSV, [place], lyme negative - MRI C/T/L spine series: no acute findings - MRI brain w/contrast: 4 mm enhancing lesion in R pontomedullary junction and nonenhancing inferior L frontal lobe lesion. - CT chest (06/09): 2.7 x 2.5 cm heterogeneous hyperdense mass noted in L hepatic lobe worrisome for malignant neoplasm. Cholelithiasis. High density focus noted on the nondependent portion of the gallbladder; alternatives including polyp or neoplasm can't be excluded. - MRI/CT abdomen reports from [facility] [place] faxed over and placed in patient chart: liver lesion likely hemangioma - s/p plasmapheresis x3 - Multivitamins, Thiamine, Vitamin B12, Vitamin D, Folic acid daily - Gabapentin 100mg HS - Zinc sulfate 220mg PO QD - Neurology consulted, Dr. Villalba/Latonya IVIG @ 23mg/hr- 3 day course done 06/20 EMG/NCV: obtain in Rehab or as Outpt -Heme/Onc consulted, Dr Maria -Vitamin B and D complex PO QD Restless Leg Syndrome - Monitor, improving today 06/25 -f/u outpatient -consider Neupro, Not on formulary at [facility] Orthostatic hypotension - Midodrine 2.5mg PO BID lowered today - lopressor 12.5mg PO BID - improved Polycythemia - s/p plasmapheresis x3 - Heme/Onc consulted, Dr. Maria- recs appreciated UTI - UCx 06/09: + E.coli - BCx negative x5d, final - pt afebrile, hemodynamically stable - completed 3 days ceftriaxone 1g IV Ppx DVT: heparin GI: protonix Florastor Diet: advance bite size DISPO: Pt got pre auth for [facility] in [place], bed available, f/u approval Pt seen and case reviewed with Dr. Tere Sanon <Eulalio Sanon - Last Filed: 06/27/18 20:36> Objective - Vital Signs/Intake and Output Vital Signs (last 24 hours): Temp Pulse Resp BP Pulse Ox 99.6 F 125 H 18 117/88 97 06/27/18 16:31 06/27/18 16:31 06/27/18 16:31 06/27/18 16:31 06/27/18 16:31 - Medications Medications: Current Medications Cyanocobalamin (Vitamin B12 1000 Mcg/Ml Inj) 1,000 mcg IM Q7D [facility] Last Admin: 06/23/18 18:12 Dose: 1,000 mcg Enoxaparin Sodium (Lovenox) 40 mg SC DAILY [facility] Last Admin: 06/27/18 10:44 Dose: 40 mg Ergocalciferol (Drisdol 50,000 Intl Units Cap) 1 cap PO Q7D [facility] Last Admin: 06/27/18 10:44 Dose: 1 cap Folic Acid (Folic Acid) 1 mg PO DAILY [facility] Last Admin: 06/27/18 10:44 Dose: 1 mg Gabapentin (Neurontin) 100 mg PO HS [facility] Last Admin: 06/26/18 22:02 Dose: 100 mg Metoprolol Tartrate (Lopressor) 12.5 mg PO Q12 [facility] Last Admin: 06/27/18 10:38 Dose: Not Given Midodrine (Proamatine) 2.5 mg PO BID [facility] Last Admin: 06/27/18 18:12 Dose: 2.5 mg Multivitamins (Hexavitamin) 1 tab PO DAILY [facility] Last Admin: 06/27/18 10:44 Dose: 1 tab Pantoprazole Sodium (Protonix Ec Tab) 20 mg PO DAILY [facility] Last Admin: 06/27/18 10:44 Dose: 20 mg Pyridoxine HCl (Vitamin B6 50 Mg Tab) 50 mg PO DAILY [facility] Last Admin: 06/27/18 10:44 Dose: 50 mg Saccharomyces Boulardii (Florastor) 250 mg PO BID [facility] Last Admin: 06/27/18 18:12 Dose: 250 mg Sennosides (Senokot Tab) 8.6 mg PO BID PRN PRN Reason: Constipation Thiamine HCl (Vitamin B1 Tab) 100 mg PO DAILY [facility] Last Admin: 06/27/18 10:44 Dose: 100 mg Vitamin B Complex/Vitamin C (Berocca) 1 tab PO DAILY [facility] Last Admin: 06/27/18 10:44 Dose: 1 tab Vitamin E (Vitamin E 400 Units Cap) 400 intlu PO DAILY [facility] Last Admin: 06/27/18 10:44 Dose: 400 intlu Zinc Sulfate (Zinc Sulfate 220 Mg Cap) 220 mg PO DAILY [facility] Last Admin: 06/27/18 10:44 Dose: 220 mg - Labs Labs: 06/27/18 09:35 06/27/18 09:35 PT 12.3 SECONDS (9.7-12.2) H 06/07/18 17:57 INR 1.1 06/07/18 17:57 APTT 35 SECONDS (21-34) H 06/07/18 17:57 Attending/Attestation - Attestation I have personally seen and examined this patient.: Yes I have fully participated in the care of the patient.: Yes I have reviewed all pertinent clinical information, including history, physical exam and plan: Yes Notes (Text): 06/27/18 20:36 This is a late entry. Care of this patient was gone over with resident Dr. Austin Sanon D.O.
[2018-06-25] MEDS: Vitamin B Complex/Vitamin C Tab PO SCH (11:07)
[2018-06-25] MEDS: Enoxaparin 40 mg Syringe SC SCH (11:08)
[2018-06-25] MEDS: Pantoprazole 20 mg EC Tab PO SCH (11:08)
[2018-06-25] MEDS: Multiple Vitamins Tab PO SCH (11:08)
[2018-06-25] MEDS: Saccharomyces Boulardi 250 mg Cap PO SCH ×2 (11:08→18:22)
--- NOTE | 2018-06-25 15:20 | CP.PCM.PN ---
Subjective - Date & Time of Evaluation Date of Evaluation: 06/25/18 Time of Evaluation: 15:17 - Subjective Subjective: Neuro Follow-Up Note: Mrs. Pinzon was seen and examined at bedside in no acute distress. Patient states that her fatigue is still present but improving. She still admits to paresthesias to b/l feet but states they are tolerable. She has no new complaints today. Denies h/a, dizziness, visual changes, chest pain, sob, abd pain, n/v/d. Objective - Vital Signs/Intake and Output Vital Signs (last 24 hours): Temp Pulse Resp BP Pulse Ox 97.9 F 100 H 18 113/82 96 06/25/18 07:00 06/25/18 07:00 06/25/18 07:00 06/25/18 07:00 06/25/18 07:00 Intake and Output: 06/25/18 06/25/18 06:59 18:59 Intake Total 480 Output Total 600 Balance -120 - Medications Medications: Current Medications Cyanocobalamin (Vitamin B12 1000 Mcg/Ml Inj) 1,000 mcg IM Q7D [facility] Last Admin: 06/23/18 18:12 Dose: 1,000 mcg Enoxaparin Sodium (Lovenox) 40 mg SC DAILY [facility] Last Admin: 06/25/18 11:08 Dose: 40 mg Ergocalciferol (Drisdol 50,000 Intl Units Cap) 1 cap PO Q7D [facility] Last Admin: 06/20/18 10:00 Dose: 1 cap Folic Acid (Folic Acid) 1 mg PO DAILY [facility] Last Admin: 06/25/18 11:08 Dose: 1 mg Gabapentin (Neurontin) 100 mg PO HS [facility] Last Admin: 06/24/18 21:58 Dose: 100 mg Metoprolol Tartrate (Lopressor) 12.5 mg PO Q12 [facility] Last Admin: 06/25/18 12:50 Dose: 12.5 mg Midodrine (Proamatine) 2.5 mg PO BID [facility] Last Admin: 06/25/18 11:09 Dose: 2.5 mg Multivitamins (Hexavitamin) 1 tab PO DAILY [facility] Last Admin: 06/25/18 11:08 Dose: 1 tab Pantoprazole Sodium (Protonix Ec Tab) 20 mg PO DAILY [facility] Last Admin: 06/25/18 11:08 Dose: 20 mg Pyridoxine HCl (Vitamin B6 50 Mg Tab) 50 mg PO DAILY [facility] Last Admin: 06/25/18 11:08 Dose: 50 mg Saccharomyces Boulardii (Florastor) 250 mg PO BID [facility] Last Admin: 06/25/18 11:08 Dose: 250 mg Sennosides (Senokot Tab) 8.6 mg PO BID PRN PRN Reason: Constipation Thiamine HCl (Vitamin B1 Tab) 100 mg PO DAILY [facility] Last Admin: 06/25/18 11:09 Dose: 100 mg Vitamin B Complex/Vitamin C (Berocca) 1 tab PO DAILY [facility] Last Admin: 06/25/18 11:07 Dose: 1 tab Vitamin E (Vitamin E 400 Units Cap) 400 intlu PO DAILY [facility] Last Admin: 06/25/18 11:09 Dose: 400 intlu Zinc Sulfate (Zinc Sulfate 220 Mg Cap) 220 mg PO DAILY [facility] Last Admin: 06/25/18 11:08 Dose: 220 mg - Labs Labs: 06/23/18 07:26 06/23/18 07:26 PT 12.3 SECONDS (9.7-12.2) H 06/07/18 17:57 INR 1.1 06/07/18 17:57 APTT 35 SECONDS (21-34) H 06/07/18 17:57 - Constitutional Appears: Well, Non-toxic, No Acute Distress - Head Exam Head Exam: ATRAUMATIC, NORMAL INSPECTION, NORMOCEPHALIC - Eye Exam Eye Exam: EOMI, PERRL Pupil Exam: NORMAL ACCOMODATION, PERRL - ENT Exam ENT Exam: Mucous Membranes Moist - Neck Exam Neck Exam: Full ROM, Normal Inspection - Respiratory Exam Respiratory Exam: NORMAL BREATHING PATTERN - Extremities Exam Extremities Exam: absent: Calf Tenderness, Full ROM (continues to have extremity weakness and decreased rom ), Tenderness - Neurological Exam Neurological Exam: Alert, Awake, Oriented x3 Neuro motor strength exam: Left Upper Extremity: 4 (agricultural commodities grader 4/5), Right Upper Extremity: 4 (agricultural commodities grader 4/5), Left Lower Extremity: 4, Right Lower Extremity: 4 Additional comments: speech clear and fluid no facial asymmetry pincer grasps weak but intact diminished reflexes ble hypersensitivity to plantar aspect of both feet resolved - Psychiatric Exam Psychiatric exam: Normal Affect, Normal Mood - Skin Skin Exam: Normal Color Assessment and Plan (1) Weakness of limb Assessment & Plan: The patient continues to improve and is pending placement at a rehab facility. - Completed 3 doses of IVIG. - Continue to hold Mestinon as antibodies are not indicative of MG. - Continue PT/OT - Continue Gabapentin to 100 mg PO HS. - Continue supportive measures. We will sign off at this time. Please reconsult prn. Case discussed with Dr. Hanks Thank you for allowing us to participate in this patient's care. Status: Acute
--- NOTE | 2018-06-26 00:03 | CP.PCM.PN ---
<Shakira Batres - Last Filed: 06/26/18 00:00> Subjective - Date & Time of Evaluation Date of Evaluation: 06/26/18 Time of Evaluation: 00:00 - Subjective Subjective: PGY-1 Shakira Batres D.O. Medicine progress note for Dr. Eulalio Sanon's service: Patient was seen and examined. She is sitting up comfortably in bed. No acute complaints. Still with ongoing symptoms of LE weakness, parethesias. Denies chest pain, CHUN, SOB, N/V/D/C. Objective - Vital Signs/Intake and Output Vital Signs (last 24 hours): Temp Pulse Resp BP Pulse Ox 97.3 F L 114 H 20 124/86 96 06/25/18 15:08 06/25/18 22:49 06/25/18 22:49 06/25/18 22:49 06/25/18 15:08 - Medications Medications: Current Medications Cyanocobalamin (Vitamin B12 1000 Mcg/Ml Inj) 1,000 mcg IM Q7D [facility] Last Admin: 06/23/18 18:12 Dose: 1,000 mcg Enoxaparin Sodium (Lovenox) 40 mg SC DAILY [facility] Last Admin: 06/25/18 11:08 Dose: 40 mg Ergocalciferol (Drisdol 50,000 Intl Units Cap) 1 cap PO Q7D [facility] Last Admin: 06/20/18 10:00 Dose: 1 cap Folic Acid (Folic Acid) 1 mg PO DAILY [facility] Last Admin: 06/25/18 11:08 Dose: 1 mg Gabapentin (Neurontin) 100 mg PO HS [facility] Last Admin: 06/25/18 22:50 Dose: 100 mg Metoprolol Tartrate (Lopressor) 12.5 mg PO Q12 [facility] Last Admin: 06/25/18 22:50 Dose: 12.5 mg Midodrine (Proamatine) 2.5 mg PO BID [facility] Last Admin: 06/25/18 19:32 Dose: 2.5 mg Multivitamins (Hexavitamin) 1 tab PO DAILY [facility] Last Admin: 06/25/18 11:08 Dose: 1 tab Pantoprazole Sodium (Protonix Ec Tab) 20 mg PO DAILY [facility] Last Admin: 06/25/18 11:08 Dose: 20 mg Pyridoxine HCl (Vitamin B6 50 Mg Tab) 50 mg PO DAILY [facility] Last Admin: 12/14/18 11:08 Dose: 50 mg Saccharomyces Boulardii (Florastor) 250 mg PO BID [facility] Last Admin: 06/25/18 18:22 Dose: 250 mg Sennosides (Senokot Tab) 8.6 mg PO BID PRN PRN Reason: Constipation Thiamine HCl (Vitamin B1 Tab) 100 mg PO DAILY [facility] Last Admin: 06/25/18 11:09 Dose: 100 mg Vitamin B Complex/Vitamin C (Berocca) 1 tab PO DAILY [facility] Last Admin: 06/25/18 11:07 Dose: 1 tab Vitamin E (Vitamin E 400 Units Cap) 400 intlu PO DAILY [facility] Last Admin: 06/25/18 11:09 Dose: 400 intlu Zinc Sulfate (Zinc Sulfate 220 Mg Cap) 220 mg PO DAILY [facility] Last Admin: 06/25/18 11:08 Dose: 220 mg - Labs Labs: 06/23/18 07:26 06/23/18 07:26 PT 12.3 SECONDS (9.7-12.2) H 06/07/18 17:57 INR 1.1 06/07/18 17:57 APTT 35 SECONDS (21-34) H 06/07/18 17:57 - Constitutional Appears: Non-toxic, No Acute Distress - Head Exam Head Exam: ATRAUMATIC, NORMAL INSPECTION - Eye Exam Eye Exam: EOMI, Normal appearance, PERRL - ENT Exam ENT Exam: Mucous Membranes Moist - Neck Exam Neck Exam: Normal Inspection - Respiratory Exam Respiratory Exam: Clear to Ausculation Bilateral, NORMAL BREATHING PATTERN - Cardiovascular Exam Cardiovascular Exam: Tachycardia, REGULAR RHYTHM - GI/Abdominal Exam GI & Abdominal Exam: Soft. absent: Tenderness - Rectal Exam Rectal Exam: Deferred - Extremities Exam Extremities Exam: Normal Capillary Refill, Normal Inspection. 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 Neurology consulted. Patient is s/p plasmapheresis x3. s/p IVIG 06/20. Some improvement of symptoms but no known etiology at this time. Pending [facility] placement- [facility] in [place]. Plan: Bilateral Upper and Lower mixed motor/sensory neuropathy. 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 - Plan for transfer to acute rehab for EMG/NCV and further assessment - Multiple sclerosis and Gyasthenia gravis unlikely due to neg serologies and MRI spine findings - s/p lumbar tap: CSF total protein wnl - Vitamin B12 > 1000 - Folate wnl - Copper tox neg - Homocysteine 18.4 - Anti-Ach receptor antibodies negative - RPR, HIV, HSV, West Nile, lyme negative - MRI C/T/L spine series: no acute findings - MRI brain w/contrast: 4 mm enhancing lesion in R pontomedullary junction and nonenhancing inferior L frontal lobe lesion. - CT chest (06/09): 2.7 x 2.5 cm heterogeneous hyperdense mass noted in L hepatic lobe worrisome for malignant neoplasm. Cholelithiasis. High density focus noted on the nondependent portion of the gallbladder; alternatives including polyp or neoplasm can't be excluded. - MRI/CT abdomen reports from [facility] faxed over and placed in patient chart: liver lesion, likely hemangioma - s/p plasmapheresis x3 - Multivitamin, Thiamine, Folic acid, Vitamin B/C complex, Vitamin E, Zinc sulfate PO QD - Vit D 50,000 IU PO Q7D (Sun) - Vitamin B12 1000 mcg IM Q7D (Wed) - Gabapentin 100mg HS - Neurology consulted, Dr. Villalba/Latonya - IVIG @ 23mg/hr- 3 day course completed 06/20 - EMG/NCV: obtain in Rehab or as Outpt -Heme/Onc consulted, Dr Maria Constipation, improving - Senokot 8.6 mg PO BID PRN Restless Leg Syndrome, improving - f/u outpatient - consider Neupro, Not on formulary at this facility Orthostatic hypotension, improving - Midodrine 2.5mg PO BID - Lopressor 12.5mg PO BID Polycythemia, resolved - s/p plasmapheresis x3 - Heme/Onc consulted, Dr. Maria Urinary tract infection, resolved - UCx 06/09: + E.coli - repeat UCx negative 06/15 - BCx negative - Afebrile, hemodynamically stable - completed 3 days ceftriaxone 1g IV Ppx: DVT: Lovenox 40 mg SC daily GI: PTX 20 mg PO daily Florastor 250 mg PO BID Diet: advance bite size Code status: full code Case was discussed with attending, Dr. Eulalio Sanon. <Eulalio Sanon J - Last Filed: 06/27/18 20:35> Objective - Vital Signs/Intake and Output Vital Signs (last 24 hours): Temp Pulse Resp BP Pulse Ox 99.6 F 125 H 18 117/88 97 06/27/18 16:31 18 16:31 06/27/18 16:31 06/27/18 16:31 06/27/18 16:31 - Medications Medications: Current Medications Cyanocobalamin (Vitamin B12 1000 Mcg/Ml Inj) 1,000 mcg IM Q7D [facility] Last Admin: 06/23/18 18:12 Dose: 1,000 mcg Enoxaparin Sodium (Lovenox) 40 mg SC DAILY [facility] Last Admin: 06/27/18 10:44 Dose: 40 mg Ergocalciferol (Drisdol 50,000 Intl Units Cap) 1 cap PO Q7D [facility] Last Admin: 06/27/18 10:44 Dose: 1 cap Folic Acid (Folic Acid) 1 mg PO DAILY [facility] Last Admin: 06/27/18 10:44 Dose: 1 mg Gabapentin (Neurontin) 100 mg PO HS [facility] Last Admin: 06/26/18 22:02 Dose: 100 mg Metoprolol Tartrate (Lopressor) 12.5 mg PO Q12 [facility] Last Admin: 06/27/18 10:38 Dose: Not Given Midodrine (Proamatine) 2.5 mg PO BID [facility] Last Admin: 06/27/18 18:12 Dose: 2.5 mg Multivitamins (Hexavitamin) 1 tab PO DAILY [facility] Last Admin: 06/27/18 10:44 Dose: 1 tab Pantoprazole Sodium (Protonix Ec Tab) 20 mg PO DAILY [facility] Last Admin: 06/27/18 10:44 Dose: 20 mg Pyridoxine HCl (Vitamin B6 50 Mg Tab) 50 mg PO DAILY [facility] Last Admin: 06/27/18 10:44 Dose: 50 mg Saccharomyces Boulardii (Florastor) 250 mg PO BID [facility] Last Admin: 06/27/18 18:12 Dose: 250 mg Sennosides (Senokot Tab) 8.6 mg PO BID PRN PRN Reason: Constipation Thiamine HCl (Vitamin B1 Tab) 100 mg PO DAILY [facility] Last Admin: 06/27/18 10:44 Dose: 100 mg Vitamin B Complex/Vitamin C (Berocca) 1 tab PO DAILY [facility] Last Admin: 06/27/18 10:44 Dose: 1 tab Vitamin E (Vitamin E 400 Units Cap) 400 intlu PO DAILY [facility] Last Admin: 06/27/18 10:44 Dose: 400 intlu Zinc Sulfate (Zinc Sulfate 220 Mg Cap) 220 mg PO DAILY [facility] Last Admin: 06/27/18 10:44 Dose: 220 mg - Labs Labs: 06/27/18 09:35 06/27/18 09:35 PT 12.3 SECONDS (9.7-12.2) H 06/07/18 17:57 INR 1.1 06/07/18 17:57 APTT 35 SECONDS (21-34) H 06/07/18 17:57 Attending/Attestation - Attestation I have personally seen and examined this patient.: Yes I have fully participated in the care of the patient.: Yes I have reviewed all pertinent clinical information, including history, physical exam and plan: Yes Notes (Text): 06/27/18 20:35 This is a late entry. Care of this patient was gone over with resident Dr. Gisel Sanon D.O.
[2018-06-26] MEDS: Multiple Vitamins Tab PO SCH (10:39)
[2018-06-26] MEDS: Vitamin B Complex/Vitamin C Tab PO SCH (10:39)
[2018-06-26] MEDS: Saccharomyces Boulardi 250 mg Cap PO SCH ×2 (10:39→17:57)
[2018-06-26] MEDS: Pantoprazole 20 mg EC Tab PO SCH (10:39)
[2018-06-26] MEDS: Enoxaparin 40 mg Syringe SC SCH (10:40)
[2018-06-26] MEDS ORDERED: Magnesium Sulfate 1 gm in D5W 1 GM/100 ML BAG IVPB SCH (14:00)
--- NOTE | 2018-06-27 01:42 | CP.PCM.PN ---
<Shakira Batres - Last Filed: 06/27/18 01:40> Subjective - Date & Time of Evaluation Date of Evaluation: 06/27/18 Time of Evaluation: 01:40 - Subjective Subjective: PGY-1 Shakira Batres D.O. Medicine progress note for Dr. Eulalio Sanon's service: Patient was seen and examined this morning. She is resting comfortably in bed. She continues to have a cold sensation on her fingers when touching things, but this is becoming more intermittent. Weakness continues to improve but she is not back to functional baseline. Denies chest pain, CHUN, SOB, N/V/D/C. Objective - Vital Signs/Intake and Output Vital Signs (last 24 hours): Temp Pulse Resp BP Pulse Ox 98.6 F 115 H 20 128/87 96 06/26/18 23:10 06/26/18 23:10 06/26/18 23:10 06/26/18 23:10 06/26/18 23:10 - Medications Medications: Current Medications Cyanocobalamin (Vitamin B12 1000 Mcg/Ml Inj) 1,000 mcg IM Q7D [facility] Last Admin: 06/23/18 18:12 Dose: 1,000 mcg Enoxaparin Sodium (Lovenox) 40 mg SC DAILY [facility] Last Admin: 06/26/18 10:40 Dose: 40 mg Ergocalciferol (Drisdol 50,000 Intl Units Cap) 1 cap PO Q7D [facility] Last Admin: 06/20/18 10:00 Dose: 1 cap Folic Acid (Folic Acid) 1 mg PO DAILY [facility] Last Admin: 06/26/18 10:39 Dose: 1 mg Gabapentin (Neurontin) 100 mg PO HS [facility] Last Admin: 06/26/18 22:02 Dose: 100 mg Metoprolol Tartrate (Lopressor) 12.5 mg PO Q12 [facility] Last Admin: 06/26/18 22:03 Dose: Not Given Midodrine (Proamatine) 2.5 mg PO BID [facility] Last Admin: 06/26/18 17:57 Dose: 2.5 mg Multivitamins (Hexavitamin) 1 tab PO DAILY [facility] Last Admin: 06/26/18 10:39 Dose: 1 tab Pantoprazole Sodium (Protonix Ec Tab) 20 mg PO DAILY [facility] Last Admin: 06/26/18 10:39 Dose: 20 mg Pyridoxine HCl (Vitamin B6 50 Mg Tab) 50 mg PO DAILY [facility] Last Admin: 06/26/18 10:39 Dose: 50 mg Saccharomyces Boulardii (Florastor) 250 mg PO BID [facility] Last Admin: 06/26/18 17:57 Dose: 250 mg Sennosides (Senokot Tab) 8.6 mg PO BID PRN PRN Reason: Constipation Thiamine HCl (Vitamin B1 Tab) 100 mg PO DAILY [facility] Last Admin: 06/26/18 10:39 Dose: 100 mg Vitamin B Complex/Vitamin C (Berocca) 1 tab PO DAILY [facility] Last Admin: 06/26/18 10:39 Dose: 1 tab Vitamin E (Vitamin E 400 Units Cap) 400 intlu PO DAILY [facility] Last Admin: 06/26/18 10:39 Dose: 400 intlu Zinc Sulfate (Zinc Sulfate 220 Mg Cap) 220 mg PO DAILY [facility] Last Admin: 06/26/18 10:39 Dose: 220 mg - Labs Labs: 06/23/18 07:26 06/23/18 07:26 PT 12.3 SECONDS (9.7-12.2) H 06/07/18 17:57 INR 1.1 06/07/18 17:57 APTT 35 SECONDS (21-34) H 06/07/18 17:57 - Constitutional Appears: Non-toxic, No Acute Distress - Head Exam Head Exam: ATRAUMATIC, NORMAL INSPECTION - Eye Exam Eye Exam: EOMI, Normal appearance, PERRL - ENT Exam ENT Exam: Mucous Membranes Moist - Neck Exam Neck Exam: Normal Inspection - Respiratory Exam Respiratory Exam: Clear to Ausculation Bilateral, NORMAL BREATHING PATTERN. absent: Accessory Muscle Use, Respiratory Distress - Cardiovascular Exam Cardiovascular Exam: Tachycardia, REGULAR RHYTHM, +S1, +S2. absent: Murmur - GI/Abdominal Exam GI & Abdominal Exam: Soft. absent: Tenderness - Rectal Exam Rectal Exam: Deferred - Extremities Exam Extremities Exam: Normal Inspection. absent: Pedal Edema, Tenderness - Neurological Exam Neurological Exam: Alert, Awake, CN II-XII Intact, Oriented x3 Neuro motor strength exam: Left Upper Extremity: 4, Right Upper Extremity: 4, Left Lower Extremity: 4, Right Lower Extremity: 4 - Psychiatric Exam Psychiatric exam: Normal Affect, Normal Mood - Skin Skin Exam: Dry, Normal Color, Warm Assessment and Plan - Assessment and Plan (Free Text) Assessment: Patient is a 47 yo female with pmhx of gastric bypass (12 years ago) and hysterectomy who presented with worsening b/l LE numbness/weakness, ataxia, and b/l UE numbness x 3 weeks. Neurology consulted. Patient is s/p plasmapheresis x3. s/p IVIG 06/20. Some improvement of symptoms but no known etiology at this time. Pending [facility] authorization for [facility] in [place]. Plan: Bilateral Upper and Lower mixed motor/sensory neuropathy, improving - Suspect Guillain [place] vs Complex Inflammatory Demyelinating Polyneuropathy- would need neurodiagnostic studies that are not available at this facility - Plan for transfer to acute rehab for EMG/NCV and further assessment - Multiple sclerosis and Gyasthenia gravis unlikely due to neg serologies and MRI spine findings - s/p lumbar tap: CSF total protein wnl - Vitamin B12 > 1000 - Folate wnl - Copper tox neg - Homocysteine 18.4 - Anti-Ach receptor Abs negative - RPR, HIV, HSV, West Nile, Lyme negative - MRI C/T/L spine series: no acute findings - MRI brain w/contrast: 4 mm enhancing lesion in R pontomedullary junction and nonenhancing inferior L frontal lobe lesion. - CT chest (06/09): 2.7 x 2.5 cm heterogeneous hyperdense mass noted in L hepatic lobe worrisome for malignant neoplasm. Cholelithiasis. High density focus noted on the nondependent portion of the gallbladder; alternatives incl uding polyp or neoplasm can't be excluded. - MRI/CT abdomen reports from [facility] faxed over and placed in patient chart: liver lesion, likely hemangioma - Multivitamin, Thiamine, Folic acid, Vitamin B/C complex, Vitamin E, Zinc sulfate PO QD - Vit D 50,000 IU PO Q7D (Sun) - Vitamin B12 1000 mcg IM Q7D (Wed) - Gabapentin 100mg QHS - Neurology consulted, Dr. Villalba/Latonya - IVIG @ 23mg/hr- 3 day course completed 06/20 - EMG/NCV: obtain in Rehab or as Outpt -Heme/Onc consulted, Dr Maria - s/p plasmapheresis x3 Restless Leg Syndrome, improving - f/u outpatient - Consider Neupro, Not on formulary at this facility Constipation, improving - Senokot 8.6 mg PO BID PRN Orthostatic hypotension, improving - Midodrine 2.5mg PO BID - Lopressor 12.5mg PO BID Polycythemia, resolved - s/p plasmapheresis x3 - Heme/Onc consulted, Dr. Maria Urinary tract infection, resolved - UCx 06/09: + E.coli - repeat UCx negative 06/15 - BCx negative - Afebrile, hemodynamically stable - Completed 3 days ceftriaxone 1g IV Ppx: DVT: Lovenox 40 mg SC daily GI: PTX 20 mg PO daily Florastor 250 mg PO BID Diet: advance bite size Code status: full code Case was discussed with attending, Dr. Eulalio Sanon. <Eulalio Sanon J - Last Filed: 06/27/18 18:13> Objective - Vital Signs/Intake and Output Vital Signs (last 24 hours): Temp Pulse Resp BP Pulse Ox 99.6 F 125 H 18 117/88 97 06/27/18 16:31 06/27/18 16:31 06/27/18 16:31 06/27/18 16:31 06/27/18 16:31 Intake and Output: 06/27/18 06/27/18 06:59 18:59 Output Total 100 Balance -100 - Medications Medications: Current Medications Cyanocobalamin (Vitamin B12 1000 Mcg/Ml Inj) 1,000 mcg IM Q7D [facility] Last Admin: 06/23/18 18:12 Dose: 1,000 mcg Enoxaparin Sodium (Lovenox) 40 mg SC DAILY [facility] Last Admin: 06/27/18 10:44 Dose: 40 mg Ergocalciferol (Drisdol 50,000 Intl Units Cap) 1 cap PO Q7D [facility] Last Admin: 06/27/18 10:44 Dose: 1 cap Folic Acid (Folic Acid) 1 mg PO DAILY [facility] Last Admin: 06/27/18 10:44 Dose: 1 mg Gabapentin (Neurontin) 100 mg PO HS [facility] Last Admin: 06/26/18 22:02 Dose: 100 mg Metoprolol Tartrate (Lopressor) 12.5 mg PO Q12 [facility] Last Admin: 06/27/18 10:38 Dose: Not Given Midodrine (Proamatine) 2.5 mg PO BID [facility] Last Admin: 06/27/18 10:44 Dose: 2.5 mg Multivitamins (Hexavitamin) 1 tab PO DAILY [facility] Last Admin: 06/27/18 10:44 Dose: 1 tab Pantoprazole Sodium (Protonix Ec Tab) 20 mg PO DAILY [facility] Last Admin: 06/27/18 10:44 Dose: 20 mg Pyridoxine HCl (Vitamin B6 50 Mg Tab) 50 mg PO DAILY [facility] Last Admin: 06/27/18 10:44 Dose: 50 mg Saccharomyces Boulardii (Florastor) 250 mg PO BID [facility] Last Admin: 06/27/18 10:50 Dose: Not Given Sennosides (Senokot Tab) 8.6 mg PO BID PRN PRN Reason: Constipation Thiamine HCl (Vitamin B1 Tab) 100 mg PO DAILY [facility] Last Admin: 06/27/18 10:44 Dose: 100 mg Vitamin B Complex/Vitamin C (Berocca) 1 tab PO DAILY [facility] Last Admin: 06/27/18 10:44 Dose: 1 tab Vitamin E (Vitamin E 400 Units Cap) 400 intlu PO DAILY [facility] Last Admin: 06/27/18 10:44 Dose: 400 intlu Zinc Sulfate (Zinc Sulfate 220 Mg Cap) 220 mg PO DAILY [facility] Last Admin: 06/27/18 10:44 Dose: 220 mg - Labs Labs: 06/27/18 09:35 06/27/18 09:35 PT 12.3 SECONDS (9.7-12.2) H 06/07/18 17:57 INR 1.1 06/07/18 17:57 APTT 35 SECONDS (21-34) H 06/07/18 17:57 Attending/Attestation - Attestation I have personally seen and examined this patient.: Yes I have fully participated in the care of the patient.: Yes I have reviewed all pertinent clinical information, including history, physical exam and plan: Yes Notes (Text): 06/27/18 18:04 Patient was seen and examined at 8:50 AM 06/27/18 Bed 653 B Patient continues to have pins and needles sensation in the hands and feet that come and go. She continues to have sensation of coldness when she touches something but this is also improving. She is moving her bowels normally She is urinating without any issues She is able to stand with assistance but not without it today with Nurse Teresita NO other complaints upon FULL ROS HEENT, Cardio, Resp, GI, Ext, CN II through XII exams unremarkable Bilateral UE strength is 5/5 and Bilateral LE strength is 4/5 against resistance Patient continues to have Orthostatic Hypotension today (Sitting blood pressure and heart rate 111/81 and 123 and standing blood pressure and heart are 83/60 and 141) therefore the Midodrine was continued. Disposition: awaiting for insurance approval for [facility] in [place], [place] for [facility]. She will need to have Nerve Conduction Velocity and EMG studies performed at [facility] if possible and if not then she will have to have these performed through follow up with Neurology as outpatient. Eulalio Sanon D.O.
[2018-06-27] MEDS ORDERED: Magnesium Sulfate 1 gm in D5W 1 GM/100 ML BAG IVPB SCH (08:45)
[2018-06-27 09:57] LABS: BASO % 0.8 % (0.0-2.0); EOS # 0.1 K/uL (0.0-0.7); EOS % 1.9 % (0.0-4.0); HEMOGLOBIN 13.6 g/dL (11.0-16.0); LYMPH # 1.6 K/uL (1.0-4.3); LYMPH % 29.2 % (20.0-40.0); MEAN CELL VOLUME 102.6 fL (81.0-99.0); MEAN CORPUSCULAR HEMOGLOBIN 34.8 pg (27.0-31.0); MEAN PLATELET VOLUME 10.4 fL (7.2-11.7); MONO # 0.5 K/uL (0.0-0.8); NEUT # 3.1 K/uL (1.8-7.0); NEUT % 58.1 % (50.0-75.0); NRBC % 0.1 % (0.0-2.0); RBC 3.9 Mil/uL (3.80-5.20); RED CELL DISTRIBUTION WIDTH 13.9 % (11.5-14.5); WHITE BLOOD COUNT 5.4 K/uL (4.8-10.8)
[2018-06-27 10:00] LABS: ALBUMIN 3.7 g/dL (3.5-5.0); ALT/SGPT 52 U/L (9-52); AST/SGOT 51 U/L (14-36); BLOOD UREA NITROGEN 10 mg/dL (7-17); CALCIUM 9.5 mg/dl (8.6-10.4); GFR NON-AFRICAN AMERICAN > 60
[2018-06-27] MEDS: Pantoprazole 20 mg EC Tab PO SCH (10:44)
[2018-06-27] MEDS: Ergocalciferol 50,000 Intl Units Cap PO SCH (10:44)
[2018-06-27] MEDS: Vitamin B Complex/Vitamin C Tab PO SCH (10:44)
[2018-06-27] MEDS: Multiple Vitamins Tab PO SCH (10:44)
[2018-06-27] MEDS: Enoxaparin 40 mg Syringe SC SCH (10:44)
[2018-06-27] MEDS: Saccharomyces Boulardi 250 mg Cap PO SCH ×2 (10:50→18:12)
--- NOTE | 2018-06-27 18:15 | CP.PCM.PCO ---
Physician Communication Note - Physician Communication Note Physician Communication Note: Please see above
[2018-06-28 07:14] LABS: BASO # 0.1 K/uL (0.0-0.2); BASO % 2.3 % (0.0-2.0); EOS # 0.1 K/uL (0.0-0.7); EOS % 1.8 % (0.0-4.0); HEMOGLOBIN 13.9 g/dL (11.0-16.0); LYMPH # 1.8 K/uL (1.0-4.3); LYMPH % 32.3 % (20.0-40.0); MEAN CELL VOLUME 102.5 fL (81.0-99.0); MEAN CORPUSCULAR HEMOGLOBIN 34.9 pg (27.0-31.0); MEAN PLATELET VOLUME 10.5 fL (7.2-11.7); MONO # 0.7 K/uL (0.0-0.8); MONO % 12.4 % (0.0-10.0); NEUT # 2.9 K/uL (1.8-7.0); NEUT % 51.2 % (50.0-75.0); NRBC % 0.1 % (0.0-2.0); RED CELL DISTRIBUTION WIDTH 13.5 % (11.5-14.5); WHITE BLOOD COUNT 5.6 K/uL (4.8-10.8)
[2018-06-28 07:36] LABS: ALBUMIN 3.9 g/dL (3.5-5.0); ALT/SGPT 53 U/L (9-52); AST/SGOT 58 U/L (14-36); BLOOD UREA NITROGEN 11 mg/dL (7-17); CALCIUM 9.8 mg/dl (8.6-10.4); GFR NON-AFRICAN AMERICAN > 60
[2018-06-28] MEDS: Vitamin B Complex/Vitamin C Tab PO SCH (10:56)
[2018-06-28] MEDS: Pantoprazole 20 mg EC Tab PO SCH (10:56)
[2018-06-28] MEDS: Multiple Vitamins Tab PO SCH (10:56)
[2018-06-28] MEDS: Saccharomyces Boulardi 250 mg Cap PO SCH ×2 (10:56→17:36)
[2018-06-28] MEDS: Enoxaparin 40 mg Syringe SC SCH (10:58)
[2018-06-28 16:02] VITALS: RESP 20
--- NOTE | 2018-06-28 17:11 | CP.PCM.DIS ---
Provider - Provider Date of Admission: 06/07/18 20:56 Attending physician: Eulalio Sanon MD Consults: 06/07/18 23:13 Case Management Referral Routine Comment: Physician Instructions: Reason For Exam: Reason for Referral: Discharge Planning 06/08/18 09:04 Hematology Oncology Consult Routine Comment: Consulting Provider: Salazar Maria Consulting Physician: Salazar Maria Reason for Consult: polycythemia, macocytosis 06/08/18 09:21 Physician Consult Routine Comment: Consulting Provider: Faisal Villalba Consulting Physician: Faisal Villalba Reason for Consult: b/l LE numbness/motor weakness, ataxic, r/o guillan-barre 06/10/18 12:47 Physician Consult Routine Comment: Consulting Provider: Irineo Ng Consulting Physician: Irineo Ng Reason for Consult: worsening LE numbness/weakness, ddx MG(?) 06/15/18 14:37 Psychiatry Consult Routine Comment: Consulting Provider: Aston Snyder Consulting Physician: Aston Snyder Reason for Consult: pt with peripheral neuropathy x3 weeks with unclear dx 06/20/18 10:02 Case Management Referral Routine Comment: Physician Instructions: Reason For Exam: acute rehab eval Reason for Referral: Discharge Planning Time Spent in preparation of Discharge (in minutes): 45 Diagnosis - Discharge Diagnosis (1) Peripheral neuropathy Status: Chronic (2) 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 Comment: CIDP vs Conversion d/o as cause for symptoms (3) Conversion disorder Status: Acute Hospital Course - Lab Results Lab Results: Micro Results 06/18/18 00:37 Naris MRSA Culture - Final MRSA NOT DETECTED 06/15/18 17:02 Urine,Catheterized Urine Culture - Final No Growth (<1,000 CFU/ML) 06/13/18 Unknown Stool Ova and Parasite Concentrate Exam - Final 06/08/18 17:30 Blood Blood Culture - Final NO GROWTH AFTER 5 DAYS 06/08/18 17:30 Blood Gram Stain - Final TEST NOT PERFORMED 06/08/18 17:00 Blood Blood Culture - Final NO GROWTH AFTER 5 DAYS 06/08/18 17:00 Blood Gram Stain - Final TEST NOT PERFORMED 06/08/18 01:13 Cerebral Spinal Fluid Gram Stain - Final 06/08/18 01:13 Cerebral Spinal Fluid CSF Culture - Final No growth. 06/09/18 05:48 Urine,Clean Catch Urine Culture - Final Escherichia Coli 06/08/18 06:06 Nose MRSA Culture (Admit) - Final MRSA NOT DETECTED Most Recent Lab Values WBC 5.6 K/uL (4.8-10.8) 06/28/18 07:05 RBC 4.00 Mil/uL (3.80-5.20) 06/28/18 07:05 Hgb 13.9 g/dL (11.0-16.0) 06/28/18 07:05 Hct 41.0 % (34.0-47.0) 06/28/18 07:05 MCV 102.5 fL (81.0-99.0) H 06/28/18 07:05 MCH 34.9 pg (27.0-31.0) H 06/28/18 07:05 MCHC 34.0 g/dL (33.0-37.0) 06/28/18 07:05 RDW 13.5 % (11.5-14.5) 06/28/18 07:05 Plt Count 259 K/uL (130-400) 06/28/18 07:05 MPV 10.5 fL (7.2-11.7) 06/28/18 07:05 Neut % (Auto) 51.2 % (50.0-75.0) 06/28/18 07:05 Lymph % (Auto) 32.3 % (20.0-40.0) 06/28/18 07:05 [place] % (Auto) 12.4 % (0.0-10.0) H 06/28/18 07:05 Eos % (Auto) 1.8 % (0.0-4.0) 06/28/18 07:05 Baso % (Auto) 2.3 % (0.0-2.0) H 06/28/18 07:05 Neut # (Auto) 2.9 K/uL (1.8-7.0) 06/28/18 07:05 Lymph # (Auto) 1.8 K/uL (1.0-4.3) 06/28/18 07:05 Valley # (Auto) 0.7 K/uL (0.0-0.8) 06/28/18 07:05 Eos # (Auto) 0.1 K/uL (0.0-0.7) 06/28/18 07:05 Baso # (Auto) 0.1 K/uL (0.0-0.2) 06/28/18 07:05 Differential Comment 06/28/18 07:05 ESR 15 mm/hr (0-20) 06/08/18 15:27 Retic Count 0.5 % (0.5-1.5) 06/08/18 03:30 PT 12.3 SECONDS (9.7-12.2) H 06/07/18 17:57 INR 1.1 06/07/18 17:57 APTT 35 SECONDS (21-34) H 06/07/18 17:57 Fibrinogen 122 mg/dL (200-400) L 06/14/18 06:22 Sodium 138 mmol/L (132-148) 06/28/18 07:05 Potassium 4.2 mmol/L (3.6-5.2) 06/28/18 07:05 Chloride 105 mmol/L (98-107) 06/28/18 07:05 Carbon Dioxide 26 mmol/L (22-30) 06/28/18 07:05 Anion Gap 11 (10-20) 06/28/18 07:05 BUN 11 mg/dL (7-17) 06/28/18 07:05 Creatinine 0.4 mg/dL (0.7-1.2) L 06/28/18 07:05 Est GFR ( Amer) > 60 06/28/18 07:05 Est GFR (Non-Af Amer) > 60 06/28/18 07:05 Random Glucose 108 mg/dL (65-105) H 06/28/18 07:05 Lactic Acid 1.8 mmol/L (0.7-2.1) 06/07/18 17:57 Calcium 9.8 mg/dl (8.6-10.4) 06/28/18 07:05 Phosphorus 4.5 mg/dL (2.5-4.5) 06/28/18 07:05 Magnesium 1.5 mg/dL (1.6-2.3) L 06/28/18 07:05 Iron 50 ug/dL (37-170) 06/08/18 15:27 TIBC 210 ug/dL (250-450) L 06/08/18 15:27 % Saturation 24 (20-55) 06/08/18 15:27 Total Bilirubin 0.6 mg/dL (0.2-1.3) 06/28/18 07:05 AST 58 U/L (14-36) H 06/28/18 07:05 ALT 53 U/L (9-52) H 06/28/18 07:05 Alkaline Phosphatase 71 U/L (38-126) 06/28/18 07:05 Total Creatine Kinase 54 U/L (30-135) 06/07/18 17:57 CK-MB (Mass) < 0.22 ng/mL (0.0-3.38) 06/07/18 17:57 Troponin I < 0.0120 ng/mL (0.00-0.120) 06/07/18 17:57 Total Protein 7.9 g/dL (6.3-8.3) 06/28/18 07:05 Albumin 3.9 g/dL (3.5-5.0) 06/28/18 07:05 Globulin 4.0 gm/dL (2.2-3.9) H 06/28/18 07:05 Albumin/Globulin Ratio 1.0 (1.0-2.1) 06/28/18 07:05 Amylase 65 U/L (30-110) 06/07/18 17:57 Lipase 44 U/L (23-300) 06/07/18 17:57 Vitamin A 27 mcg/dL (38-98) L 06/18/18 09:14 Vitamin B12 > 1000 pg/mL (239-931) H 06/07/18 17:57 Methylmalonic Acid 132 nmol/L (87-318) 06/07/18 16:00 25-OH Vitamin D Total < 12.8 NG/ML (30.0-100.0) L 06/10/18 20:46 Alpha-Tocopherol Vit E 3.4 mg/L (5.7-19.9) L 06/18/18 09:14 Gamma-Tocopherol Vit E 1.1 mg/L (<=4.3) 06/18/18 09:14 Folate > 20.0 ng/mL 06/07/18 17:57 Homocysteine 18.4 umol/L (4.7-12.6) H 06/07/18 22:13 Free T4 1.60 ng/dL (0.78-2.19) 06/18/18 06:22 TSH 3rd Generation 1.77 mIU/L (0.46-4.68) 06/18/18 06:22 Cortisol AM Sample 9.7 ug/dL (4.46-22.7) 06/17/18 10:46 Urine Color Yellow (YELLOW) 06/07/18 19:08 Urine Clarity Clear (Clear) 06/07/18 19:08 Urine pH 7.0 (5.0-8.0) 06/07/18 19:08 Ur Specific [place] 1.008 (1.003-1.030) 06/07/18 19:08 Urine Protein Negative mg/dL (NEGATIVE) 06/07/18 19:08 Urine Glucose (UA) Normal mg/dL (Normal) 06/07/18 19:08 Urine Ketones Negative mg/dL (NEGATIVE) 06/07/18 19:08 Urine Blood Negative (NEGATIVE) 06/07/18 19:08 Urine Nitrate Negative (NEGATIVE) 06/07/18 19:08 Urine Bilirubin Negative (NEGATIVE) 06/07/18 19:08 Urine Urobilinogen Normal mg/dL (0.2-1.0) 06/07/18 19:08 Ur Leukocyte Esterase Neg Tomas/uL (Negative) 06/07/18 19:08 Urine WBC (Auto) < 1 /hpf (0-5) 06/07/18 19:08 Urine RBC (Auto) < 1 /hpf (0-3) 06/07/18 19:08 Fluid Type Spinal fluid 06/08/18 01:11 CSF Volume 2 mL (0-1) H 06/08/18 01:11 CSF Appearance Clear/colorless (CLEAR) 06/08/18 01:11 CSF WBC 1.0 /mm3 (0.0-5.0) 06/08/18 01:11 CSF RBC 317.0 /mm3 (0.0-0.0) H 06/08/18 01:11 CSF Total Cell Counted TEST NOT PERFORMED 06/08/18 01:11 CSF Monos/Macrophages TEST NOT PERFORMED 06/08/18 01:11 CSF Comment TEST NOT PERFORMED 06/08/18 01:11 CSF Glucose 61 mg/dL (40-70) 06/08/18 01:11 CSF Total Protein 47.0 mg/dL (12-60) 06/08/18 01:11 CSF Lyme IgG Antibody No bands detected 06/08/18 15:45 CSF Lyme Disease DNA Not detected 06/08/18 15:45 Stool Occult Blood Negative (NEGATIVE) 06/13/18 09:51 Urine Opiates Screen Negative (NEGATIVE) 06/07/18 19:08 Urine Methadone Screen Negative (NEGATIVE) 06/07/18 19:08 Ur Barbiturates Screen Negative (NEGATIVE) 06/07/18 19:08 Ur Phencyclidine Scrn Negative (NEGATIVE) 06/07/18 19:08 Ur Amphetamines Screen Negative (NEGATIVE) 06/07/18 19:08 U Benzodiazepines Scrn Negative (NEGATIVE) 06/07/18 19:08 U Oth Cocaine Metabols Negative (NEGATIVE) 06/07/18 19:08 U Cannabinoids Screen Negative (NEGATIVE) 06/07/18 19:08 Whole Blood Arsenic 4 mcg/L (<23) 06/18/18 07:03 Copper 115 mcg/dL (70-175) 06/09/18 07:53 Lead Sample Type Venous 06/18/18 07:03 Whole Blood Lead 2 mcg/dL (<5) 06/18/18 07:03 Mercury <4 mcg/L (<=10) 06/18/18 07:03 OCHOA 6 Profile Negative (NEGATIVE) 06/08/18 15:27 Anti-MuSK Ab Method See note 06/18/18 16:06 Anti-MuSK Ab Results See note 06/18/18 16:06 Anti-MuSK Ab Interp See note 06/18/18 16:06 Anti-MuSK Ab Comment See note 06/18/18 16:06 Anti-MuSK References See note 06/18/18 16:06 Acetylchol Rcpt Block Ab <15 (<15) 06/08/18 15:27 Acetylchol Rcpt Bind Ab <0.30 nmol/L 06/08/18 15:27 Acetylchol Rcpt Modu Ab 6 06/08/18 15:27 RPR Nonreactive (NONREACTIVE) 06/07/18 18:18 T.pallidum Ab (FTA-ABS) Nonreactive (Nonreactive) 06/07/18 18:18 Lyme Specimen Source Csf 06/08/18 15:45 Lyme Disease Screen <0.90 index 06/07/18 18:18 Lyme Bands Present TEST NOT PERFORMED 06/08/18 15:45 West Nile RNA (RT-PCR) Not detected (Not Detected) 06/08/18 15:45 Hepatitis A IgM Ab Negative (NEGATIVE) 06/17/18 05:49 Hep Bs Antigen Negative (NEGATIVE) 06/17/18 05:49 Hep B Core IgM Ab Negative (NEGATIVE) 06/17/18 05:49 Hepatitis C Antibody Negative (NEGATIVE) 06/17/18 05:49 HSV IgM Ab Screen Negative 06/08/18 15:45 HIV 1&2 Antibody Screen Negative (NEGATIVE) 06/07/18 18:36 Influenza Typ A,B (EIA) Negative for flu a/b (NEGATIVE) 06/07/18 18:18 - Hospital Course Hospital Course: Initial HPI Ms. Pinzon is a 47 year old female with unknown PMH complains of 2 weeks of numbness and tingling in her hands and feet. Initially, the muscle pain was just in her fingertips and bottoms of her feet. It has traveled more proximal over the last two weeks. She has been seen twice at [facility] for this issue, where they have done CT and MRI of her abdominal area. She is no longer able to ambulate, even with assistance. She has noticed a 10lb weight loss from decreased appetite and early satiety. Denies fever, chills, chest pain, headache. Admits to extreme fatigue and weakness. Assessment on discharge Patient is a 47 yo female with pmhx of gastric bypass (12 years ago) and hysterectomy who presented with worsening b/l LE numbness/weakness, ataxia, and b/l UE numbness x 3 weeks. Neurology followed during hospital course - working dx is CIDP. Patient is s/p plasmapheresis x3. s/p IVIG 06/20. Some improvement of symptoms but no known etiology at this time. Hospital Course Patient was admitted for neurologic sx described as b/l decreased sensation and weakness, hyperaesthesia, and increased temperature sensativity. Patient Neurology was consulted and patient was worked up. MRI of the brain and C/T/L spine were negative (MS less likely). Working diagnosis included MS vs GBS vs CIDP vs conversion d/o. Psych did also see the patient and assess that this could likely be due to conversion disorder. LP was done as well and CSF culture was negative with no WBCs and total protein WNL. CIDP vs conversion disorder/psych-related is though more likely, though further CIDP workup should be done with outpatient neuro. Clinically, patient was very agreeable to work with PT/OT and states her strength and overall symptoms much improved. She states was able to stand with assistance by day of discharge which was a vast improvement, and UE strength increased. She did undergo plasmapheresis and IVIG treatments during hospital stay as well. Patient did also c/o restless legs which improved without need for treatment. She was treated for UTI with Rocephin and repeat cultures were negative, ABx course finished. Home meds were restarted for chronic conditions. Plan to f/u with further workup as an outpatient following [facility]. Imaging: - MRI 06/16 C/T/L spine series: no acute findings - MRI brain w/contrast: 4 mm enhancing lesion in R pontomedullary junction and nonenhancing inferior L frontal lobe lesion. - CT chest (06/09): 2.7 x 2.5 cm heterogeneous hyperdense mass noted in L hepatic lobe worrisome for malignant neoplasm. Cholelithiasis. High density focus noted on the nondependent portion of the gallbladder; alternatives including polyp or neoplasm can't be excluded. - MRI/CT abdomen reports from [facility] faxed over and placed in patient chart: liver lesion, likely hemangioma Discharge Exam - Head Exam Head Exam: ATRAUMATIC, NORMAL INSPECTION - Eye Exam Eye Exam: EOMI, Normal appearance, PERRL - ENT Exam ENT Exam: Mucous Membranes Moist - Respiratory Exam Respiratory Exam: NORMAL BREATHING PATTERN, UNREMARKABLE. absent: Rhonchi, Wheezes - Cardiovascular Exam Cardiovascular Exam: REGULAR RHYTHM, +S1, +S2 - GI/Abdominal Exam GI & Abdominal Exam: Normal Bowel Sounds, Soft. absent: Tenderness - Extremities Exam Extremities exam: tenderness - Neurological Exam Neurological exam: Alert, CN II-XII Intact, Motor Sensory Deficit, Oriented x3 Additional comments: Decreased motor strength throughout, more so on L side. 4/5 throughout on R, 3+/5 throughout on L. Decreased but intact sensation in extremities. C/o pain OOP on lower extremities during neuro exam. CN 2-12 intact. - Psychiatric Exam Psychiatric exam: Normal Affect, Normal Mood - Skin Skin Exam: Dry, Intact Discharge Plan - Follow Up Plan Condition: FAIR Disposition: REHAB FACILITY/REHAB UNIT Instructions: Heart Healthy Diet, Generalized Weakness (DC) Additional Instructions: Discharging to [facility] hospital in [facility] - authorization has been received Patient is to continue taking medications as prescribed here at [facility] as she goes to [facility]. - B12 SC injection every 7 days - Lovenox SC 40 mg daily - VTE proph can continued to be managed per doctors at [facility] - Ergocalciferol 1 cap [id number] - Folic Acid 1mg PO daily - Midodrine 2.5 mg PO BID - Multivitamin 1 tab daily - Protonix 20 mg PO daily - Vit B6 20 mg PO daily - Florastor 250 mg PO BID - Senokot tab 8.6 mg PO BID prn - Thiamine 100 mg PO daily - Vit B 1 tab PO daily - Vit E 1 tab PO daily - Zinc 220 mg daily Pt is to obtain EMG and NCV studies during Rehab stay or as outpatient neurology/PM&R to confirm diagnosis Pt is to follow up with PMD and Neurologist Dr Jarrett Hanks within two weeks of Discharge from Rehab Please follow medical reconciliation for medications to be given at Rehab
[2018-06-29 02:18] VITALS: O2SAT 95
[2018-06-29 08:25] VITALS: BP 99/72; PULSE 116; TEMP 98.3
[2018-06-29] MEDS: Multiple Vitamins Tab PO SCH (10:42)
[2018-06-29] MEDS: Pantoprazole 20 mg EC Tab PO SCH (10:42)
[2018-06-29] MEDS: Saccharomyces Boulardi 250 mg Cap PO SCH (10:42)
[2018-06-29] MEDS: Vitamin B Complex/Vitamin C Tab PO SCH (10:42)
[2018-06-29] MEDS: Enoxaparin 40 mg Syringe SC SCH (10:44)
== END 2018-06-29 14:09 | DRG 74 ==
LOC: C.ER 14:14 → C.9E 20:56 → C.9I 23:35 → C.6T 06-18 16:11
PROVIDERS: ADMIT Family Medicine; ATTEND Family Medicine
PROC: 009U3ZX Drainage of Spinal Canal, Percutaneous Approach, Diagnostic (ICD-10-PCS; 2018-06-08)
PROC: 6A551Z3 Pheresis of Plasma, Multiple (ICD-10-PCS; principal; 2018-06-10)
DX: G61.81 Chronic inflammatory demyelinating polyneuritis (principal); G61.0 Guillain-Barre syndrome; N39.0 Urinary tract infection, site not specified; G70.00 Myasthenia gravis without (acute) exacerbation; F44.9 Dissociative and conversion disorder, unspecified; Z98.84 Bariatric surgery status; E55.9 Vitamin D deficiency, unspecified; D75.1 Secondary polycythemia; F41.9 Anxiety disorder, unspecified; G25.81 Restless legs syndrome; G35 Multiple sclerosis; I95.1 Orthostatic hypotension; Z91.14 Patient's other noncompliance with medication regimen